=== PATIENT | female | born 1950 | race Caucasian/White ===

== ENCOUNTER → 2017-03-28 | Outpatient (CLI) | payer BC ==
[~2017-03-28] MED LIST: ASCO500T16 PO; HORMONE COMPOUND; HYDR5TAB PO; LPR50X PO; THY/30 PO; VITBC PO; WARF5TAB90 PO; [UNRECOGNIZED DRUG - OTHER] PO; [UNRECOGNIZED DRUG - REMARK]; losartan
--- NOTE | 2017-03-28 15:56 | MAMMOGRAPHY REPORT ---
BILATERAL DIGITAL SCREENING MAMMOGRAM WITH CAD: 03/28/2017 CLINICAL HISTORY: Patient presents for routine screening. S/P bilateral augmentation. TECHNIQUE: Bilateral CC and MLO views of the breasts, with and without implant displacement views we re obtained. Current study was also evaluated with a Computer Aided Detection (CAD) system. COMPARISON: Comparison is made to exams dated: 03/26/2016 mammogram, 03/24/2015 mammogram, 03/22/2014 mammogram, 03/21/2013 mammogram, 03/14/2012 mammogram, and 01/20/2011 mammogram - [facility]. BREAST COMPOSITION: The tissue of both breasts is extremely dense, which lowers the sensitivity of mammography. FINDINGS: Bilateral subpectoral silicone implants are stable compared to prior exams. There are sta ble benign-appearing microcalcifications in the breasts. No obvious new mass, architectural distort ion or cluster of suspicious microcalcifications is seen. IMPRESSION: ACR BI-RADS CATEGORY 1: NEGATIVE There is no mammographic evidence of malignancy. A 1 year screening mammogram is recommended. The p atient will receive written notification of the results. Approximately 10% of breast cancers are not detected with mammography. A negative mammographic repor t should not delay biopsy if a clinically suggestive mass is present. Juliet Montaño M.D. ay/:03/28/2017 15:44:26 Podiatric Technician: Gabrielle FERMIN(Elsa)(Lane)(BD), [facility] letter sent: Normal 1/2 BI-RADS Code: ACR BI-RADS Category 1: Negative
== END | disposition home or self-care (01) ==
LOC: C.MAMM 14:42
PROVIDERS: ATTEND Obstetrics & Gynecology
DX: Z12.31 Encounter for screening mammogram for malignant neoplasm of breast (principal)

== ENCOUNTER → 2017-04-26 | Outpatient (CLI) | payer BC | LOC: C.LAB 09:56 | PROVIDERS: ATTEND Nutritionist | DX: R53.83 Other fatigue (principal) ==

== ENCOUNTER → 2017-05-27 | Outpatient (CLI) | payer BC ==
--- NOTE | 2017-05-27 13:25 | DIAGNOSTIC IMAGING REPORT ---
RIGHT FOOT MIN 3 VIEWS ROUTINE, LEFT FOOT MIN 3 VIEWS ROUTINE CLINICAL HISTORY: PAIN IN BOTH FEET Right COMPARISON STUDY: None. FINDINGS: No acute fracture or dislocation within the right or left foot. Incidental note is made of a a few accessory ossicles within the mid feet. 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 Dominant cystic focus within the base of the proximal phalanx of the right first toe measures 7 mm. No significant soft tissue swelling. Prior internal fixation of a bimalleolar right ankle fracture. The hardware appears intact. IMPRESSION: 1. No fracture or dislocation within the right or left foot. 2. 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 Electronically signed by: Maximilian Ferro M.D. 05/27/2017 1:24 PM Dictated Date/Time: 05/27/2017 1:20 PM
== END | disposition home or self-care (01) ==
LOC: C.RAD1850 12:37
PROVIDERS: ATTEND Internal Medicine Rheumatology
DX: M79.671 Pain in right foot (principal); M79.672 Pain in left foot

== ENCOUNTER 2017-06-27 07:29 | Day surgery (SDC) | payer BC ==
[~2017-06-27] VITALS: Ht 177.8 cm; Wt 64.9 kg
[2017-06-27] VITALS (14 sets, daily range): BP systolic 123–157; BP diastolic 68–90; PULSE 59–77; TEMP 36–37; O2SAT 95–100; Ht 177.8 cm; Wt 64.9 kg
[~2017-06-27 07:29] MED LIST changes: -LPR50X PO; -WARF5TAB90 PO; -losartan
[2017-06-27] MEDS ORDERED: LIDOCAINE HCL 2% LOCAL 50ML VIAL INFIL ONE (07:30)
[2017-06-27] MEDS ORDERED: LIDOCAINE 4% W/AFRIN NASAL SOLN 4ML ONE (07:30)
[2017-06-27] MEDS ORDERED: MIDAZOLAM HCL 5 MG/ML 1 ML VIAL IV ONE (07:30)
[2017-06-27] MEDS ORDERED: LEVALBUTEROL 1.25MG/3ML NEB INH ONE (07:30)
[2017-06-27] MEDS ORDERED: FENTANYL CITRATE INJ 50 MCG/1 ML 2 ML VIAL IV ONE (07:30)
[2017-06-27] MEDS ORDERED: LPR50X PO (08:40)
[2017-06-27] MEDS ORDERED: losartan (08:40)
[2017-06-27] MEDS ORDERED: WARF5TAB90 PO (08:40)
--- NOTE | 2017-06-27 08:45 | History & Physical Bridge Note ---
H&P Re-Evaluation Bridge Note: I have examined the patient, reviewed the History & Physical and in the interval since the performance of the History & Physical I have noted the following changes of clinical significance: No changes noted
--- NOTE | 2017-06-27 08:46 | Procedure Note ---
Pre-Mod Sedation Assessment General Date of Moderate Sedation: Jun 27, 2017. Vital Signs: Vital Signs Past 12 Hours Date Time Temp Pulse Resp B/P (MAP) Pulse Ox O2 Delivery O2 Flow Rate FiO2 06/27/17 08:05 37 71 18 136/68 (90) 99 Room Air Pre-Sedation Airway Assessment Oral Cavity: WNL Short Thick Neck: No Hx of Sleep Apnea: No Smoking Status: Former Smoker Mallampati Classification: Class I ASA Classification: Class I Procedure Planning Contraindications-for Mod Sed: None Yes Notes The planned sedation has been discussed with the patient and consent obtained. I have identified the patient, determined the appropriateness of sedation and have assessed the patient immediately prior to the procedure. All medicine(s) and interventions are by my order.
[2017-06-27 09:05] LABS: PARTIAL THROMBOPLASTIN RATIO 1.1
[2017-06-27] MEDS ORDERED: NURSING VERBAL MED ORDER ONE (10:15)
[2017-06-27] MEDS ORDERED: FENTANYL CITRATE INJ 50 MCG/1 ML 2 ML VIAL IV SCH (10:45)
[2017-06-27] MEDS ORDERED: MIDAZOLAM HCL 5 MG/ML 1 ML VIAL IV SCH (10:45)
--- NOTE | 2017-06-27 11:25 | Discharge Instructions ---
Discharge Instructions Date of Service Jun 27, 2017. Admission Reason for Admission: Abnormal Cts Discharge Discharge Diagnosis / Problem: Same Discharge Goals Goal(s): Diagnostic testing, Therapeutic intervention Activity Recommendations Activity Limitations: as noted below Lifting Limitations: gradually increase as tolerated Exercise/Sports Limitations: rest today Shower/Bathe: no limitations Driving or Machine Use: resume 1 day after discharge . Instructions / Follow-Up Instructions / Follow-Up ACTIVITY RECOMMENDATIONS: * Rest today, resume normal activity tomorrow. * Do not drive today. SPECIAL CARE INSTRUCTIONS: * Call your physician if you experience any chest or shoulder pain, fever, coughing, spitting up blood (more than 2 teaspoons) or excessive shortness of breath. * Remove dressing from IV site (where needle was placed into the vein) after 2 hours. Apply a warm, moist compress to site if irritation occurs. Call physician if site becomes red or painful to touch. FOLLOW UP VISIT: * Keep any scheduled doctor appointments Current Hospital Diet Patient's current hospital diet: Discharge Diet Recommended Diet: Regular Diet Procedures Procedures Performed: Bronchoscopy Pending Studies Studies pending at discharge: yes List of pending studies: Bronchoscopy results Medical Emergencies . Who to Call and When: Medical Emergencies: If at any time you feel your situation is an emergency, please call 911 immediately. . Non-Emergent Contact Non-Emergency issues call your: Learning Engineer . . "Provider Documentation" section prepared by Eboni Allen. . VTE Core Measure Inpt VTE Proph given/why not?: Contraindicated
--- NOTE | 2017-06-27 13:28 | OPERATIVE REPORT ---
DATE OF OPERATION: 06/27/2017 PROCEDURE: Fiberoptic bronchoscopy with bronchoalveolar lavage. INDICATIONS: Diffuse ground-glass opacities with persistent respiratory symptomatology. ANESTHESIA PREOPERATIVELY: None. ANESTHESIA DURING THE PROCEDURE: 5 mg IV Versed, 20 mL 2% Xylocaine spray above and below the cords, and 4% viscous Xylocaine intranasally. DESCRIPTION OF PROCEDURE: Fiberoptic bronchoscope was inserted into the right naris with minimal difficulty and passed to the level of the true vocal cords. The cords appeared to approximate normally with phonation without evidence of lesions or paralysis. The area was anesthetized with 2% Xylocaine spray and the scope was then introduced into the trachea and right and left tracheobronchial tree. The robetro was sharp. The right main stem bronchus was found to be free of endobronchial lesions. The right upper lobe, the apical posterior, anterior segments, bronchus intermedius, right middle lobe and the medial and lateral segments and all basilar segments of right lower lobe were found to be free of endobronchial lesions. Mucopurulent secretion was lavaged from the right middle lobe and right lower lobe until clear with mucoid impaction clearly visible in multiple segmental bronchi. Left tracheobronchial tree was explored and no endobronchial lesion was seen. Left upper lobe, lingular subdivision and left lower lobe were free of endobronchial lesions, but the same degree of mild to moderate global inflammatory mucosal change was seen with mucus pitting and mucoid impaction seen involving several of the basilar segmental bronchi of the left lower lobe. The lingular area also showed the same degree of mucosal change and there was a protruding area that appeared to be cartilage, somewhat occluding the left upper lobe orifice and emanating from the medial wall. This was not felt to be neoplastic. I was able to circumvent this area and lavaged copiously the superior and inferior segments of the lingular and collected that for culture. The procedure was terminated. Two additional brushings were taken of that medial wall, entering into the lingular orifice and no bleeding was encountered. The procedure was terminated. The patient was then given a nebulizer treatment with Xopenex 1.25 mg and transferred to the medical treatment unit, hemodynamically stable with no signs of respiratory compromise. We will await microbiological and cytologic examination of the bronchial washings and brushings. I attest to the content of the Intraoperative Record and any orders documented therein. Any exception s are noted below.
[2017-07-22 15:11] LABS: HERPES SIMPLEX CULT SOURCE OTHER-LINGULAR BRONC; HERPES SIMPLEX VIRUS CULT NOT ISOLATED (NOT ISOLATED)
== END 2017-06-27 12:44 | disposition home or self-care (01) ==
LOC: C.ACU 07:29
PROVIDERS: ATTEND Internal Medicine Pulmonary Disease
DX: R91.8 Other nonspecific abnormal finding of lung field (principal); J14 Pneumonia due to Hemophilus influenzae; I48.91 Unspecified atrial fibrillation; M19.90 Unspecified osteoarthritis, unspecified site; J32.9 Chronic sinusitis, unspecified; I50.9 Heart failure, unspecified; E03.9 Hypothyroidism, unspecified; I10 Essential (primary) hypertension; K21.9 Gastro-esophageal reflux disease without esophagitis; I87.2 Venous insufficiency (chronic) (peripheral); Z82.49 Family history of ischemic heart disease and other diseases of the circulatory system; Z82.5 Family history of asthma and other chronic lower respiratory diseases; Z81.8 Family history of other mental and behavioral disorders; Z83.3 Family history of diabetes mellitus

== ENCOUNTER → 2017-07-05 | Outpatient (CLI) | payer BC ==
[~2017-07-05] MED LIST changes: +LPR50X PO; +WARF5TAB90 PO; +losartan
[2017-07-05 16:21] LABS: IMMUNOGLOBULN M 52.2 mg/dL (40-230)
[2017-07-09 13:35] LABS: ASPERGILLUS FLAVUS Negative (Negative); ASPERGILLUS FUMIGATUS Negative (Negative); ASPERGILLUS NIGER Negative (Negative); IMMUNOGLOBULIN E TC 24620E 53 KU/L (<115)
--- NOTE | 2017-07-12 06:42 | CODING QUERY MEDICAL NECESSITY ---
CQSUPPORTING DIAGNOSIS NEEDED A supporting diagnosis is required for the test/procedure performed on this patient in order for us to be reimbursed by the patient's insurance. Please provide a supporting diagnosis for the following test/procedure listed below next to the test name along with your signature. *If there is no additional diagnosis for this patient that would support the following test/procedure please document that below next to the test/procedure. Test(s)/Procedure(s) that require a supporting diagnosis: CHERELLE 07/05/17 ALLERGY TESTING Provider Signature: Date: Thank you Narcisa Thompson TM Information Management Once completed, please kindly fax back to [phone] For questions please call [phone]
== END | disposition home or self-care (01) ==
LOC: C.LAB1850 14:44
PROVIDERS: ATTEND Internal Medicine Pulmonary Disease
DX: I48.91 Unspecified atrial fibrillation (principal); R91.8 Other nonspecific abnormal finding of lung field; J47.9 Bronchiectasis, uncomplicated; I50.9 Heart failure, unspecified; J32.9 Chronic sinusitis, unspecified

== ENCOUNTER → 2017-09-02 | Outpatient (CLI) | payer BC ==
--- NOTE | 2017-09-02 15:13 | DIAGNOSTIC IMAGING REPORT ---
CHEST 2 VIEWS ROUTINE HISTORY: R91.[address] scan, lung COMPARISON: Chest 07/01/2015. Outside hospital chest CT 05/26/2017. FINDINGS: Linear density left lung base favors scarring or atelectasis. This is similar to the prior study. The heart is normal in size. No pleural effusions. No pneumothorax. Small nodular densities on the prior study may have resolved but are likely not well visualized by this modality. No new focal lung consolidations. IMPRESSION: Linear density at the left lung base likely represents scarring or atelectasis. Otherwise, no acute process within the chest Electronically signed by: Maximilian Ferro M.D. 09/02/2017 3:11 PM Dictated Date/Time: 09/02/2017 3:09 PM
--- NOTE | 2017-09-02 15:53 | ECHOCARDIOGRAM REPORT ---
*NOTICE TO RECEIVING [employer]Y This information is strictly Confidential and protected under [place] law. [place] law prohibits you from making any further disclosure of this information unless further disclosure is expressly permitted by the written consent of the person to whom it pertains or is authorized by law. A general authorization for the release of medical or other information is not sufficient for this purpose. Hospital accepts no responsibility if the information is made available to any other person, INCLUDING THE PATIENT. Interpretation Summary * Name: PHYLICIA CORNELIUS Study Date: 09/02/2017 01:50 PM BP: 134/76 mmHg * Patient Location: [facility] HR: 75 * : 1950 (M/d/yyyy) Gender: Female Height: 70 in * Age: 67 yrs Ethnicity: CA Weight: 147 lb * Ordering Physician: Tom Bazzi MD * Performed By: Kathi Aaron RDCS * * Reason For Study: Abnormal CT of chest * BSA: 1.8 m2 * -- Conclusions -- * 1. Normal left ventricular size and systolic function. EF 60-65%. No regional wall motion abnormalities. No left ventricular hypertrophy. * 2. Trace to mild mitral regurgitation. * 3. Trace aortic regurgitation. * 4. Normal estimated right ventricular systolic pressure; 33 mmHg. * 5. No prior study available for comparison. Procedure Details * A complete two-dimensional transthoracic echocardiogram was performed (2D, M-mode, Doppler and color flow Doppler). Left Ventricle * Normal left ventricular size and systolic function. EF 60-65%. No regional wall motion abnormalities. No left ventricular hypertrophy. Right Ventricle * The right ventricle is normal in size and function. * The right ventricular systolic function is normal as assessed by tricuspid annular plane systolic excursion (TAPSE) (normal >1.5 cm). Atria * The left atrial size is normal. * Right atrial size is normal. * There is no evidence of atrial septal defect, but resolution does not allow assessment for a patent foramen ovale. Mitral Valve * The mitral valve leaflets appear normal. There is no evidence of stenosis, fluttering, or prolapse. * Trace to mild mitral regurgitation. Tricuspid Valve * The tricuspid valve is not well visualized, but is grossly normal. * There is no tricuspid stenosis. * There is trace tricuspid regurgitation. Aortic Valve * The aortic valve is trileaflet. * No hemodynamically significant valvular aortic stenosis. * Trace aortic regurgitation. Pulmonic Valve * The pulmonary valve is inadequately visualized, but the Doppler data is adequate for interpretation. * There is no pulmonic valvular stenosis. * Trace pulmonic valvular regurgitation. Great Vessels * The aortic root is normal size. * Ascending aorta of normal dimension * Aortic arch of normal dimension. Pericardium/Pleural * There is no pericardial effusion. Great Vessels * Mildly dilated IVC with normal inspiratory collapse. MMode 2D Measurements and Calculations IVSd 0.98 cm LVIDd 3.7 cm LVIDs 2.6 cm LVPWd 1.0 cm IVS/LVPW 0.98 FS 30.2 % EDV(Teich) 59.6 ml ESV(Teich) 24.8 ml EF(Teich) 58.4 % EDV(cubed) 52.3 ml ESV(cubed) 17.8 ml EF(cubed) 66.0 % LV mass(C)d 113.1 grams LV mass(C)dI 61.8 grams/m\S\2 SV(Teich) 34.8 ml SI(Teich) 19.0 ml/m\S\2 SV(cubed) 34.5 ml SI(cubed) 18.8 ml/m\S\2 Ao root diam 3.4 cm Ao root area 9.1 cm\S\2 ACS 1.8 cm LA dimension 2.7 cm asc Aorta Diam 2.8 cm LA/Ao 0.80 LVOT diam 2.0 cm LVOT area 3.1 cm\S\2 LVAd ap4 19.8 cm\S\2 LVLd ap4 6.7 cm EDV(MOD-sp4) 48.9 ml EDV(sp4-el) 49.2 ml LVAs ap4 10.8 cm\S\2 LVLs ap4 5.9 cm ESV(MOD-sp4) 16.8 ml ESV(sp4-el) 17.0 ml EF(MOD-sp4) 65.8 % EF(sp4-el) 65.4 % LVAd ap2 16.9 cm\S\2 LVLd ap2 6.6 cm EDV(MOD-sp2) 34.6 ml EDV(sp2-el) 37.0 ml LVAs ap2 8.3 cm\S\2 LVLs ap2 5.6 cm ESV(MOD-sp2) 10.1 ml ESV(sp2-el) 10.4 ml EF(MOD-sp2) 70.7 % EF(sp2-el) 71.9 % LVLd %diff -2.83 % EDV(MOD-bp) 41.4 ml LVLs %diff -5.13 % ESV(MOD-bp) 12.9 ml EF(MOD-bp) 68.9 % SV(MOD-sp4) 32.2 ml SI(MOD-sp4) 17.6 ml/m\S\2 SV(MOD-sp2) 24.5 ml SI(MOD-sp2) 13.4 ml/m\S\2 SV(MOD-bp) 28.6 ml SI(MOD-bp) 15.6 ml/m\S\2 SV(sp4-el) 32.2 ml SI(sp4-el) 17.6 ml/m\S\2 SV(sp2-el) 26.6 ml SI(sp2-el) 14.5 ml/m\S\2 Doppler Measurements and Calculations MV E max hank 97.6 cm/sec MV A max hank 80.9 cm/sec MV E/A 1.2 MV dec time 0.20 sec Ao V2 max 105.7 cm/sec Ao max PG 4.5 mmHg Ao max PG (full) 1.2 mmHg GILA(V,A) 2.7 cm\S\2 GILA(V,D) 2.7 cm\S\2 AI max hank 217.2 cm/sec AI max PG 18.9 mmHg AI dec slope 74.4 cm/sec\S\2 AI P1/2t 855.3 msec LV V1 max PG 3.2 mmHg LV V1 max 90.1 cm/sec PA V2 max 75.9 cm/sec PA max PG 2.3 mmHg PA acc slope 360.3 cm/sec\S\2 PA acc time 0.20 sec TR max hank 250.4 cm/sec RVSP(TR) 33.1 mmHg RAP systole 8.0 mmHg PA pr(Accel) -10.58 mmHg
== END | disposition home or self-care (01) ==
LOC: C.CPL 13:40
PROVIDERS: ATTEND Internal Medicine Pulmonary Disease
DX: R91.8 Other nonspecific abnormal finding of lung field (principal)

== ENCOUNTER → 2017-12-08 | Outpatient (CLI) | payer BC ==
--- NOTE | 2017-12-08 13:07 | DIAGNOSTIC IMAGING REPORT ---
ULTRASOUND SOFT TISSUES NECK CLINICAL HISTORY: Left supraclavicular mass. COMPARISON STUDY: Chest CT dated 05/26/2017. FINDINGS: Real-time, grayscale, and color flow sonography of the left supraclavicular soft tissues is performed at a site of palpable concern. The left supraclavicular soft tissues are normal in appearance. No mass lesion or lymphadenopathy is seen. IMPRESSION: Unremarkable sonographic assessment of the left supraclavicular soft tissues. Electronically signed by: Ramón Colin M.D. 12/08/2017 1:05 PM Dictated Date/Time: 12/08/2017 1:04 PM
== END | disposition home or self-care (01) ==
LOC: C.ULTRBC 12:29
PROVIDERS: ATTEND Family Medicine
DX: R22.2 Localized swelling, mass and lump, trunk (principal)

== ENCOUNTER → 2018-01-24 | Outpatient (CLI) | payer BC ==
--- NOTE | 2018-01-24 15:05 | DIAGNOSTIC IMAGING REPORT ---
CHEST 2 VIEWS ROUTINE CLINICAL HISTORY: R91.[address] scan, [id number] COMPARISON STUDY: 09/02/2017 FINDINGS: The cardiac and mediastinal contours are normal. There is no evidence of focal pulmonary consolidation. There is no evidence of failure. No pleural effusions are visualized.[ IMPRESSION: No active disease in the chest. Electronically signed by: Juan Francisco Bridges M.D. 01/24/2018 3:03 PM Dictated Date/Time: 01/24/2018 3:03 PM
== END | disposition home or self-care (01) ==
LOC: C.RAD1850 14:54
PROVIDERS: ATTEND Physician Assistant
DX: R91.8 Other nonspecific abnormal finding of lung field (principal)

== ENCOUNTER → 2018-02-28 | Outpatient (CLI) | payer BC | END | disposition home or self-care (01) | LOC: C.PAPS 14:07 | PROVIDERS: ATTEND Obstetrics & Gynecology | DX: Z12.4 Encounter for screening for malignant neoplasm of cervix (principal) ==

== ENCOUNTER → 2018-04-18 | Outpatient (CLI) | payer BC ==
--- NOTE | 2018-04-19 14:22 | MAMMOGRAPHY REPORT ---
BILATERAL DIGITAL SCREENING MAMMOGRAM TOMOSYNTHESIS WITH CAD: 04/18/2018 CLINICAL HISTORY: Routine screening. Patient has no complaints. TECHNIQUE: Bilateral CC and MLO views of the breasts with and without implant displaced views were ob tained. Tomosynthesis was also performed on the implant displaced views. Current study was also mimi luated with a Computer Aided Detection (CAD) system. COMPARISON: Comparison is made to exams dated: 03/28/2017 mammogram, 03/26/2016 mammogram, 03/24/2015 ma mmogram, 03/22/2014 mammogram, 03/21/2013 mammogram, and 03/14/2012 mammogram - [facility]ter. BREAST COMPOSITION: The tissue of both breasts is extremely dense, which lowers the sensitivity of m ammography. FINDINGS: Bilateral subpectoral silicone implants are stable comparing to prior exams. No obvious ne w breast mass, asymmetry, architectural distortion or cluster of microcalcifications is seen. No foc al skin thickening or nipple retraction. IMPRESSION: ACR BI-RADS CATEGORY 1: NEGATIVE Stable bilateral mammograms, without mammographic evidence of malignancy. A 1 year screening mammogra m is recommended. The patient will receive written notification of the results. Approximately 10% of breast cancers are not detected with mammography. A negative mammographic report should not delay biopsy if a clinically suggestive mass is present. Juliet Montaño M.D. ay/:04/18/2018 15:01:48 Senior Safety Management Consultant: Priya FERMIN(Elsa)(Lane), [facility] letter sent: Normal 1/2 BI-RADS Code: ACR BI-RADS Category 1: Negative
--- NOTE | 2018-04-19 14:22 | MAMMOGRAPHY REPORT ---
ULTRASOUND OF BOTH BREASTS: 04/18/2018 CLINICAL HISTORY: Additional screening given extremely dense breasts mammographically and family hist ory of breast cancer = mother. COMPARISON: Comparison is made to exams dated: 03/14/2012 mammogram, 03/21/2013 mammogram, 03/22/2014 m ammogram, 03/24/2015 mammogram, 03/26/2016 mammogram, and 03/28/2017 mammogram - [facility] nter. TECHNIQUE: Real-time high resolution sonographic evaluation was performed throughout each breast and the right and left axilla. FINDINGS: The breast parenchymal echotexture is heterogeneousdense. There are morphologically roberto l lymph nodes identified in the right and left axilla. Within the breast parenchyma, no suspicious s olid or cystic masses identified. No focal skin thickening appreciated. No evidence of a drainable fluid collection. IMPRESSION: ACR BI-RADS CATEGORY 2: BENIGN There is no sonographic evidence of malignancy in the breasts. No suspicious axillary lymphadenopath y identified on ultrasound. A 1 year screening mammogram is recommended. These results and recommendations were discussed with th e patient at the time of the exam. Juliet Montaño M.D. ay/:04/18/2018 15:04:38 Irrigation Foreman: Dr. Juliet Montaño, [facility] letter sent: Normal 1/2 BI-RADS Code: ACR BI-RADS Category 2: Benign
== END | disposition home or self-care (01) ==
LOC: C.MAMM 13:42
PROVIDERS: ATTEND Obstetrics & Gynecology
DX: Z12.31 Encounter for screening mammogram for malignant neoplasm of breast (principal); Z98.82 Breast implant status

== ENCOUNTER 2020-06-29 10:04 | Inpatient (IN) ==
[2020-06-29] MEDS ORDERED: SODIUM CHLORIDE 0.9% 1000ML 500 ML IV ONE (10:50)
--- NOTE | 2020-06-29 10:50 | Emergency Department Note ---
History of Present Illness General Chief complaint: Weakness Stated complaint: FATIGUE-COUGHING UP BLOOD Time Seen by Provider: 06/29/20 10:21 Source: patient Mode of arrival: ambulatory Limitations: no limitations History of Present Illness Provider complaint: Fever, hemoptysis Onset (ago): day(s) 1 Associated symptoms: + cough, + fever/chills, + loss of appetite, + malaise and + shortness of breath; no chest pain, no headaches, no nausea/vomiting and no syncope Treatments prior to arrival: none This is a 69-year-old female who presents from home complaining of subjective fevers and chills, generalized weakness, increased cough productive of bloody sputum. Patient states she first began feeling ill yesterday. Patient states she has a history of bronchiectasis and follows with Dr. Bazzi. She does not wear home oxygen or use chronic steroids. Patient does have other inhalers that she uses. Patient states she also has a history of paroxysmal atrial fibrillation and follows with Dr. Bazan. Patient states she uses Coumadin. Patient denies any prior history of hemoptysis. No recent sick contacts and no known exposure to any coronavirus positive individual. No recent change in her medications or activity. Patient states she last saw Dr. Bazan in April and had an echo at that time. Patient states she cannot tell when she flips in or out of atrial fibrillation. She denies any commenting palpitations or chest pain/pressure. Patient denies any abdominal pain, nausea or vomiting. States her appetite is been slightly decreased. No change in urine or bowel movements. Patient denies any lower extremity edema. No accompanying rash or sores. Patient states she has a chronic rhinorrhea and postnasal drip. No recent sinus pressure or nasal congestion. No recent sore throat. No taste of blood in her oropharynx, no recent dental trauma or procedures. No recent nosebleeds. Pt seen during a time of high acuity and national emergency pandemic while wearing PPE. Home Medications Home Medications Medication Instructions Recorded Confirmed Type ascorbic acid (vitamin C) 500 mg 500 mg PO QAM tab 09/10/19 06/29/20 History tablet cholecalciferol (vitamin D3) 50 2,000 unit PO QAM cap 09/10/19 06/29/20 History mcg (2,000 unit) capsule coenzyme Q10 100 mg capsule 100 mg PO QAM cap 09/10/19 06/29/20 History hydrocortisone 5 mg tablet 10 - 15 mg PO QAM tab 09/10/19 06/29/20 History levothyroxine 100 mcg tablet 100 mcg PO QAM tab 09/10/19 06/29/20 History liothyronine 5 mcg tablet 20 mcg PO QAM tab 09/10/19 06/29/20 History montelukast 10 mg tablet 10 mg PO QAM #1 tab 09/10/19 06/29/20 History omega-3 acid ethyl esters 1 gram 2 g PO QAM cap 09/10/19 06/29/20 History capsule testosterone 50 mg/5 gram (1 %) 1 pkt TD DAILY 09/10/19 06/29/20 History transdermal gel vitamin B complex 1 tab PO QAM 09/10/19 06/29/20 History warfarin 5 mg tablet 5 mg PO QAM tab 09/10/19 06/29/20 History zinc gluconate 50 mg tablet 50 mg PO QAM tab 09/10/19 06/29/20 History diltiazem HCl 180 mg 240 mg PO QAM cap 05/05/20 06/29/20 History capsule,extended release 24 hr clobetasol 0.05 % topical ointment 1 appln TOP BID #60 gm 06/04/20 06/29/20 Rx estradiol 1 g VAGINAL [id number] 06/29/20 06/29/20 History fluticasone furoate-vilanterol 1 puffs INHALATION QAM 06/29/20 06/29/20 History Allergies Allergy/AdvReac Type Severity Reaction Status Date / Time No Known Allergies Allergy Verified 06/29/20 12:08 Past Med/Surg History Medical History Adrenal insufficiency Allergic rhinitis Bronchiectasis Chilblains Chronic anticoagulation Chronic sinusitis COPD (chronic obstructive pulmonary disease) Hemoptysis Hypothyroidism Indeterminate pulmonary nodules Paroxysmal atrial fibrillation Surgical History History of ankle surgery History of breast augmentation History of hysterectomy History of nasal surgery septal deviation repair History of sinus surgery Family History Mother Heart disease Father COPD (chronic obstructive pulmonary disease) Grandmother (Maternal) Diabetes Family/Other Schizophrenia sibling Social History Smoking Status: Former smoker Tobacco Type: Cigarettes Years Smoked: 8; Cigarettes Per Day: 1; Number of Years Since Quit: 42; Second Hand Exposure: No; Hx Alcohol Use: Yes Alcohol type: wine Alcohol Intake Frequency: 2-3 x/Week Hx Substance Use: No Preferred Language: Sudanese Communication Ability: Effective Beliefs That Will Affect Care: None marital status: Life Partner Current Living Situation: Alone 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 and A total of 10 systems reviewed and were otherwise negative Physical Exam Vital Signs Vital Signs - 24 hr 06/29/20 10:11 06/29/20 10:20 06/29/20 11:13 Temperature 36.5 C Temperature Source Oral Pulse Rate 129 H Pulse Rate [Left Finger] Respiratory Rate 20 Respiratory Effort / Characteristics Non-Labored Spontaneous Respiratory Depth Normal Respiratory Pattern Regular Blood Pressure 120/62 Blood Pressure [Left Arm] Blood Pressure Mean 81 Blood Pressure Mean [Left Arm] Blood Pressure Position Sitting Pulse Oximetry 95 96 Oxygen Delivery Method Room Air Room Air Sepsis Recent Fever Within 48 Hours No Sepsis New/Unexplained Change in Mental Status N/A Sepsis Action Taken by Nursing No Action Required 06/29/20 11:36 06/29/20 13:04 Temperature Temperature Source Pulse Rate Pulse Rate [Left Finger] 83 87 Respiratory Rate 24 20 Respiratory Effort / Characteristics Non-Labored Spontaneous Respiratory Depth Normal Respiratory Pattern Regular Blood Pressure Blood Pressure [Left Arm] 115/59 L 113/58 L Blood Pressure Mean Blood Pressure Mean [Left Arm] 77 76 Blood Pressure Position Pulse Oximetry 97 99 Oxygen Delivery Method Room Air Room Air Sepsis Recent Fever Within 48 Hours Sepsis New/Unexplained Change in Mental Status Sepsis Action Taken by Nursing GENERAL: alert, well appearing, well nourished, no distress, non-toxic EYE EXAM: normal conjunctiva, PERRL and EOM's grossly intact OROPHARYNX: no exudate, no erythema, lips, buccal mucosa, and tongue normal and mucous membranes are moist NECK: supple, no nuchal rigidity, no adenopathy, non-tender LUNGS: Clear but decreased to auscultation. Normal chest wall mechanics, no w/r/r HEART: no murmurs, S1 normal and S2 normal, tachycardic at 118 on telemetry, irregular on auscultation ABDOMEN: abdomen soft, non-tender, normo-active bowel sounds, no masses, no rebound or guarding. BACK: Back is symmetrical on inspection and there is no deformity, no midline tenderness, no CVA tenderness. SKIN: no rashes and no bruising UPPER EXTREMITIES: upper extremities are grossly normal. FROM, nml pulses b/l. LOWER EXTREMITIES: No pitting edema. FROM, nml pulses b/l. NEURO EXAM: Normal sensorium, cranial nerves II-XII grossly intact, normal speech, no gross weakness of arms, no gross weakness of legs. Gross sensation intact. No ataxia, ambulatory with a steady gait. Course Course 1332: Discussed all results with patient. Vital signs stable. Patient now back in a normal sinus rhythm in the 90s. 1726: Case discussed with Dr. Ricks. COVID added originally, will call lab to see if it can be changed to a rapid. Administered Medications Acetaminophen (Tylenol) 650 mg PO Q4H PRN PRN Reason: Pain or Fever Stop: 07/29/20 19:21 Last Admin: 07/01/20 21:08 Dose: 650 mg Documented by: [id number] Admin: 07/01/20 00:13 Dose: 650 mg Documented by: [id number] Admin: 06/30/20 00:20 Dose: 650 mg Documented by: [id number] Albuterol (Ventolin 0.5% 2.5mg/0.5ml) 2.5 mg NEB Q6R PRN PRN Reason: Shortness Of Breath Stop: 07/31/20 12:59 Last Admin: 07/01/20 19:41 Dose: 2.5 mg Documented by: [id number] Ascorbic Acid (Vitamin C) 500 mg PO QAM [facility] Stop: 07/30/20 08:59 Last Admin: 07/01/20 09:17 Dose: 500 mg Documented by: [id number] Admin: 06/30/20 09:05 Dose: 500 mg Documented by: [id number] Azithromycin (Zithromax) 250 mg PO DAILY@1700 [facility] Stop: 07/06/20 16:59 Last Admin: 07/01/20 17:11 Dose: 250 mg Documented by: [id number] Admin: 06/30/20 17:27 Dose: 250 mg Documented by: [id number] Clobetasol Propionate (Clobetasol Propionate Oint) 1 appln EXT MoWeFr@0900,2100 [facility] Stop: 07/30/20 08:59 Last Admin: 06/30/20 21:56 Dose: Not Given Documented by: [id number] Admin: 06/30/20 09:22 Dose: Not Given Documented by: [id number] Diltiazem HCl (Cardizem Cd) 240 mg PO QAM [facility] Stop: 07/30/20 08:59 Last Admin: 07/01/20 07:39 Dose: 240 mg Documented by: [id number] Admin: 06/30/20 09:06 Dose: 240 mg Documented by: [id number] Fish Oil (Providence-3 (Purified Fish Oil)) 2 gm PO QAM [facility] Stop: 07/30/20 08:59 Last Admin: 07/01/20 09:18 Dose: Not Given Documented by: [id number] Admin: 06/30/20 09:23 Dose: Not Given Documented by: [id number] Cefepime HCl 2,000 mg/ Syringe 20 mls @ 5.5 mls/min IV Q8 [facility]; Protocol Stop: 07/06/20 21:59 Last Admin: 07/01/20 20:57 Dose: 5.5 mls/min Documented by: [id number] Admin: 07/01/20 14:22 Dose: 5.5 mls/min Documented by: [id number] Admin: 07/01/20 06:07 Dose: 5.5 mls/min Documented by: [id number] Admin: 06/30/20 21:56 Dose: 5.5 mls/min Documented by: [id number] Admin: 06/30/20 14:12 Dose: 5.5 mls/min Documented by: [id number] Admin: 06/30/20 06:08 Dose: 5.5 mls/min Documented by: [id number] Admin: 06/29/20 21:10 Dose: 5.5 mls/min Documented by: [id number] Levothyroxine Sodium (Synthroid) 100 mcg PO DAILYBB [facility] Stop: 07/30/20 06:29 Last Admin: 07/01/20 06:11 Dose: 100 mcg Documented by: [id number] Admin: 06/30/20 06:10 Dose: 100 mcg Documented by: [id number] Miscellaneous (Order Awaiting Action) 1 ea N/A QS [facility] Stop: 07/30/20 00:00 Last Admin: 07/01/20 23:02 Dose: Not Given Documented by: [id number] Admin: 07/01/20 15:47 Dose: Not Given Documented by: [id number] Admin: 07/01/20 07:37 Dose: Not Given Documented by: [id number] Admin: 06/30/20 23:29 Dose: Not Given Documented by: [id number] Admin: 06/30/20 16:36 Dose: Not Given Documented by: [id number] Admin: 06/30/20 09:08 Dose: Not Given Documented by: [id number] Admin: 06/29/20 21:48 Dose: Not Given Documented by: [id number] Miscellaneous (Order Awaiting Action) 1 ea N/A QS [facility] Stop: 07/30/20 00:00 Last Admin: 07/01/20 23:02 Dose: Not Given Documented by: [id number] Admin: 07/01/20 15:47 Dose: Not Given Documented by: [id number] Admin: 07/01/20 07:38 Dose: Not Given Documented by: [id number] Admin: 06/30/20 23:29 Dose: Not Given Documented by: [id number] Admin: 06/30/20 16:36 Dose: Not Given Documented by: [id number] Admin: 06/30/20 09:08 Dose: Not Given Documented by: [id number] Admin: 06/29/20 21:48 Dose: Not Given Documented by: [id number] Montelukast Sodium (Singulair) 10 mg PO QAM [facility] Stop: 07/30/20 08:59 Last Admin: 07/01/20 07:41 Dose: 10 mg Documented by: [id number] Admin: 06/30/20 09:06 Dose: 10 mg Documented by: [id number] Hydrocortisone 5mg - (Patient's Own Med) 1 ea PO DAILY@1400 [facility] Stop: 07/30/20 13:59 Last Admin: 07/01/20 14:22 Dose: 5 mg Documented by: [id number] Admin: 06/30/20 14:13 Dose: 5 mg Documented by: [id number] Hydrocortisone: Non- Formulary Patient's Own Med 3 ea PO DAILYBB [facility] Stop: 07/31/20 06:29 Last Admin: 07/01/20 06:12 Dose: 15 mg Documented by: [id number] Saccharomyces Boulardii (Florastor) 250 mg PO DAILY [facility] Stop: 07/31/20 17:59 Last Admin: 07/01/20 20:56 Dose: 250 mg Documented by: [id number] Sodium Chloride (Sodium Chlor 7% Neb Solution) 4 ml NEB BIDR [facility] Stop: 07/31/20 18:59 Last Admin: 07/01/20 19:40 Dose: 4 ml Documented by: [id number] Vitamin B Complex (Vitamin B Complex) [facility] Stop: 07/30/20 08:59 Last Admin: 07/01/20 09:17 Dose: 1 tab Documented by: [id number] Admin: 06/30/20 09:05 Dose: 1 tab Documented by: [id number] Vitamin D (Vitamin D3) 2,000 units [facility] Stop: 07/30/20 08:59 Last Admin: 07/01/20 09:17 Dose: 2,000 units Documented by: [id number] Admin: 06/30/20 09:05 Dose: 2,000 units Documented by: [id number] Warfarin Sodium (Coumadin) 2.5 mg PO MoFr@1600 [facility] Stop: 07/30/20 15:59 Last Admin: 06/30/20 09:07 Dose: 2.5 mg Documented by: [id number] Warfarin Sodium (Coumadin) 5 mg PO SuTuWeThSa@1600 [facility] Stop: 07/31/20 15:59 Last Admin: 07/01/20 15:55 Dose: 5 mg Documented by: [id number] Zinc Sulfate (Zinc Sulfate) 220 [facility] Stop: 07/30/20 08:59 Last Admin: 07/01/20 09:17 Dose: 220 mg Documented by: [id number] Admin: 06/30/20 09:05 Dose: 220 mg Documented by: [id number] Discontinued Medications Albuterol (Ventolin Hfa) 2 puffs INH Q6R [facility] Stop: 07/29/20 19:21 Last Admin: 07/01/20 07:00 Dose: 2 puffs Documented by: [id number] Admin: 07/01/20 00:16 Dose: 2 puffs Documented by: [id number] Admin: 06/30/20 19:39 Dose: 2 puffs Documented by: [id number] Admin: 06/30/20 12:59 Dose: 2 puffs Documented by: [id number] Admin: 06/30/20 07:12 Dose: 2 puffs Documented by: [id number] Admin: 06/30/20 01:09 Dose: 2 puffs Documented by: [id number] Admin: 06/29/20 20:18 Dose: 2 puffs Documented by: [id number] Azithromycin (Zithromax) 500 mg PO NOW ONE Stop: 06/29/20 15:38 Last Admin: 06/29/20 17:15 Dose: 500 mg Documented by: [id number] Ceftriaxone Sodium (Rocephin) Confirm Administered Dose 1,000 mg IV .STK-MED ONE Stop: 06/29/20 17:14 Last Admin: 06/29/20 17:16 Dose: Not Given Documented by: [id number] Fluticasone/Vilanterol (Breo Ellipta 200/25 Mcg Inh) 1 puffs INH QAM [facility] Stop: 07/30/20 08:59 Last Admin: 07/01/20 07:39 Dose: 1 puffs Documented by: [id number] Admin: 06/30/20 09:23 Dose: 1 puffs Documented by: [id number] Sodium Chloride (Nss 1000ml) 500 mls @ 999 mls/hr IV .Q31M ONE Stop: 06/29/20 11:20 Last Infusion: 06/29/20 12:54 Dose: 0 mls/hr Documented by: [id number] Admin: 06/29/20 11:56 Dose: 999 mls/hr Documented by: [id number] Cefepime HCl (Maxipime) 2,000 mg in 20 mls @ 5 mls/min IV NOW STA Stop: 06/29/20 13:18 Last Admin: 06/29/20 13:45 Dose: 5 mls/min Documented by: [id number] Sodium Chloride (Nss 1000ml) 1,000 mls @ 125 mls/hr IV .Q8H [facility] Stop: 07/29/20 13:44 Last Infusion: 06/29/20 19:51 Dose: 0 mls/hr Documented by: [id number] Admin: 06/29/20 13:46 Dose: 125 mls/hr Documented by: [id number] Ceftriaxone Sodium 1,000 mg/ (Dextrose) 50 mls @ 100 mls/hr IV Q24H [facility]; Protocol Stop: 07/06/20 17:03 Last Infusion: 06/29/20 19:50 Dose: 0 mls/hr Documented by: [id number] Admin: 06/29/20 17:15 Dose: 100 mls/hr Documented by: [id number] Potassium Chloride/Sodium Chloride (Normal Saline W/20 Meq Kcl) 20 meq in 1,000 mls @ 100 mls/hr IV .Q10H [facility] Stop: 06/30/20 02:59 Last Infusion: 06/30/20 04:29 Dose: 0 mls/hr Documented by: [id number] Admin: 06/29/20 17:16 Dose: 100 mls/hr Documented by: [id number] Potassium Chloride/Sodium Chloride (Normal Saline W/20 Meq Kcl) 20 meq in 1,000 mls @ 100 mls/hr IV .Q10H [facility] Stop: 07/30/20 02:59 Last Infusion: 06/30/20 16:00 Dose: 0 mls/hr Documented by: [id number] Admin: 06/30/20 14:13 Dose: 100 mls/hr Documented by: [id number] Infusion: 06/30/20 14:13 Dose: 100 mls/hr Documented by: [id number] Admin: 06/30/20 04:29 Dose: 100 mls/hr Documented by: [id number] Liothyronine Sodium (Cytomel) 20 mcg PO QAM [facility] Stop: 07/30/20 08:59 Last Admin: 07/01/20 06:07 Dose: 20 mcg Documented by: [id number] Admin: 06/30/20 06:16 Dose: 20 mcg Documented by: [id number] Menthol (Nice) 1 collin BUCCAL NOW STA Stop: 06/29/20 20:59 Last Admin: 06/29/20 21:10 Dose: 1 collin Documented by: [id number] Hydrocortisone 5mg - (Patient's Own Med) 3 ea PO QAM [facility] Stop: 07/30/20 08:59 Last Admin: 06/30/20 09:22 Dose: 15 mg Documented by: [id number] Potassium Chloride (Klor-Con M20) 40 meq PO NOW STA Stop: 06/29/20 17:05 Last Admin: 06/29/20 17:15 Dose: 40 meq Documented by: [id number] Potassium Chloride (Klor-Con M10) 30 meq PO BID [facility] Stop: 07/01/20 21:01 Last Admin: 07/01/20 20:57 Dose: 30 meq Documented by: [id number] Admin: 07/01/20 11:50 Dose: 30 meq Documented by: [id number] Medical Decision Making Differential Diagnosis Differential diagnoses includes but is not limited to pneumonia, bronchitis, CO PD/Asthma exacerbation, pneumothorax, pulmonary embolism, congestive heart failure, acute coronary syndrome Medical Records Attestation: I reviewed the patient's medical records. Home Medications Current Medication List: was personally reviewed by me Laboratory Data Attestation: I reviewed the patient's lab results. Result diagrams: 07/01/20 07:37 07/01/20 07:37 Lab Results 06/29/20 06/29/20 06/29/20 Range/Units 11:15 11:15 11:20 WBC 19.46 H (4.8-10.8) K/uL RBC 4.20 (4.2-5.4) M/uL Hgb 13.5 (12.0-16.0) g/dL Hct 39.5 (37-47) % MCV 94.0 (80-100) fL MCH 32.1 (25-34) pg MCHC 34.2 (32-36) g/dL RDW Std Deviation 45.5 (36.4-46.3) fL RDW Coeff of Eve 13.3 (11.5-14.5) % Plt Count 331 (130-400) K/uL MPV 10.3 (7.4-10.4) fL Immature Gran % (Auto) 0.4 % Neut % (Auto) 88.0 % Lymph % (Auto) 3.7 % [place] % (Auto) 7.7 % Eos % (Auto) 0.1 % Baso % (Auto) 0.1 % Neut # (Auto) 17.14 H (1.4-6.5) K/uL Lymph # (Auto) 0.72 L (1.2-3.4) K/uL [place] # (Auto) 1.49 H (0.11-0.59) K/uL Eos # (Auto) 0.01 (0-0.5) K/uL Baso # (Auto) 0.02 (0-0.2) K/uL Immature Gran # (Auto) 0.08 H (0.00-0.02) K/uL PT (9.0-12.0) Seconds INR (0.9-1.1) APTT (21.0-31.0) Seconds PTT Ratio Sodium (136-145) mmol/L Potassium (3.5-5.1) mmol/L Chloride (98-107) mmol/L Carbon Dioxide (21-32) mmol/L Anion Gap (3-11) BUN (7-18) mg/dl Creatinine (0.6-1.2) mg/dl Est Cr Clr Drug Dosing ml/min Est GFR ( Amer) Est GFR (Non-Af Amer) BUN/Creatinine Ratio (10-20) Glucose (70-99) mg/dl Lactate (0.4-2.0) mmol/L Calcium (8.5-10.1) mg/dl Magnesium (1.8-2.4) mg/dl Total Bilirubin (0.2-1) mg/dl AST (15-37) U/L ALT (12-78) U/L Alkaline Phosphatase (45-117) U/L Troponin I (0-0.045) ng/ml Total Protein (6.4-8.2) gm/dl Albumin (3.4-5.0) gm/dl Globulin (2.5-4.0) gm/dl Albumin/Globulin Ratio (0.9-2) Procalcitonin (0-0.5) ng/ml TSH (0.300-4.500) uIu/ml Free T4 (0.8-1.6) ng/dl COVID-19 PCR NEGATIVE (Negative) Nasopharyn COVID-19 PCR Cancelled Sputum COVID-19 PCR Cancelled 06/29/20 06/29/20 06/29/20 Range/Units 11:20 11:20 11:20 WBC (4.8-10.8) K/uL RBC (4.2-5.4) M/uL Hgb (12.0-16.0) g/dL Hct (37-47) % MCV (80-100) fL MCH (25-34) pg MCHC (32-36) g/dL RDW Std Deviation (36.4-46.3) fL RDW Coeff of Eve (11.5-14.5) % Plt Count (130-400) K/uL MPV (7.4-10.4) fL Immature Gran % (Auto) % Neut % (Auto) % Lymph % (Auto) % [place] % (Auto) % Eos % (Auto) % Baso % (Auto) % Neut # (Auto) (1.4-6.5) K/uL Lymph # (Auto) (1.2-3.4) K/uL [place] # (Auto) (0.11-0.59) K/uL Eos # (Auto) (0-0.5) K/uL Baso # (Auto) (0-0.2) K/uL Immature Gran # (Auto) (0.00-0.02) K/uL PT 25.4 H (9.0-12.0) Seconds INR 2.5 H (0.9-1.1) APTT 58.5 H* (21.0-31.0) Seconds PTT Ratio 2.1 Sodium 132 L (136-145) mmol/L Potassium 3.3 L (3.5-5.1) mmol/L Chloride 97 L (98-107) mmol/L Carbon Dioxide 27 (21-32) mmol/L Anion Gap 8.0 (3-11) BUN 11 (7-18) mg/dl Creatinine 0.79 (0.6-1.2) mg/dl Est Cr Clr Drug Dosing 64.7 ml/min Est GFR ( Amer) 87.3 Est GFR (Non-Af Amer) 75.3 BUN/Creatinine Ratio 13.6 (10-20) Glucose 104 H (70-99) mg/dl Lactate (0.4-2.0) mmol/L Calcium 9.0 (8.5-10.1) mg/dl Magnesium 2.0 (1.8-2.4) mg/dl Total Bilirubin 2.0 H (0.2-1) mg/dl AST 16 (15-37) U/L ALT 18 (12-78) U/L Alkaline Phosphatase 84 (45-117) U/L Troponin I < 0.015 (0-0.045) ng/ml Total Protein 7.1 (6.4-8.2) gm/dl Albumin 3.2 L (3.4-5.0) gm/dl Globulin 3.9 (2.5-4.0) gm/dl Albumin/Globulin Ratio 0.8 L (0.9-2) Procalcitonin 0.75 H (0-0.5) ng/ml TSH 0.035 L (0.300-4.500) uIu/ml Free T4 1.09 (0.8-1.6) ng/dl COVID-19 PCR (Negative) Nasopharyn COVID-19 PCR Sputum COVID-19 PCR 06/29/20 Range/Units 12:20 WBC (4.8-10.8) K/uL RBC (4.2-5.4) M/uL Hgb (12.0-16.0) g/dL Hct (37-47) % MCV (80-100) fL MCH (25-34) pg MCHC (32-36) g/dL RDW Std Deviation (36.4-46.3) fL RDW Coeff of Eve (11.5-14.5) % Plt Count (130-400) K/uL MPV (7.4-10.4) fL Immature Gran % (Auto) % Neut % (Auto) % Lymph % (Auto) % [place] % (Auto) % Eos % (Auto) % Baso % (Auto) % Neut # (Auto) (1.4-6.5) K/uL Lymph # (Auto) (1.2-3.4) K/uL [place] # (Auto) (0.11-0.59) K/uL Eos # (Auto) (0-0.5) K/uL Baso # (Auto) (0-0.2) K/uL Immature Gran # (Auto) (0.00-0.02) K/uL PT (9.0-12.0) Seconds INR (0.9-1.1) APTT (21.0-31.0) Seconds PTT Ratio Sodium (136-145) mmol/L Potassium (3.5-5.1) mmol/L Chloride (98-107) mmol/L Carbon Dioxide (21-32) mmol/L Anion Gap (3-11) BUN (7-18) mg/dl Creatinine (0.6-1.2) mg/dl Est Cr Clr Drug Dosing ml/min Est GFR ( Amer) Est GFR (Non-Af Amer) BUN/Creatinine Ratio (10-20) Glucose (70-99) mg/dl Lactate 1.2 (0.4-2.0) mmol/L Calcium (8.5-10.1) mg/dl Magnesium (1.8-2.4) mg/dl Total Bilirubin (0.2-1) mg/dl AST (15-37) U/L ALT (12-78) U/L Alkaline Phosphatase (45-117) U/L Troponin I (0-0.045) ng/ml Total Protein (6.4-8.2) gm/dl Albumin (3.4-5.0) gm/dl Globulin (2.5-4.0) gm/dl Albumin/Globulin Ratio (0.9-2) Procalcitonin (0-0.5) ng/ml TSH (0.300-4.500) uIu/ml Free T4 (0.8-1.6) ng/dl COVID-19 PCR (Negative) Nasopharyn COVID-19 PCR Sputum COVID-19 PCR Imaging Data Radiologist's Impression: XR chest 1V portable CLINICAL HISTORY: SEPSIS COMPARISON STUDY: January 24, 2020 FINDINGS: The heart is normal in size. There is extensive left mid and lower l kunal zone pulmonary consolidation consistent with a pneumonia. Film subsequent to treatment are recommended in follow-up. There is a trace left pleural effusion. There are equivocal minor right perihilar airspace opacities. There is no failure. There are bilateral breast prostheses. IMPRESSION: 1. Extensive left mid and lower lung zone airspace opacities consistent with a pneumonia 2. Small associated left pleural effusion ACT 112: Negative or not required by law. Electronically signed by: Juan Francisco Brdiges M.D. 06/29/2020 12:49 PM ECG Data Attestation: I personally reviewed and interpreted this ECG as follows: Indication: + SOB/dyspnea Rate (beats per minute): 109 Rhythm: + atrial fibrillation ECG Intervals/blocks: + Right Bundle branch block ECG [place]: + Normal Blood Pressure Blood Pressure Findings: Normal blood pressure MDM Narrative 69-year-old female who presents with concern for recent hemoptysis, increased cough, subjective fevers and chills. Labs are drawn and sent, chest x-ray performed. Patient was seen and evaluated in negative pressure room as a precaution although patient denies any known exposure or risk of coronavirus. Labs revealed a therapeutic INR as patient is anticoagulated due to paroxysmal atrial fibrillation. Chest x-ray revealed pneumonia. Given patient has underlying structural lung disease, had an elevated procalcitonin, significant leukocytosis, discussed additional inpatient monitoring. Patient initially in rapid atrial fibrillation in the 120s, however broke spontaneously to normal sinus rhythm in the 90s. I feel patient's hemoptysis likely secondary to anticoagulation and recent increase in coughing. I do not suspect PE. Patient started on antibiotics in case discussed with hospitalist eventually. We did attempt to convert patient's coronavirus testing to a rapid in-house test as a precaution. Patient otherwise remained hemodynamically stable and not hypoxic i n the emergency room. Patient was made aware of all results and is in agreement with plan. An order was placed for continuous cardiac monitoring. The monitor shows a rate of 118_ with _atrial fibrillation rhythm. Impression & Plan Pneumonia, Paroxysmal atrial fibrillation, COPD (chronic obstructive pulmonary disease), Hemoptysis Discharge Plan Visit Data *Final* Discharge Date/Time: 06/29/20 18:23 Chief Complaint: Weakness Stated Complaint: FATIGUE-COUGHING UP BLOOD ED Provider: Abigail Parker Discharge Problem: Pneumonia, Paroxysmal atrial fibrillation, COPD (chronic obstructive pulmonary disease), Hemoptysis Patient Disposition: Admitted As Inpatient Discharge Instructions Interventions: ED Discharge Assessment Last Done: 06/29/20 18:23 Discharge Problem: Pneumonia Qualifiers: Pneumonia type: due to unspecified organism Laterality: left Lung location: lower lobe of lung Qualified Code(s): J18.9 - Pneumonia, unspecified organism COPD (chronic obstructive pulmonary disease) Qualifiers: COPD type: unspecified COPD Qualified Code(s): J44.9 - Chronic obstructive pu lmonary disease, unspecified
[2020-06-29 12:01] LABS: Basophils # (auto) 0.02 K/uL (0-0.2); Basophils % (auto) 0.1 %; Eosinophils # (auto) 0.01 K/uL (0-0.5); Eosinophils % (auto) 0.1 %; Hematocrit (blood only) 39.5 % (37-47); Hemoglobin 13.5 g/dL (12.0-16.0); Immature Granulocytes # (auto) 0.08 K/uL (0.00-0.02); Immature Granulocytes % (auto) 0.4 %; Lymphocytes # (auto) 0.72 K/uL (1.2-3.4); Lymphocytes % (auto) 3.7 %; Mean Corpuscular Hemoglobin 32.1 pg (25-34); Mean Corpuscular Hgb Conc 34.2 g/dL (32-36); Mean Platelet Volume 10.3 fL (7.4-10.4); Monocytes # (auto) 1.49 K/uL (0.11-0.59); Monocytes % (auto) 7.7 %; Neutrophils # (auto) 17.14 K/uL (1.4-6.5); Platelet Count 331 K/uL (130-400); RDW Coefficient of Variation 13.3 % (11.5-14.5); RDW Standard Deviation 45.5 fL (36.4-46.3); White Blood Count 19.46 K/uL (4.8-10.8)
[2020-06-29 12:18] LABS: Alanine Aminotransferase 18 U/L (12-78); Albumin Level 3.2 gm/dl (3.4-5.0); Aspartate Aminotransferase 16 U/L (15-37); BUN Creatinine Ratio 13.6 (10-20); Blood Urea Nitrogen 11 mg/dl (7-18); Carbon Dioxide 27 mmol/L (21-32); Chloride 97 mmol/L (98-107); Creatinine Clr Calc Pharmacy 64.7 ml/min; Est GFR (African American) 87.3; Est GFR (Non-African American) 75.3; Glucose 104 mg/dl (70-99); Potassium 3.3 mmol/L (3.5-5.1); Sodium 132 mmol/L (136-145)
[2020-06-29 12:25] LABS: INR 2.5 (0.9-1.1); Partial Thromboplastin Ratio 2.1; Prothrombin Time 25.4 Seconds (9.0-12.0)
[2020-06-29 12:29] LABS: Albumin Globulin Ratio 0.8 (0.9-2); Alkaline Phosphatase 84 U/L (45-117); Globulin 3.9 gm/dl (2.5-4.0); Thyroid Stimulating Hormone 0.035 uIu/ml (0.300-4.500); Total Protein 7.1 gm/dl (6.4-8.2); Troponin I < 0.015 ng/ml (0-0.045)
[2020-06-29 12:38] LABS: Partial Thromboplastin Time 58.5 Seconds (21.0-31.0)
[2020-06-29 12:41] LABS: T4 Free Thyroxine 1.09 ng/dl (0.8-1.6)
--- NOTE | 2020-06-29 12:50 | XRay Report ---
XR chest 1V portable CLINICAL HISTORY: SEPSIS COMPARISON STUDY: January 24, 2020 FINDINGS: The heart is normal in size. There is extensive left mid and lower lung zone pulmonary cons olidation consistent with a pneumonia. Film subsequent to treatment are recommended in follow-up. The re is a trace left pleural effusion. There are equivocal minor right perihilar airspace opacities. Th ere is no failure. There are bilateral breast prostheses. IMPRESSION: 1. Extensive left mid and lower lung zone airspace opacities consistent with a pneumonia 2. Small associated left pleural effusion ACT 112: Negative or not required by law. Electronically signed by: Juan Francisco Bridges M.D. 06/29/2020 12:49 PM
[2020-06-29] MEDS ORDERED: CEFEPIME 2,000 MG/20 ML VIAL IV STA (13:15)
--- NOTE | 2020-06-29 13:38 | Electrocardiogram Report ---
Test Reason : Blood Pressure : / mmHG Vent. Rate : 109 BPM Atrial Rate : 125 BPM P-R Int : 000 ms QRS Dur : 128 ms QT Int : 356 ms P-R-T Axes : 000 100 000 degrees QTc Int : 479 ms Atrial fibrillation with rapid ventricular response Right bundle branch block T wave abnormality, consider inferior ischemia Abnormal ECG When compared with ECG of 21-AUG-2013 10:55, Atrial fibrillation has replaced Sinus rhythm Vent. rate has increased BY 47 BPM Right bundle branch block has replaced Non-specific intra-ventricular conduction delay Confirmed by Tom Perez ([id number]) on 06/29/2020 1:38:31 PM Referred By: REFERRED SELF Confirmed By:Tom Perez
[2020-06-29] MEDS ORDERED: SODIUM CHLORIDE 0.9% 1000ML 1,000 ML IV SCH (13:45)
[2020-06-29] MEDS ORDERED: AZITHROMYCIN 250 MG TAB PO ONE (15:37)
--- NOTE | 2020-06-29 15:48 | History & Physical Report ---
Date of Service June 29, 2020 Assessment & Plan (1) Pneumonia: With extensive left-sided pneumonia, with a history of bronchiectasis and pulmonary nodules as well as COPD. Tachypneic but not hypoxic here. Procalcitonin is mildly elevated and is likely a bacterial [id number]. COVID-19 is negative With sepsis -Admit to PCU -Continue with antibiotics-did receive IV cefepime in the ER and then I gave her dose of ceftriaxone, however given her history of bronchiectasis, she should have pseudomonal coverage I believe. -Continue IV cefepime 2 g IV every 8 hours -Start azithromycin for 5-day course for atypical coverage -Supplemental O2 as needed to keep pulse ox greater than 92% -Given her pulmonary chronic disease, will consult pulmonology -Continue albuterol 2 puffs every 6 hours and home Breo -Check sputum culture -Follow procalcitonin (2) Sepsis: With leukocytosis, subjective fevers at home, tachypnea, and pneumonia Blood pressures are normal and lactate is negative. -Was given 2 L normal saline bolused in the ER -We will continue normal saline with 20 mEq of potassium chloride at 100 mL's per hour for volume resuscitation -Follow blood cultures -Urine culture was sent as UA seemed abnormal, however she denies any urinary symptoms -Follow sputum culture for pneumonia as above -Follow CBC, procalcitonin, CMP -Tylenol as needed for fevers (3) Hemoptysis: With scant hemoptysis in the setting of extensive pneumonia Is on chronic anticoagulation with warfarin Her hemoglobin is stable at 13.5 -Consulting pulmonology -Given that she was in rapid A. fib upon arrival, feel it is important to continue anticoagulation at this time, but if hemoptysis becomes a larger amount, could always give vitamin K Follow CBC (4) Paroxysmal atrial fibrillation: In rapid atrial fibrillation in the 120s upon arrival, secondary to pneumonia and sepsis Spontaneously converted and remains in normal sinus rhythm -Follow on telemetry for arrhythmia monitoring -Continue Coumadin for anticoagulation -Continue home diltiazem 240 mg p.o. once daily -Consult her shaper set up operator-Dr. Bazan (5) Hypokalemia: Potassium 3.3 on arrival -Replace both in the IV fluids and with 40 mEq p.o. potassium chloride by mouth -Follow BMP and magnesium in the morning (6) Acute hyponatremia: Sodium low at 132 on arrival, likely secondary to dehydration -Hydrated with normal saline x2 L -Follow BMP in the morning (7) COPD (chronic obstructive pulmonary disease): As noted above Follows with pulmonology as an outpatient Last PFTs reviewed in allscripts from 10/2018 with a mild reduction in FVC but otherwise normal, no change in function following bronchodilator, normal lung volumes, and normal diffusion at 94% predicted. -Continue home Breo, albuterol as needed (8) Bronchiectasis: With bronchoscopy in 2017-report reviewed with diffuse mucoid impaction lavaged out -Pulmonology consultation as above (9) Hypothyroidism: TSH mildly low with normal free T4 Follows with endocrinology as an outpatient -Continue home levothyroxine, Tirosint (10) Chronic sinusitis: Noted Continue Singulair (11) Allergic rhinitis: Continue Singulair (12) Hyperbilirubinemia: Bilirubin mildly elevated at 2.0, no baseline to compare to Could be Gilbert's versus mild elevation secondary to sepsis Other LFTs are normal, no abdominal pain -Follow LFTs in the morning (13) Adrenal insufficiency: Follows with endocrinology as an outpatient -Typically takes hydrocortisone 10 mg p.o. every morning only She actually took 20 mg this morning-the day of admission as a stress dose -Continue stress dose steroids with hydrocortisone 15 mg p.o. every morning and 5 mg p.o. at 1400 daily (14) Chronic anticoagulation: INR is therapeutic here at 2.5 on warfarin for atrial fibrillation -Continue Coumadin 5 mg daily and follow INR daily May go up with antibiotic therapy (15) Indeterminate pulmonary nodules: Just had another CAT scan a month ago that showed stability of some nodules and resolution of others Follows with pulmonology (16) Chilblains: Follows with rheumatology, Dr. Strickland and was placed on diltiazem which is helping (17) DVT prophylaxis: Coumadin Disposition-admit to PCU, expected least a 2 midnight stay History of Present Illness Chief Complaint: Cough, fever/chills Primary Care Provider: Gabrielle Crawley MD This patient is a 69-year-old very pleasant female with a history of COPD and bronchiectasis, pulmonary nodules, PAF on warfarin, hypothyroidism, adrenal insufficiency, chronic sinusitis, allergic rhinitis, and chilblains, who presents to the ER with productive cough with brown sputum with scant amounts of hemoptysis, and subjective fevers and chills at home for the last 24 hours. She reports that she traveled to [place], [place] and stayed with her boyfriend and his family from [place] for a week. She returned 1 week ago and ever since then, has been severely fatigued, but had no other symptoms. She has been taking her medications like usual. She did not have a thermometer to check her temperature at home yesterday but was having significant chills. She is also having some constant pain underneath her left scapula that feels like a muscle strain. She is having low appetite and has had very poor p.o. intake but has been trying to force herself to drink fluids. She denies any nausea/vomiting/diarrhea, no abdominal pain. Denies headache or lightheadedness, no sore throat or runny nose. Denies chest pain. She was concerned with the hemoptysis and also was concerned that she may have COVID-19 so she presented to the ER. Upon presentation, she was noted to be in rapid atrial fibrillation in the 120s but then after receiving some IV fluids, spontaneously converted to normal sinus rhythm in the 90s. She was afebrile, tachypneic, with normal blood pressure and normal pulse ox on room air. Her WBC count was elevated at 19,000 with a predominant neutrophilia, she was dehydrated and had hyponatremia at 132, hypokalemia at 3.3, and a mildly elevated total bilirubin at 2.0. Her procalcitonin was mildly elevated at 0.75. Her urinalysis also showed evidence of infection, however she denied any urinary symptoms. Her rapid COVID-19 test was negative. Her chest x-ray showed an extensive left middle and lower lung zone airspace opacities consistent with pneumonia and a small associated left pleural effusion. She will be admitted for sepsis, pneumonia. Allergies Allergy/AdvReac Type Severity Reaction Status Date / Time No Known Allergies Allergy Verified 06/29/20 12:08 Home Medications Home Medications Medication Instructions Recorded Confirmed Type ascorbic acid (vitamin C) 500 mg 500 mg PO QAM tab 09/10/19 06/29/20 History tablet cholecalciferol (vitamin D3) 50 2,000 unit PO QAM cap 09/10/19 06/29/20 History mcg (2,000 unit) capsule coenzyme Q10 100 mg capsule 100 mg PO QAM cap 09/10/19 06/29/20 History hydrocortisone 5 mg tablet 10 - 15 mg PO QAM tab 09/10/19 06/29/20 History levothyroxine 100 mcg tablet 100 mcg PO QAM tab 09/10/19 06/29/20 History liothyronine 5 mcg tablet 20 mcg PO QAM tab 09/10/19 06/29/20 History montelukast 10 mg tablet 10 mg PO QAM #1 tab 09/10/19 06/29/20 History omega-3 acid ethyl esters 1 gram 2 g PO QAM cap 09/10/19 06/29/20 History capsule testosterone 50 mg/5 gram (1 %) 1 pkt TD DAILY 09/10/19 06/29/20 History transdermal gel vitamin B complex 1 tab PO QAM 09/10/19 06/29/20 History warfarin 5 mg tablet 5 mg PO QAM tab 09/10/19 06/29/20 History zinc gluconate 50 mg tablet 50 mg PO QAM tab 09/10/19 06/29/20 History diltiazem HCl 180 mg 240 mg PO QAM cap 05/05/20 06/29/20 History capsule,extended release 24 hr clobetasol 0.05 % topical ointment 1 appln TOP BID #60 gm 06/04/20 06/29/20 Rx estradiol 1 g VAGINAL 3XWK 06/29/20 06/29/20 History fluticasone furoate-vilanterol 1 puffs INHALATION QAM 06/29/20 06/29/20 History Past Med/Surg History Medical History (Updated 06/29/20 @ 20:15 by Kavya Ricks MD) Adrenal insufficiency Allergic rhinitis Bronchiectasis Chilblains Chronic anticoagulation Chronic sinusitis COPD (chronic obstructive pulmonary disease) Hypothyroidism Indeterminate pulmonary nodules Paroxysmal atrial fibrillation Surgical History History of ankle surgery History of breast augmentation History of hysterectomy History of nasal surgery septal deviation repair History of sinus surgery Family History Mother Heart disease Father COPD (chronic obstructive pulmonary disease) Grandmother (Maternal) Diabetes Family/Other Schizophrenia sibling Social History Smoking Status: Former smoker Tobacco Type: Cigarettes Years Smoked: 8; Cigarettes Per Day: 1; Number of Years Since Quit: 42; Second Hand Exposure: No; Hx Alcohol Use: Yes Alcohol type: wine Alcohol Intake Frequency: 2-3 x/Week Hx Substance Use: No Preferred Language: Yoruba Communication Ability: Effective Beliefs That Will Affect Care: None marital status: Life Partner Current Living Situation: Alone 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 Feels Safe at Home: Yes Safety Concerns: Feels Safe At This Time Review of Systems Review of Systems: All systems reviewed & are unremarkable except as noted in HPI & below Has cold toes and gets color changes in the feet with her chilblains Otherwise negative ROS as above in HPI Physical Exam Constitutional: WD/WN, vitals as above + ill appearing Eyes: PERRL, conjunctivae normal, anicteric sclerae (Except with watery discharge OU) ENMT: external ear and nose normal, oropharynx normal Neck: trachea midline, no thyromegaly Respiratory: normal respiratory effort and + tachypneic (Mild); no labored breathing Auscultation: + crackles (Diffusely throughout left lung cabello); no rhonchi and no wheezes Cardiovascular: RRR, no murmur, no edema Chest (Breasts): Chest: normal inspection of chest Gastrointestinal (Abdomen): normal bowel sounds, soft, nontender, no hepatosplenomegaly Musculoskeletal: Extremities: extremities normal to inspection; no cyanosis and no clubbing Skin: no rashes, warm and dry Neurologic: moves all extremities and awake; no focal motor deficits Psychiatric: A+Ox3, euthymic affect Lymphatic: no lymphedema Results & Data Results & Data ([facility]) Vital Signs (Past 12 Hours) Vital Signs Temp Pulse Pulse Resp BP BP Pulse Ox 06/29/20 14:47 93 H 18 138/59 L 97 06/29/20 13:04 87 20 113/58 L 99 06/29/20 11:36 83 24 115/59 L 97 06/29/20 11:13 96 06/29/20 10:20 36.5 C 06/29/20 10:11 129 H 20 120/62 95 Laboratory Results 06/29/20 06/29/20 06/29/20 Range/Units 12:20 11:20 11:20 WBC (4.8-10.8) K/uL RBC (4.2-5.4) M/uL Hgb (12.0-16.0) g/dL Hct (37-47) % MCV (80-100) fL MCH (25-34) pg MCHC (32-36) g/dL RDW Std Deviation (36.4-46.3) fL RDW Coeff of Eve (11.5-14.5) % Plt Count (130-400) K/uL MPV (7.4-10.4) fL Immature Gran % (Auto) % Neut % (Auto) % Lymph % (Auto) % Edmunds % (Auto) % Eos % (Auto) % Baso % (Auto) % Neut # (Auto) (1.4-6.5) K/uL Lymph # (Auto) (1.2-3.4) K/uL Edmunds # (Auto) (0.11-0.59) K/uL Eos # (Auto) (0-0.5) K/uL Baso # (Auto) (0-0.2) K/uL Immature Gran # (Auto) (0.00-0.02) K/uL PT (9.0-12.0) Seconds INR (0.9-1.1) APTT (21.0-31.0) Seconds PTT Ratio Sodium 132 L (136-145) mmol/L Potassium 3.3 L (3.5-5.1) mmol/L Chloride 97 L (98-107) mmol/L Carbon Dioxide 27 (21-32) mmol/L Anion Gap 8.0 (3-11) BUN 11 (7-18) mg/dl Creatinine 0.79 (0.6-1.2) mg/dl Est Cr Clr Drug Dosing 64.7 ml/min Est GFR ( Amer) 87.3 Est GFR (Non-Af Amer) 75.3 BUN/Creatinine Ratio 13.6 (10-20) Glucose 104 H (70-99) mg/dl Lactate 1.2 (0.4-2.0) mmol/L Calcium 9.0 (8.5-10.1) mg/dl Magnesium 2.0 (1.8-2.4) mg/dl Total Bilirubin 2.0 H (0.2-1) mg/dl AST 16 (15-37) U/L ALT 18 (12-78) U/L Alkaline Phosphatase 84 (45-117) U/L Troponin I < 0.015 (0-0.045) ng/ml Total Protein 7.1 (6.4-8.2) gm/dl Albumin 3.2 L (3.4-5.0) gm/dl Globulin 3.9 (2.5-4.0) gm/dl Albumin/Globulin Ratio 0.8 L (0.9-2) Procalcitonin 0.75 H (0-0.5) ng/ml TSH 0.035 L (0.300-4.500) uIu/ml Free T4 1.09 (0.8-1.6) ng/dl Nasopharyn COVID-19 PCR Sputum COVID-19 PCR 06/29/20 06/29/20 06/29/20 Range/Units 11:20 11:20 11:15 WBC 19.46 H (4.8-10.8) K/uL RBC 4.20 (4.2-5.4) M/uL Hgb 13.5 (12.0-16.0) g/dL Hct 39.5 (37-47) % MCV 94.0 (80-100) fL MCH 32.1 (25-34) pg MCHC 34.2 (32-36) g/dL RDW Std Deviation 45.5 (36.4-46.3) fL RDW Coeff of Eve 13.3 (11.5-14.5) % Plt Count 331 (130-400) K/uL MPV 10.3 (7.4-10.4) fL Immature Gran % (Auto) 0.4 % Neut % (Auto) 88.0 % Lymph % (Auto) 3.7 % Edmunds % (Auto) 7.7 % Eos % (Auto) 0.1 % Baso % (Auto) 0.1 % Neut # (Auto) 17.14 H (1.4-6.5) K/uL Lymph # (Auto) 0.72 L (1.2-3.4) K/uL Edmunds # (Auto) 1.49 H (0.11-0.59) K/uL Eos # (Auto) 0.01 (0-0.5) K/uL Baso # (Auto) 0.02 (0-0.2) K/uL Immature Gran # (Auto) 0.08 H (0.00-0.02) K/uL PT 25.4 H (9.0-12.0) Seconds INR 2.5 H (0.9-1.1) APTT 58.5 H* (21.0-31.0) Seconds PTT Ratio 2.1 Sodium (136-145) mmol/L Potassium (3.5-5.1) mmol/L Chloride (98-107) mmol/L Carbon Dioxide (21-32) mmol/L Anion Gap (3-11) BUN (7-18) mg/dl Creatinine (0.6-1.2) mg/dl Est Cr Clr Drug Dosing ml/min Est GFR ( Amer) Est GFR (Non-Af Amer) BUN/Creatinine Ratio (10-20) Glucose (70-99) mg/dl Lactate (0.4-2.0) mmol/L Calcium (8.5-10.1) mg/dl Magnesium (1.8-2.4) mg/dl Total Bilirubin (0.2-1) mg/dl AST (15-37) U/L ALT (12-78) U/L Alkaline Phosphatase (45-117) U/L Troponin I (0-0.045) ng/ml Total Protein (6.4-8.2) gm/dl Albumin (3.4-5.0) gm/dl Globulin (2.5-4.0) gm/dl Albumin/Globulin Ratio (0.9-2) Procalcitonin (0-0.5) ng/ml TSH (0.300-4.500) uIu/ml Free T4 (0.8-1.6) ng/dl Nasopharyn COVID-19 PCR Pending Sputum COVID-19 PCR Pending Diagnostic Findings I personally reviewed the CXR image and agree with the following report: XR chest 1V portable CLINICAL HISTORY: SEPSIS COMPARISON STUDY: January 24, 2020 FINDINGS: The heart is normal in size. There is extensive left mid and lower lung zone pulmonary consolidation consistent with a pneumonia. Film subsequent to treatment are recommended in follow-up. There is a trace left pleural effusion. There are equivocal minor right perihilar airspace opacities. There is no failure. There are bilateral breast prostheses. IMPRESSION: 1. Extensive left mid and lower lung zone airspace opacities consistent with a pneumonia 2. Small associated left pleural effusion ECG Additional Comments: ECG 06/29/20 with Afib with RVR, rate 109, RBBB, TWI leads III and aVF Code Status & VTE Plan Code Status Full code VTE Prophylaxis Plan VTE Prophylaxis will be ordered: Yes PG Care Time/CCT Total # of Minutes Spent Total Time Spent with Patient: Total time spent is greater than 50% in coordination of care (as documented) at patient's floor/unit and/or counseling patient: Coding Level of Care Code 98116 Initial Inpt Care Lvl 3 Diagnoses Pneumonia J18.9 Sepsis A41.9 Hemoptysis R04.2 Paroxysmal atrial fibrillation I48.0 Hypokalemia E87.6 Acute hyponatremia E87.1 COPD (chronic obstructive pulmonary disease) J44.9 Bronchiectasis J47.9 Hypothyroidism E03.9 Chronic sinusitis J32.9 Allergic rhinitis J30.9 Hyperbilirubinemia E80.6 Adrenal insufficiency E27.40 Chronic anticoagulation Z79.01 Indeterminate pulmonary nodules R91.8 Chilblains T69.1XXA DVT prophylaxis Z29.9
[2020-06-29] MEDS ORDERED: cefTRIAXone SODIUM 1,000 MG in DEXTROSE 5% 50 ML IV SCH (17:04)
[2020-06-29] MEDS ORDERED: NSS + 20MEQ KCL 20 MEQ/1,000 ML BAG IV SCH (17:04)
[2020-06-29] MEDS ORDERED: POTASSIUM CHLORIDE 20 MEQ TABCR PO STA (17:04)
[2020-06-29] MEDS ORDERED: cefTRIAXone SODIUM 1000MG/50ML D5W IV ONE (17:13)
[2020-06-29 17:45] LABS: Appearance Urine Clear (Clear); Bacteria Urine Automated 2+ (Negative); Bilirubin Urine Negative (Negative); Blood Urine 1+ (Negative); Color Urine Orange; Epithelial Cell Urine Auto 20-30 /lpf (0-5); Glucose Urine UA Negative (Negative); Ketones Urine 2+ (Negative); Leukocyte Esterase Urine Trace (Negative); Nitrite Urine Positive (Negative); Protein Urine Trace (Negative); Specific Gravity Urine 1.024 (1.000-1.030); Urobilinogen Urine Negative (Negative)
[2020-06-29] MEDS ORDERED: POLYETHYLENE (MIRALAX) 17 GM PACK PO PRN (19:22)
[2020-06-29] MEDS ORDERED: ALUMINUM/MAGNESIUM SUSP 30 ML UDC PO PRN (19:22)
[2020-06-29] MEDS ORDERED: ONDANSETRON INJ 2 MG/ML 2 ML VIAL IV PRN (19:22)
[2020-06-29] MEDS: ALBUTEROL HFA 8 GM INHALER INH SCH (20:18)
[2020-06-29] MEDS ORDERED: COUGH DROP (SUGAR FREE) LOZ 24 LOZ/1 BOX BUCCAL STA (20:58)
[2020-06-29] MEDS: CEFEPIME 2,000 MG in SYRINGE 7.5 ML IV SCH (21:10)
[2020-06-29] MEDS: [UNRECOGNIZED DRUG - OTHER] SCH (21:48)
[2020-06-30] MEDS: ACETAMINOPHEN 325 MG TAB PO PRN (00:20)
[2020-06-30] MEDS: ALBUTEROL HFA 8 GM INHALER INH SCH ×4 (01:09→19:39)
[2020-06-30] MEDS: NSS + 20MEQ KCL 20 MEQ/1,000 ML BAG IV SCH ×2 (04:29→14:13)
[2020-06-30] MEDS: CEFEPIME 2,000 MG in SYRINGE 7.5 ML IV SCH ×3 (06:08→21:56)
[2020-06-30] MEDS: LEVOTHYROXINE SODIUM 100 MCG PO SCH (06:10)
[2020-06-30] MEDS: LIOTHYRONINE SODIUM 5 MCG PO SCH (06:16)
[2020-06-30] MEDS ORDERED: LEVOTHYROXINE SODIUM 100 MCG TABLET PO SCH (06:30)
[2020-06-30 07:47] LABS: Basophils # (auto) 0.01 K/uL (0-0.2); Basophils % (auto) 0.1 %; Eosinophils # (auto) 0.05 K/uL (0-0.5); Eosinophils % (auto) 0.3 %; Hematocrit (blood only) 37.4 % (37-47); Hemoglobin 12.4 g/dL (12.0-16.0); Immature Granulocytes # (auto) 0.04 K/uL (0.00-0.02); Immature Granulocytes % (auto) 0.3 %; Lymphocytes # (auto) 1.08 K/uL (1.2-3.4); Lymphocytes % (auto) 6.9 %; Mean Corpuscular Hemoglobin 31.8 pg (25-34); Mean Corpuscular Hgb Conc 33.2 g/dL (32-36); Mean Corpuscular Volume 95.9 fL (80-100); Mean Platelet Volume 9.9 fL (7.4-10.4); Monocytes # (auto) 1.02 K/uL (0.11-0.59); Monocytes % (auto) 6.5 %; Neutrophils # (auto) 13.49 K/uL (1.4-6.5); Neutrophils % (auto) 85.9 %; Platelet Count 290 K/uL (130-400); RDW Coefficient of Variation 13.5 % (11.5-14.5); RDW Standard Deviation 47.1 fL (36.4-46.3); White Blood Count 15.69 K/uL (4.8-10.8)
[2020-06-30 07:58] LABS: INR 2.9 (0.9-1.1); Prothrombin Time 29.2 Seconds (9.0-12.0)
[2020-06-30 08:12] LABS: Albumin Level 2.5 gm/dl (3.4-5.0); BUN Creatinine Ratio 12.4 (10-20); Calcium 8.7 mg/dl (8.5-10.1); Creatinine Clr Calc Pharmacy 87.8 ml/min; Est GFR (African American) 106.3; Est GFR (Non-African American) 91.7; Potassium 4.6 mmol/L (3.5-5.1)
[2020-06-30 08:31] LABS: Bilirubin Direct 0.3 mg/dl (0-0.2); Bilirubin,Total 0.9 mg/dl (0.2-1); Total Protein 6.3 gm/dl (6.4-8.2)
[2020-06-30] MEDS ORDERED: NON-FORMULARY MEDICATION (Coenzyme Q10 100 MG) PO SCH (09:00)
[2020-06-30] MEDS ORDERED: HYDROCORTISONE 10 MG TAB PO SCH (09:00)
[2020-06-30] MEDS ORDERED: MONTELUKAST SODIUM 10 MG TABLET PO SCH (09:00)
[2020-06-30] MEDS ORDERED: dilTIAZem HCL 240 MG CAPCR PO SCH (09:00)
[2020-06-30] MEDS ORDERED: LIOTHYRONINE SODIUM 5 MCG TAB PO SCH (09:00)
[2020-06-30] MEDS ORDERED: HYDROCORTISONE 5 MG PO SCH ×2 (09:00)
[2020-06-30] MEDS: VITAMIN B COMPLEX TAB PO SCH (09:05)
[2020-06-30] MEDS: ZINC SULFATE 220 MG CAPSULE PO SCH (09:05)
[2020-06-30] MEDS: CHOLECALCIFEROL 1,000 UNITS 25 MCG TAB PO SCH (09:05)
[2020-06-30] MEDS: ASCORBIC ACID 500 MG TAB PO SCH (09:05)
[2020-06-30] MEDS: MONTELUKAST SODIUM 10 MG PO SCH (09:06)
[2020-06-30] MEDS: DILTIAZEM 240 MG PO SCH (09:06)
[2020-06-30] MEDS: [UNRECOGNIZED DRUG - OTHER] SCH ×3 (09:08→23:29)
[2020-06-30] MEDS: CLOBETASOL PROPIONATE 0.05% OINT 15 GM TUBE EXT SCH ×2 (09:22→21:56)
[2020-06-30] MEDS: FLUTICASONE INH SCH (09:23)
[2020-06-30] MEDS: VILANTEROL INH SCH (09:23)
[2020-06-30] MEDS: OMEGA-3 (PURIFIED FISH OIL) 1 GM CAP PO SCH (09:23)
--- NOTE | 2020-06-30 09:37 | Pulmonary Consultation ---
Date of Consultation June 30, 2020 Assessment & Plan (1) Pneumonia: 69-year-old female with a past medical history of adrenal insufficiency, allergic rhinitis, atrial fibrillation on anticoagulation, possible COPD and bronchiectasis presenting to the hospital due to pneumonia on the left side of her chest. Continue treatment with azithromycin and cefepime. Her procalcitonin has trended upwards today. Repeat procalcitonin 48 hours. Recommend initiating flutter valve and using this 4-5 times a day for airway clearance therapy. Recommend ambulation in the room. If her respiratory status becomes worse, recommend holding her anticoagulation and we will consider rocking her at a later date. At this time, no need for bronchoscopy. Should she have further significant hemoptysis, recommend obtaining a stat CTA of her chest. I do not think she has alveolar hemorrhage at this time. She has chronic micronodular changes in her right middle lobe and lingula based on her recent CT chest in April. These may be independent sales representative of nontuberculous Mycobacterium infection. She can follow-up with her primary service counter cashier, Dr. Bazzi regarding these findings. Pulmonary will continue to follow along with you. Please call us with questions. Laterality: left Pneumonia type: due to unspecified organism Lung location: lower lobe of lung Qualified Code(s): J18.9 - Pneumonia, unspecified organism (2) Chronic anticoagulation: (3) Bronchiectasis: (4) Hemoptysis: History of Present Illness Reason for Consultation: Left-sided pneumonia Requesting Physician: Dr. Mike Lyon Attending Physician: Mike Lyon MD History of Present Illness 69-year-old female with a past medical history of atrial fibrillation on warfarin, hypothyroidism, COPD and adrenal insufficiency presenting to the hospital due to increasing shortness of breath, cough and malaise. Patient notes that sometime either on Tuesday or Tuesday she began having a cough with some chills and generalized fatigue. She noted hemoptysis on Tuesday. She noted that she had sputum with her cough that was admixed with blood. She denies any chest pain. She notes that 10 days ago she was in [place], [place]. She drove with her family down to that area. They stayed in a house and were pretty much quarantined at that point. She denies any recent sick contacts. She was tested for COVID-19 on arrival to the hospital and has been negative. No significant fever since arrival to the hospital. She has been saturating well on room air. She denies any anosmia or ageusia. The patient did note some mild left shoulder pain that was radiating down to her lower back which has improved since hospitalization. She denies any pets, no flooding in her home, no open water sources in her home. She denies any ray nods symptoms, however, she does have chilblains and is followed by Dr. Strickland of rheumatology. She denies any difficulty with swallowing. No smoking, vaping or marijuana use. No secondhand smoke exposure that she is aware. She is followed by Dr. Bazzi in the pulmonary clinic. He has performed bronchoscopies in the past. She is currently on a Brio inhaler. I am not aware when her pulmonary function testing demonstrated. She had immunoglobulin testing on 01/21/2020. She also an IgE level which was within normal limits. Immunoglobulin testing was also within normal limits. On arrival to the hospital she had a leukocytosis of 19,000. She was also in rapid atrial fibrillation. Albumin was low at 2.5. Procalcitonin was elevated initially at 0.75 and is now elevated to 2.44. Chest x-ray demonstrated left- sided infiltrates. Allergies Allergy/AdvReac Type Severity Reaction Status Date / Time No Known Allergies Allergy Verified 06/29/20 12:08 Home Medications Home Medications Medication Instructions Recorded Confirmed Type ascorbic acid (vitamin C) 500 mg 500 mg PO QAM tab 09/10/19 06/29/20 History tablet cholecalciferol (vitamin D3) 50 2,000 unit PO QAM cap 09/10/19 06/29/20 History mcg (2,000 unit) capsule coenzyme Q10 100 mg capsule 100 mg PO QAM cap 09/10/19 06/29/20 History hydrocortisone 5 mg tablet 10 - 15 mg PO QAM tab 09/10/19 06/29/20 History levothyroxine 100 mcg tablet 100 mcg PO QAM tab 09/10/19 06/29/20 History liothyronine 5 mcg tablet 20 mcg PO QAM tab 09/10/19 06/29/20 History montelukast 10 mg tablet 10 mg PO QAM #1 tab 09/10/19 06/29/20 History omega-3 acid ethyl esters 1 gram 2 g PO QAM cap 09/10/19 06/29/20 History capsule testosterone 50 mg/5 gram (1 %) 1 pkt TD DAILY 09/10/19 06/29/20 History transdermal gel vitamin B complex 1 tab PO QAM 09/10/19 06/29/20 History warfarin 5 mg tablet 5 mg PO QAM tab 09/10/19 06/29/20 History zinc gluconate 50 mg tablet 50 mg PO QAM tab 09/10/19 06/29/20 History diltiazem HCl 180 mg 240 mg PO QAM cap 05/05/20 06/29/20 History capsule,extended release 24 hr clobetasol 0.05 % topical ointment 1 appln TOP BID #60 gm 06/04/20 06/29/20 Rx estradiol 1 g VAGINAL 3XWK 06/29/20 06/29/20 History fluticasone furoate-vilanterol 1 puffs INHALATION QAM 06/29/20 06/29/20 History Patient History Medical History Adrenal insufficiency Allergic rhinitis Bronchiectasis Chilblains Chronic anticoagulation Chronic sinusitis COPD (chronic obstructive pulmonary disease) Hypothyroidism Indeterminate pulmonary nodules Paroxysmal atrial fibrillation Surgical History History of ankle surgery History of breast augmentation History of hysterectomy History of nasal surgery septal deviation repair History of sinus surgery Family History Mother Heart disease Father COPD (chronic obstructive pulmonary disease) Grandmother (Maternal) Diabetes Family/Other Schizophrenia sibling Social History Smoking Status: Former smoker Tobacco Type: Cigarettes Years Smoked: 8; Cigarettes Per Day: 1; Number of Years Since Quit: 42; Second Hand Exposure: No; Hx Alcohol Use: Yes Alcohol type: wine Alcohol Intake Frequency: 2-3 x/Week Hx Substance Use: No Preferred Language: American Communication Ability: Effective Beliefs That Will Affect Care: None marital status: Life Partner Current Living Situation: Alone 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 She is laying in her bed. Eyes: PERRL, conjunctivae normal, anicteric sclerae ENMT: Ears: no hearing impairment Mallampati Class: I Respiratory: Crackles throughout the left lower lobe. Otherwise clear on the right side. No wheezing appreciated. Cardiovascular: Irregularly irregular. Normal rate. No murmurs. No edema. Gastrointestinal (Abdomen): normal bowel sounds, soft, nontender, no hepatosplenomegaly Musculoskeletal: no cyanosis or clubbing, extremities motor strength 5/5 Skin: no rashes, warm and dry Neurologic: PERRL, EOMI, accommodation nl, no face palsy, no dysarthria Psychiatric: A+Ox3, euthymic affect Results & Data Results & Data ([facility]) Vital Signs (Past 12 Hours) Vital Signs Temp Pulse Resp BP BP Pulse Ox 06/30/20 07:14 97.9 F 86 19 118/69 95 06/30/20 07:12 72 14 95 06/30/20 04:30 98.2 F 89 17 120/62 94 06/30/20 01:10 100 H 18 93 06/30/20 00:22 100.8 F H 104 H 17 137/70 93 I personally reviewed her labs, chest imaging and vital signs. PG Care Time/CCT Total # of Minutes Spent Total Time Spent with Patient: Total time spent is greater than 50% in coordination of care (as documented) at patient's floor/unit and/or counseling patient: Coding Level of Care Code 94484 Initial Inpt Care Lvl 3 Diagnoses Pneumonia J18.9 Laterality: left Pneumonia type: due to unspecified organism Lung location: lower lobe of lung Chronic anticoagulation Z79.01 Bronchiectasis J47.9 Hemoptysis R04.2
--- NOTE | 2020-06-30 10:45 | Cardiology Consultation ---
Date of Consultation June 30, 2020 Assessment & Plan (1) Pneumonia: (2) Bronchiectasis: (3) Paroxysmal atrial fibrillation: Fortunately the patient's COVID-19 screen was negative. She is in a rate controlled atrial fibrillation at present. INR is therapeutic. Electrolytes have responded to replacement. Continue current antibiotic regimen including cefepime. Continue outpatient diltiazem CD dose, 240 mg daily. Compared to prior outpatient tracing dated, 03/21/2020, the right bundle branch block noted on EKG is a chronic finding. History of Present Illness Attending Physician: Mike Lyon MD History of Present Illness Clarisse Lim is a 69-year-old female seen in cardiology consultation per the request of Dr. Ricks and Dr Lyon for the evaluation of chest pain. Patient has a history of paroxysmal atrial fibrillation and bronchiectasis. She had most recently been seen in outpatient cardiology follow-up by Dr. Bazan of our practice in April, at which time stable cardiac signs and symptoms were noted. Her most recent outpatient transthoracic echocardiogram had been on 05/06/2020. At that time normal sinus rhythm was noted at the time of the echocardiogram with normal left ventricular myocardial thickness, normal LVEF of 55-59%. Grade 2 diastolic dysfunction was noted. Mild aortic valve regurgitation and mild mitral regurgitation were present. Elevated right atrial pressure noted. The estimated pulmonary artery systolic pressure was estimated be 35 mmHg which is the upper limit of normal. She presented to the emergency department yesterday with productive cough and subjective fever at home. Temperature on arrival to the emergency room was 38.2 C. She noted recent travel to both [place] and [place]. A COVID 19 PCR screen was negative as collected yesterday at 11:15 AM. Chest x-ray findings notable for extensive left mid and lower lung airspace opacities consistent with pneumonia as well as a small associated left pleural effusion. On presentation yesterday 06/29/2011 awake, she was noted to be in atrial fibrillation with mildly elevated ventricular response at 109 bpm with right bundle branch block, and nonspecific repolarization changes, that may be related to her conduction disease. When I had initially assessed her at this morning she was back in sinus rhythm. By 9:26 AM she had reverted to a rate controlled atrial fibrillation in the 90 bpm range. She had no associated subjective symptoms of feeling an irregular heartbeat at that time. She is currently afebrile, she feels much improved compared to when she presented to the emergency department yesterday. Allergies Allergy/AdvReac Type Severity Reaction Status Date / Time No Known Allergies Allergy Verified 06/29/20 12:08 Home Medications Home Medications Medication Instructions Recorded Confirmed Type ascorbic acid (vitamin C) 500 mg 500 mg PO QAM tab 09/10/19 06/29/20 History tablet cholecalciferol (vitamin D3) 50 2,000 unit PO QAM cap 09/10/19 06/29/20 History mcg (2,000 unit) capsule coenzyme Q10 100 mg capsule 100 mg PO QAM cap 09/10/19 06/29/20 History hydrocortisone 5 mg tablet 10 - 15 mg PO QAM tab 09/10/19 06/29/20 History levothyroxine 100 mcg tablet 100 mcg PO QAM tab 09/10/19 06/29/20 History liothyronine 5 mcg tablet 20 mcg PO QAM tab 09/10/19 06/29/20 History montelukast 10 mg tablet 10 mg PO QAM #1 tab 09/10/19 06/29/20 History omega-3 acid ethyl esters 1 gram 2 g PO QAM cap 09/10/19 06/29/20 History capsule testosterone 50 mg/5 gram (1 %) 1 pkt TD DAILY 09/10/19 06/29/20 History transdermal gel vitamin B complex 1 tab PO QAM 09/10/19 06/29/20 History warfarin 5 mg tablet 5 mg PO QAM tab 09/10/19 06/29/20 History zinc gluconate 50 mg tablet 50 mg PO QAM tab 09/10/19 06/29/20 History diltiazem HCl 180 mg 240 mg PO QAM cap 05/05/20 06/29/20 History capsule,extended release 24 hr clobetasol 0.05 % topical ointment 1 appln TOP BID #60 gm 06/04/20 06/29/20 Rx estradiol 1 g VAGINAL 3XWK 06/29/20 06/29/20 History fluticasone furoate-vilanterol 1 puffs INHALATION QAM 06/29/20 06/29/20 History Patient History Medical History Adrenal insufficiency Allergic rhinitis Bronchiectasis Chilblains Chronic anticoagulation Chronic sinusitis COPD (chronic obstructive pulmonary disease) Hemoptysis Hypothyroidism Indeterminate pulmonary nodules Paroxysmal atrial fibrillation Surgical History History of ankle surgery History of breast augmentation History of hysterectomy History of nasal surgery septal deviation repair History of sinus surgery Family History Mother Heart disease Father COPD (chronic obstructive pulmonary disease) Grandmother (Maternal) Diabetes Family/Other Schizophrenia sibling Social History Smoking Status: Former smoker Tobacco Type: Cigarettes Years Smoked: 8; Cigarettes Per Day: 1; Number of Years Since Quit: 42; Second Hand Exposure: No; Hx Alcohol Use: Yes Alcohol type: wine Alcohol Intake Frequency: 2-3 x/Week Hx Substance Use: No Preferred Language: Swedish Communication Ability: Effective Beliefs That Will Affect Care: None marital status: Life Partner Current Living Situation: Alone 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 Feels Safe at Home: Yes Safety Concerns: Feels Safe At This Time Review of Systems Review of Systems: All systems reviewed & are unremarkable except as noted in HPI & below Physical Exam Physical Exam: Temp Pulse Resp BP Pulse Ox 36.6 C 82 19 118/69 95 06/30/20 07:14 06/30/20 08:00 06/30/20 07:14 06/30/20 07:14 06/30/20 07:14 Constitutional: WD/WN, vitals as above Respiratory: Coarse breath sounds bilaterally throughout the lung [place] Cardiovascular: RRR, no murmur, no edema Vessels: no JVD Gastrointestinal (Abdomen): normal bowel sounds, soft, nontender, no hepatosplenomegaly Neurologic: PERRL, EOMI, accommodation nl, no face palsy, no dysarthria Results & Data ([facility]) Vital Signs (Past 12 Hours) Vital Signs Temp Pulse Resp BP BP Pulse Ox 06/30/20 07:14 36.6 C 86 19 118/69 95 06/30/20 07:12 72 14 95 06/30/20 04:30 36.8 C 89 17 120/62 94 06/30/20 01:10 100 H 18 93 06/30/20 00:22 38.2 C H 104 H 17 137/70 93 Laboratory Results Cardiac Enzymes 06/29/20 06/30/20 Range/Units 11: 07:29 AST 16 13 L (15-37) U/L Troponin I < 0.015 (0-0.045) ng/ml Coagulation INR: 2.9 06/29/20 06/30/20 Range/Units : 07:29 PT 25.4 H 29.2 H (9.0-12.0) Seconds APTT 58.5 H* (21.0-31.0) Seconds CBC 06/29/20 06/30/20 Range/Units 07:29 WBC 19.46 H 15.69 H (4.8-10.8) K/uL RBC 4.20 3.90 L (4.2-5.4) M/uL Hgb 13.5 12.4 (12.0-16.0) g/dL Hct 39.5 37.4 (37-47) % Plt Count 331 290 (130-400) K/uL Neut # (Auto) 17.14 H 13.49 H (1.4-6.5) K/uL Lymph # (Auto) 0.72 L 1.08 L (1.2-3.4) K/uL [place] # (Auto) 1.49 H 1.02 H (0.11-0.59) K/uL Eos # (Auto) 0.01 0.05 (0-0.5) K/uL Baso # (Auto) 0.02 0.01 (0-0.2) K/uL Comprehensive Metabolic Panel 06/29/20 06/30/20 Range/Units 07:29 Sodium 132 L 133 L (136-145) mmol/L Potassium 3.3 L 4.6 D (3.5-5.1) mmol/L Chloride 97 L 103 (98-107) mmol/L Carbon Dioxide 27 25 (21-32) mmol/L BUN 11 7 (7-18) mg/dl Creatinine 0.79 0.60 (0.6-1.2) mg/dl Glucose 104 H 95 (70-99) mg/dl Calcium 9.0 8.7 (8.5-10.1) mg/dl Direct Bilirubin 0.3 H (0-0.2) mg/dl AST 16 13 L (15-37) U/L ALT 18 14 (12-78) U/L Alkaline Phosphatase 84 70 (45-117) U/L Total Protein 7.1 6.3 L (6.4-8.2) gm/dl Albumin 3.2 L 2.5 L (3.4-5.0) gm/dl Intake and Output 06/29/20 06/30/20 06/30/20 22:59 06:59 14:59 Intake Total 1010.417 / 2810.417 1300 / 2810.417 Output Total 200 / 651 451 / 651 Balance 810.417 / 2159.417 849 / 2159.417 Intake: IV 810.417 / 2310.417 1000 / 2310.417 NORMAL SALINE w/20 MEQ KCL 20 1000 / 1000 meq In 1,000 ml @ 100 mls/hr IV .Q10H [facility] Rx#:[id number] Nss 1000ML 1,000 ml @ 125 mls/ 760.417 / 760.417 hr IV .Q8H [facility]MEN Rx#:[id number] Rocephin 1,000 mg In D5w 50 ml 50 / 50 @ 100 mls/hr IV Q24H [facility]MEN Rx#: [id number] Oral 200 / 500 300 / 500 Output: Urine 200 / 650 450 / 650 # Bowel Movements / Other: Weight 66.2 kg 64.7 kg (1) Pneumonia Pneumonia type: due to unspecified organism Laterality: left Lung location: lower lobe of lung Qualified Code(s): J18.9 - Pneumonia, unspecified organism
[2020-06-30] MEDS ORDERED: Nursing to Pharmacy Communication SCH (11:00)
--- NOTE | 2020-06-30 13:20 | Hospitalist Progress Note ---
Date of Service June 30, 2020 Assessment & Plan (1) Pneumonia: With extensive left-sided pneumonia, with a history of bronchiectasis and pulmonary nodules as well as COPD. COVID-19 is negative. - Continue cefepime/azithromycin - Continue flutter valve, nebs - Consulted pulm -> Appreciate recs - Supplemental O2 as needed to keep pulse ox greater than 92% - Will need to follow up with pulmonology for possible KEEGAN. - Follow up cultures (2) Sepsis: With leukocytosis, subjective fevers at home, tachypnea, and pneumonia. - At this point, sepsis resolving. (3) Hemoptysis: With scant hemoptysis in the setting of extensive pneumonia. Is on chronic anticoagulation with warfarin. - Her hemoglobin is stable at 13.5 -> 12.5 at present. - Consulted pulmonology as above -> Continuing anticoagulation at present. (4) Paroxysmal atrial fibrillation: In rapid atrial fibrillation in the 120s upon arrival, secondary to pneumonia and sepsis. Spontaneously converted, then back into afib. - Continue Coumadin for anticoagulation - Continue home diltiazem 240 mg p.o. once daily - Consulted her glass lined tank repairer (5) COPD (chronic obstructive pulmonary disease): As noted above. Follows with pulmonology as an outpatient. Last PFTs reviewed in All-scripts from 10/2018 with a mild reduction in FVC but otherwise normal, no change in function following bronchodilator, normal lung volumes, and normal diffusion at 94% predicted. - Continue home Breo, albuterol as needed (6) Bronchiectasis: With bronchoscopy in 2017 - report reviewed with diffuse mucoid impaction lavaged out. - Pulmonology consultation as above (7) Hypothyroidism: TSH mildly low with normal free T4. Follows with endocrinology as an outpatient. - Continue home levothyroxine, Tirosint (8) Hyperbilirubinemia: Bilirubin mildly elevated at 2.0, no baseline to compare to. Could be Gilbert's versus mild elevation secondary to sepsis. Other LFTs are normal, no abdominal pain. - Follow LFTs in the morning (9) Adrenal insufficiency: Follows with endocrinology as an outpatient. Typically takes hydrocortisone 10 mg p.o. every morning only. - Continue stress dose steroids with hydrocortisone 15 mg p.o. every morning and 5 mg p.o. at 1400 daily (10) Chronic anticoagulation: INR is therapeutic here at 2.5 on warfarin for atrial fibrillation. - Continue Coumadin 5 mg daily and follow INR daily (11) Indeterminate pulmonary nodules: Just had another CAT scan a month ago that showed stability of some nodules and resolution of others. - Follows with pulmonology (12) Chilblains: Follows with rheumatology, Dr. Strickland and was placed on diltiazem which is helping. (13) DVT prophylaxis: Coumadin Admission and Anticipated Discharge Date Admission Date: June 29, 2020 Subjective Feels some better today. Less cough. No major shortness of breath. Reports no fevers/chills, chest pain, shortness of breath, abdominal pain, nausea, or vomiting. Physical Exam Constitutional: WD/WN, vitals as above Eyes: EOM intact bilaterally; no conjunctival abnormality ENMT: external ear and nose normal, oropharynx normal Neck: trachea midline, no thyromegaly normal visual inspection Respiratory: normal respiratory effort, lungs clear to auscultation no respiratory distress Cardiovascular: RRR, no murmur, no edema Gastrointestinal (Abdomen): Inspection/Auscultation: abdomen normal to inspection; abdomen not distended Musculoskeletal: no cyanosis or clubbing, extremities motor strength 5/5 Skin: no rashes, warm and dry Neurologic: moves all extremities and awake Psychiatric: Orientation: alert, oriented to person and cooperative Results & Data Results & Data ([facility]) Vital Signs (Past 12 Hours) Vital Signs Temp Pulse Pulse Resp BP BP Pulse Ox 06/30/20 12:59 96 H 16 96 06/30/20 11:23 37.1 C 95 H 18 127/71 96 06/30/20 08:00 82 06/30/20 07:14 36.6 C 86 19 118/69 95 06/30/20 07:12 72 14 95 06/30/20 04:30 36.8 C 89 17 120/62 94 PG Care Time/CCT Total # of Minutes Spent Total Time Spent with Patient: Total time spent is greater than 50% in coordination of care (as documented) at patient's floor/unit and/or counseling patient: Coding Level of Care Code 83067 Subseq Hosp Care Lvl 3 Diagnoses Pneumonia J18.9 Pneumonia type: due to unspecified organism Laterality: left Lung location: lower lobe of lung Sepsis A41.9 Hemoptysis R04.2 Paroxysmal atrial fibrillation I48.0 COPD (chronic obstructive pulmonary disease) J44.9 Bronchiectasis J47.9 Hypothyroidism E03.9 Hyperbilirubinemia E80.6 Adrenal insufficiency E27.40 Chronic anticoagulation Z79.01 Indeterminate pulmonary nodules R91.8 Chilblains T69.1XXA DVT prophylaxis Z29.9 (1) Pneumonia Pneumonia type: due to unspecified organism Laterality: left Lung location: lower lobe of lung Qualified Code(s): J18.9 - Pneumonia, unspecified organism
[2020-06-30] MEDS: HYDROCORTISONE 5 MG PO SCH (14:13)
[2020-06-30] MEDS ORDERED: WARFARIN SOD 2.5 MG TAB PO SCH (16:00)
[2020-06-30] MEDS ORDERED: cefTRIAXone SODIUM 1,000 MG in DEXTROSE 5% 50 ML IV SCH (17:00)
[2020-06-30] MEDS: AZITHROMYCIN 250 MG TAB PO SCH (17:27)
--- NOTE | 2020-06-30 17:53 | Electrocardiogram Report ---
Test Reason : Blood Pressure : / mmHG Vent. Rate : 094 BPM Atrial Rate : 094 BPM P-R Int : 162 ms QRS Dur : 130 ms QT Int : 368 ms P-R-T Axes : 070 096 019 degrees QTc Int : 460 ms Normal sinus rhythm Possible Left atrial enlargement Right bundle branch block Abnormal ECG When compared with ECG of 29-JUN-2020 11:08, Sinus rhythm has replaced Atrial fibrillation Confirmed by Neal Ly ([id number]) on 06/30/2020 5:53:10 PM Referred By: REFERRED SELF Confirmed By:Tylor Ly
[2020-07-01] MEDS: ACETAMINOPHEN 325 MG TAB PO PRN ×2 (00:13→21:08)
[2020-07-01] MEDS: ALBUTEROL HFA 8 GM INHALER INH SCH ×2 (00:16→07:00)
[2020-07-01] MEDS: LIOTHYRONINE SODIUM 5 MCG PO SCH (06:07)
[2020-07-01] MEDS: CEFEPIME 2,000 MG in SYRINGE 7.5 ML IV SCH ×3 (06:07→20:57)
[2020-07-01] MEDS: LEVOTHYROXINE SODIUM 100 MCG PO SCH (06:11)
[2020-07-01] MEDS: HYDROCORTISONE PO SCH (06:12)
[2020-07-01] MEDS ORDERED: Nursing to Pharmacy Communication SCH (06:45)
[2020-07-01] MEDS: [UNRECOGNIZED DRUG - OTHER] SCH ×3 (07:38→23:02)
[2020-07-01] MEDS: FLUTICASONE INH SCH (07:39)
[2020-07-01] MEDS: DILTIAZEM 240 MG PO SCH (07:39)
[2020-07-01] MEDS: VILANTEROL INH SCH (07:39)
[2020-07-01] MEDS: MONTELUKAST SODIUM 10 MG PO SCH (07:41)
[2020-07-01 07:49] LABS: Hemoglobin 12.4 g/dL (12.0-16.0); Mean Corpuscular Hemoglobin 32.6 pg (25-34); Mean Corpuscular Hgb Conc 34.4 g/dL (32-36); Mean Corpuscular Volume 94.7 fL (80-100); Mean Platelet Volume 9.8 fL (7.4-10.4); Platelet Count 310 K/uL (130-400); RDW Coefficient of Variation 13.4 % (11.5-14.5); RDW Standard Deviation 46.4 fL (36.4-46.3); White Blood Count 14.77 K/uL (4.8-10.8)
[2020-07-01 07:58] LABS: INR 2.8 (0.9-1.1); Prothrombin Time 28.2 Seconds (9.0-12.0)
[2020-07-01 08:41] LABS: BUN Creatinine Ratio 9.6 (10-20); Calcium 8.5 mg/dl (8.5-10.1); Creatinine Clr Calc Pharmacy 96.7 ml/min; Est GFR (African American) 109.4; Est GFR (Non-African American) 94.4; Magnesium 1.8 mg/dl (1.8-2.4); Potassium 3.4 mmol/L (3.5-5.1)
[2020-07-01] MEDS ORDERED: ALBUTEROL HFA 8 GM INHALER INH PRN (08:44)
[2020-07-01] MEDS ORDERED: FLUTICASONE/VILANTEROL 100/25MCG 14 PUFFS/INHALER INH SCH (09:00)
[2020-07-01] MEDS: CHOLECALCIFEROL 1,000 UNITS 25 MCG TAB PO SCH (09:17)
[2020-07-01] MEDS: ZINC SULFATE 220 MG CAPSULE PO SCH (09:17)
[2020-07-01] MEDS: ASCORBIC ACID 500 MG TAB PO SCH (09:17)
[2020-07-01] MEDS: VITAMIN B COMPLEX TAB PO SCH (09:17)
[2020-07-01] MEDS: OMEGA-3 (PURIFIED FISH OIL) 1 GM CAP PO SCH (09:18)
--- NOTE | 2020-07-01 11:48 | Pulmonology Progress Note ---
Date of Service July 01, 2020 Assessment & Plan (1) Pneumonia: 69-year-old female with a past medical history of adrenal insufficiency, allergic rhinitis, atrial fibrillation on anticoagulation, possible COPD and bronchiectasis presenting to the hospital due to pneumonia on the left side of her chest. Continue treatment with azithromycin and cefepime. Recommend repeating procalcitonin tomorrow. Repeat chest x-ray tomorrow morning. Continue flutter valve therapy. I went over how to use the flutter valve with her today. We had a lengthy discussion regarding her overall bronchiectasis and her acute pneumonia. Continue ambulation as tolerated. I am going to start her on hypertonic saline twice a day for airway clearance therapy as well. I am also going to stop her ICS/long-acting beta agonist inhaler as this can predispose her to recurrent pneumonia. I will start her on Anoro instead of the Brio. She has chronic micronodular changes in her right middle lobe and lingula based on her recent CT chest in April. These may be airport representative of nontuberculous Mycobacterium infection. She can follow-up with her primary chemical reclamation equipment operator, Dr. Bazzi regarding these findings. PFT from 11/06/2018 demonstrated FEV1/FVC ratio of 83. FEV1 was 2.21 L which is 84% predicted. FVC was 2.68 L which is 76% predicted. There was no significant postbronchodilator response. Lung volumes with no significant air trapping or hyperinflation. DLCO was normal. These are not consistent with COPD. Pulmonary function from 2018 testing is essentially normal. Pulmonary will continue to follow along with you. Please call us with questions. Laterality: left Lung location: lower lobe of lung Pneumonia type: due to unspecified organism Qualified Code(s): J18.9 - Pneumonia, unspecified organism (2) Chronic anticoagulation: (3) Bronchiectasis: (4) Hemoptysis: Admission and Anticipated Discharge Date Admission Date: June 29, 2020 Subjective Patient generally feels improved from yesterday. She still has persistent dry cough. She did have some mild night sweats and low-grade subjective fevers. Results & Data Results & Data ([facility]) Vital Signs (Past 12 Hours) Vital Signs Temp Pulse Pulse Resp BP Pulse Ox 07/01/20 11:41 97.7 F 88 20 123/67 95 07/01/20 07:47 90 07/01/20 07:15 81 07/01/20 07:00 53 L 18 96 07/01/20 06:54 98.1 F 82 18 125/74 96 07/01/20 04:13 97.9 F 89 18 119/70 96 07/01/20 00:18 91 H 16 92 06/30/20 23:49 95 H PG Care Time/CCT Total # of Minutes Spent Total Time Spent with Patient: Total time spent is greater than 50% in coordination of care (as documented) at patient's floor/unit and/or counseling patient: Coding Level of Care Code 72630 Subseq Hosp Care Lvl 3 Diagnoses Pneumonia J18.9 Laterality: left Lung location: lower lobe of lung Pneumonia type: due to unspecified organism Chronic anticoagulation Z79.01 Bronchiectasis J47.9 Hemoptysis R04.2
[2020-07-01] MEDS: POTASSIUM CHLORIDE 10 MEQ TABCR PO SCH ×2 (11:50→20:57)
--- NOTE | 2020-07-01 12:43 | Cardiology Progress Note ---
Date of Service July 01, 2020 Assessment & Plan (1) Pneumonia: (2) Bronchiectasis: (3) Paroxysmal atrial fibrillation: Continue oral diltiazem. Potassium replacement ordered by primary service. Continue coumadin. Continue antibiotic therapy. Subjective Pt feeling improved. No subjective palpitations. Was in rate controlled AF from 3:48 am to 6:14 am and back in SR in meantime. Physical Exam Physical Exam: Temp Pulse Resp BP Pulse Ox 36.5 C 88 20 123/67 95 07/01/20 11:41 07/01/20 11:41 07/01/20 11:41 07/01/20 11:41 07/01/20 11:41 Constitutional: WD/WN, vitals as above Respiratory: course BS , improved Cardiovascular: RRR, no murmur, no edema Gastrointestinal (Abdomen): normal bowel sounds, soft, nontender, no hepatosplenomegaly Results & Data Vital Signs (Past 12 Hours) Vital Signs Temp Pulse Pulse Resp BP Pulse Ox 07/01/20 11:41 36.5 C 88 20 123/67 95 07/01/20 07:47 90 07/01/20 07:15 81 07/01/20 07:00 53 L 18 96 07/01/20 06:54 36.7 C 82 18 125/74 96 07/01/20 04:13 36.6 C 89 18 119/70 96 Laboratory Results Coagulation INR today 07/01=2.8 07/01/20 Range/Units 07:37 PT 28.2 H (9.0-12.0) Seconds CBC 07/01/20 Range/Units 07:37 WBC 14.77 H (4.8-10.8) K/uL RBC 3.80 L (4.2-5.4) M/uL Hgb 12.4 (12.0-16.0) g/dL Hct 36.0 L (37-47) % Plt Count 310 (130-400) K/uL Comprehensive Metabolic Panel 07/01/20 Range/Units 07:37 Sodium 131 L (136-145) mmol/L Potassium 3.4 L D (3.5-5.1) mmol/L Chloride 100 (98-107) mmol/L Carbon Dioxide 25 (21-32) mmol/L BUN 5 L (7-18) mg/dl Creatinine 0.55 L (0.6-1.2) mg/dl Glucose 99 (70-99) mg/dl Calcium 8.5 (8.5-10.1) mg/dl Intake and Output 06/30/20 07/01/20 07/01/20 22:59 06:59 14:59 Intake Total 978.333 / 2531.666 200 / 2531.666 Balance 978.333 / 1831.666 200 / 1831.666 Intake: IV 178.333 / 1151.666 NORMAL SALINE w/20 MEQ KCL 20 178.333 / 1151.666 meq In 1,000 ml @ 100 mls/hr IV .Q10H [facility] Rx#:[id number] Oral 800 / 1380 200 / 1380 Other: # Unmeasured Voids 1 Weight 65.3 kg (1) Pneumonia Pneumonia type: due to unspecified organism Laterality: left Lung location: lower lobe of lung Qualified Code(s): J18.9 - Pneumonia, unspecified organism
[2020-07-01] MEDS: HYDROCORTISONE 5 MG PO SCH (14:22)
[2020-07-01] MEDS ORDERED: WARFARIN SOD PO SCH ×2 (16:00)
[2020-07-01] MEDS: AZITHROMYCIN 250 MG TAB PO SCH (17:11)
--- NOTE | 2020-07-01 17:20 | Hospitalist Progress Note ---
Date of Service July 01, 2020 Assessment & Plan (1) Pneumonia: With extensive left-sided pneumonia, with a history of bronchiectasis and pulmonary nodules as well as COPD. COVID-19 is negative. - Continue cefepime/azithromycin - Follow sputum cx. - Continue flutter valve, nebs - Consulted pulm -> Appreciate recs: 1) Started hypertonic saline, 2) Stopped ICS/LABA and instead using Anoro, 3) Increase flutter valve usage. - Supplemental O2 as needed to keep pulse ox greater than 92% - Will need to follow up with pulmonology for possible KEEGAN. - Follow up cultures (2) Sepsis: With leukocytosis, subjective fevers at home, tachypnea, and pneumonia. - At this point, sepsis resolving. (3) Hemoptysis: With scant hemoptysis in the setting of extensive pneumonia. Is on chronic anticoagulation with warfarin. - Her hemoglobin is stable at 13.5 -> 12.5 at present. - Consulted pulmonology as above -> Continuing anticoagulation at present. INR in range. (4) Paroxysmal atrial fibrillation: In rapid atrial fibrillation in the 120s upon arrival, secondary to pneumonia and sepsis. Spontaneously converted, then back into afib. - Continue Coumadin for anticoagulation - Continue home diltiazem 240 mg p.o. once daily - Consulted her electrician station assistant -> Appreciate recs. (5) COPD (chronic obstructive pulmonary disease): As noted above. Follows with pulmonology as an outpatient. Last PFTs reviewed in All-scripts from 10/2018 with a mild reduction in FVC but otherwise normal, no change in function following bronchodilator, normal lung volumes, and normal diffusion at 94% predicted. - Continue Anoro, albuterol as needed (6) Bronchiectasis: With bronchoscopy in 2017 - report reviewed with diffuse mucoid impaction lavaged out. - Pulmonology consultation as above (7) Hypothyroidism: TSH mildly low with normal free T4. Follows with endocrinology as an outpatient. - Continue home levothyroxine, Tirosint (8) Hyperbilirubinemia: Bilirubin mildly elevated at 2.0, no baseline to compare to. Could be Gilbert's versus mild elevation secondary to sepsis. Other LFTs are normal, no abdominal pain. - Follow LFTs in the morning (9) Adrenal insufficiency: Follows with endocrinology as an outpatient. Typically takes hydrocortisone 10 mg p.o. every morning only. - Continue stress dose steroids with hydrocortisone 15 mg p.o. every morning and 5 mg p.o. at 1400 daily (10) Chronic anticoagulation: INR is therapeutic here on warfarin for atrial fibrillation. - Continue Coumadin 5 mg daily and follow INR daily (11) Indeterminate pulmonary nodules: Just had another CAT scan a month ago that showed stability of some nodules and resolution of others. - Follows with pulmonology (12) Chilblains: Follows with rheumatology, Dr. Strickland and was placed on diltiazem which is helping. (13) DVT prophylaxis: Coumadin Admission and Anticipated Discharge Date Admission Date: June 29, 2020 Subjective Some improvement today. Getting up lots of thin sputum. Reports no fevers/chills, chest pain, shortness of breath, abdominal pain, nausea, or vomiting. Physical Exam Constitutional: WD/WN, vitals as above Eyes: EOM intact bilaterally; no conjunctival abnormality ENMT: external ear and nose normal, oropharynx normal Neck: trachea midline, no thyromegaly normal visual inspection Respiratory: normal respiratory effort, lungs clear to auscultation no respiratory distress Cardiovascular: RRR, no murmur, no edema Gastrointestinal (Abdomen): Inspection/Auscultation: abdomen normal to inspection; abdomen not distended Musculoskeletal: no cyanosis or clubbing, extremities motor strength 5/5 Skin: no rashes, warm and dry Neurologic: moves all extremities and awake Psychiatric: Orientation: alert, oriented to person and cooperative Results & Data Results & Data ([facility]) Vital Signs (Past 12 Hours) Vital Signs Temp Pulse Pulse Resp BP Pulse Ox 07/01/20 15:34 37.0 C 101 H 20 118/69 96 07/01/20 11:41 36.5 C 88 20 123/67 95 07/01/20 07:47 90 07/01/20 07:15 81 07/01/20 07:00 53 L 18 96 07/01/20 06:54 36.7 C 82 18 125/74 96 PG Care Time/CCT Total # of Minutes Spent Total Time Spent with Patient: Total time spent is greater than 50% in coordination of care (as documented) at patient's floor/unit and/or counseling patient: Coding Level of Care Code 49071 Subseq Hosp Care Lvl 2 Diagnoses Pneumonia J18.9 Pneumonia type: due to unspecified organism Laterality: left Lung location: lower lobe of lung Sepsis A41.9 Hemoptysis R04.2 Paroxysmal atrial fibrillation I48.0 COPD (chronic obstructive pulmonary disease) J44.9 Bronchiectasis J47.9 Hypothyroidism E03.9 Hyperbilirubinemia E80.6 Adrenal insufficiency E27.40 Chronic anticoagulation Z79.01 Indeterminate pulmonary nodules R91.8 Chilblains T69.1XXA DVT prophylaxis Z29.9 (1) Pneumonia Pneumonia type: due to unspecified organism Laterality: left Lung location: lower lobe of lung Qualified Code(s): J18.9 - Pneumonia, unspecified organism
[2020-07-01] MEDS: SODIUM CHLOR 7% 4 ML NEB NEB SCH (19:40)
[2020-07-01] MEDS: ALBUTEROL 0.5% NEB SOLN 2.5 MG/0.5 ML VIAL NEB PRN (19:41)
[2020-07-01] MEDS: SACCHAROMYCES BOULARDII 250 MG CAP PO SCH (20:56)
[2020-07-02] MEDS: CEFEPIME 2,000 MG in SYRINGE 7.5 ML IV SCH ×3 (06:08→21:18)
[2020-07-02] MEDS: LEVOTHYROXINE SODIUM 100 MCG PO SCH (06:09)
[2020-07-02] MEDS: LIOTHYRONINE SODIUM 5 MCG PO SCH (06:10)
[2020-07-02] MEDS: HYDROCORTISONE PO SCH (06:10)
[2020-07-02] MEDS: [UNRECOGNIZED DRUG - OTHER] SCH ×2 (07:12→15:57)
[2020-07-02 07:13] LABS: Hematocrit (blood only) 34.6 % (37-47); Mean Corpuscular Hemoglobin 32.5 pg (25-34); Mean Corpuscular Hgb Conc 34.7 g/dL (32-36); Mean Corpuscular Volume 93.8 fL (80-100); Mean Platelet Volume 9.7 fL (7.4-10.4); Platelet Count 345 K/uL (130-400); RDW Coefficient of Variation 13.4 % (11.5-14.5); Red Blood Count 3.69 M/uL (4.2-5.4); White Blood Count 11.31 K/uL (4.8-10.8)
[2020-07-02 07:21] LABS: INR 3.2 (0.9-1.1); Prothrombin Time 31.5 Seconds (9.0-12.0)
[2020-07-02] MEDS: SODIUM CHLOR 7% 4 ML NEB NEB SCH ×2 (07:37→19:14)
[2020-07-02 07:38] LABS: Albumin Globulin Ratio 0.6 (0.9-2); Albumin Level 2.3 gm/dl (3.4-5.0); BUN Creatinine Ratio 9.9 (10-20); Bilirubin,Total 0.5 mg/dl (0.2-1); Calcium 8.5 mg/dl (8.5-10.1); Creatinine Clr Calc Pharmacy 103.6 ml/min; Est GFR (African American) 110.7; Est GFR (Non-African American) 95.5; Total Protein 6.3 gm/dl (6.4-8.2)
[2020-07-02] MEDS: CLOBETASOL PROPIONATE 0.05% OINT 15 GM TUBE EXT SCH ×2 (08:10→20:58)
[2020-07-02] MEDS: SACCHAROMYCES BOULARDII 250 MG CAP PO SCH (08:10)
[2020-07-02] MEDS: OMEGA-3 (PURIFIED FISH OIL) 1 GM CAP PO SCH (08:10)
[2020-07-02] MEDS: VITAMIN B COMPLEX TAB PO SCH (08:12)
[2020-07-02] MEDS: MONTELUKAST SODIUM 10 MG PO SCH (08:12)
[2020-07-02] MEDS: DILTIAZEM 240 MG PO SCH (08:12)
[2020-07-02] MEDS: ZINC SULFATE 220 MG CAPSULE PO SCH (08:13)
[2020-07-02] MEDS: ASCORBIC ACID 500 MG TAB PO SCH (08:13)
[2020-07-02] MEDS: CHOLECALCIFEROL 1,000 UNITS 25 MCG TAB PO SCH (08:13)
--- NOTE | 2020-07-02 08:57 | XRay Report ---
XR chest 2V PA/lateral HISTORY: 69 years-old Female follow up pneumonia follow-up study in a patient with pneumonia COMPARISON: Chest radiograph 06/29/2020, chest CT 05/02/2020 TECHNIQUE: PA and lateral views of the chest FINDINGS: Pleural thickening of the lung apices is unchanged. Hyperinflation. Cardiomediastinal and hilar silho uettes are unchanged. Small left greater the right pleural effusions. Patchy multifocal left greater the right alveolar opacities redemonstrated with slightly improved aeration of the left lung. Degener ative changes of the shoulders and spine. IMPRESSION: 1. Left greater than right bilateral alveolar opacities are redemonstrated suggestive of multifocal p neumonia. There is slightly improved aeration of the left lung. Continued follow-up is recommended. 2. Small left greater than right pleural effusions. ACT 112: Negative or not required by law. The above report was generated using voice recognition software. It may contain grammatical, syntax o r spelling errors. Electronically signed by: Polo Sampson M.D. 07/02/2020 8:55 AM
[2020-07-02] MEDS: UMECLIDINIUM/VILANTEROL 62.5/25MCG 7 PUFFS/INHALER INH SCH (09:48)
--- NOTE | 2020-07-02 10:33 | Pulmonology Progress Note ---
Date of Service July 02, 2020 Assessment & Plan (1) Pneumonia: 69-year-old female with a past medical history of adrenal insufficiency, allergic rhinitis, atrial fibrillation on anticoagulation, possible COPD and bronchiectasis presenting to the hospital due to pneumonia on the left side of her chest. Her procalcitonin is trending downwards and her left-sided infiltrate is slightly improving on the chest x-ray. Recommend repeating a chest x-ray in 4 to 6 weeks. Continue IV antibiotics for now and transition to p.o. antibiotics tomorrow. I think she is okay to be discharged by tomorrow. Continue flutter valve therapy. Continue ambulation as tolerated. She feels better with a hypertonic saline. Continue her long-acting beta agonist/long-acting muscarinic antagonist inhaler. She has chronic micronodular changes in her right middle lobe and lingula based on her recent CT chest in April. These may be retail customer service representative of nontuberculous Mycobacterium infection. She can follow-up with her primary validation software facilitator, Dr. Bazzi regarding these findings. PFT from 11/06/2018 demonstrated FEV1/FVC ratio of 83. FEV1 was 2.21 L which is 84% predicted. FVC was 2.68 L which is 76% predicted. There was no significant postbronchodilator response. Lung volumes with no significant air trapping or hyperinflation. DLCO was normal. These are not consistent with COPD. Pulmonary function from 2018 testing is essentially normal. Pulmonary will continue to follow along with you. Please call us with questions. Pneumonia type: due to unspecified organism Laterality: left Lung location: lower lobe of lung Qualified Code(s): J18.9 - Pneumonia, unspecified organism (2) Chronic anticoagulation: (3) Bronchiectasis: (4) Hemoptysis: Admission and Anticipated Discharge Date Admission Date: June 29, 2020 Subjective Patient is still having a nonproductive cough. She denies any fevers or chills overnight. She was able to ambulate to the bathroom without any significant shortness of breath. She is saturating well on room air. Denies any chest pain at this time. She is using her flutter valve very frequently. Review of Systems Review of Systems: All systems reviewed & are unremarkable except as noted in HPI & below Physical Exam Constitutional: Frail and thin appearing woman in no apparent distress. She is laying in her bed. Eyes: PERRL, conjunctivae normal, anicteric sclerae ENMT: Ears: no hearing impairment Mallampati Class: I Respiratory: Crackles throughout the left lower lobe. Otherwise clear on the right side. No wheezing appreciated. Cardiovascular: Irregularly irregular. Normal rate. No murmurs. No edema. Gastrointestinal (Abdomen): normal bowel sounds, soft, nontender, no hepatosplenomegaly Musculoskeletal: no cyanosis or clubbing, extremities motor strength 5/5 Skin: no rashes, warm and dry Neurologic: PERRL, EOMI, accommodation nl, no face palsy, no dysarthria Psychiatric: A+Ox3, euthymic affect Results & Data Results & Data ([facility]) Vital Signs (Past 12 Hours) Vital Signs Temp Pulse Pulse Resp BP Pulse Ox 07/02/20 07:39 92 H 18 96 07/02/20 07:16 81 07/02/20 07:11 98.6 F 88 20 132/66 93 07/02/20 05:06 98.6 F 80 18 127/68 94 07/01/20 23:59 91 H 07/01/20 22:31 98.6 F 91 H 18 114/61 91 I reviewed her vital signs, labs and imaging. PG Care Time/CCT Total # of Minutes Spent Total Time Spent with Patient: Total time spent is greater than 50% in coordination of care (as documented) at patient's floor/unit and/or counseling patient: Coding Level of Care Code 29601 Subseq Hosp Care Lvl 2 Diagnoses Pneumonia J18.9 Pneumonia type: due to unspecified organism Laterality: left Lung location: lower lobe of lung Chronic anticoagulation Z79.01 Bronchiectasis J47.9 Hemoptysis R04.2
[2020-07-02] MEDS: HYDROCORTISONE 5 MG PO SCH (13:37)
--- NOTE | 2020-07-02 15:57 | Hospitalist Progress Note ---
Date of Service July 02, 2020 Assessment & Plan (1) Pneumonia: With extensive left-sided pneumonia, with a history of bronchiectasis and pulmonary nodules as well as COPD. COVID-19 is negative. - Sputum cx. from 06/30 only grew heavy normal rudy. - Continue cefepime/azithromycin - Likely switch to Augmentin/azithromycin on discharge unless pulm feels differently. - Continue flutter valve, nebs - Consulted pulm -> Appreciate recs: 1) Started hypertonic saline, 2) Stopped ICS/LABA and instead using Anoro, 3) Increase flutter valve usage. - Will need to follow up with pulmonology for possible KEEGAN. (2) Sepsis: With leukocytosis, subjective fevers at home, tachypnea, and pneumonia. - At this point, sepsis resolved. (3) Hemoptysis: With scant hemoptysis in the setting of extensive pneumonia. Is on chronic anticoagulation with warfarin. - Her hemoglobin is stable at 13.5 -> 12.5 at present. - Consulted pulmonology as above -> Continuing anticoagulation at present. INR in range. (4) Paroxysmal atrial fibrillation: In rapid atrial fibrillation in the 120s upon arrival, secondary to pneumonia and sepsis. Spontaneously converted, then back into afib. - Continue Coumadin for anticoagulation -> Held today for INR of 3.2. - Continue home diltiazem 240 mg p.o. once daily - Consulted her tightener -> Appreciate recs. (5) COPD (chronic obstructive pulmonary disease): As noted above. Follows with pulmonology as an outpatient. Last PFTs reviewed in All-scripts from 10/2018 with a mild reduction in FVC but otherwise normal, no change in function following bronchodilator, normal lung volumes, and normal diffusion at 94% predicted. - Continue Anoro, albuterol as needed (6) Bronchiectasis: With bronchoscopy in 2017 - report reviewed with diffuse mucoid impaction lavaged out. - Pulmonology consultation as above (7) Hypothyroidism: TSH mildly low with normal free T4. Follows with endocrinology as an outpatient. - Continue home levothyroxine, Tirosint (8) Hyperbilirubinemia: Bilirubin mildly elevated at 2.0, no baseline to compare to. Could be Gilbert's versus mild elevation secondary to sepsis. Other LFTs are normal, no abdominal pain. - Follow LFTs in the morning -> Now normal. (9) Adrenal insufficiency: Follows with endocrinology as an outpatient. Typically takes hydrocortisone 10 mg p.o. every morning only. - Continue stress dose steroids with hydrocortisone 15 mg p.o. every morning and 5 mg p.o. at 1400 daily - Will lower to 10 mg PO QAM and 5 mg PO at noon on discharge. (10) Chronic anticoagulation: INR is therapeutic here on warfarin for atrial fibrillation. - Hold warfarin today (11) Indeterminate pulmonary nodules: Just had another CAT scan a month ago that showed stability of some nodules and resolution of others. - Follows with pulmonology (12) Chilblains: Follows with rheumatology, Dr. Strickland and was placed on diltiazem which is helping. (13) DVT prophylaxis: Coumadin Admission and Anticipated Discharge Date Admission Date: June 29, 2020 Subjective Doing better today. Less cough. Reports no fevers/chills, chest pain, abdominal pain, nausea, or vomiting. Physical Exam Constitutional: WD/WN, vitals as above Eyes: EOM intact bilaterally; no conjunctival abnormality ENMT: external ear and nose normal, oropharynx normal Neck: trachea midline, no thyromegaly normal visual inspection Respiratory: normal respiratory effort, lungs clear to auscultation no respiratory distress Cardiovascular: RRR, no murmur, no edema Gastrointestinal (Abdomen): Inspection/Auscultation: abdomen normal to inspection; abdomen not distended Musculoskeletal: no cyanosis or clubbing, extremities motor strength 5/5 Skin: no rashes, warm and dry Neurologic: moves all extremities and awake Psychiatric: Orientation: alert, oriented to person and cooperative Results & Data Results & Data ([facility]) Vital Signs (Past 12 Hours) Vital Signs Temp Pulse Pulse Resp BP Pulse Ox 07/02/20 14:36 37.0 C 84 20 118/71 96 07/02/20 12:07 36.6 C 94 H 20 120/70 95 07/02/20 07:39 92 H 18 96 07/02/20 07:16 81 07/02/20 07:11 37.0 C 88 20 132/66 93 07/02/20 05:06 37 C 80 18 127/68 94 PG Care Time/CCT Total # of Minutes Spent Total Time Spent with Patient: Total time spent is greater than 50% in coordination of care (as documented) at patient's floor/unit and/or counseling patient: Coding Level of Care Code 75292 Subseq Hosp Care Lvl 2 Diagnoses Pneumonia J18.9 Pneumonia type: due to unspecified organism Laterality: left Lung location: lower lobe of lung Sepsis A41.9 Hemoptysis R04.2 Paroxysmal atrial fibrillation I48.0 COPD (chronic obstructive pulmonary disease) J44.9 COPD type: unspecified COPD Bronchiectasis J47.9 Hypothyroidism E03.9 Hyperbilirubinemia E80.6 Adrenal insufficiency E27.40 Chronic anticoagulation Z79.01 Indeterminate pulmonary nodules R91.8 Chilblains T69.1XXA DVT prophylaxis Z29.9 (1) Pneumonia Pneumonia type: due to unspecified organism Laterality: left Lung location: lower lobe of lung Qualified Code(s): J18.9 - Pneumonia, unspecified organism (2) COPD (chronic obstructive pulmonary disease) COPD type: unspecified COPD Qualified Code(s): J44.9 - Chronic obstructive pulmonary disease, unspecified
--- NOTE | 2020-07-02 16:34 | Cardiology Progress Note ---
Date of Service July 02, 2020 Assessment & Plan (1) Pneumonia: (2) Bronchiectasis: (3) Paroxysmal atrial fibrillation: INR was 3.2 today with scant hemoptysis noted earlier. Her Coumadin is therefore on hold. Continue diltiazem. Repeat INR tomorrow. Subjective Patient seen in follow-up of paroxysmal atrial fibrillation and pneumonia. This morning, from 8:37 AM until 9:32 AM she was then a rate controlled atrial fibrillation. She had reverted back to sinus rhythm by the time I had examined her this morning. She has no subjective symptoms of atrial fibrillation. Her presenting symptoms suggestive of pneumonia are improving. Physical Exam Physical Exam: Temp Pulse Resp BP Pulse Ox 37.0 C 84 20 118/71 96 07/02/20 14:36 07/02/20 14:36 07/02/20 14:36 07/02/20 14:36 07/02/20 14:36 Constitutional: WD/WN, vitals as above Respiratory: Mild wheezing at the apices, no rales or rhonchi Cardiovascular: RRR, no murmur, no edema Gastrointestinal (Abdomen): normal bowel sounds, soft, nontender, no hepatosplenomegaly Neurologic: PERRL, EOMI, accommodation nl, no face palsy, no dysarthria Results & Data Vital Signs (Past 12 Hours) Vital Signs Temp Pulse Pulse Resp BP Pulse Ox 07/02/20 14:36 37.0 C 84 20 118/71 96 07/02/20 12:07 36.6 C 94 H 20 120/70 95 07/02/20 07:39 92 H 18 96 07/02/20 07:16 81 07/02/20 07:11 37.0 C 88 20 132/66 93 07/02/20 05:06 37 C 80 18 127/68 94 Laboratory Results Cardiac Enzymes 07/02/20 Range/Units 06:34 AST 15 (15-37) U/L Coagulation 07/02/20 Range/Units 06:34 PT 31.5 H (9.0-12.0) Seconds CBC 07/02/20 Range/Units 06:34 WBC 11.31 H (4.8-10.8) K/uL RBC 3.69 L (4.2-5.4) M/uL Hgb 12.0 (12.0-16.0) g/dL Hct 34.6 L (37-47) % Plt Count 345 (130-400) K/uL Comprehensive Metabolic Panel 07/02/20 Range/Units 06:34 Sodium 135 L (136-145) mmol/L Potassium 4.0 D (3.5-5.1) mmol/L Chloride 103 (98-107) mmol/L Carbon Dioxide 26 (21-32) mmol/L BUN 5 L (7-18) mg/dl Creatinine 0.53 L (0.6-1.2) mg/dl Glucose 88 (70-99) mg/dl Calcium 8.5 (8.5-10.1) mg/dl AST 15 (15-37) U/L ALT 17 (12-78) U/L Alkaline Phosphatase 68 (45-117) U/L Total Protein 6.3 L (6.4-8.2) gm/dl Albumin 2.3 L (3.4-5.0) gm/dl Intake and Output 07/02/20 07/02/20 07/02/20 06:59 14:59 22:59 Intake Total 550 / 5 1400 / 1400 Output Total Balance 550 / 2064 1399 / 1399 Intake: Oral 550 / 5 1400 / 1400 Output: # Bowel Movements Other: Weight 67.4 kg (1) Pneumonia Pneumonia type: due to unspecified organism Laterality: left Lung location: lower lobe of lung Qualified Code(s): J18.9 - Pneumonia, unspecified organism
[2020-07-02] MEDS: AZITHROMYCIN 250 MG TAB PO SCH (17:35)
[2020-07-02] MEDS: ALBUTEROL 0.5% NEB SOLN 2.5 MG/0.5 ML VIAL NEB PRN (19:13)
[2020-07-02] MEDS: ACETAMINOPHEN 325 MG TAB PO PRN (23:44)
[2020-07-03] MEDS: [UNRECOGNIZED DRUG - OTHER] SCH ×2 (01:26→07:53)
[2020-07-03] MEDS: LEVOTHYROXINE SODIUM 100 MCG PO SCH (05:50)
[2020-07-03] MEDS: CEFEPIME 2,000 MG in SYRINGE 7.5 ML IV SCH ×2 (05:50→11:41)
[2020-07-03] MEDS: HYDROCORTISONE PO SCH (05:51)
[2020-07-03] MEDS: LIOTHYRONINE SODIUM 5 MCG PO SCH (05:52)
[2020-07-03 05:54] LABS: Prothrombin Time 29.7 Seconds (9.0-12.0)
[2020-07-03] MEDS: SODIUM CHLOR 7% 4 ML NEB NEB SCH (07:35)
[2020-07-03] MEDS: UMECLIDINIUM/VILANTEROL 62.5/25MCG 7 PUFFS/INHALER INH SCH (08:34)
[2020-07-03] MEDS: SACCHAROMYCES BOULARDII 250 MG CAP PO SCH (08:35)
[2020-07-03] MEDS: CHOLECALCIFEROL 1,000 UNITS 25 MCG TAB PO SCH (08:35)
[2020-07-03] MEDS: ZINC SULFATE 220 MG CAPSULE PO SCH (08:35)
[2020-07-03] MEDS: VITAMIN B COMPLEX TAB PO SCH (08:35)
[2020-07-03] MEDS: OMEGA-3 (PURIFIED FISH OIL) 1 GM CAP PO SCH ×2 (08:35→08:40)
[2020-07-03] MEDS: ASCORBIC ACID 500 MG TAB PO SCH (08:36)
[2020-07-03] MEDS: DILTIAZEM 240 MG PO SCH (08:36)
[2020-07-03] MEDS: MONTELUKAST SODIUM 10 MG PO SCH (08:37)
[2020-07-03] MEDS ORDERED: Nursing to Pharmacy Communication SCH (10:45)
--- NOTE | 2020-07-03 18:44 | Discharge Summary ---
Date of Service July 03, 2020 Admission HPI Per Admitting Provider This patient is a 69-year-old very pleasant female with a history of COPD and bronchiectasis, pulmonary nodules, PAF on warfarin, hypothyroidism, adrenal insufficiency, chronic sinusitis, allergic rhinitis, and chilblains, who presents to the ER with productive cough with brown sputum with scant amounts of hemoptysis, and subjective fevers and chills at home for the last 24 hours. She reports that she traveled to [place], [place] and stayed with her boyfriend and his family from [place] for a week. She returned 1 week ago and ever since then, has been severely fatigued, but had no other symptoms. She has been taking her medications like usual. She did not have a thermometer to check her temperature at home yesterday but was having significant chills. She is also having some constant pain underneath her left scapula that feels like a muscle strain. She is having low appetite and has had very poor p.o. intake but has been trying to force herself to drink fluids. She denies any nausea/vomiti ng/diarrhea, no abdominal pain. Denies headache or lightheadedness, no sore throat or runny nose. Denies chest pain. She was concerned with the hemoptysis and also was concerned that she may have C OVID-19 so she presented to the ER. Upon presentation, she was noted to be in rapid atrial fibrillation in the 120s but then after receiving some IV fluids, spontaneously converted to normal sinus rhythm in the 90s. She was afebrile, tachypneic, with normal blood pressure and normal pulse ox on room air. Her WBC count was elevated at 19,000 with a predominant neutrophilia, she was dehydrated and had hyponatremia at 132, hypokalemia at 3.3, and a mildly elevated total bilirubin at 2.0. Her procalcitonin was mildly elevated at 0.75. Her urinalysis also showed evidence of infection, however she denied any urinary symptoms. Her rapid COVID-19 test was negative. Her chest x-ray showed an extensive left middle and lower lung zone airspace opacities consistent with pneumonia and a small associated left pleural effusion. She will be admitted for sepsis, pneumonia. Principal Diagnosis Community-acquired pneumonia with bronchiectasis Discharge Exam Constitutional WD/WN, vitals as above Eyes EOM intact bilaterally; no conjunctival abnormality ENMT external ear and nose normal, oropharynx normal Neck trachea midline, no thyromegaly normal visual inspection Respiratory normal respiratory effort, lungs clear to auscultation no respiratory distress Cardiovascular RRR, no murmur, no edema Gastrointestinal (Abdomen) Inspection/Auscultation: abdomen normal to inspection; abdomen not distended Musculoskeletal no cyanosis or clubbing, extremities motor strength 5/5 Skin no rashes, warm and dry Neurologic moves all extremities and awake Psychiatric Orientation: alert, oriented to person and cooperative Discharge Data Allergies Allergy/AdvReac Type Severity Reaction Status Date / Time No Known Allergies Allergy Verified 06/29/20 12:08 Consultations 06/29/20 19:22 Consult Cardiology Routine Consult Pulmonology Routine Hospital Course (1) Pneumonia: With extensive left-sided pneumonia, with a history of bronchiectasis and pulmonary nodules as well as COPD. COVID-19 is negative. - Sputum cx. from 06/30 only grew heavy normal rudy. - Continue cefepime/azithromycin - Consulted pulm -> Appreciate recs: 1) Started hypertonic saline, 2) Stopped ICS/LABA and instead using Anoro, 3) Increase flutter valve usage. - Will need to follow up with pulmonology for possible KEEGAN. - Discharged on levofloxacin x 10 more days (total 14 days of abx). Will get CXR in 4-6 weeks to ensure resolution of pneumonia. As above, switched to a LAMA/LABA maintenance inhaler. Avoid inhaled steroids to reduce pneumonia risk. Discharged with hypertonic saline nebs which she felt were beneficial in expectoration. (2) Hemoptysis: With scant hemoptysis in the setting of extensive pneumonia. Is on chronic anticoagulation with warfarin. - Her hemoglobin is stable at 13.5 -> 12.5 at present. - Consulted pulmonology as above -> INR was 3.0 on discharge. Levofloxacin will raise her INR, so she was told to hold her dose today and tomorrow take a half dose. She will need an INR check on Tuesday. May need dose reduction during the entire 10-day course of antibiotics. (3) Sepsis: With leukocytosis, subjective fevers at home, tachypnea, and pneumonia. - At this point, sepsis resolved. (4) Paroxysmal atrial fibrillation: In rapid atrial fibrillation in the 120s upon arrival, secondary to pneumonia and sepsis. Spontaneously converted, then back into afib. - Continue Coumadin for anticoagulation -> See above - Continue home diltiazem 240 mg p.o. once daily - Consulted her patient transportation driver -> Appreciate recs. (5) COPD (chronic obstructive pulmonary disease): As noted above. Follows with pulmonology as an outpatient. Last PFTs reviewed in [employer] from 10/2018 with a mild reduction in FVC but otherwise normal, no change in function following bronchodilator, normal lung volumes, and normal diffusion at 94% predicted. - Continue Anoro, albuterol as needed (6) Bronchiectasis: With bronchoscopy in 2017 - report reviewed with diffuse mucoid impaction lavaged out. - Pulmonology consultation as above (7) Hypothyroidism: TSH mildly low with normal free T4. Follows with endocrinology as an outpatient. - Continue home levothyroxine, Tirosint (8) Hyperbilirubinemia: Bilirubin mildly elevated at 2.0, no baseline to compare to. Could be Gilbert's versus mild elevation secondary to sepsis. Other LFTs are normal, no abdominal pain. - Follow LFTs in the morning -> Now normal. (9) Adrenal insufficiency: Follows with endocrinology as an outpatient. Typically takes hydrocortisone 10 mg p.o. every morning only. - Continue stress dose steroids with hydrocortisone 15 mg p.o. every morning and 5 mg p.o. at 1400 daily - Will lower to 10 mg PO QAM and 5 mg PO at noon on discharge. (10) Chronic anticoagulation: INR is therapeutic here on warfarin for atrial fibrillation. - Hold warfarin today -> See above (11) Indeterminate pulmonary nodules: Just had another CAT scan a month ago that showed stability of some nodules and resolution of others. - Follows with pulmonology (12) Chilblains: Follows with rheumatology, Dr. Strickland and was placed on diltiazem which is helping. (13) DVT prophylaxis: Coumadin Total Time Total Time Spent Total Time Spent (In Minutes): 35 Discharge Plan Discharge Items Patient Disposition: Home - Self-Care Reason For Visit: PNEUMONIA,SEPSIS, RAPID AFIB Discharge Diagnosis: Pneumonia Activity: Resume your previous activity Exercise/Sports: Gradually increase as tolerated Driving/Machine Use: No limitations Non-emergency contact: Primary Care Provider Call non-emergency contact if: your symptoms worsen and your temperature is above 101 Follow-up/Referrals: Tom Bazzi MD [Physician] - (Please see the pulmonology team in their office in 2-3 weeks.) Gabrielle Crawley MD [Primary Care Provider] - (Please call schedule an appt with your PCP. [phone]) Diet: Heart Healthy Addtl Attending Provider Instructions: Ms. Lim, You were admitted to the hospital with a significant pneumonia in the left middle and lower lobes. We treated you with antibiotics, and you have done very well! We are sending you out on a longer course of antibiotics because of your bronchiectasis which makes it a bit harder to clear bacteria from your lungs. Please take the first dose of levofloxacin tonight before bedtime (07/03/2020), then once per day after that until it is completely gone. We are also adjusting your long-acting inhaler as the inhaler with steroids can sometimes predispose you to pneumonia. Finally, we are sending you home with the flutter valve (the green "pickle") as well as hypertonic saline nebulizers to use in your home nebulizer machine. Both of these devices can help you clear some of the mucus that tends to get stuck in your lungs. Cardiovascular exercise and a good round of coughing also help you clear your secretions and are encourged. Levofloxacin can interact with your warfarin. We held your warfarin on Tuesday because your INR was 3.2. Given the pneumonia and mild blood with coughing, we'd like you to be closer to 2 instead of a bit high. Please hold your dose of warfarin today (07/03). Take a half dose (2.5 mg) on Tuesday (07/04), then resume your normal dosing. However, you should have your PCP or patient transportation driver check your INR on Tuesday to be sure you are staying in a good range. Finally, we had increased your steroids while in the hospital to put you on a "stress-dose" steroid. I think you can go back to your usual hydrocortisone 10 mg every morning dose. For the rest of the week (through Tuesday), take a 5 mg dose around noon as well. By Tuesday, if you are feeling well, you can stop the afternoon dose and just go back to your normal dosing. Please see your PCP or Dr. Bazzi in the office toward the end of your course of antibiotic to be sure you are doing well and don't need anything further lengthening of antibiotic. Please have your PCP or Dr. Bazzi give you a repeat chest x-ray in 4-6 weeks to be sure all signs of pneumonia have gone away. Pending Studies at Discharge: No Stand-Alone Forms: My [facility], Smoking Cessation Medications and DC Order Prescriptions: New Anoro Ellipta 62.5-25 mcg/actuation Blister With Device 1 ea inhalation DAILY Qty: 60 RF: 0 sodium chloride 7 % Solution For Nebulization 4 ml NEB BIDR PRN (Reason: Cough or secretions) Qty: 240 RF: 0 levofloxacin 750 mg tablet 750 mg PO DAILY 10 Days Qty: 10 RF: 0 Continued clobetasol 0.05 % ointment 1 appln TOP BID Qty: 60 RF: 3 ascorbic acid (vitamin C) 500 mg tablet 500 mg PO QAM RF: 0 warfarin 5 mg tablet 5 mg PO QAM RF: 0 montelukast 10 mg tablet 10 mg PO QAM Qty: 1 RF: 0 coenzyme Q10 100 mg capsule 100 mg PO QAM RF: 0 hydrocortisone 5 mg tablet 10 - 15 mg PO QAM RF: 0 levothyroxine 100 mcg tablet 100 mcg PO QAM RF: 0 liothyronine 5 mcg tablet 20 mcg PO QAM RF: 0 testosterone 50 mg/5 gram (1 %) gel 1 pkt TD DAILY RF: 0 vitamin B complex [B Complex-Vitamin B12] tablet 1 tab PO QAM RF: 0 cholecalciferol (vitamin D3) 2,000 unit capsule 2,000 unit PO QAM RF: 0 omega-3 acid ethyl esters 1 gram capsule 2 g PO QAM RF: 0 zinc gluconate 50 mg tablet 50 mg PO QAM RF: 0 diltiazem HCl [Cartia XT] 180 mg capsule,extended release 24hr 240 mg PO QAM RF: 0 estradiol 0.01 % (0.1 mg/gram) cream 1 g vaginal 3XWK RF: 0 Discontinued fluticasone furoate-vilanterol 200-25 mcg/dose blister with device 1 puffs inhalation QAM RF: 0 Discharge Orders: Discharge Order (Routine); Ordered 07/03/20 Ordered By: Mike Lyon Admission Data Admit Date/Time: 06/29/20 17:04 Attending Provider: Lyon,Mike J. Admit Provider: Kavya Ricks Primary Care Provider: Gabrielle Crawley Other Providers: Carloz Bazan ; [place] Other Interventions: Discharge Summary Assessment (RN) Last Done: 07/03/20 10:49 DC Date/Time DO NOT enter until pt leaves facility: 07/03/20 12:00 Coding Level of Care Code D/C Day Management >30 mins Diagnoses Pneumonia J18.9 Pneumonia type: due to unspecified organism Laterality: left Lung location: lower lobe of lung Hemoptysis R04.2 Sepsis A41.9 Paroxysmal atrial fibrillation I48.0 COPD (chronic obstructive pulmonary disease) J44.9 COPD type: unspecified COPD Bronchiectasis J47.9 Hypothyroidism E03.9 Hyperbilirubinemia E80.6 Adrenal insufficiency E27.40 Chronic anticoagulation Z79.01 Indeterminate pulmonary nodules R91.8 Chilblains T69.1XXA DVT prophylaxis Z29.9
== END 2020-07-03 12:00 | disposition home or self-care (01) | DRG 871 ==
LOC: ED 10:04 → 2S 17:04 → SUATTDRO 17:04 → 2S 18:23 → 2W 06-30 13:20

== ENCOUNTER 2024-06-22 18:07 | Inpatient (IN) ==
[2024-06-22] MEDS: SODIUM CHLORIDE 0.9% 1,000 ML IV ONE (18:53)
[2024-06-22] MEDS: ONDANSETRON INJ 2 MG/ML 2 ML VIAL IV STA ×2 (18:53→20:31)
--- NOTE | 2024-06-22 19:20 | Emergency Department Note ---
History of Present Illness General Chief Complaint: Illness Stated Complaint: ILL, POSS FOOD POISONING Time Seen by Provider: 06/22/24 18:10 History of Present Illness Provider Complaint: abdominal pain Onset (ago): 4 day(s) Pain Consistency: constant Location: diffuse Severity: severe Maximum Pain Intensity: 9 Quality: + cramping, + stabbing and + sharp Relieved By: + nothing Exacerbated By: + nothing Context: + possible food poisoning (Occurred after eating bad shrimp at a country club); no foreign travel, no sick contacts, no recent antibiotic use, no recent surgery/procedure or no recent injury Associated Symptoms: + nausea and + constipation; no vomiting, no diarrhea, no fever, no chills, no dysuria, no hematemesis, no hematochezia, no melena, no hematuria, no syncope, no headache, no back pain, no chest pain and no breathing difficulty Home Medications Medication Instructions Recorded Confirmed Type ascorbic acid (vitamin C) 500 mg 1,000 mg PO QAM 09/10/19 06/20/24 History tablet levothyroxine 100 mcg tablet 100 mcg PO QAM 09/10/19 06/20/24 History zinc gluconate 50 mg tablet 50 mg PO QAM 09/10/19 02/21/24 History krill oil 500 mg capsule 1,500 mg PO DAILY 02/11/23 06/20/24 History warfarin 5 mg tablet See Rx Instructions .Route .COMPLEX 02/11/23 06/20/24 History liothyronine 5 mcg tablet 10 mcg PO QAM 08/31/23 06/20/24 History clobetasol 0.05 % topical ointment 1 applic topical 3XWK PRN Rash #60 09/22/23 06/20/24 Rx grams estradiol 0.01% (0.1 mg/gram) 1 g vaginal WK #42.5 grams 09/22/23 06/20/24 Rx vaginal cream montelukast 10 mg tablet 10 mg PO QAM #90 tabs 10/31/23 06/20/24 Rx cholecalciferol (vitamin D3) 125 125 mcg PO DAILY 06/20/24 06/20/24 History mcg (5,000 unit) tablet (Vitamin D3) diltiazem HCl 240 mg 240 mg PO QAM 06/20/24 06/20/24 History capsule,extended release 24 hr (Cartia XT) sodium chloride 0.65 % nasal spray 1 spray intranasal DIRECTED PRN 06/20/24 06/20/24 History aerosol (Saline Nasal) Dry Nasal Passages sodium chloride 7 % for 1 inh inhalation BID PRN NEEDED 06/20/24 06/20/24 History nebulization umeclidinium 62.5 mcg-vilanterol 1 inh inhalation QAM 06/20/24 06/20/24 History 25 mcg/actuation powdr for inhalation (Anoro Ellipta) vitamin B complex 1 tab PO DAILY 06/20/24 06/20/24 History ondansetron 4 mg disintegrating 4 mg PO Q8H PRN nausea and 06/21/24 Rx tablet vomiting #30 tabs Allergies Allergy/AdvReac Type Severity Reaction Status Date / Time No Known Allergies Allergy Verified 06/20/24 21:36 Past Med/Surg History Problem List (Updated 06/22/24 @ 22:20 by Dorian Lara MD) Pleural effusion (Acute) Abdominal ascites (Acute) Ileus (Acute) Food poisoning (Acute) Extremely dense tissue of both breasts on mammography Adrenal abnormality Hypothyroid Vitamin D deficiency Post-menopause on HRT (hormone replacement therapy) Hyperparathyroidism History of nasal surgery septal deviation repair History of sinus surgery Vulvitis Paroxysmal atrial fibrillation (Acute) DX A FEW YRS AGO > WARFARIN> NO PACER > FOLLOWS WITH DR. SCHULTZ Indeterminate pulmonary nodules Hypothyroidism Chronic sinusitis Allergic rhinitis Bronchiectasis Sepsis Hemoptysis Hyperbilirubinemia DVT prophylaxis Adrenal insufficiency Chronic anticoagulation Chilblains Hemoptysis RESOLVED Hemoptysis (Acute) History of recent pneumonia Abnormal CT scan, chest Allergic rhinitis Encounter for pre-operative examination Chronic dyspnea Osteoporosis Medical History Pulmonary nodules just monitoring Hypertension Bronchiectasis INHALER FOR THIS Surgical History History of cataract surgery left History of colonoscopy went into Afib for 3 mins with last colonscopy> resolved History of tooth extraction History of adenoidectomy History of bronchoscopy History of hysterectomy History of breast augmentation History of ankle surgery RIGHT due to fx Family History Mother Heart disease Breast cancer Father COPD (chronic obstructive pulmonary disease) Grandmother (Maternal) Diabetes Family/Other Schizophrenia sibling Denies family history of Ovarian cancer Colorectal cancer Social History Smoking Status: Former smoker Tobacco Type: Cigarettes Age Started Using Tobacco: 17; Age Quit Using Tobacco: 26; Cigarettes Per Day: 0-4 per day; Second Hand Exposure: No; Do You Dip or Chew Tobacco: No; Hx Alcohol Use: Yes Alcohol type: wine and hard liquor Alcohol Intake Frequency: 2-3 x/Week Hx Substance Use: No Preferred Language: Swiss Communication Ability: Effective 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: No Beliefs That Will Affect Care: None marital status: Life Partner Current Living Situation: Alone 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 Feels Safe at Home: Yes Assistive Devices: None Physical Exam 2 Vital Signs: Vital Signs - 24 hr 06/22/24 18:24 06/22/24 18:40 06/22/24 18:40 Temperature 36.7 C Temperature Source Skin Pulse Rate 123 H 106 H Pulse Rate [Apical ] 106 H Pulse Rhythm Regular Pulse Rhythm [Apic al] Regular Pulse Strength [Ap ical] Normal Respiratory Rate 17 20 20 Respiratory Effort / Characteristics Non-Labored Sponta neous Non-Labored Sponta neous Respiratory Depth Normal Normal Respiratory Patter n Regular Blood Pressure 101/69 Blood Pressure [Ri ght Arm] 124/84 Blood Pressure Meryl n 79 Blood Pressure Meryl n [Right Arm] 97 Blood Pressure Pos ition [Right Arm] Sitting Pulse Oximetry 95 96 96 Oxygen Delivery Me thod Room Air Room Air Room Air Sepsis Recent Feve r Within 48 Hours No Sepsis New/Unexpla ined Change in Men fe Status No Sepsis Action Take n by Nursing No Action Required 06/22/24 19:38 06/22/24 20:32 Temperature Temperature Source Pulse Rate 106 H Pulse Rate [Apical ] 100 H Pulse Rhythm Pulse Rhythm [Apic al] Pulse Strength [Ap ical] Respiratory Rate 20 Respiratory Effort / Characteristics Non-Labored Sponta neous Respiratory Depth Normal Respiratory Patter n Regular Blood Pressure Blood Pressure [Ri ght Arm] 126/83 Blood Pressure Meryl n Blood Pressure Meryl n [Right Arm] 97 Blood Pressure Pos ition [Right Arm] Lying Pulse Oximetry 96 Oxygen Delivery Me thod Room Air Sepsis Recent Feve r Within 48 Hours Sepsis New/Unexpla ined Change in Men fe Status Sepsis Action Take n by Nursing Physical Exam: Physical Exam GENERAL: She is oriented to person, place, and time. She appears well-developed and well-nourished. She does not appear distressed. HENT: Exam performed. -Head: Normocephalic and atraumatic. -Right Ear: External ear normal. No mastoid erythema -Left Ear: External ear normal. No mastoid erythema -Mouth/Throat: The oropharynx is clear and moist. No trismus in the jaw. No dental abscesses or uvula swelling. No oropharyngeal exudate or tonsillar abscesses. EYES: Conjunctivae and EOM are normal.Right eye exhibits no discharge. Left eye exhibits no discharge. No scleral icterus. NECK: Normal range of motion. Neck supple. No JVD present. No tracheal deviation and normal range of motion present. CV: Normal rate, irregular rhythm, normal heart sounds and intact distal pulses. There is no peripheral edema. Palpable radial pulses bue. PULM/CHEST: Effort normal and breath sounds normal. No respiratory distress. No stridor. She has no wheezes. She has no rales. -Chest Wall: She exhibits no tenderness. ABD: The abdomen is soft. Bowel sounds are normal. Mild distension compated to previous exam. No mass is present. There is diffuse tenderness to palpation. There is no rebound, no guarding MUSC/SKEL: Normal range of motion. There is no peripheral edema, tenderness or deformity. NEURO: Motor and sensation grossly intact. SKIN: Skin is warm and dry. She is not diaphoretic. PSYCH: She has a normal mood and affect. Behavior is normal. Judgment and thought content normal. Course Course 1809: The patient was evaluated in room C3. A complete history and physical exam was performed Cardiac monitoring: An order was placed for continuous cardiac monitoring. The monitor shows a rate of 100 with sinus rhythm interpreted by me 1940: Acute abdominal series shows very distended bowel loops. No air-fluid levels. Right-sided pleural effusion. Will could CT again to rule out SBO. 1999: White blood cell count 18. Will add lactic acid and blood cultures. 2211: Vital signs stable. Patient reports her pain and nausea are better status post morphine and Zofran. Labs show leukocytosis of 18. Hemoglobin 17.5. INR is 4.9 today. Patient's sodium was 130. BUN/creatinine within normal limits. Total bilirubin mildly elevated 1.3 and direct bilirubin mildly elevated at 0.3. AST and ALT are within normal limits. Alkaline phosphatase within normal limits. Lipase within normal limits. CT of the abdomen pelvis shows an ileus, there is no transition point no small bowel obstruction. There is also interval development of marked intra-abdominal ascites. Bedside ultrasound was performed which showed small pockets of ascites that were not amenable to drainage due to proximity to bowel loops that do appear very dilated again on ultrasound also. No bedside paracentesis will be conducted given the patient's elevated INR and no pocket of ascites that is large enough to drain without the risk of hitting bowel that is very dilated. Discussed the case with [facility] [address] hospitalist Dr. Molina. He agrees that the patient should be admitted and he stated that he thinks that the patient's ascites could be due to the bowel inflammation. We will hold off on antibiotics at this time as patient does not have any fever we do not have a definitive source of any infection. I still believe that the patient's cause of her abdominal pain constipation and ileus is most likely from food poisoning from the shrimp that she ate the [employer] which triggered her symptoms. Administered Medications Discontinued Medications Sodium Chloride (Nss) 1,000 mls @ 999 mls/hr IV .Q1H1M ONE Stop: 06/22/24 19:10 Last Infusion: 06/22/24 20:00 Dose: Infused Documented By: Admin: 06/22/24 18:53 Dose: 999 mls/hr Documented By: Ioversol (Optiray 320 100ml) 91 ml IV ONCE ONE Stop: 06/22/24 20:23 Last Admin: 06/22/24 20:22 Dose: 91 ml Documented By: KANWAL Morphine Sulfate (Morphine Sulfate 4 Mg/Ml 1 Ml Carp\Vial) 4 mg IV NOW STA Stop: 06/22/24 20:07 Last Admin: 06/22/24 20:31 Dose: 4 mg Documented By: Ondansetron HCl (Ondansetron Inj 2 Mg/Ml 2 Ml Vial) 4 mg IV NOW STA Stop: 06/22/24 18:12 Last Admin: 06/22/24 18:53 Dose: 4 mg Documented By: Ondansetron HCl (Ondansetron Inj 2 Mg/Ml 2 Ml Vial) 4 mg IV NOW STA Stop: 06/22/24 20:07 Last Admin: 06/22/24 20:31 Dose: 4 mg Documented By: Medical Decision Making Laboratory Data Attestation: I reviewed the patient's lab results. 06/22/24 18:54 06/22/24 18:54 Lab Results 06/22/24 06/22/24 06/22/24 Range/Units 18:54 19:58 20:44 WBC 18.18 H (4.8-10.8) K/ul RBC 5.55 H (4.20-5.40) M/uL Hgb 17.5 H (12.0-16.0) g/dl Hct 51.8 H (37.0-47.0) % MCV 93.3 (80.0-100.0) fL MCH 31.5 (25.0-34.0) pg MCHC 33.8 (32.0-36.0) g/dL RDW Std Deviation 44.5 (36.4-46.3) fL RDW Coeff of Eve 12.9 (11.5-14.5) % Plt Count 433 H (130-400) K/uL MPV 10.2 (9.4-12.4) fL Immature Gran % (Auto) 0.6 % Neut % (Auto) 86.0 % Lymph % (Auto) 4.6 % Ector % (Auto) 8.1 % Eos % (Auto) 0.3 % Baso % (Auto) 0.4 % Neut # (Auto) 15.65 H (1.40-6.50) K/uL Lymph # (Auto) 0.83 L (1.20-3.40) K/uL Ector # (Auto) 1.47 H (0.11-0.59) K/uL Eos # (Auto) 0.05 (0.00-0.50) K/uL Baso # (Auto) 0.08 (0.00-0.20) K/uL Immature Gran # (Auto) 0.10 (0.01-0.20) K/uL PT Cancelled 46.1 H INR Cancelled 4.9 H APTT Cancelled 41 H PTT Ratio Cancelled 1.5 Sodium 130 L (136-145) mmol/L Potassium 4.2 D (3.5-5.1) mmol/L Chloride 92 L (98-107) mmol/L Carbon Dioxide 23 (21-32) mmol/L Anion Gap 15 H (3-11) BUN 21 (6-23) mg/dl Creatinine 1.10 D (0.6-1.2) mg/dl Est Cr Clr Drug Dosing Not Reportable Est GFR ( Amer) 56.9 ml/min Est GFR (Non-Af Amer) 49.1 ml/min BUN/Creatinine Ratio 19.1 (10-20) Glucose 78 (70-99(Fasting)) mg/dl Lactate 2.0 (0.4-2.0) mmol/L Calcium 9.9 (8.6-10.3) mg/dl Total Bilirubin 1.3 H D (0.2-1.0) mg/dl Direct Bilirubin TNP 0.3 H AST 24 (13-39) U/L ALT 13 (7-52) U/L Alkaline Phosphatase 76 (34-104) U/L Total Protein 7.6 (6.0-8.3) gm/dl Albumin 4.4 (3.4-5.0) gm/dl Lipase 12 (11-82) U/L Imaging Data Attestation: I personally reviewed and interpreted this imaging study as follows: My Impression: Acute abdominal series: Right-sided pleural effusion. Dilated bowel loops. No air-fluid levels. Radiologist's Impression: Abdomen/Pelvis CT 06/22/24 19:38 Exam(s): CT ABDOMEN + PELVIS With Contrast IV Amt: 91ml optiray 320 EXAM: CT Abdomen and Pelvis With Intravenous Contrast CLINICAL HISTORY: Reason for exam: ro sbo. TECHNIQUE: Axial computed tomography images of the abdomen and pelvis with intravenous contrast. CTDI is 11.04 mGy and DLP is 516.79 mGy-cm. Automated exposure control was utilized for the study. A dose lowering technique was utilized adhering to the principles of ALARA. CONTRAST: Patient received 91ml optiray 320 of IV contrast COMPARISON: 06/20/2024 FINDINGS: Lung bases: See below. Pleural space: Stable right pleural effusion with associated compressive atelectasis. ABDOMEN: Liver: Unremarkable. No mass. Gallbladder and bile ducts: Unremarkable. No calcified stones. No ductal dilation. Pancreas: Unremarkable. No mass. No ductal dilation. Spleen: Unremarkable. No splenomegaly. Adrenals: Unremarkable. No mass. Kidneys and ureters: Unremarkable. No solid mass. No hydronephrosis. Stomach and bowel: Diverticulosis without evidence of diverticulitis. No obstruction. PELVIS: Appendix: No findings to suggest acute appendicitis. Bladder: Unremarkable. No mass. Reproductive: Unremarkable as visualized. ABDOMEN and PELVIS: Intraperitoneal space: Interval development of diffusely distended loops of small bowel without a clear transition point. Interval development of extensive intra-abdominal ascites. No free air. Bones/joints: No acute fracture. No dislocation. Soft tissues: Unremarkable. Vasculature: Unremarkable. No abdominal aortic aneurysm. Lymph nodes: Unremarkable. No enlarged lymph nodes. IMPRESSION: 1. Findings consistent with ileus with interval development of marked intra-abdominal ascites 2. Other stable chronic changes described above Electronically signed by: Yaya Duckworth MD 06/22/24 21:37 PM [facility] Narrative 181: The patient was evaluated in room C3. A complete history and physical exam was performed Cardiac monitoring: An order was placed for continuous cardiac monitoring. The monitor shows a rate of 100 with sinus rhythm interpreted by me 1940: Acute abdominal series shows very distended bowel loops. No air-fluid levels. Right-sided pleural effusion. Will could CT again to rule out SBO. 1999: White blood cell count 18. Will add lactic acid and blood cultures. 2211: Vital signs stable. Patient reports her pain and nausea are better status post morphine and Zofran. Labs show leukocytosis of 18. Hemoglobin 17.5. INR is 4.9 today. Patient's sodium was 130. BUN/creatinine within normal limits. Total bilirubin mildly elevated 1.3 and direct bilirubin mildly elevated at 0.3. AST and ALT are within normal limits. Alkaline phosphatase within normal limits. Lipase within normal limits. CT of the abdomen pelvis shows an ileus, there is no transition point no small bowel obstruction. There is also interval development of marked intra-abdominal ascites. Bedside ultrasound was performed which showed small pockets of ascites that were not amenable to drainage due to proximity to bowel loops that do appear very dilated again on ultrasound also. No bedside paracentesis will be conducted given the patient's elevated INR and no pocket of ascites that is large enough to drain without the risk of hitting bowel that is very dilated. Discussed the case with [facility] [address] hospitalist Dr. Molina. He agrees that the patient should be admitted and he stated that he thinks that the patient's ascites could be due to the bowel inflammation. We will hold off on antibiotics at this time as patient does not have any fever we do not have a definitive source of any infection. I still believe that the patient's cause of her abdominal pain constipation and ileus is most likely from food poisoning from the shrimp that she ate the [employer] club which triggered her symptoms. Impression & Plan Food poisoning, Ileus, Abdominal ascites, Pleural effusion Discharge Plan Visit Data Chief Complaint: Illness Stated Complaint: ILL, POSS FOOD POISONING ED Provider: Dorian Lara Discharge Problem: Food poisoning, Ileus, Abdominal ascites, Pleural effusion Patient Disposition: Admitted As Inpatient Forms Stand Alone Forms: [facility] Prescriptions Prescriptions: No Action ascorbic acid (vitamin C) 500 mg tablet 1,000 mg PO QAM levothyroxine 100 mcg tablet 100 mcg PO QAM zinc gluconate 50 mg tablet 50 mg PO QAM warfarin 5 mg tablet See Rx Instructions .ROUTE .COMPLEX Rx Instructions: TAKES 5 MG ON MON, WED, & FRI, THEN 2.5 MG ON TUE, , TH, & TUE. liothyronine 5 mcg tablet 10 mcg PO QAM krill oil 500 mg capsule 1,500 mg PO DAILY clobetasol 0.05 % ointment 1 applic TOP 3XWK PRN (Reason: Rash) Qty: 60 2RF Rx Instructions: Apply and gently massage into affected area twice daily. 3 xs per week. estradiol 0.01 % (0.1 mg/gram) cream 1 g vaginal WK Qty: 42.5 3RF Rx Instructions: USE 1/4 APPLICATORFUL weekly montelukast 10 mg tablet 10 mg PO QAM Qty: 90 3RF diltiazem HCl [Cartia XT] 240 mg capsule,extended release 24hr 240 mg PO QAM vitamin B complex Tablet 1 tab PO DAILY Saline Nasal 0.65 % Aerosol,[place] 1 spray INTRANASAL DIRECTED PRN (Reason: Dry Nasal Passages) sodium chloride 7 % Solution For Nebulization 1 inh INHALATION BID PRN (Reason: NEEDED) cholecalciferol (vitamin D3) [Vitamin D3] 125 mcg (5,000 unit) Tablet 125 mcg PO DAILY Anoro Ellipta 62.5-25 mcg/actuation blister with device 1 inh inhalation QAM ondansetron 4 mg tablet,disintegrating 4 mg PO Q8H PRN (Reason: nausea and vomiting) Qty: 30 0RF Referrals Referrals: Gabrielle Crawley MD [Primary Care Provider] - Discharge Problem: Abdominal ascites Qualifiers: Ascites type: other type Qualified Code(s): R18.8 - Other ascites
[2024-06-22 19:29] LABS: Basophils # (auto) 0.08 K/uL (0.00-0.20); Basophils % (auto) 0.4 %; Eosinophils # (auto) 0.05 K/uL (0.00-0.50); Eosinophils % (auto) 0.3 %; Hematocrit (blood only) 51.8 % (37.0-47.0); Hemoglobin 17.5 g/dl (12.0-16.0); Immature Granulocytes % (auto) 0.6 %; Lymphocytes # (auto) 0.83 K/uL (1.20-3.40); Lymphocytes % (auto) 4.6 %; Mean Corpuscular Hemoglobin 31.5 pg (25.0-34.0); Mean Corpuscular Hgb Conc 33.8 g/dL (32.0-36.0); Mean Corpuscular Volume 93.3 fL (80.0-100.0); Mean Platelet Volume 10.2 fL (9.4-12.4); Monocytes # (auto) 1.47 K/uL (0.11-0.59); Monocytes % (auto) 8.1 %; Neutrophils # (auto) 15.65 K/uL (1.40-6.50); Platelet Count 433 K/uL (130-400); RDW Coefficient of Variation 12.9 % (11.5-14.5); RDW Standard Deviation 44.5 fL (36.4-46.3); Red Blood Count 5.55 M/uL (4.20-5.40); White Blood Count 18.18 K/ul (4.8-10.8)
[2024-06-22 19:47] LABS: Alanine Aminotransferase 13 U/L (7-52); Albumin Level 4.4 gm/dl (3.4-5.0); Alkaline Phosphatase 76 U/L (34-104); Anion Gap 15 (3-11); Aspartate Aminotransferase 24 U/L (13-39); BUN Creatinine Ratio 19.1 (10-20); Bilirubin,Total 1.3 mg/dl (0.2-1.0); Blood Urea Nitrogen 21 mg/dl (6-23); Calcium 9.9 mg/dl (8.6-10.3); Carbon Dioxide 23 mmol/L (21-32); Chloride 92 mmol/L (98-107); Est GFR (African American) 56.9 ml/min; Est GFR (Non-African American) 49.1 ml/min; Glucose 78 mg/dl (70-99(Fasting)); Lipase 12 U/L (11-82); Potassium 4.2 mmol/L (3.5-5.1); Sodium 130 mmol/L (136-145); Total Protein 7.6 gm/dl (6.0-8.3)
[2024-06-22] MEDS: OPTIRAY 320 100ml IV ONE (20:22)
[2024-06-22] MEDS: MoRPHine SULFATE 4 MG/ML 1 ML CARP\\VIAL IV STA (20:31)
--- NOTE | 2024-06-22 21:37 | CT Scan Report ---
Exam(s): CT ABDOMEN + PELVIS With Contrast IV Amt: 91ml optiray 320 EXAM: CT Abdomen and Pelvis With Intravenous Contrast CLINICAL HISTORY: Reason for exam: ro sbo. TECHNIQUE: Axial computed tomography images of the abdomen and pelvis with intravenous contrast. CTDI is 11.04 mGy and DLP is 516.79 mGy-cm. Automated exposure control was utilized for the study. A dose lowering technique was utilized adhering to the principles of ALARA. CONTRAST: Patient received 91ml optiray 320 of IV contrast COMPARISON: 06/20/2024 FINDINGS: Lung bases: See below. Pleural space: Stable right pleural effusion with associated compressive atelectasis. ABDOMEN: Liver: Unremarkable. No mass. Gallbladder and bile ducts: Unremarkable. No calcified stones. No ductal dilation. Pancreas: Unremarkable. No mass. No ductal dilation. Spleen: Unremarkable. No splenomegaly. Adrenals: Unremarkable. No mass. Kidneys and ureters: Unremarkable. No solid mass. No hydronephrosis. Stomach and bowel: Diverticulosis without evidence of diverticulitis. No obstruction. PELVIS: Appendix: No findings to suggest acute appendicitis. Bladder: Unremarkable. No mass. Reproductive: Unremarkable as visualized. ABDOMEN and PELVIS: Intraperitoneal space: Interval development of diffusely distended loops of small bowel without a clear transition point. Interval development of extensive intra-abdominal ascites. No free air. Bones/joints: No acute fracture. No dislocation. Soft tissues: Unremarkable. Vasculature: Unremarkable. No abdominal aortic aneurysm. Lymph nodes: Unremarkable. No enlarged lymph nodes. IMPRESSION: 1. Findings consistent with ileus with interval development of marked intra-abdominal ascites 2. Other stable chronic changes described above Electronically signed by: Yaya Duckworth MD 06/22/24 21:37 PM
[2024-06-22 21:55] LABS: INR 4.9 (0.9-1.1); Partial Thromboplastin Ratio 1.5; Partial Thromboplastin Time 41 Seconds (21-31); Prothrombin Time 46.1 Seconds (9.0-12.0)
[2024-06-22] MEDS: SODIUM CHLORIDE 0.9% 1,000 ML IV SCH (22:12)
--- NOTE | 2024-06-22 23:03 | History & Physical Report ---
Date of Service June 22, 2024 Assessment & Plan (1) Food poisoning: (2) Ileus: (3) Abdominal ascites: (4) Pleural effusion: (5) Supratherapeutic INR: (6) Chronic anticoagulation: (7) Paroxysmal atrial fibrillation: (8) Chronic dyspnea: Plan Food poisoning/resolved ascending colon colitis/ileus/new abdominal ascites- Patient has not had a bowel movement in 4 days She completed a 10-day course of antibiotics for a pneumonia on 03/17 Symptoms abdominal cramping and pain started on 03/19 shortly after eating shrimp Symptoms had improved, but worsened again on 03/21 after having eaten strawberries and blueberries CT scan of abdomen and pelvis 06/20 in the ED showed a ascending colon colitis, periportal edema, question of hepatitis, and moderate right pleural effusion. Liver function tests were normal except for a total bilirubin that was mildly elevated at 1.3 CT scan of abdomen pelvis this evening on 06/22 shows distended small bowel loops consistent with ileus, and a marked new accumulation of ascites compared to previous Stool PCR and C. difficile studies have not been ordered, as patient has not had a bowel movement in 4 days Symptoms are still most suggestive of food poisoning, however, patient did as noted above have symptoms preceded by a 10-day course of antibiotics for pneumonia Full liquid diet as tolerated LR at 125 MLS per hour x 2 L, as labs show significant hemoconcentration over the past 2 days Pantoprazole 40 mg IV daily Zofran 4 mg IV every 6 hours as needed Follow serial CBC with differential, chemistry profile, magnesium and PT/INR Consult gastroenterology Supratherapeutic INR/chronic anticoagulation/paroxysmal atrial fibrillation- INR 4.9 on admission, with 1.9 2 days ago Hold warfarin Follow INR serially Change Cardizem CD from 240 mg every morning to 120 mg twice daily with hold parameter Chronic dyspnea- Continue Anoro Ellipta History of Present Illness Chief Complaint: The patient presents to the emergency department due to persistence and worsening of crampy abdominal pain and distention. Primary Care Provider: Gabrielle Crawley MD The patient is a 73-year-old female with a past medical history including hypothyroidism, vitamin D deficiency, HRT, hyperparathyroidism, paroxysmal atrial fibrillation, adrenal insufficiency, pneumonia and osteoporosis. She reports that she was recently completed a 10-day course of an antibiotic for pneumonia on 03/17. She ate shrimp on 03/19, and within an hour to developed crampy abdominal pain, nausea without vomiting. She reports feeling a little bit better, and then on 03/21 ate strawberries and blueberries, and developed a return of and worsening of the abdominal cramping and now has abdominal distention. She was seen in the emergency department on 06/20, and CT scan at that time showed ascending colon colitis, periportal edema, question of hepatitis, and a moderate right pleural effusion. Due to persistence and worsening of symptoms, she presented to the ED this evening 06/22, and CT scan at this time shows an ileus, with a markedly increased volume of ascites. Patient reports her last bowel movement was 4 days ago, and reports that her urine function is normal. Allergies Allergy/AdvReac Type Severity Reaction Status Date / Time No Known Allergies Allergy Verified 06/22/24 22:39 Home Medications Medication Instructions Recorded Confirmed Type ascorbic acid (vitamin C) 500 mg 1,000 mg PO QAM 09/10/19 06/22/24 History tablet levothyroxine 100 mcg tablet 100 mcg PO QAM 09/10/19 06/22/24 History zinc gluconate 50 mg tablet 50 mg PO QAM 09/10/19 06/22/24 History krill oil 500 mg capsule 1,500 mg PO DAILY 02/11/23 06/22/24 History warfarin 5 mg tablet See Rx Instructions .Route .COMPLEX 02/11/23 06/22/24 History liothyronine 5 mcg tablet 10 mcg PO QAM 08/31/23 06/22/24 History clobetasol 0.05 % topical ointment 1 applic topical [id number] PRN Rash #60 09/22/23 06/22/24 Rx grams estradiol 0.01% (0.1 mg/gram) 1 g vaginal WK #42.5 grams 09/22/23 06/22/24 Rx vaginal cream montelukast 10 mg tablet 10 mg PO QAM #90 tabs 10/31/23 06/22/24 Rx cholecalciferol (vitamin D3) 125 125 mcg PO DAILY 06/20/24 06/22/24 History mcg (5,000 unit) tablet (Vitamin D3) diltiazem HCl 240 mg 240 mg PO QAM 06/20/24 06/22/24 History capsule,extended release 24 hr (Cartia XT) sodium chloride 0.65 % nasal spray 1 spray intranasal DIRECTED PRN 06/20/24 06/22/24 History aerosol (Saline Nasal) Dry Nasal Passages sodium chloride 7 % for 1 inh inhalation BID PRN NEEDED 06/20/24 06/22/24 History nebulization umeclidinium 62.5 mcg-vilanterol 1 inh inhalation QAM 06/20/24 06/22/24 History 25 mcg/actuation powdr for inhalation (Anoro Ellipta) vitamin B complex 1 tab PO DAILY 06/20/24 06/22/24 History ondansetron 4 mg disintegrating 4 mg PO Q8H PRN nausea and 06/21/24 06/22/24 Rx tablet vomiting #30 tabs Past Med/Surg History Problem List (Updated 06/23/24 @ 06:33 by Bird Fierro MD) Supratherapeutic INR Pleural effusion (Acute) Abdominal ascites (Acute) Ileus (Acute) Food poisoning (Acute) Extremely dense tissue of both breasts on mammography Adrenal abnormality Hypothyroid Vitamin D deficiency Post-menopause on HRT (hormone replacement therapy) Hyperparathyroidism History of nasal surgery septal deviation repair History of sinus surgery Vulvitis Paroxysmal atrial fibrillation (Acute) DX A FEW YRS AGO > WARFARIN> NO PACER > FOLLOWS WITH DR. SCHULTZ Indeterminate pulmonary nodules Hypothyroidism Chronic sinusitis Allergic rhinitis Bronchiectasis Sepsis Hemoptysis Hyperbilirubinemia DVT prophylaxis Adrenal insufficiency Chronic anticoagulation Chilblains Hemoptysis RESOLVED Hemoptysis (Acute) History of recent pneumonia Abnormal CT scan, chest Allergic rhinitis Encounter for pre-operative examination Chronic dyspnea Osteoporosis Medical History Pulmonary nodules just monitoring Hypertension Bronchiectasis INHALER FOR THIS Surgical History History of cataract surgery left History of colonoscopy went into Afib for 3 mins with last colonscopy> resolved History of tooth extraction History of adenoidectomy History of bronchoscopy History of hysterectomy History of breast augmentation History of ankle surgery RIGHT due to fx Family History Mother Heart disease Breast cancer Father COPD (chronic obstructive pulmonary disease) Grandmother (Maternal) Diabetes Family/Other Schizophrenia sibling Denies family history of Ovarian cancer Colorectal cancer Social History Smoking Status: Never smoker Tobacco Type: Cigarettes Age Started Using Tobacco: 17; Age Quit Using Tobacco: 26; Cigarettes Per Day: 0-4 per day; Second Hand Exposure: No; Do You Dip or Chew Tobacco: No; Tobacco Cessation Education Requested by Patient: No Hx Alcohol Use: Yes Alcohol type: wine Alcohol Intake Frequency: 2-3 x/Week Hx Substance Use: No Preferred Language: Bengali Communication Ability: Effective Chemistry Technical Officer Required: No Beliefs That Will Affect Care: None marital status: Life Partner Current Living Situation: Alone 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 Other Information That Helps Us Care for You: No Feels Safe at Home: Yes Safety Concerns: Feels Safe At This Time Assistive Devices: None Review of Systems Review of Systems: The patient denies chest pain, palpitations, shortness of breath, dyspnea on e xertion, cough, lower extremity swelling, sore throat, fevers, chills, sweats, vomiting, diarrhea, blood in urine or stool, dysuria, urinary frequency or urgency, lightheadedness, dizziness, headache, memory loss, loss of consciousness, rash, abnormal bruising or bleeding, imbalance, focal or generalized weakness, numbness or tingling in arms or legs, generalized arthralgias or myalgias, back or neck pain, or night sweats. The review of systems is otherwise negative other than for that already noted above, and at least 10 systems have been reviewed. Physical Exam Physical Exam: The patient is awake, alert and oriented 3, well developed and well nourished, normocephalic and atraumatic, lying in bed and in no acute distress. HEENT--PERRL, EOMI, mucous membranes and oropharynx dry. Neck--supple. No JVD. No bruits. Thyroid normal, trachea midline, no adenopathy. Heart--normal S1 and S2. No murmurs, rubs or gallops. Lungs--clear bilaterally, no respiratory distress, no accessory muscle use. Abdomen--normal bowel sounds. Generalized mild tenderness. Mildly distended and tympanitic Extremities--no cyanosis or clubbing. No edema. Dermatologic--normal skin turgor, normal color, no abnormal lymph nodes, no rash. Neurologic--cranial nerves II through XII grossly intact. Rheumatologic--normal range of motion. Psychiatric--normal affect. Results & Data Results & Data Vital Signs (Past 12 Hours) Vital Signs Temp Pulse Pulse Resp BP BP Pulse Ox 06/22/24 20:32 100 H 20 126/83 96 06/22/24 19:38 106 H 06/22/24 18:40 106 H 20 96 06/22/24 18:40 106 H 20 124/84 96 06/22/24 18:24 36.7 C 123 H 17 101/69 95 O2 Del Method 06/22/24 20:32 Room Air 06/22/24 19:38 06/22/24 18:40 Room Air 06/22/24 18:40 Room Air 06/22/24 18:24 Room Air Laboratory Results Laboratory Results WBC 18.18 K/ul (4.8-10.8) H 06/22/24 18:54 RBC 5.55 M/uL (4.20-5.40) H 06/22/24 18:54 Hgb 17.5 g/dl (12.0-16.0) H 06/22/24 18:54 Hct 51.8 % (37.0-47.0) H 06/22/24 18:54 MCV 93.3 fL (80.0-100.0) 06/22/24 18:54 MCH 31.5 pg (25.0-34.0) 06/22/24 18:54 MCHC 33.8 g/dL (32.0-36.0) 06/22/24 18:54 RDW Std Deviation 44.5 fL (36.4-46.3) 06/22/24 18:54 RDW Coeff of Eve 12.9 % (11.5-14.5) 06/22/24 18:54 Plt Count 433 K/uL (130-400) H 06/22/24 18:54 MPV 10.2 fL (9.4-12.4) 06/22/24 18:54 Immature Gran % (Auto) 0.6 % 06/22/24 18:54 Neut % (Auto) 86.0 % 06/22/24 18:54 Lymph % (Auto) 4.6 % 06/22/24 18:54 [place] % (Auto) 8.1 % 06/22/24 18:54 Eos % (Auto) 0.3 % 06/22/24 18:54 Baso % (Auto) 0.4 % 06/22/24 18:54 Neut # (Auto) 15.65 K/uL (1.40-6.50) H 06/22/24 18:54 Lymph # (Auto) 0.83 K/uL (1.20-3.40) L 06/22/24 18:54 [place] # (Auto) 1.47 K/uL (0.11-0.59) H 06/22/24 18:54 Eos # (Auto) 0.05 K/uL (0.00-0.50) 06/22/24 18:54 Baso # (Auto) 0.08 K/uL (0.00-0.20) 06/22/24 18:54 Immature Gran # (Auto) 0.10 K/uL (0.01-0.20) 06/22/24 18:54 PT 46.1 Seconds (9.0-12.0) H 06/22/24 20:44 INR 4.9 (0.9-1.1) H 06/22/24 20:44 APTT 41 Seconds (21-31) H 06/22/24 20:44 PTT Ratio 1.5 06/22/24 20:44 Sodium 130 mmol/L (136-145) L 06/22/24 18:54 Potassium 4.2 mmol/L (3.5-5.1) D 06/22/24 18:54 Chloride 92 mmol/L (98-107) L 06/22/24 18:54 Carbon Dioxide 23 mmol/L (21-32) 06/22/24 18:54 Anion Gap 15 (3-11) H 06/22/24 18:54 BUN 21 mg/dl (6-23) 06/22/24 18:54 Creatinine 1.10 mg/dl (0.6-1.2) D 06/22/24 18:54 Est Cr Clr Drug Dosing Not Reportable 06/22/24 18:54 Est GFR ( Amer) 56.9 ml/min 06/22/24 18:54 Est GFR (Non-Af Amer) 49.1 ml/min 06/22/24 18:54 BUN/Creatinine Ratio 19.1 (10-20) 06/22/24 18:54 Glucose 78 mg/dl (70-99(Fasting)) 06/22/24 18:54 Lactate 2.0 mmol/L (0.4-2.0) 06/22/24 19:58 Calcium 9.9 mg/dl (8.6-10.3) 06/22/24 18:54 Total Bilirubin 1.3 mg/dl (0.2-1.0) H D 06/22/24 18:54 Direct Bilirubin 0.3 mg/dl (0-0.2) H 06/22/24 19:58 AST 24 U/L (13-39) 06/22/24 18:54 ALT 13 U/L (7-52) 06/22/24 18:54 Alkaline Phosphatase 76 U/L (34-104) 06/22/24 18:54 Total Protein 7.6 gm/dl (6.0-8.3) 06/22/24 18:54 Albumin 4.4 gm/dl (3.4-5.0) 06/22/24 18:54 Lipase 12 U/L (11-82) 06/22/24 18:54 TSH 4.670 uIu/ml (0.300-4.500) H 06/22/24 18:54 Free T4 0.88 ng/dl (0.61-1.60) 06/22/24 18:54 Impressions Abdomen/Pelvis CT 06/22/24 19:38 Exam(s): CT ABDOMEN + PELVIS With Contrast IV Amt: 91ml optiray 320 EXAM: CT Abdomen and Pelvis With Intravenous Contrast CLINICAL HISTORY: Reason for exam: ro sbo. TECHNIQUE: Axial computed tomography images of the abdomen and pelvis with intravenous contrast. CTDI is 11.04 mGy and DLP is 516.79 mGy-cm. Automated exposure control was utilized for the study. A dose lowering technique was utilized adhering to the principles of ALARA. CONTRAST: Patient received 91ml optiray 320 of IV contrast COMPARISON: 06/20/2024 FINDINGS: Lung bases: See below. Pleural space: Stable right pleural effusion with associated compressive atelectasis. ABDOMEN: Liver: Unremarkable. No mass. Gallbladder and bile ducts: Unremarkable. No calcified stones. No ductal dilation. Pancreas: Unremarkable. No mass. No ductal dilation. Spleen: Unremarkable. No splenomegaly. Adrenals: Unremarkable. No mass. Kidneys and ureters: Unremarkable. No solid mass. No hydronephrosis. Stomach and bowel: Diverticulosis without evidence of diverticulitis. No obstruction. PELVIS: Appendix: No findings to suggest acute appendicitis. Bladder: Unremarkable. No mass. Reproductive: Unremarkable as visualized. ABDOMEN and PELVIS: Intraperitoneal space: Interval development of diffusely distended loops of small bowel without a clear transition point. Interval development of extensive intra-abdominal ascites. No free air. Bones/joints: No acute fracture. No dislocation. Soft tissues: Unremarkable. Vasculature: Unremarkable. No abdominal aortic aneurysm. Lymph nodes: Unremarkable. No enlarged lymph nodes. IMPRESSION: 1. Findings consistent with ileus with interval development of marked intra-abdominal ascites 2. Other stable chronic changes described above Electronically signed by: Yyaa Duckworth MD 06/22/24 21:37 PM Code Status & VTE Plan Code Status Full code VTE Prophylaxis Plan VTE Prophylaxis will be ordered: Yes PG Care Time/CCT Total # of Minutes Spent Total Time Spent with Patient: Total time spent is greater than 50% in coordination of care (as documented) at patient's floor/unit and/or counseling patient: Coding Level of Care Code 63875 INT INP/OBS CARE 3/75MIN Diagnoses Food poisoning A05.9 Ileus K56.7 Abdominal ascites R18.8 Ascites type: other type Pleural effusion J90 Supratherapeutic INR R79.1 Chronic anticoagulation Z79.01 Paroxysmal atrial fibrillation I48.0 Chronic dyspnea R06.09 (3) Abdominal ascites Ascites type: other type Qualified Code(s): R18.8 - Other ascites
[2024-06-22] MEDS: LACTATED RINGER'S 1,000 ML IV SCH (23:20)
[2024-06-22] MEDS: PANTOprazole 40 MG in SYRINGE 0 ML IV STA (23:20)
[2024-06-23 03:04] LABS: T4 Free Thyroxine 0.88 ng/dl (0.61-1.60)
[2024-06-23 06:54] LABS: Basophils # (auto) 0.07 K/uL (0.00-0.20); Basophils % (auto) 0.5 %; Eosinophils # (auto) 0.07 K/uL (0.00-0.50); Eosinophils % (auto) 0.5 %; Hematocrit (blood only) 43.8 % (37.0-47.0); Hemoglobin 14.7 g/dl (12.0-16.0); Immature Granulocytes # (auto) 0.06 K/uL (0.01-0.20); Immature Granulocytes % (auto) 0.5 %; Lymphocytes # (auto) 0.81 K/uL (1.20-3.40); Lymphocytes % (auto) 6.3 %; Mean Corpuscular Hemoglobin 31.5 pg (25.0-34.0); Mean Corpuscular Hgb Conc 33.6 g/dL (32.0-36.0); Mean Platelet Volume 10.2 fL (9.4-12.4); Monocytes # (auto) 0.97 K/uL (0.11-0.59); Monocytes % (auto) 7.6 %; Neutrophils # (auto) 10.78 K/uL (1.40-6.50); Neutrophils % (auto) 84.6 %; Platelet Count 343 K/uL (130-400); RDW Coefficient of Variation 13.1 % (11.5-14.5); RDW Standard Deviation 44.8 fL (36.4-46.3); Red Blood Count 4.66 M/uL (4.20-5.40); White Blood Count 12.76 K/ul (4.8-10.8)
[2024-06-23 07:14] LABS: Albumin Globulin Ratio 1.5 (0.9-2); Albumin Level 3.4 gm/dl (3.4-5.0); BUN Creatinine Ratio 24.7 (10-20); Bilirubin,Total 0.9 mg/dl (0.2-1.0); Calcium 8.3 mg/dl (8.6-10.3); Creatinine Clr Calc Pharmacy 55.6 ml/min; Est GFR (African American) 69.7 ml/min; Est GFR (Non-African American) 60.1 ml/min; Globulin 2.3 gm/dl (2.5-4.0); Magnesium 1.9 mg/dl (1.7-2.4); Potassium 4.3 mmol/L (3.5-5.1); Total Protein 5.7 gm/dl (6.0-8.3)
[2024-06-23 07:25] LABS: Partial Thromboplastin Ratio 1.7; Partial Thromboplastin Time 47 Seconds (21-31); Prothrombin Time 52.1 Seconds (9.0-12.0)
[2024-06-23 07:27] LABS: INR 5.6 (0.9-1.1)
--- NOTE | 2024-06-23 07:38 | Hospitalist Progress Note ---
Date of Service June 23, 2024 Assessment & Plan (1) Food poisoning: (2) Ileus: (3) Abdominal ascites: (4) Pleural effusion: (5) Supratherapeutic INR: (6) Chronic anticoagulation: (7) Paroxysmal atrial fibrillation: (8) Chronic dyspnea: Plan 1. Ileus/Abdominal ascites - CT scan of abdomen and pelvis 06/20 in the ED showed a ascending colon colitis, periportal edema, question of hepatitis, and moderate right pleural effusion. Liver function tests were normal except for a total bilirubin that was mildly elevated at 1.3 - CT scan of abdomen pelvis this evening on 06/22 shows distended small bowel loops consistent with ileus, and a marked new accumulation of ascites compared to previous -Full liquid diet as tolerated - Stop LR 125 mls - Continue pantoprazole 40 mg IV daily - Continue Zofran 4 mg IV every 6 hours as needed - Continue daily CBC with differential, chemistry profile, magnesium and PT/INR - Gastroenterology recommends paracentesis for abdominal distention and new ascites. Scheduled for 06-25-24 provided INR regulation 2. Supratherapeutic INR/chronic anticoagulation/paroxysmal atrial fibrillation- -INR is 5.6, was 4.9 on admission, and 1.9 on 06-20-24 -Continue to hold warfarin -Follow INR serially -Cardizem CD from 240 mg every morning to 120 mg twice daily with hold parameter Chronic dyspnea- -Continue Anoro Ellipta Admission and Anticipated Discharge Date Admission Date: June 22, 2024 Supervising Physician Co-Signing Physician Notes Attending Physician Supervision Note: I independently interviewed and examined the patient and verified the alejandro history and physical, reviewed labs and image studies and agree with findings and care plan noted above. Abdominal pain with ileus and markes ascites from CT 06/22. CT 06/20 with colitis in ascending colon, periportal edema, moderate right pleural effusion. Concern of food poisoning as contributor. -will rule out other etiology - ordered diagnostic paracentesis. -continue supportive care for ileus. -pain improved, tolerated clears - will d/c IVF -continue pain control. -follow. Supratherapeutic INR - On warfarin for PAF. Will need reversed for paracentesis. -Vitamin K 5mgs today. recheck INR in am. Subjective Pt is a 73 yo female with PMedHx of hypothyroidism, paroxysmal A-fib, chronic dyspnea and osteoarthritis who presented to ED for the second time in 2 days with abdominal pain and constipation x [address] scan which showed ileus, ascending colitis, periportal edema and bilateral plural effusions. No evidence of bowel obstruction at this time. Pt is attributing her GI issues to recent antibiotics for pneumonia and not taking probiotics. Currently, pt is reporting reduction in her abdominal pain, but states she is still very distended. Pt has not had a bowel movement in 4 days and denies passing gas in the last day. Review of Systems Review of Systems: The patient denies chest pain, palpitations, shortness of breath, dyspnea on exertion, cough, lower extremity swelling, sore throat, fevers, chills, sweats, vomiting, diarrhea, blood in urine or stool, dysuria, urinary frequency or urgency, lightheadedness, dizziness, headache, memory loss, loss of consciousness, rash, abnormal bruising or bleeding, imbalance, focal or generalized weakness, numbness or tingling in arms or legs, generalized arthralgias or myalgias, back or neck pain, or night sweats. The review of systems is otherwise negative other than for that already noted above, and at least 10 systems have been reviewed. Physical Exam Physical Exam: The patient is awake, alert and oriented 3, well developed and well nourished, normocephalic and atraumatic, lying in bed and in no acute distress. HEENT--PERRL, EOMI, mucous membranes and oropharynx moist. Neck--supple. No JVD. No bruits. Thyroid normal, trachea midline, no adenopathy. Heart--normal S1 and S2. No murmurs, rubs or gallops. Lungs--lower lobe rhonchi bilaterally, no respiratory distress, no accessory muscle use. Abdomen--normal bowel sounds. Generalized mild tenderness. Distended and tympa nitic Extremities--No edema. Dermatologic--normal skin turgor, normal color, no rash. Neurologic--cranial nerves II through XII grossly intact. Psychiatric--normal affect. Results & Data Results & Data Vital Signs (Past 12 Hours) Vital Signs Temp Pulse Pulse Resp BP BP Pulse Ox 06/23/24 07:00 98 H 06/23/24 04:30 36.9 C 103 H 18 102/66 95 06/23/24 00:50 106 H 06/23/24 00:00 36.5 C 102 H 18 117/68 97 06/22/24 23:41 06/22/24 23:17 107 H 18 135/80 95 06/22/24 20:32 100 H 20 126/83 96 06/22/24 19:38 106 H O2 Del Method 06/23/24 07:00 06/23/24 04:30 Room Air 06/23/24 00:50 06/23/24 00:00 Room Air 06/22/24 23:41 Room Air 06/22/24 23:17 Room Air 06/22/24 20:32 Room Air 06/22/24 19:38 Laboratory Results 06/23/24 06/22/24 06/22/24 Range/Units 05:43 20:44 19:58 WBC 12.76 H (4.8-10.8) K/ul RBC 4.66 (4.20-5.40) M/uL Hgb 14.7 (12.0-16.0) g/dl Hct 43.8 (37.0-47.0) % MCV 94.0 (80.0-100.0) fL MCH 31.5 (25.0-34.0) pg MCHC 33.6 (32.0-36.0) g/dL RDW Std Deviation 44.8 (36.4-46.3) fL RDW Coeff of Eve 13.1 (11.5-14.5) % Plt Count 343 (130-400) K/uL MPV 10.2 (9.4-12.4) fL Immature Gran % (Auto) 0.5 % Neut % (Auto) 84.6 % Lymph % (Auto) 6.3 % [place] % (Auto) 7.6 % Eos % (Auto) 0.5 % Baso % (Auto) 0.5 % Neut # (Auto) 10.78 H (1.40-6.50) K/uL Lymph # (Auto) 0.81 L (1.20-3.40) K/uL [place] # (Auto) 0.97 H (0.11-0.59) K/uL Eos # (Auto) 0.07 (0.00-0.50) K/uL Baso # (Auto) 0.07 (0.00-0.20) K/uL Immature Gran # (Auto) 0.06 (0.01-0.20) K/uL PT 52.1 H 46.1 H INR 5.6 H* 4.9 H APTT 47 H 41 H PTT Ratio 1.7 1.5 Sodium 130 L (136-145) mmol/L Potassium 4.3 (3.5-5.1) mmol/L Chloride 98 (98-107) mmol/L Carbon Dioxide 25 (21-32) mmol/L Anion Gap 7 (3-11) BUN 23 (6-23) mg/dl Creatinine 0.93 (0.6-1.2) mg/dl Est Cr Clr Drug Dosing 55.6 Est GFR ( Amer) 69.7 ml/min Est GFR (Non-Af Amer) 60.1 ml/min BUN/Creatinine Ratio 24.7 H (10-20) Glucose 84 (70-99(Fasting)) mg/dl Lactate 2.0 (0.4-2.0) mmol/L Calcium 8.3 L (8.6-10.3) mg/dl Magnesium 1.9 (1.7-2.4) mg/dl Total Bilirubin 0.9 (0.2-1.0) mg/dl Direct Bilirubin 0.3 H AST 17 (13-39) U/L ALT 9 (7-52) U/L Alkaline Phosphatase 55 (34-104) U/L Total Protein 5.7 L D (6.0-8.3) gm/dl Albumin 3.4 (3.4-5.0) gm/dl Globulin 2.3 L (2.5-4.0) gm/dl Albumin/Globulin Ratio 1.5 (0.9-2) Lipase (11-82) U/L TSH (0.300-4.500) uIu/ml Free T4 (0.61-1.60) ng/dl 06/22/24 Range/Units 18:54 WBC 18.18 H (4.8-10.8) K/ul RBC 5.55 H (4.20-5.40) M/uL Hgb 17.5 H (12.0-16.0) g/dl Hct 51.8 H (37.0-47.0) % MCV 93.3 (80.0-100.0) fL MCH 31.5 (25.0-34.0) pg MCHC 33.8 (32.0-36.0) g/dL RDW Std Deviation 44.5 (36.4-46.3) fL RDW Coeff of Eve 12.9 (11.5-14.5) % Plt Count 433 H (130-400) K/uL MPV 10.2 (9.4-12.4) fL Immature Gran % (Auto) 0.6 % Neut % (Auto) 86.0 % Lymph % (Auto) 4.6 % [place] % (Auto) 8.1 % Eos % (Auto) 0.3 % Baso % (Auto) 0.4 % Neut # (Auto) 15.65 H (1.40-6.50) K/uL Lymph # (Auto) 0.83 L (1.20-3.40) K/uL [place] # (Auto) 1.47 H (0.11-0.59) K/uL Eos # (Auto) 0.05 (0.00-0.50) K/uL Baso # (Auto) 0.08 (0.00-0.20) K/uL Immature Gran # (Auto) 0.10 (0.01-0.20) K/uL PT Cancelled INR Cancelled APTT Cancelled PTT Ratio Cancelled Sodium 130 L (136-145) mmol/L Potassium 4.2 D (3.5-5.1) mmol/L Chloride 92 L (98-107) mmol/L Carbon Dioxide 23 (21-32) mmol/L Anion Gap 15 H (3-11) BUN 21 (6-23) mg/dl Creatinine 1.10 D (0.6-1.2) mg/dl Est Cr Clr Drug Dosing Not Reportable Est GFR ( Amer) 56.9 ml/min Est GFR (Non-Af Amer) 49.1 ml/min BUN/Creatinine Ratio 19.1 (10-20) Glucose 78 (70-99(Fasting)) mg/dl Lactate (0.4-2.0) mmol/L Calcium 9.9 (8.6-10.3) mg/dl Magnesium (1.7-2.4) mg/dl Total Bilirubin 1.3 H D (0.2-1.0) mg/dl Direct Bilirubin TNP AST 24 (13-39) U/L ALT 13 (7-52) U/L Alkaline Phosphatase 76 (34-104) U/L Total Protein 7.6 (6.0-8.3) gm/dl Albumin 4.4 (3.4-5.0) gm/dl Globulin (2.5-4.0) gm/dl Albumin/Globulin Ratio (0.9-2) Lipase 12 (11-82) U/L TSH 4.670 H (0.300-4.500) uIu/ml Free T4 0.88 (0.61-1.60) ng/dl Diagnostic Findings Chest/Abdomen X-ray 06/22/24 18:40 XR abdomen 2V w PA chest HISTORY: 73 years-old Female nausea constipation acute nodule with generalized abdominal pain COMPARISON: CT of same day, chest radiograph 07/11/2020 TECHNIQUE: AP view of the chest with erect and supine views of the abdomen FINDINGS: Cardiac silhouette is mildly enlarged moderate right and small left pleural effusions with right greater than left bibasilar consolidation. Bilateral breast implants. No pneumothorax. Bones of the chest appear grossly intact. Centralized loops of air-filled bowel compatible with ascites. Dilated small bowel loops measure up to approximately 4.3 cm. No acute fracture. No urolith. IMPRESSION: 1. Moderate right and small left pleural effusions with right basilar predominant consolidation which may represent atelectasis versus pneumonia. 2. Distended air-filled loops of small bowel may represent ileus versus obstruction. Follow-up recommended. 3. Please refer to the same day CT abdomen and pelvis study for additional findings. ACT 112: Negative or not required by law. The above report was generated using voice recognition software. It may contain grammatical, syntax or spelling errors. Electronically signed by: Jame Sampson M.D. 06/23/2024 8:35 AM Abdomen/Pelvis CT 06/22/24 19:38 Exam(s): CT ABDOMEN + PELVIS With Contrast IV Amt: 91ml optiray 320 EXAM: CT Abdomen and Pelvis With Intravenous Contrast CLINICAL HISTORY: Reason for exam: ro sbo. TECHNIQUE: Axial computed tomography images of the abdomen and pelvis with intravenous contrast. CTDI is 11.04 mGy and DLP is 516.79 mGy-cm. Automated exposure control was utilized for the study. A dose lowering technique was utilized adhering to the principles of ALARA. CONTRAST: Patient received 91ml optiray 320 of IV contrast COMPARISON: 06/20/2024 FINDINGS: Lung bases: See below. Pleural space: Stable right pleural effusion with associated compressive atelectasis. ABDOMEN: Liver: Unremarkable. No mass. Gallbladder and bile ducts: Unremarkable. No calcified stones. No ductal dilation. Pancreas: Unremarkable. No mass. No ductal dilation. Spleen: Unremarkable. No splenomegaly. Adrenals: Unremarkable. No mass. Kidneys and ureters: Unremarkable. No solid mass. No hydronephrosis. Stomach and bowel: Diverticulosis without evidence of diverticulitis. No obstruction. PELVIS: Appendix: No findings to suggest acute appendicitis. Bladder: Unremarkable. No mass. Reproductive: Unremarkable as visualized. ABDOMEN and PELVIS: Intraperitoneal space: Interval development of diffusely distended loops of small bowel without a clear transition point. Interval development of extensive intra-abdominal ascites. No free air. Bones/joints: No acute fracture. No dislocation. Soft tissues: Unremarkable. Vasculature: Unremarkable. No abdominal aortic aneurysm. Lymph nodes: Unremarkable. No enlarged lymph nodes. IMPRESSION: 1. Findings consistent with ileus with interval development of marked intra-abdominal ascites 2. Other stable chronic changes described above Electronically signed by: Yaya Duckworth MD 06/22/24 21:37 PM (3) Abdominal ascites Ascites type: other type Qualified Code(s): R18.8 - Other ascites
[2024-06-23] MEDS: ACETAMINOPHEN 325 MG TAB PO PRN (07:59)
[2024-06-23] MEDS: LEVOTHYROXINE SODIUM 100 MCG TABLET PO SCH (08:08)
[2024-06-23] MEDS: MONTELUKAST SODIUM 10 MG TABLET PO SCH (08:08)
[2024-06-23] MEDS: dilTIAZem HCL 120 MG CAPCR PO SCH (08:08)
[2024-06-23] MEDS: CHOLECALCIFEROL 125 MCG (5,000 UNITS) TAB PO SCH (08:08)
[2024-06-23] MEDS: UMECLIDINIUM/VILANTEROL 62.5/25MCG 7 PUFFS/INHALER INH SCH (08:12)
[2024-06-23] MEDS: LIOTHYRONINE SODIUM 5 MCG TAB PO SCH (08:12)
--- NOTE | 2024-06-23 08:36 | XRay Report ---
XR abdomen 2V w PA chest HISTORY: 73 years-old Female nausea constipation acute nodule with generalized abdominal pain COMPARISON: CT of same day, chest radiograph 07/11/2020 TECHNIQUE: AP view of the chest with erect and supine views of the abdomen FINDINGS: Cardiac silhouette is mildly enlarged moderate right and small left pleural effusions with right grea ter than left bibasilar consolidation. Bilateral breast implants. No pneumothorax. Bones of the chest appear grossly intact. Centralized loops of air-filled bowel compatible with ascites. Dilated small bowel loops measure up t o approximately 4.3 cm. No acute fracture. No urolith. IMPRESSION: 1. Moderate right and small left pleural effusions with right basilar predominant consolidation which may represent atelectasis versus pneumonia. 2. Distended air-filled loops of small bowel may represent ileus versus obstruction. Follow-up recomm ended. 3. Please refer to the same day CT abdomen and pelvis study for additional findings. ACT 112: Negative or not required by law. The above report was generated using voice recognition software. It may contain grammatical, syntax o r spelling errors. Electronically signed by: Jame Sampson M.D. 06/23/2024 8:35 AM
--- NOTE | 2024-06-23 12:00 | Gastrointestinal Consultation ---
Date of Consultation June 23, 2024 Assessment & Plan (1) Abdominal ascites: Interesting case. Her history points to an episode of food poisoning which seems most likely related to the "organic fruits" she ate rather than the shrimp since her symptoms went away after eating the shrimp. I don't know that I have seen an episode of food poisoning result in the development of ascites but I guess I can see a scenario with reactive ascites related to the inflammation of the gut. There is no evidence of liver disease or acute hepatitis either. Obviously there are a lot of other causes of ascites so I do think she needs diagnostic paracentesis. She will need her coagulopathy corrected before that can be done. I certainly hope this is not ovarian cancer presenting this way. I would treat her for now as if she has food poisoning and we can see what happens with the ascites as the weekend progresses since paracentesis won't be done until Tuesday. (2) Ileus: History of Present Illness Reason for Consultation: colitis, ascites Attending Physician: Namita Waters MD History of Present Illness 73 year old female who tells me that Tuesday she went to eat a shrimp dish at [facility]. A couple of hours later she developed some discomfort in her abdomen and some mild nausea. That stopped after a short period of time. She was symptom free until the next day when she ate "organic strawberries and blueberries" and then several hours later she started feeling discomfort again. This progressed over the next couple of days until she came to the ER. She had been to the ER earlier and sent home. She did not improve and got worse so she came back to the ER and was admitted. She really never had any diarrhea. She has not seen any blood in her stool. She was nauseated but did not vomit. She did feel bloated. CT in the ER showed an enteritis and development of marked ascites. CT two days before showed inflammation in the portal area of the liver but none was seen two days later. WBC in ER was 18K. She has not had troubles like this before. Her last colonoscopy was 8 years ago. She takes warfarin for heart failure Allergies Allergy/AdvReac Type Severity Reaction Status Date / Time No Known Allergies Allergy Verified 06/22/24 22:39 Home Medications Medication Instructions Recorded Confirmed Type ascorbic acid (vitamin C) 500 mg 1,000 mg PO QAM 09/10/19 06/22/24 History tablet levothyroxine 100 mcg tablet 100 mcg PO QAM 09/10/19 06/22/24 History zinc gluconate 50 mg tablet 50 mg PO QAM 09/10/19 06/22/24 History krill oil 500 mg capsule 1,500 mg PO DAILY 02/11/23 06/22/24 History warfarin 5 mg tablet See Rx Instructions .Route .COMPLEX 02/11/23 06/22/24 History liothyronine 5 mcg tablet 10 mcg PO QAM 08/31/23 06/22/24 History clobetasol 0.05 % topical ointment 1 applic topical [id number] PRN Rash #60 09/22/23 06/22/24 Rx grams estradiol 0.01% (0.1 mg/gram) 1 g vaginal WK #42.5 grams 09/22/23 06/22/24 Rx vaginal cream montelukast 10 mg tablet 10 mg PO QAM #90 tabs 10/31/23 06/22/24 Rx cholecalciferol (vitamin D3) 125 125 mcg PO DAILY 06/20/24 06/22/24 History mcg (5,000 unit) tablet (Vitamin D3) diltiazem HCl 240 mg 240 mg PO QAM 06/20/24 06/22/24 History capsule,extended release 24 hr (Cartia XT) sodium chloride 0.65 % nasal spray 1 spray intranasal DIRECTED PRN 06/20/24 06/22/24 History aerosol (Saline Nasal) Dry Nasal Passages sodium chloride 7 % for 1 inh inhalation BID PRN NEEDED 06/20/24 06/22/24 History nebulization umeclidinium 62.5 mcg-vilanterol 1 inh inhalation QAM 06/20/24 06/22/24 History 25 mcg/actuation powdr for inhalation (Anoro Ellipta) vitamin B complex 1 tab PO DAILY 06/20/24 06/22/24 History ondansetron 4 mg disintegrating 4 mg PO Q8H PRN nausea and 06/21/24 06/22/24 Rx tablet vomiting #30 tabs Patient History Medical History Pulmonary nodules just monitoring Hypertension Bronchiectasis INHALER FOR THIS Surgical History History of cataract surgery left History of colonoscopy went into Afib for 3 mins with last colonscopy> resolved History of tooth extraction History of adenoidectomy History of bronchoscopy History of hysterectomy History of breast augmentation History of ankle surgery RIGHT due to fx Family History Mother Heart disease Breast cancer Father COPD (chronic obstructive pulmonary disease) Grandmother (Maternal) Diabetes Family/Other Schizophrenia sibling Denies family history of Ovarian cancer Colorectal cancer Social History Smoking Status: Never smoker Tobacco Type: Cigarettes Age Started Using Tobacco: 17; Age Quit Using Tobacco: 26; Cigarettes Per Day: 0-4 per day; Second Hand Exposure: No; Do You Dip or Chew Tobacco: No; Tobacco Cessation Education Requested by Patient: No Hx Alcohol Use: Yes Alcohol type: wine Alcohol Intake Frequency: 2-3 x/Week Hx Substance Use: No Preferred Language: Croatian Communication Ability: Effective Metal Sprayer Required: No Beliefs That Will Affect Care: None marital status: Life Partner Current Living Situation: Alone 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 Other Information That Helps Us Care for You: No Feels Safe at Home: Yes Safety Concerns: Feels Safe At This Time Assistive Devices: None Review of Systems Review of Systems: All systems reviewed & are unremarkable except as noted in HPI & below Physical Exam Constitutional: WD/WN, vitals as above + thin Neck: trachea midline, no thyromegaly Respiratory: normal respiratory effort, lungs clear to auscultation Cardiovascular: RRR, no murmur, no edema Gastrointestinal (Abdomen): Inspection/Auscultation: + abdomen distended Percussion/Palpation: + abdomen tender and abdomen soft Results & Data Vital Signs (Past 12 Hours) Vital Signs Temp Pulse Pulse Resp BP Pulse Ox O2 Del Method 06/23/24 11:51 36.6 C 103 H 19 105/69 98 Room Air 06/23/24 08:30 36.4 C L 52 L 19 126/78 99 Room Air 06/23/24 07:00 98 H 06/23/24 04:30 36.9 C 103 H 18 102/66 95 Room Air 06/23/24 00:50 106 H 06/23/24 00:00 36.5 C 102 H 18 117/68 97 Room Air Laboratory Results 06/23/24 06/22/24 06/22/24 Range/Units 05:43 20:44 19:58 WBC 12.76 H (4.8-10.8) K/ul RBC 4.66 (4.20-5.40) M/uL Hgb 14.7 (12.0-16.0) g/dl Hct 43.8 (37.0-47.0) % MCV 94.0 (80.0-100.0) fL MCH 31.5 (25.0-34.0) pg MCHC 33.6 (32.0-36.0) g/dL RDW Std Deviation 44.8 (36.4-46.3) fL RDW Coeff of Eve 13.1 (11.5-14.5) % Plt Count 343 (130-400) K/uL MPV 10.2 (9.4-12.4) fL Immature Gran % (Auto) 0.5 % Neut % (Auto) 84.6 % Lymph % (Auto) 6.3 % [place] % (Auto) 7.6 % Eos % (Auto) 0.5 % Baso % (Auto) 0.5 % Neut # (Auto) 10.78 H (1.40-6.50) K/uL Lymph # (Auto) 0.81 L (1.20-3.40) K/uL [place] # (Auto) 0.97 H (0.11-0.59) K/uL Eos # (Auto) 0.07 (0.00-0.50) K/uL Baso # (Auto) 0.07 (0.00-0.20) K/uL Immature Gran # (Auto) 0.06 (0.01-0.20) K/uL PT 52.1 H 46.1 H INR 5.6 H* 4.9 H APTT 47 H 41 H PTT Ratio 1.7 1.5 Sodium 130 L (136-145) mmol/L Potassium 4.3 (3.5-5.1) mmol/L Chloride 98 (98-107) mmol/L Carbon Dioxide 25 (21-32) mmol/L Anion Gap 7 (3-11) BUN 23 (6-23) mg/dl Creatinine 0.93 (0.6-1.2) mg/dl Est Cr Clr Drug Dosing 55.6 Est GFR ( Amer) 69.7 ml/min Est GFR (Non-Af Amer) 60.1 ml/min BUN/Creatinine Ratio 24.7 H (10-20) Glucose 84 (70-99(Fasting)) mg/dl Lactate 2.0 (0.4-2.0) mmol/L Calcium 8.3 L (8.6-10.3) mg/dl Magnesium 1.9 (1.7-2.4) mg/dl Total Bilirubin 0.9 (0.2-1.0) mg/dl Direct Bilirubin 0.3 H AST 17 (13-39) U/L ALT 9 (7-52) U/L Alkaline Phosphatase 55 (34-104) U/L Total Protein 5.7 L D (6.0-8.3) gm/dl Albumin 3.4 (3.4-5.0) gm/dl Globulin 2.3 L (2.5-4.0) gm/dl Albumin/Globulin Ratio 1.5 (0.9-2) Lipase (11-82) U/L TSH (0.300-4.500) uIu/ml Free T4 (0.61-1.60) ng/dl 06/22/24 Range/Units 18:54 WBC 18.18 H (4.8-10.8) K/ul RBC 5.55 H (4.20-5.40) M/uL Hgb 17.5 H (12.0-16.0) g/dl Hct 51.8 H (37.0-47.0) % MCV 93.3 (80.0-100.0) fL MCH 31.5 (25.0-34.0) pg MCHC 33.8 (32.0-36.0) g/dL RDW Std Deviation 44.5 (36.4-46.3) fL RDW Coeff of Eve 12.9 (11.5-14.5) % Plt Count 433 H (130-400) K/uL MPV 10.2 (9.4-12.4) fL Immature Gran % (Auto) 0.6 % Neut % (Auto) 86.0 % Lymph % (Auto) 4.6 % [place] % (Auto) 8.1 % Eos % (Auto) 0.3 % Baso % (Auto) 0.4 % Neut # (Auto) 15.65 H (1.40-6.50) K/uL Lymph # (Auto) 0.83 L (1.20-3.40) K/uL [place] # (Auto) 1.47 H (0.11-0.59) K/uL Eos # (Auto) 0.05 (0.00-0.50) K/uL Baso # (Auto) 0.08 (0.00-0.20) K/uL Immature Gran # (Auto) 0.10 (0.01-0.20) K/uL PT Cancelled INR Cancelled APTT Cancelled PTT Ratio Cancelled Sodium 130 L (136-145) mmol/L Potassium 4.2 D (3.5-5.1) mmol/L Chloride 92 L (98-107) mmol/L Carbon Dioxide 23 (21-32) mmol/L Anion Gap 15 H (3-11) BUN 21 (6-23) mg/dl Creatinine 1.10 D (0.6-1.2) mg/dl Est Cr Clr Drug Dosing Not Reportable Est GFR ( Amer) 56.9 ml/min Est GFR (Non-Af Amer) 49.1 ml/min BUN/Creatinine Ratio 19.1 (10-20) Glucose 78 (70-99(Fasting)) mg/dl Lactate (0.4-2.0) mmol/L Calcium 9.9 (8.6-10.3) mg/dl Magnesium (1.7-2.4) mg/dl Total Bilirubin 1.3 H D (0.2-1.0) mg/dl Direct Bilirubin TNP AST 24 (13-39) U/L ALT 13 (7-52) U/L Alkaline Phosphatase 76 (34-104) U/L Total Protein 7.6 (6.0-8.3) gm/dl Albumin 4.4 (3.4-5.0) gm/dl Globulin (2.5-4.0) gm/dl Albumin/Globulin Ratio (0.9-2) Lipase 12 (11-82) U/L TSH 4.670 H (0.300-4.500) uIu/ml Free T4 0.88 (0.61-1.60) ng/dl Diagnostic Findings Chest/Abdomen X-ray 06/22/24 18:40 XR abdomen 2V w PA chest HISTORY: 73 years-old Female nausea constipation acute nodule with generalized abdominal pain COMPARISON: CT of same day, chest radiograph 07/11/2020 TECHNIQUE: AP view of the chest with erect and supine views of the abdomen FINDINGS: Cardiac silhouette is mildly enlarged moderate right and small left pleural effusions with right greater than left bibasilar consolidation. Bilateral breast implants. No pneumothorax. Bones of the chest appear grossly intact. Centralized loops of air-filled bowel compatible with ascites. Dilated small bowel loops measure up to approximately 4.3 cm. No acute fracture. No urolith. IMPRESSION: 1. Moderate right and small left pleural effusions with right basilar predominant consolidation which may represent atelectasis versus pneumonia. 2. Distended air-filled loops of small bowel may represent ileus versus obstruction. Follow-up recommended. 3. Please refer to the same day CT abdomen and pelvis study for additional findings. ACT 112: Negative or not required by law. The above report was generated using voice recognition software. It may contain grammatical, syntax or spelling errors. Electronically signed by: Jame Sampson M.D. 06/23/2024 8:35 AM Abdomen/Pelvis CT 06/22/24 19:38 Exam(s): CT ABDOMEN + PELVIS With Contrast IV Amt: 91ml optiray 320 EXAM: CT Abdomen and Pelvis With Intravenous Contrast CLINICAL HISTORY: Reason for exam: ro sbo. TECHNIQUE: Axial computed tomography images of the abdomen and pelvis with intravenous contrast. CTDI is 11.04 mGy and DLP is 516.79 mGy-cm. Automated exposure control was utilized for the study. A dose lowering technique was utilized adhering to the principles of ALARA. CONTRAST: Patient received 91ml optiray 320 of IV contrast COMPARISON: 06/20/2024 FINDINGS: Lung bases: See below. Pleural space: Stable right pleural effusion with associated compressive atelectasis. ABDOMEN: Liver: Unremarkable. No mass. Gallbladder and bile ducts: Unremarkable. No calcified stones. No ductal dilation. Pancreas: Unremarkable. No mass. No ductal dilation. Spleen: Unremarkable. No splenomegaly. Adrenals: Unremarkable. No mass. Kidneys and ureters: Unremarkable. No solid mass. No hydronephrosis. Stomach and bowel: Diverticulosis without evidence of diverticulitis. No obstruction. PELVIS: Appendix: No findings to suggest acute appendicitis. Bladder: Unremarkable. No mass. Reproductive: Unremarkable as visualized. ABDOMEN and PELVIS: Intraperitoneal space: Interval development of diffusely distended loops of small bowel without a clear transition point. Interval development of extensive intra-abdominal ascites. No free air. Bones/joints: No acute fracture. No dislocation. Soft tissues: Unremarkable. Vasculature: Unremarkable. No abdominal aortic aneurysm. Lymph nodes: Unremarkable. No enlarged lymph nodes. IMPRESSION: 1. Findings consistent with ileus with interval development of marked intra-abdominal ascites 2. Other stable chronic changes described above Electronically signed by: Yaya Duckworth MD 06/22/24 21:37 PM (1) Abdominal ascites Ascites type: other type Qualified Code(s): R18.8 - Other ascites
[2024-06-23] MEDS: PANTOprazole 40 MG in SYRINGE 0 ML IV SCH (12:38)
[2024-06-23] MEDS: PHYTONADIONE 2.5 MG in DEXTROSE 5% 50 ML IV ONE (16:22)
[2024-06-24 06:51] LABS: Basophils # (auto) 0.06 K/uL (0.00-0.20); Basophils % (auto) 0.6 %; Eosinophils # (auto) 0.11 K/uL (0.00-0.50); Eosinophils % (auto) 1.1 %; Hematocrit (blood only) 44.3 % (37.0-47.0); Hemoglobin 15.3 g/dl (12.0-16.0); Immature Granulocytes # (auto) 0.03 K/uL (0.01-0.20); Immature Granulocytes % (auto) 0.3 %; Lymphocytes # (auto) 0.71 K/uL (1.20-3.40); Lymphocytes % (auto) 7.3 %; Mean Corpuscular Hemoglobin 31.2 pg (25.0-34.0); Mean Corpuscular Hgb Conc 34.5 g/dL (32.0-36.0); Mean Corpuscular Volume 90.2 fL (80.0-100.0); Mean Platelet Volume 10.1 fL (9.4-12.4); Monocytes # (auto) 0.86 K/uL (0.11-0.59); Monocytes % (auto) 8.9 %; Neutrophils % (auto) 81.8 %; Platelet Count 337 K/uL (130-400); RDW Coefficient of Variation 12.9 % (11.5-14.5); RDW Standard Deviation 42.7 fL (36.4-46.3); Red Blood Count 4.91 M/uL (4.20-5.40); White Blood Count 9.67 K/ul (4.8-10.8)
--- NOTE | 2024-06-24 07:13 | Hospitalist Progress Note ---
Date of Service June 24, 2024 Assessment & Plan (1) Food poisoning: (2) Ileus: (3) Abdominal ascites: (4) Pleural effusion: (5) Supratherapeutic INR: (6) Chronic anticoagulation: (7) Paroxysmal atrial fibrillation: (8) Chronic dyspnea: Plan 1. Ileus/Abdominal ascites - CT scan of abdomen pelvis on 06/22 shows distended small bowel loops consistent with ileus, and a marked new accumulation of ascites compared to previous CT on 06/20. LFT's are normal. Bilirubin slightly elevated at 1.2. She is tolerating full liquid diet, but maybe dehydrated. Pt reminded she can request Zofran for nausea. - Given IVF NS 500mls -Ordered Miralax 17gm, q4d - Continue pantoprazole 40 mg IV daily - Continue Zofran 4 mg IV every 6 hours as needed - Continue daily CBC with differential, chemistry profile, magnesium and PT/INR - Gastroenterology recommends paracentesis for abdominal distention and new ascites. Scheduled for 06-25-. 2. Supratherapeutic INR/chronic anticoagulation/paroxysmal atrial fibrillation- INR is 1.3, PT is 13.5, PTT is 33 after IV vitamin K 2.5mg 06/23 -Continue to hold warfarin -Continue to follow INR, PT and PTT -Continue Cardizem CD 120 mg BID Chronic Chronic dyspnea- -Continue Anoro Ellipta VTE prophylaxis -Ordered SCDs Admission and Anticipated Discharge Date Admission Date: June 22, 2024 Supervising Physician Co-Signing Physician Notes Attending Physician Supervision Note: I independently interviewed and examined the patient and verified the alejandro history and physical, reviewed labs and image studies and agree with findings and care plan noted above. Reporting abdominal pain this am. Abdominal exam - Soft, distended abdomen, BS+, Nontender. Abdominal pain with ileus and marked ascites from CT 06/22. CT 06/20 with colitis in ascending colon, periportal edema, moderate right pleural effusion. Concern of food poisoning as contributor. -will rule out other etiology - ordered diagnostic paracentesis. -continue supportive care for ileus. -clear liquid and IVF support since PO intake is poor. -continue pain control. Constipation - Minimal to no BM with enema. Trial miralax dose - with no BM Considering Ileus - will allow bowel function to return on it's own for now. -reassess in am. Chronic anticoagulation - Warfarin on hold. INR 1.3. Resume warfarin after procedure. SCD for DVT proph in the meantime. Subjective Pt is a 73 yo female with PMedHx of hypothyroidism, paroxysmal A-fib, chronic dyspnea and osteoarthritis who presented to ED for the second time in 2 days with abdominal pain and constipation x [address] scan which showed ileus, ascending colitis, periportal edema and bilateral plural effusions. Currently, pt is reporting return of severe abdominal pain, no bowel movement in 6 days. Pt is requesting an enema. She denies nausea or vomiting and tolerating clear liquid diet. Physical Exam Physical Exam: The patient is awake, alert and oriented 3, well developed and well nourished, normocephalic and atraumatic, lying in bed and in no acute distress. HEENT--PERRL, EOMI, mucous membranes and oropharynx moist. Neck--supple. No JVD. No bruits. Thyroid normal, trachea midline, no adenopathy. Heart--normal S1 and S2. Radial pulse is irregular. No murmurs, rubs or gallops. Lungs--lower lobe rhonchi bilaterally, no respiratory distress, no accessory muscle use. Abdomen--normal bowel sounds. Generalized mild tenderness. Continues distended and tympanitic Extremities--No edema. Dermatologic--normal skin turgor, normal color, no rash. Neurologic--cranial nerves II through XII grossly intact. Psychiatric--normal affect. Results & Data Results & Data Vital Signs (Past 12 Hours) Vital Signs Temp Pulse Pulse Resp BP Pulse Ox O2 Del Method 06/24/24 06:41 85 06/24/24 02:48 36.6 C 83 18 121/76 94 Room Air 06/23/24 22:53 36.5 C 91 H 18 130/88 97 Room Air 06/23/24 22:49 89 06/23/24 19:21 36.7 C 94 H 18 129/82 95 Room Air (3) Abdominal ascites Ascites type: other type Qualified Code(s): R18.8 - Other ascites
[2024-06-24 07:23] LABS: INR 1.3 (0.9-1.1); Partial Thromboplastin Ratio 1.2; Partial Thromboplastin Time 33 Seconds (21-31); Prothrombin Time 13.5 Seconds (9.0-12.0)
[2024-06-24 07:33] LABS: Albumin Globulin Ratio 1.5 (0.9-2); Albumin Level 3.4 gm/dl (3.4-5.0); BUN Creatinine Ratio 26.1 (10-20); Bilirubin,Total 1.2 mg/dl (0.2-1.0); Calcium 8.3 mg/dl (8.6-10.3); Creatinine Clr Calc Pharmacy 74.9 ml/min; Est GFR (African American) 98.7 ml/min; Est GFR (Non-African American) 85.2 ml/min; Globulin 2.2 gm/dl (2.5-4.0); Magnesium 1.6 mg/dl (1.7-2.4); Potassium 3.9 mmol/L (3.5-5.1); Total Protein 5.6 gm/dl (6.0-8.3)
--- NOTE | 2024-06-24 09:32 | Gastroenterology Progress Note ---
Date of Service June 24, 2024 Assessment & Plan (1) Abdominal ascites: Plan: Still distended. Curious to see the results of the paracentesis. Advised to increase activity--at least out of bed in chair to help with bowel movements. Admission and Anticipated Discharge Date Admission Date: June 22, 2024 Subjective Took an enema this morning. Feeling weak. Still distended. Physical Exam Physical Exam: she looks weak Gastrointestinal (Abdomen): Inspection/Auscultation: + abdomen distended Results & Data Vital Signs (Past 12 Hours) Vital Signs Temp Pulse Pulse Resp BP Pulse Ox O2 Del Method 06/24/24 07:56 36.9 C 96 H 19 133/78 95 Room Air 06/24/24 06:41 85 06/24/24 02:48 36.6 C 83 18 121/76 94 Room Air 06/23/24 22:53 36.5 C 91 H 18 130/88 97 Room Air 06/23/24 22:49 89 (1) Abdominal ascites Ascites type: other type Qualified Code(s): R18.8 - Other ascites
[2024-06-24] MEDS: SODIUM CHLORIDE 0.9% 500 ML IV SCH (11:36)
[2024-06-24] MEDS: POLYETHYLENE (MIRALAX) 17 GM PACK PO SCH (11:47)
[2024-06-24] MEDS: SODIUM CHLORIDE 0.9% 1,000 ML IV SCH (18:25)
[2024-06-24] MEDS: ONDANSETRON INJ 2 MG/ML 2 ML VIAL IV PRN (20:11)
[2024-06-25 06:32] LABS: Basophils # (auto) 0.06 K/uL (0.00-0.20); Basophils % (auto) 0.7 %; Eosinophils # (auto) 0.07 K/uL (0.00-0.50); Eosinophils % (auto) 0.8 %; Hematocrit (blood only) 49.2 % (37.0-47.0); Hemoglobin 16.7 g/dl (12.0-16.0); Immature Granulocytes # (auto) 0.03 K/uL (0.01-0.20); Immature Granulocytes % (auto) 0.3 %; Lymphocytes # (auto) 0.53 K/uL (1.20-3.40); Mean Corpuscular Hemoglobin 31.5 pg (25.0-34.0); Mean Corpuscular Hgb Conc 33.9 g/dL (32.0-36.0); Mean Corpuscular Volume 92.8 fL (80.0-100.0); Mean Platelet Volume 10.3 fL (9.4-12.4); Monocytes # (auto) 0.83 K/uL (0.11-0.59); Monocytes % (auto) 9.4 %; Neutrophils # (auto) 7.27 K/uL (1.40-6.50); Neutrophils % (auto) 82.8 %; Platelet Count 395 K/uL (130-400); RDW Coefficient of Variation 12.9 % (11.5-14.5); RDW Standard Deviation 43.9 fL (36.4-46.3); White Blood Count 8.79 K/ul (4.8-10.8)
[2024-06-25 06:53] LABS: Albumin Globulin Ratio 1.4 (0.9-2); Albumin Level 3.7 gm/dl (3.4-5.0); BUN Creatinine Ratio 27.1 (10-20); Bilirubin,Total 1.4 mg/dl (0.2-1.0); Calcium 8.4 mg/dl (8.6-10.3); Creatinine Clr Calc Pharmacy 73.8 ml/min; Est GFR (African American) 98.2 ml/min; Est GFR (Non-African American) 84.8 ml/min; Globulin 2.6 gm/dl (2.5-4.0); Magnesium 1.6 mg/dl (1.7-2.4); Potassium 4.2 mmol/L (3.5-5.1); Total Protein 6.3 gm/dl (6.0-8.3)
[2024-06-25 06:54] LABS: INR 1.4 (0.9-1.1); Partial Thromboplastin Ratio 1.2; Partial Thromboplastin Time 32 Seconds (21-31); Prothrombin Time 14.3 Seconds (9.0-12.0)
--- NOTE | 2024-06-25 07:11 | Hospitalist Progress Note ---
Date of Service June 25, 2024 Assessment & Plan (1) Food poisoning: (2) Ileus: (3) Abdominal ascites: (4) Pleural effusion: (5) Supratherapeutic INR: (6) Chronic anticoagulation: (7) Paroxysmal atrial fibrillation: (8) Chronic dyspnea: Plan 1. Ileus/Abdominal ascites - CT scan of abdomen pelvis on 06/22 shows distended small bowel loops consistent with ileus, and a marked new accumulation of ascites compared to previous CT on 06/20. LFT's are normal. Bilirubin slightly elevated at 1.2. Paracentesis canceled due to ultrasound detecting no safe area to extract fluid. Pt has pleural effusion, thoracentesis could provide information into ascites fluid. KUB ordered to rule out SBO. - Paracentesis canceled, ordered thoracentesis to sample fluid - KUB ordered - Continue IVF NS 125mls with pt NPO due to nausea and vomiting - Low threshold for NG tube if vomiting continues - Stopped Miralax - Continue pantoprazole 40 mg IV daily - Continue Zofran 4 mg IV every 6 hours as needed - Added compazine 5mg IV q6h for nausea - Continue daily CBC with differential, chemistry profile, magnesium and PT/INR 2. Supratherapeutic INR/chronic anticoagulation/paroxysmal atrial fibrillation- INR is 1.4, PT is 14.3, PTT is 32 -Continue to hold warfarin -Added enoxaparin 40mg SQ qam -Continue to follow INR, PT and PTT -Continue Cardizem CD 120 mg BID Chronic Chronic dyspnea- -Continue Anoro Ellipta VTE prophylaxis -Continue SCDs -Added enoxaparin 40mg SQ qam Full Code Fluids: NS 125mls Diet: NPO Admission and Anticipated Discharge Date Admission Date: June 22, 2024 Supervising Physician Co-Signing Physician Notes I personally examined the patient and verified all alejandro points of history and exam, discussed case, and agree with decision making with Dr Gandara vomited. less pain. ongoing distention. vitals noted nad but does appear fatigued breathing unlabored no accessory muscles good effort skin without rashes pallor or icterus abd soft mod distention mild diffuse tenderness Abdominal pain with ileus and marked ascites from CT 06/22. CT 06/20 with colitis in ascending colon, periportal edema, moderate right pleural effusion. Concern of food poisoning as contributor. -will rule out other etiology - could not do para - ?either from angles or possibly because ascites is resolving. did thoracentesis - transudative - reassuring. -continue supportive care for ileus. may need NGT -ongoing supportive care Chronic anticoagulation - Warfarin on hold. will utilize DVT proph dosing lovenox for now while waiting on pleural cytology - but fortunately reassuring overall. otherwise as above Subjective Pt is a 73 yo female with PMedHx of hypothyroidism, paroxysmal A-fib, chronic dyspnea and osteoarthritis who presented to ED for the second time in 2 days with abdominal pain and constipation x [address] scan which showed ileus, ascending colitis, periportal edema and bilateral plural effusions. Overnight, patient was concerned about being on a liquid diet with colitis. She was made NPO after midnight to prepare for paracentesis. This morning has had vomiting episode x 2 and reporting mild relief of abdominal pain after vomiting. Physical Exam Physical Exam: The patient is awake, alert and oriented 3, well developed and well nourished, normocephalic and atraumatic, lying in bed and in no acute distress. HEENT--PERRL, EOMI, mucous membranes and oropharynx moist. Neck--supple. No JVD. No bruits. Thyroid normal, trachea midline, no adenopathy. Heart--normal S1 and S2. Radial pulse is irregular. No murmurs, rubs or gallops. Lungs--lower lobe rhonchi bilaterally, no respiratory distress, no accessory muscle use. Abdomen--bowel sounds. Generalized mild tenderness. Continues distended and tympanitic Extremities--mild LE edema, nonpitting. Dermatologic--normal skin turgor, normal color, no rash. Neurologic--cranial nerves II through XII grossly intact. Psychiatric--normal affect. Results & Data Results & Data Vital Signs (Past 12 Hours) Vital Signs Temp Pulse Pulse Resp BP Pulse Ox O2 Del Method 06/25/24 03:46 36.5 C 64 16 125/80 91 Room Air 06/24/24 23:12 36.4 C L 80 16 122/67 96 Room Air 06/24/24 23:07 90 Diagnostic Findings Abdomen Ultrasound 06/25/24 00:00 LIMITED ABDOMINAL ULTRASOUND INDICATION: Paracentesis requested COMPARISON: CT abdomen and pelvis 06/22/2024 FINDINGS: Real-time ultrasound imaging in all 4 abdominal quadrants demonstrates a scant amount of ascites fluid surrounding distended loops of small intestine. No paracentesis was performed. IMPRESSION: Scant ascites surrounding dilated loops of small intestine as above. No paracentesis was performed. Electronically signed by: Jame Sampson M.D. 06/25/2024 11:17 AM KUB X-Ray 06/25/24 09:43 XR KUB/Abdomen 1 view CLINICAL HISTORY: r/o SBO TECHNIQUE: 1 view of the abdomen was obtained. Comparison: Comparison is made to chest and abdomen radiographs 06/22/[address] abdomen pelvis 06/22/2024 FINDINGS: Lung bases are unremarkable. Degenerative changes are seen in the visualized skeleton. Multiple dilated loops of small bowel measuring up to 55 mm. No significant stool burden is seen. IMPRESSION: Findings compatible with continued small bowel obstruction. ACT 112: Negative or not required by law. Electronically signed by: Kenny Barbour M.D. 06/25/2024 11:14 AM Chest X-Ray 06/25/24 11:21 XR chest 1V portable HISTORY: 73 years-old Female S/P Thoracentesis follow-up study in a patient status post thoracentesis COMPARISON: 06/22/2024 TECHNIQUE: AP view the chest FINDINGS: Cardiac silhouette is enlarged. Pulmonary vascular congestion. No pneumothorax identified. Layering pleural effusions with bibasilar consolidation. Bones appear grossly intact. Bilateral breast implants. IMPRESSION: 1. Pulmonary vascular congestion. 2. Layering pleural effusions with bibasilar consolidation redemonstrated. 3. No pneumothorax identified. ACT 112: Negative or not required by law. The above report was generated using voice recognition software. It may contain grammatical, syntax or spelling errors. Electronically signed by: Jame Sampson M.D. 06/25/2024 12:37 PM (3) Abdominal ascites Ascites type: other type Qualified Code(s): R18.8 - Other ascites
--- NOTE | 2024-06-25 09:28 | Ultrasound Report ---
LIMITED ABDOMINAL ULTRASOUND INDICATION: Paracentesis requested COMPARISON: CT abdomen and pelvis 06/22/2024 FINDINGS: Real-time ultrasound imaging in all 4 abdominal quadrants demonstrates a scant amount of as cites fluid surrounding distended loops of small intestine. No paracentesis was performed. IMPRESSION: Scant ascites surrounding dilated loops of small intestine as above. No paracentesis was performed. Electronically signed by: Jame aSmpson M.D. 06/25/2024 11:17 AM
[2024-06-25] MEDS: MAGNESIUM SULFATE / D5W 1 GM/100 ML BAG IV SCH (09:53)
--- NOTE | 2024-06-25 11:15 | XRay Report ---
XR KUB/Abdomen 1 view CLINICAL HISTORY: r/o SBO TECHNIQUE: 1 view of the abdomen was obtained. Comparison: Comparison is made to chest and abdomen radiographs 06/22/[address] abdomen pelvis 2023 FINDINGS: Lung bases are unremarkable. Degenerative changes are seen in the visualized skeleton. Multiple dilat ed loops of small bowel measuring up to 55 mm. No significant stool burden is seen. IMPRESSION: Findings compatible with continued small bowel obstruction. ACT 112: Negative or not required by law. Electronically signed by: Kenny Barbour M.D. 06/25/2024 11:14 AM
[2024-06-25] MEDS: ONDANSETRON INJ 2 MG/ML 2 ML VIAL IV SCH (12:09)
[2024-06-25] MEDS ORDERED: Nursing to Pharmacy Communication SCH (12:30)
--- NOTE | 2024-06-25 12:39 | XRay Report ---
XR chest 1V portable HISTORY: 73 years-old Female S/P Thoracentesis follow-up study in a patient status post thoracentesi s COMPARISON: 06/22/2024 TECHNIQUE: AP view the chest FINDINGS: Cardiac silhouette is enlarged. Pulmonary vascular congestion. No pneumothorax identified. Layering p leural effusions with bibasilar consolidation. Bones appear grossly intact. Bilateral breast implants . IMPRESSION: 1. Pulmonary vascular congestion. 2. Layering pleural effusions with bibasilar consolidation redemonstrated. 3. No pneumothorax identified. ACT 112: Negative or not required by law. The above report was generated using voice recognition software. It may contain grammatical, syntax o r spelling errors. Electronically signed by: Jame Sampson M.D. 06/25/2024 12:37 PM
--- NOTE | 2024-06-25 14:05 | Gastroenterology Progress Note ---
<Statement entered by Jovana Dixon MD - 06/25/24 17:48> I have examined the patient, reviewed the History & Physical and in the interval since the performance of the History & Physical I have noted the following changes of clinical significance: no changes noted. I agree with the documentation provided by CAROLYN James. Thoracentesis performed today; results pending. Given KUB findings, please consult surgery. Date of Service June 25, 2024 Assessment & Plan (1) Abdominal ascites: Plan: Unable to proceed with paracentesis due to insufficient ascites -Check acute hepatitis panel -Trend LFTs (2) Ileus: Plan: -Repeat KUB pending today; Patient is nauseated and had an episode of vomiting. If imaging demonstrates SBO and this vomiting continues, consider NG tube and surgery evaluation. Admission and Anticipated Discharge Date Admission Date: June 22, 2024 Subjective Patient is a 73 [address] Dr[address] Figueroa of [facility] on 06/24/24 for ascites without evidence of liver abnormalities on imaging studies. AST 22, ALT 9, Alk phos 55. She notes nausea & vomiting today. She went to have a paracentesis this AM and there was insufficient fluid to proceed. A KUB is pending at the time of my visit, but prior imaging had questioned an ileus. Review of Systems Gastrointestinal: + nausea and + vomiting; no abdominal pa in Physical Exam Constitutional: well developed Respiratory: normal respiratory effort Gastrointestinal (Abdomen): Inspection/Auscultation: + abdomen distended Psychiatric: Orientation: alert and oriented x 3 Results & Data Results & Data Vital Signs (Past 12 Hours) Vital Signs Temp Pulse Pulse Resp BP Pulse Ox O2 Del Method 06/25/24 11:42 36.4 C L 92 H 19 116/79 93 Room Air 06/25/24 07:36 36.4 C L 90 19 120/83 97 Room Air 06/25/24 07:35 81 06/25/24 03:46 36.5 C 64 16 125/80 91 Room Air PG Care Time/CCT Total # of Minutes Spent Total Time Spent with Patient: Total time spent is greater than 50% in coordination of care (as documented) at patient's floor/unit and/or counseling patient: Coding Level of Care Code 83489 SUB INP/OBS CARE 3/50MIN Diagnoses Abdominal ascites R18.8 Ascites type: other type Ileus K56.7 (1) Abdominal ascites Ascites type: other type Qualified Code(s): R18.8 - Other ascites
--- NOTE | 2024-06-25 14:26 | Ultrasound Report ---
Ultrasound-guided right thoracentesis INDICATION: Right pleural effusion PROCEDURE: Procedure and risks were explained. Informed consent was obtained. A final timeout was com pleted. The right posterior thorax was prepped and draped in sterile fashion. 1% lidocaine was utiliz ed for skin anesthesia. Utilizing ultrasound guidance, a 5 Turkish safety centesis catheter was advanced into the right pleura l effusion. Ultrasound images were obtained. Approximately 750 mL of pleural fluid was removed and se nt to the lab for analysis. The catheter was removed and Band-Aid applied. The patient tolerated the procedure well. A chest x-ray will be obtained postprocedure and vital signs will be monitored on the floor. Impression: Ultrasound-guided right thoracentesis as above. Performed, dictated, and signed by Alejandro Youngblood PA-C; to be co-signed by Dr. Jame Sampson. Electronically signed by: Jame Sampson M.D. 06/25/2024 3:00 PM
[2024-06-25 15:39] LABS: Total Protein Pleural Fluid 3.1 gm/dl
--- NOTE | 2024-06-25 15:44 | XRay Report ---
XR chest 1V not portable HISTORY: Status post right thoracentesis. COMPARISON: Chest 06/25/2024. FINDINGS: Near complete resolution of the trace right pleural effusion status post thoracentesis. No pneumothorax. A small left pleural effusion persists. The heart is top normal in size. Emphysema agai n noted. Left basilar densities persist. No acute fractures. IMPRESSION: 1. Near-complete resolution of the now trace right pleural effusion status post thoracentesis. 2. A small left pleural effusion persists. ACT 112: Negative or not required by law. Electronically signed by: Maximilian Ferro M.D. 06/25/2024 3:42 PM
[2024-06-25 15:49] LABS: Hep B Surface Ag with confirm Negative (Negative)
[2024-06-25 15:54] LABS: Hep C Ab Rflx HepCQuant RNA Negative (Negative)
[2024-06-25 16:11] LABS: Appearance Pleural Fluid Clear; Color Pleural Fluid Yellow; Lymphocytes, Fluid 45 %; Mono,Macrophage,Mesothelial 35 %; Neutrophils, Fluid 20 %; RBC Pleural Fluid Auto < 2000 /uL; Source Pleural Fluid Other
--- NOTE | 2024-06-25 18:05 | Billing Data ---
Date of Service June 25, 2024 Coding Level of Care Code 98834 SUB INP/OBS CARE MIN
[2024-06-25] MEDS: PROCHLORPERAZINE 5 MG in SYRINGE 4 ML IV PRN (19:38)
[2024-06-25] MEDS: MELATONIN 3 MG TAB PO PRN (22:28)
--- NOTE | 2024-06-26 06:52 | Gastroenterology Progress Note ---
<Statement entered by Joavna Dixon MD - 06/26/24 16:57> I have examined the patient, reviewed the History & Physical and in the interval since the performance of the History & Physical I have noted the following changes of clinical significance: no changes noted. I agree with the documentation provided by CAROLYN James. Mrs Lim does not look well today. While possible that her labs are incorrect, she is quite tachycardic, restless and labs show an elevated INR and creatinine. Her abdomen is more tense compared to yesterday. CT reviewed w persistent and perhaps worsened small bowel distention. Ascites and pleural fluid noted; CT comment of cirrhosis unclear as no known history or other clinical findings to suggest as such and pleural fluid protein 3.1. Will reach out to confer w surgery and hospitalist colleagues, proceed w 1 time morphine dose (defer additional pain regimen to primary team), NGT placement, and initiation of broad spectrum antibiotics now for empiric coverage. Suggest repeat labs to assess for coagulopathy and DOMITILA as well. Date of Service June 26, 2024 Assessment & Plan (1) SBO (small bowel obstruction): Plan: -Appreciate surgical consult, CT abdomen/pelvis with IV & po contrast ordered; KUB from this AM pending -Antiemetics prn -Continue per surgery recommendations (2) Abdominal ascites: Plan: -Insufficient quantities to obtain fluid during paracentesis -Fluid was able to be obtained for thoracentesis & is pending Admission and Anticipated Discharge Date Admission Date: June 22, 2024 Subjective Patient is a 73 yo female with SBO. N/V has improved this AM, but she has abdominal discomfort. Results from thoracentesis pending. No new complaints. No further bowel movements since 06/25. She is passing gas. KUB pending. Surgery consulted and awaiting CT scan. Review of Systems Gastrointestinal: + abdominal pain and + constipation Physical Exam Constitutional: well developed Respiratory: normal respiratory effort Gastrointestinal (Abdomen): Inspection/Auscultation: + abdomen distended Percussion/Palpation: abdomen soft Psychiatric: Orientation: alert and oriented x 3 Results & Data Results & Data Vital Signs (Past 12 Hours) Vital Signs Temp Pulse Resp BP Pulse Ox O2 Del Method 06/26/24 02:47 36.6 C 111 H 16 123/71 92 Room Air 06/25/24 22:49 36.4 C L 105 H 16 116/79 98 Room Air 06/25/24 19:20 36.4 C L 105 H 20 128/81 95 Room Air PG Care Time/CCT Total # of Minutes Spent Total Time Spent with Patient: Total time spent is greater than 50% in coordination of care (as documented) at patient's floor/unit and/or counseling patient: Coding Level of Care Code 11063 SUB INP/OBS CARE 2/35MIN Diagnoses SBO (small bowel obstruction) K56.609 Abdominal ascites R18.8 Ascites type: other type (2) Abdominal ascites Ascites type: other type Qualified Code(s): R18.8 - Other ascites
--- NOTE | 2024-06-26 06:57 | Hospitalist Progress Note ---
Date of Service June 26, 2024 Assessment & Plan (1) Food poisoning: (2) Ileus: (3) Abdominal ascites: (4) Pleural effusion: (5) Supratherapeutic INR: (6) Chronic anticoagulation: (7) Paroxysmal atrial fibrillation: (8) Chronic dyspnea: Plan 1. Ileus vs SBO/Abdominal ascites - CT scan of abdomen pelvis on 06/22 shows distended small bowel loops consistent with ileus, and a marked new accumulation of ascites compared to previous CT on 06/20. LFT's continue normal. Bilirubin slightly elevated at 1.2. Awaiting findings from thoracocentesis. - General surgery consulted - Continue IVF NS 125mls with pt NPO due to nausea and vomiting - Low threshold for NG tube if vomiting continues - Continue pantoprazole 40 mg IV daily - Continue Zofran 4 mg IV every 6 hours as needed - Continue Compazine 5mg IV q6h for nausea - Continue daily CBC with differential, chemistry profile, magnesium and PT/INR 2. Supratherapeutic INR/chronic anticoagulation/paroxysmal atrial fibrillation- INR is 3.4, PT is 32.7, PTT is 35 -Continue to hold warfarin -EKG ordered for extended use of antiemetics -AM EKGs -Continue to follow INR, PT and PTT -Continue Cardizem CD 120 mg BID 3. DOMITILA -UA ordered- looks like dehydration -FeNA ordered- looks prerenal -Add LR 150mls Chronic Chronic dyspnea- -Continue Anoro Ellipta VTE prophylaxis -Continue SCDs Full Code Fluids: NS 125mls Diet: NPO Admission and Anticipated Discharge Date Admission Date: June 22, 2024 Supervising Physician Co-Signing Physician Notes I personally examined the patient and verified all alejandro points of history and exam, discussed case, and agree with decision making with Dr Gandara seen after NG tube in. Feels like maybe belly is a little bit deflated. Has had about 600 mL of brown foul-smelling drainage over approximately 45 minutes. Appreciate GI and surgery input. Vitals noted, in general she is awake and alert fatigued but does not appear to be in physical distress. NG tube in place with feculent drainage. No skin breakdown. Breathing unlabored no accessory muscle use good effort. Skin without rashes pallor or icterus. Abdomen soft still moderately distended mild diffuse tenderness but degree of distention feels almost identical to yesterday. No guarding rebound or rigidity. Extremities without cyanosis clubbing, maybe trace edema. No focal neurodeficits. Abdominal pain, ileus versus SBO, new diagnosis of ascitesmain differential diagnoses at this point would be SBO that is not resolving with concomitant possibly longstanding but undiagnosed cirrhosis with portal hypertension; versus a peritoneal metastatic process. NG tube placed, situation more temporized. If does not resolve obstruction, may need surgery. Pleural fluid transudative and without malignant cells seen which is reassuring, but obviously would have preferred to be able to get ascitic fluidcontinue to follow closely. Acute renal failure with hyponatremia and metabolic acidosisI suspect she is third spacing fluids, as well as losing more with nausea and vomiting that she was getting with IVschange fluids to LR to mediate any worsening of acidosis based on IV fluid composition, increased rate, continue to follow closely. Chronic anticoagulation - Warfarin on hold. INR was reversed for thoracentesis and quickly rebounded to 3.4. This could be concerning for occult underlying liver disease versus profound vitamin K deficiency with concomitant acute illness. Continue to follow. Given the small but real possibility of requiring surgery, I will give her additional vitamin K tonight so that should she end up requiring any procedures coagulopathy is not a contraindication or complicating factor, especially given that short interruptions of anticoagulation for her RA low and acceptable risk range. (CHADS2-Vasc 3) otherwise as above Subjective Patient is a 73 yo female with SBO. Continues with abdominal pain and nausea, no vomiting. Pt reports she was able to sit up in chair for 15 minutes yesterday, but feels very weak. Physical Exam Physical Exam: The patient is awake, alert and oriented 3, appears fatigued, normocephalic and atraumatic, lying in bed and in no acute distress. HEENT--PERRL, EOMI, mucous membranes and oropharynx moist. Neck--supple. No JVD. No bruits. Thyroid normal, trachea midline, no adenopathy. Heart--normal S1 and S2. Radial pulse is irregular. No murmurs, rubs or gallops. Lungs--lower lobe rhonchi bilaterally, no respiratory distress, no accessory muscle use. Abdomen--No bowel sounds on right, high pitched bowel sounds on left. Generalized mild tenderness. Continues distended and tympanitic Extremities--mild LE edema, 1+ pitting. Dermatologic--normal skin turgor, normal color, no rash. Neurologic--cranial nerves II through XII grossly intact. Psychiatric--normal affect. Results & Data Results & Data Vital Signs (Past 12 Hours) Vital Signs Temp Pulse Resp BP Pulse Ox O2 Del Method 06/26/24 02:47 36.6 C 111 H 16 123/71 92 Room Air 06/25/24 22:49 36.4 C L 105 H 16 116/79 98 Room Air 06/25/24 19:20 36.4 C L 105 H 20 128/81 95 Room Air Laboratory Results 06/26/24 06/26/24 06/26/24 Range/Units 10:36 10:16 10:10 WBC (4.8-10.8) K/ul RBC (4.20-5.40) M/uL Hgb (12.0-16.0) g/dl Hct (37.0-47.0) % MCV (80.0-100.0) fL MCH (25.0-34.0) pg MCHC (32.0-36.0) g/dL RDW Std Deviation (36.4-46.3) fL RDW Coeff of Eve (11.5-14.5) % Plt Count (130-400) K/uL MPV (9.4-12.4) fL Immature Gran % (Auto) % Neut % (Auto) % Lymph % (Auto) % Erath % (Auto) % Eos % (Auto) % Baso % (Auto) % Neut # (Auto) (1.40-6.50) K/uL Lymph # (Auto) (1.20-3.40) K/uL Erath # (Auto) (0.11-0.59) K/uL Eos # (Auto) (0.00-0.50) K/uL Baso # (Auto) (0.00-0.20) K/uL Immature Gran # (Auto) (0.01-0.20) K/uL PT (9.0-12.0) Seconds INR (0.9-1.1) APTT (21-31) Seconds PTT Ratio ABG pH 7.39 (7.35-7.45) ABG pCO2 27 L (35-46) mmHg ABG pO2 67 L (80-95) mmHg ABG HCO3 16 L (19-24) mmol/L ABG O2 Saturation 93.3 (90-95) % ABG Base Excess -7.1 (-9-1.8) mEq/L Srini Test Pos (Pos) Oxygen Given room air Sodium (136-145) mmol/L Potassium (3.5-5.1) mmol/L Chloride (98-107) mmol/L Carbon Dioxide (21-32) mmol/L Anion Gap (3-11) BUN (6-23) mg/dl Creatinine (0.6-1.2) mg/dl Est Cr Clr Drug Dosing ml/min Est GFR ( Amer) ml/min Est GFR (Non-Af Amer) ml/min BUN/Creatinine Ratio (10-20) Glucose (70-99(Fasting)) mg/dl Osmolality 287 (280-300) mOsm/kg Calcium (8.6-10.3) mg/dl Magnesium (1.7-2.4) mg/dl Total Bilirubin (0.2-1.0) mg/dl AST (13-39) U/L ALT (7-52) U/L Alkaline Phosphatase (34-104) U/L Total Protein (6.0-8.3) gm/dl Albumin (3.4-5.0) gm/dl Globulin (2.5-4.0) gm/dl Albumin/Globulin Ratio (0.9-2) Urine Color Dark Yellow Urine Appearance Clear (Clear) Urine pH 5.0 (4.5-7.5) Ur Specific [place] 1.025 (1.000-1.030) Urine Protein Trace H (Negative) Urine Glucose (UA) Negative (Negative) Urine Ketones 1+ H (Negative) Urine Blood Negative (Negative) Urine Nitrite Negative (Negative) Urine Bilirubin Negative (Negative) Urine Urobilinogen Negative (Negative) Ur Leukocyte Esterase Trace H (Negative) Urine WBC (Auto) 0-5 (0-5) /hpf Urine RBC (Auto) 0-2 (0-2) /hpf U Hyaline Cast (Auto) 6-10 H (0-2) /lpf U Epithel Cells (Auto) 0-2 (0-2) /hpf Urine Bacteria (Auto) None Seen (None Seen) Urine Mucus Present A (None Prsent) Urine Osmolality 590 (500-800) mOsm/kg Ur Random Creatinine 114.5 mg/dl Ur Random Sodium < 10 mmol/L Fluid Neutrophils % % Fluid Lymphocytes % % Fluid Meso/Macro/Erath % % Fluid Comment Pleural Fluid Source Pleural Color Pleural Appearance Pleural pH (7.3-7.4) Pleural RBC (Auto) /uL Pleural Total Protein gm/dl Pleural LDH U/L Pleural Glucose mg/dl Pleural Amylase U/L Pleural Cholesterol Hepatitis A IgM Ab Hep Bs Antigen (Negative) Hep B Core IgM Ab Hepatitis C Antibody (Negative) 06/26/24 06/25/24 06/25/24 Range/Units 07:19 14:34 11:20 WBC 8.77 (4.8-10.8) K/ul RBC 5.48 H (4.20-5.40) M/uL Hgb 17.3 H (12.0-16.0) g/dl Hct 49.1 H (37.0-47.0) % MCV 89.6 (80.0-100.0) fL MCH 31.6 (25.0-34.0) pg MCHC 35.2 (32.0-36.0) g/dL RDW Std Deviation 42.4 (36.4-46.3) fL RDW Coeff of Eve 12.9 (11.5-14.5) % Plt Count 414 H (130-400) K/uL MPV 10.3 (9.4-12.4) fL Immature Gran % (Auto) 0.1 % Neut % (Auto) 76.6 % Lymph % (Auto) 7.9 % Er[place] % (Auto) 14.8 % Eos % (Auto) 0.1 % Baso % (Auto) 0.5 % Neut # (Auto) 6.72 H (1.40-6.50) K/uL Lymph # (Auto) 0.69 L (1.20-3.40) K/uL [place] # (Auto) 1.30 H (0.11-0.59) K/uL Eos # (Auto) 0.01 (0.00-0.50) K/uL Baso # (Auto) 0.04 (0.00-0.20) K/uL Immature Gran # (Auto) 0.01 (0.01-0.20) K/uL PT 32.7 H (9.0-12.0) Seconds INR 3.4 H (0.9-1.1) APTT 35 H (21-31) Seconds PTT Ratio 1.3 ABG pH (7.35-7.45) ABG pCO2 (35-46) mmHg ABG pO2 (80-95) mmHg ABG HCO3 (19-24) mmol/L ABG O2 Saturation (90-95) % ABG Base Excess (-9-1.8) mEq/L Srini Test (Pos) Oxygen Given Sodium 131 L (136-145) mmol/L Potassium 4.3 (3.5-5.1) mmol/L Chloride 97 L (98-107) mmol/L Carbon Dioxide 18 L (21-32) mmol/L Anion Gap 16 H (3-11) BUN 46 H D (6-23) mg/dl Creatinine 1.63 H D (0.6-1.2) mg/dl Est Cr Clr Drug Dosing 31.2 ml/min Est GFR ( Amer) 35.4 ml/min Est GFR (Non-Af Amer) 30.5 ml/min BUN/Creatinine Ratio 28.2 H (10-20) Glucose 138 H (70-99(Fasting)) mg/dl Osmolality (280-300) mOsm/kg Calcium 8.3 L (8.6-10.3) mg/dl Magnesium 2.0 (1.7-2.4) mg/dl Total Bilirubin 1.2 H (0.2-1.0) mg/dl AST 27 (13-39) U/L ALT 11 (7-52) U/L Alkaline Phosphatase 44 (34-104) U/L Total Protein 5.6 L (6.0-8.3) gm/dl Albumin 3.5 (3.4-5.0) gm/dl Globulin 2.1 L (2.5-4.0) gm/dl Albumin/Globulin Ratio 1.7 (0.9-2) Urine Color Urine Appearance (Clear) Urine pH (4.5-7.5) Ur Specific [place] (1.000-1.030) Urine Protein (Negative) Urine Glucose (UA) (Negative) Urine Ketones (Negative) Urine Blood (Negative) Urine Nitrite (Negative) Urine Bilirubin (Negative) Urine Urobilinogen (Negative) Ur Leukocyte Esterase (Negative) Urine WBC (Auto) (0-5) /hpf Urine RBC (Auto) (0-2) /hpf U Hyaline Cast (Auto) (0-2) /lpf U Epithel Cells (Auto) (0-2) /hpf Urine Bacteria (Auto) (None Seen) Urine Mucus (None Prsent) Urine Osmolality (500-800) mOsm/kg Ur Random Creatinine mg/dl Ur Random Sodium mmol/L Fluid Neutrophils % 20 % Fluid Lymphocytes % 45 % Fluid Meso/Macro/Erath % 35 % Fluid Comment Pleural Fluid Source Other Pleural Color Yellow Pleural Appearance Clear Pleural pH 7.48 H (7.3-7.4) Pleural RBC (Auto) < 2000 /uL Pleural Total Protein 3.1 gm/dl Pleural LDH 64 U/L Pleural Glucose 102 mg/dl Pleural Amylase 12 U/L Pleural Cholesterol Pending Hepatitis A IgM Ab Pending Hep Bs Antigen Negative (Negative) Hep B Core IgM Ab Pending Hepatitis C Antibody Negative (Negative) Diagnostic Findings Abdomen/Pelvis CT 06/26/24 10:[address] WITH ORAL CONTRAST CT DOSE: 773.21 mGy.cm HISTORY: Acute generalized abdominal pain with reported bowel obstruction eval SBO TECHNIQUE: Multiaxial CT images of the abdomen and pelvis were performed following the use of oral contrast. A dose lowering technique was utilized adhering to the principles of ALARA. COMPARISON STUDY: KUB of same day, CT 06/22/2024, 06/20/2024. FINDINGS: Partially imaged breast implants. Moderate layering pleural effusions with dependent bibasilar consolidation favoring atelectasis. The left pleural effusion is new from prior and the right has mildly decreased in size. No pneumoperitoneum or pneumatosis identified. Unremarkable spleen, moderately atrophic pancreas and adrenal glands. Layering hyperdense material noted within the gallbladder suggestive of vicarious excretion of contrast. The gallbladder is distended. Heterogeneity of the liver with marginal nodularity redemonstrated. No hepatic mass is seen. Unremarkable kidneys without hydronephrosis. Nonspecific urinary bladder wall thickening. Hysterectomy. Atherosclerosis of the aorta without aneurysm. No lymphadenopathy. Contrast-filled distended distal esophagus with small hiatal hernia. There is wall thickening throughout the stomach. Colonic diverticulosis. The majority of the colon is decompressed containing residual enteric contrast. Normal appendix. Persistent dilated small bowel loops measure up to approximately 4.3 cm decompressed loops are seen within the abdominal right lower quadrant. It is difficult to see where the enteric contrast progresses to secondary to residual contrast from the prior exams. There is overall similar to mild progression of the small bowel distention compared to 06/22/2024 study. Small to moderate abdominal pelvic ascites is unchanged. Anasarca. Tiny fat filled umbilical hernia. No acute fracture. IMPRESSION: 1. Persistent small bowel obstruction with transition point within the abdominal right lower quadrant. The degree of small bowel dilatation is similar to mildly progressed from the 06/22/2024 exam. 2. Wall thickening was noted within the ascending colon and cecum on the 06/20/2024 study, not well appreciated on today's exam without IV contrast. Findings could be correlated with a follow-up colonoscopy. 3. No pneumatosis or pneumoperitoneum. 4. Cirrhosis with ascites and moderate pleural effusions, increased in size on the left and decreased on the right. 5. Colonic diverticulosis. 6. Additional findings as above. ACT 112: Negative or not required by law. The above report was generated using voice recognition software. It may contain grammatical, syntax or spelling errors. Electronically signed by: Jame Sampson M.D. 06/26/2024 1:19 PM (3) Abdominal ascites Ascites type: other type Qualified Code(s): R18.8 - Other ascites
[2024-06-26 07:41] LABS: Hematocrit (blood only) 49.1 % (37.0-47.0); Hemoglobin 17.3 g/dl (12.0-16.0); Mean Corpuscular Hemoglobin 31.6 pg (25.0-34.0); Mean Corpuscular Hgb Conc 35.2 g/dL (32.0-36.0); Mean Corpuscular Volume 89.6 fL (80.0-100.0); Mean Platelet Volume 10.3 fL (9.4-12.4); Platelet Count 414 K/uL (130-400); RDW Coefficient of Variation 12.9 % (11.5-14.5); RDW Standard Deviation 42.4 fL (36.4-46.3); Red Blood Count 5.48 M/uL (4.20-5.40); White Blood Count 8.77 K/ul (4.8-10.8)
[2024-06-26 08:07] LABS: Basophils # (auto) 0.04 K/uL (0.00-0.20); Basophils % (auto) 0.5 %; Eosinophils # (auto) 0.01 K/uL (0.00-0.50); Eosinophils % (auto) 0.1 %; Immature Granulocytes # (auto) 0.01 K/uL (0.01-0.20); Immature Granulocytes % (auto) 0.1 %; Lymphocytes # (auto) 0.69 K/uL (1.20-3.40); Lymphocytes % (auto) 7.9 %; Monocytes % (auto) 14.8 %; Neutrophils # (auto) 6.72 K/uL (1.40-6.50); Neutrophils % (auto) 76.6 %
[2024-06-26 08:14] LABS: INR 3.4 (0.9-1.1); Partial Thromboplastin Ratio 1.3; Partial Thromboplastin Time 35 Seconds (21-31); Prothrombin Time 32.7 Seconds (9.0-12.0)
[2024-06-26 08:33] LABS: Albumin Globulin Ratio 1.7 (0.9-2); Albumin Level 3.5 gm/dl (3.4-5.0); BUN Creatinine Ratio 28.2 (10-20); Bilirubin,Total 1.2 mg/dl (0.2-1.0); Calcium 8.3 mg/dl (8.6-10.3); Creatinine Clr Calc Pharmacy 31.2 ml/min; Est GFR (African American) 35.4 ml/min; Est GFR (Non-African American) 30.5 ml/min; Globulin 2.1 gm/dl (2.5-4.0); Potassium 4.3 mmol/L (3.5-5.1); Total Protein 5.6 gm/dl (6.0-8.3)
[2024-06-26] MEDS ORDERED: ENOXAPARIN INJ 40 MG/0.4 ML SYR SQ SCH (09:00)
[2024-06-26 10:28] LABS: Appearance Urine Clear (Clear); Bacteria Urine Automated None Seen (None Seen); Bilirubin Urine Negative (Negative); Blood Urine Negative (Negative); Color Urine Dark Yellow; Epithelial Cell Urine Auto 0-2 /hpf (0-2); Glucose Urine UA Negative (Negative); Ketones Urine 1+ (Negative); Leukocyte Esterase Urine Trace (Negative); Mucus Urine Present (None Prsent); Nitrite Urine Negative (Negative); Protein Urine Trace (Negative); RBC Urine Automated 0-2 /hpf (0-2); Specific Gravity Urine 1.025 (1.000-1.030); Urobilinogen Urine Negative (Negative); WBC Urine Automated 0-5 /hpf (0-5)
--- NOTE | 2024-06-26 10:33 | Surgery Consultation ---
Date of Consultation June 26, 2024 Assessment & Plan (1) Abdominal ascites: Her CT images and results from June 22 were personally viewed and interpreted by myself She has ascites with generalized dilation of her entire small bowel Will repeat a CT with PO contrast to eval for obstruction Further recommendations pending CT results (2) SBO (small bowel obstruction): History of Present Illness Reason for Consultation: Small Bowel Obstruction Attending Physician: Yaya Gardiner DO History of Present Illness This is a 73 yo female who was admitted 4 days ago with food poisoning. She states she has not had a bowel movement in 7 days. She has dull generalized abdominal pain with radiation throughout the abdomen. She had one episode of emesis and still has some nausea. No relieving or aggravating factors. She has a history of hysterectomy, otherwise no abdominal surgeries. Allergies Allergy/AdvReac Type Severity Reaction Status Date / Time No Known Allergies Allergy Verified 06/22/24 22:39 Home Medications Medication Instructions Recorded Confirmed Type ascorbic acid (vitamin C) 500 mg 1,000 mg PO QAM 09/10/19 06/22/24 History tablet levothyroxine 100 mcg tablet 100 mcg PO QAM 09/10/19 06/22/24 History zinc gluconate 50 mg tablet 50 mg PO QAM 09/10/19 06/22/24 History krill oil 500 mg capsule 1,500 mg PO DAILY 02/11/23 06/22/24 History warfarin 5 mg tablet See Rx Instructions .Route .COMPLEX 02/11/23 06/22/24 History liothyronine 5 mcg tablet 10 mcg PO QAM 08/31/23 06/22/24 History clobetasol 0.05 % topical ointment 1 applic topical [id number] PRN Rash #60 09/22/23 06/22/24 Rx grams estradiol 0.01% (0.1 mg/gram) 1 g vaginal WK #42.5 grams 09/22/23 06/22/24 Rx vaginal cream montelukast 10 mg tablet 10 mg PO QAM #90 tabs 10/31/23 06/22/24 Rx cholecalciferol (vitamin D3) 125 125 mcg PO DAILY 06/20/24 06/22/24 History mcg (5,000 unit) tablet (Vitamin D3) diltiazem HCl 240 mg 240 mg PO QAM 06/20/24 06/22/24 History capsule,extended release 24 hr (Cartia XT) sodium chloride 0.65 % nasal spray 1 spray intranasal DIRECTED PRN 06/20/24 06/22/24 History aerosol (Saline Nasal) Dry Nasal Passages sodium chloride 7 % for 1 inh inhalation BID PRN NEEDED 06/20/24 06/22/24 History nebulization umeclidinium 62.5 mcg-vilanterol 1 inh inhalation QAM 06/20/24 06/22/24 History 25 mcg/actuation powdr for inhalation (Anoro Ellipta) vitamin B complex 1 tab PO DAILY 06/20/24 06/22/24 History ondansetron 4 mg disintegrating 4 mg PO Q8H PRN nausea and 06/21/24 06/22/24 Rx tablet vomiting #30 tabs Patient History Medical History Pulmonary nodules just monitoring Hypertension Bronchiectasis INHALER FOR THIS Surgical History History of cataract surgery left History of colonoscopy went into Afib for 3 mins with last colonscopy> resolved History of tooth extraction History of adenoidectomy History of bronchoscopy History of hysterectomy History of breast augmentation History of ankle surgery RIGHT due to fx Family History Mother Heart disease Breast cancer Father COPD (chronic obstructive pulmonary disease) Grandmother (Maternal) Diabetes Family/Other Schizophrenia sibling Denies family history of Ovarian cancer Colorectal cancer Social History Smoking Status: Never smoker Tobacco Type: Cigarettes Age Started Using Tobacco: 17; Age Quit Using Tobacco: 26; Cigarettes Per Day: 0-4 per day; Second Hand Exposure: No; Do You Dip or Chew Tobacco: No; Hx Alcohol Use: Yes Alcohol type: wine Alcohol Intake Frequency: 2-3 x/Week Hx Substance Use: No Preferred Language: Pashto 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: No Beliefs That Will Affect Care: None marital status: Life Partner Current Living Situation: Alone 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 Feels Safe at Home: Yes Assistive Devices: None Review of Systems Constitutional: no fever and no chills Eyes: no blind spots and no discharge Ear, Nose, Mouth, Throat: no ear pain, no tinnitus and no dizziness Respiratory: no cough and no dyspnea Cardiovascular: no chest pain and no dyspnea on exertion Gastrointestinal: + abdominal pain, + nausea, + vomiting a nd + constipation; no diarrhea/loose stools Genitourinary: no dysuria and no nocturia Musculoskeletal: no back pain and no neck pain Integumentary: no acne, no skin ulcer and no erythema Neurologic: no gait abnormality and no headache(s) Psychiatric: no behavioral changes and no depression Hematologic / Lymphatic: no easy bleeding and no easy bruising Physical Exam Constitutional: WD/WN, vitals as above Eyes: PERRL, conjunctivae normal, anicteric sclerae ENMT: external ear and nose normal, oropharynx normal Neck: trachea midline, no thyromegaly Respiratory: normal respiratory effort, lungs clear to auscultation Cardiovascular: RRR, no murmur, no edema Gastrointestinal (Abdomen): Inspection/Auscultation: abdomen normal to ins pection and + abdomen distended Percussion/Palpation: + abdomen tender (mild generalized) and abdomen soft; no guarding and no hernia Musculoskeletal: no cyanosis or clubbing, extremities motor strength 5/5 Skin: no rashes, warm and dry Neurologic: PERRL, EOMI, accommodation nl, no face palsy, no dysarthria Psychiatric: A+Ox3, euthymic affect Results & Data Vital Signs (Past 12 Hours) Vital Signs Temp Pulse Pulse Resp BP Pulse Ox O2 Del Method 06/26/24 08:00 Room Air 06/26/24 07:36 36.3 C L 110 H 17 128/84 93 Room Air 06/26/24 07:00 108 H 06/26/24 02:47 36.6 C 111 H 16 123/71 92 Room Air 06/25/24 22:49 36.4 C L 105 H 16 116/79 98 Room Air PG Care Time/CCT Total # of Minutes Spent Total Time Spent with Patient: Total time spent is greater than 50% in coordination of care (as documented) at patient's floor/unit and/or counseling patient: Coding Level of Care Code 01024 INT INP/OBS CARE 3/75MIN Diagnoses Abdominal ascites R18.8 Ascites type: other type SBO (small bowel obstruction) K56.609 (1) Abdominal ascites Ascites type: other type Qualified Code(s): R18.8 - Other ascites
[2024-06-26 10:44] LABS: Base Excess ABG -7.1 mEq/L (-9-1.8); HCO3 ABG 16 mmol/L (19-24); Oxygen Saturation ABG 93.3 % (90-95); PCO2 ABG 27 mmHg (35-46); PO2 ABG 67 mmHg (80-95); pH ABG 7.39 (7.35-7.45)
[2024-06-26 10:44] LABS: Creatinine Urine Random 114.5 mg/dl; Sodium Random Urine < 10 mmol/L
[2024-06-26 10:48] LABS: Allen Test Pos (Pos)
--- NOTE | 2024-06-26 13:21 | CT Scan Report ---
ABDOMEN AND PELVIS CT WITH ORAL CONTRAST CT DOSE: 773.21 mGy.cm HISTORY: Acute generalized abdominal pain with reported bowel obstruction eval SBO TECHNIQUE: Multiaxial CT images of the abdomen and pelvis were performed following the use of oral co ntrast. A dose lowering technique was utilized adhering to the principles of ALARA. COMPARISON STUDY: KUB of same day, CT 06/22/2024, 06/20/2024. FINDINGS: Partially imaged breast implants. Moderate layering pleural effusions with dependent bibasi lar consolidation favoring atelectasis. The left pleural effusion is new from prior and the right has mildly decreased in size. No pneumoperitoneum or pneumatosis identified. Unremarkable spleen, moderately atrophic pancreas and adrenal glands. Layering hyperdense material no layne within the gallbladder suggestive of vicarious excretion of contrast. The gallbladder is distende d. Heterogeneity of the liver with marginal nodularity redemonstrated. No hepatic mass is seen. Unremarkable kidneys without hydronephrosis. Nonspecific urinary bladder wall thickening. Hysterectom y. Atherosclerosis of the aorta without aneurysm. No lymphadenopathy. Contrast-filled distended dista l esophagus with small hiatal hernia. There is wall thickening throughout the stomach. Colonic divert iculosis. The majority of the colon is decompressed containing residual enteric contrast. Normal appe ndix. Persistent dilated small bowel loops measure up to approximately 4.3 cm decompressed loops are seen within the abdominal right lower quadrant. It is difficult to see where the enteric contrast pro gresses to secondary to residual contrast from the prior exams. There is overall similar to mild prog ression of the small bowel distention compared to 06/22/2024 study. Small to moderate abdominal pelvic ascites is unchanged. Anasarca. Tiny fat filled umbilical hernia. No acute fracture. IMPRESSION: 1. Persistent small bowel obstruction with transition point within the abdominal right lower quadrant . The degree of small bowel dilatation is similar to mildly progressed from the 06/22/2024 exam. 2. Wall thickening was noted within the ascending colon and cecum on the 06/20/2024 study, not well ap preciated on today's exam without IV contrast. Findings could be correlated with a follow-up colonosc opy. 3. No pneumatosis or pneumoperitoneum. 4. Cirrhosis with ascites and moderate pleural effusions, increased in size on the left and decreased on the right. 5. Colonic diverticulosis. 6. Additional findings as above. ACT 112: Negative or not required by law. The above report was generated using voice recognition software. It may contain grammatical, syntax o r spelling errors. Electronically signed by: Jame Sampson M.D. 06/26/2024 1:19 PM
[2024-06-26] MEDS: LACTATED RINGER'S 1,000 ML IV SCH (16:32)
[2024-06-26] MEDS: MoRPHine SULFATE 2 MG/ML CARP IV STA (17:01)
--- NOTE | 2024-06-26 17:09 | XRay Report ---
XR KUB/Abdomen 1 view CLINICAL HISTORY: SBO TECHNIQUE: 1 view of the abdomen was obtained. Comparison: Comparison is made to abdomen radiographs 06/25/2024 FINDINGS: Lung bases are unremarkable. Degenerative changes are seen in the visualized skeleton. Gas-distended small bowel loops measure up to 43 mm. Small stool burden is seen. IMPRESSION: Findings compatible with ongoing small bowel obstruction. ACT 112: Negative or not required by law. Electronically signed by: Kenny Barbour M.D. 06/26/2024 5:07 PM
[2024-06-26] MEDS: PIPERACILLIN/TAZOBACTAM 4.5 GM in DEXTROSE 5% MINI-B 100 ML IV ONE (17:15)
[2024-06-26] MEDS ORDERED: HYDROmorphone INJ 1 MG/ML SYRINGE IV PRN (17:47)
--- NOTE | 2024-06-26 19:30 | Billing Data ---
Date of Service June 26, 2024 Coding Level of Care Code 28607 SUB INP/OBS CARE MIN
[2024-06-26] MEDS: PHYTONADIONE 10 MG in DEXTROSE 5% 50 ML IV ONE (20:10)
[2024-06-26] MEDS: MELATONIN 3 MG TAB PO SCH (20:10)
[2024-06-26] MEDS: ACETAMINOPHEN 1,000 MG/100 ML VIAL IV PRN (20:56)
[2024-06-26] MEDS: COUGH DROP (SUGAR FREE) LOZ 24 LOZ/1 BOX BUCCAL STA (22:31)
[2024-06-27] MEDS: PIPERACILLIN/TAZOBACTAM 4.5 GM in DEXTROSE 5% MINI-B 100 ML IV SCH ×2 (00:11→13:40)
[2024-06-27] MEDS: HYDROmorphone INJ 0.5 MG/0.5 ML SYR IV PRN (06:17)
[2024-06-27 06:33] LABS: Hematocrit (blood only) 51.4 % (37.0-47.0); Hemoglobin 18.2 g/dl (12.0-16.0); Mean Corpuscular Hemoglobin 31.1 pg (25.0-34.0); Mean Corpuscular Hgb Conc 35.4 g/dL (32.0-36.0); Mean Corpuscular Volume 87.9 fL (80.0-100.0); Mean Platelet Volume 10.4 fL (9.4-12.4); Platelet Count 377 K/uL (130-400); RDW Coefficient of Variation 13.1 % (11.5-14.5); RDW Standard Deviation 42.4 fL (36.4-46.3); Red Blood Count 5.85 M/uL (4.20-5.40); White Blood Count 8.98 K/ul (4.8-10.8)
[2024-06-27 06:49] LABS: Albumin Globulin Ratio 1.6 (0.9-2); Albumin Level 2.8 gm/dl (3.4-5.0); BUN Creatinine Ratio 23.4 (10-20); Calcium 7.9 mg/dl (8.6-10.3); Creatinine Clr Calc Pharmacy 19.8 ml/min; Est GFR (African American) 20.5 ml/min; Est GFR (Non-African American) 17.7 ml/min; Globulin 1.8 gm/dl (2.5-4.0); Magnesium 1.9 mg/dl (1.7-2.4); Potassium 4.5 mmol/L (3.5-5.1); Total Protein 4.6 gm/dl (6.0-8.3)
[2024-06-27 06:56] LABS: INR 1.4 (0.9-1.1); Partial Thromboplastin Ratio 1.2; Partial Thromboplastin Time 32 Seconds (21-31); Prothrombin Time 14.7 Seconds (9.0-12.0)
[2024-06-27 07:09] LABS: Basophils # (auto) 0.03 K/uL (0.00-0.20); Basophils % (auto) 0.3 %; Echinocytes 2+; Eosinophils # (auto) 0.01 K/uL (0.00-0.50); Eosinophils % (auto) 0.1 %; Immature Granulocytes # (auto) 0.04 K/uL (0.01-0.20); Immature Granulocytes % (auto) 0.4 %; Lymphocytes # (auto) 0.64 K/uL (1.20-3.40); Lymphocytes % (auto) 7.1 %; Monocytes # (auto) 1.23 K/uL (0.11-0.59); Monocytes % (auto) 13.7 %; Neutrophils # (auto) 7.03 K/uL (1.40-6.50); Neutrophils % (auto) 78.4 %
--- NOTE | 2024-06-27 07:36 | Hospitalist Progress Note ---
"Date of Service June 27, 2024 Assessment & Plan (1) Ileus: (2) Abdominal ascites: (3) Pleural effusion: (4) Supratherapeutic INR: (5) Chronic anticoagulation: (6) Paroxysmal atrial fibrillation: (7) Small bowel obstruction due to adhesions: (8) S/P exploratory laparotomy: (9) DOMITILA (acute kidney injury): (10) Hyponatremia: (11) Metabolic acidosis: (12) Bronchiectasis: (13) Hypothyroid: Plan Persistent SBO Evoling ileus/SBO throughout hospital course. BCx NGTD. Non-septic, but ill appearing patient. SBO persists despite conservative management - NPO, NGT, antiemetics, PPI. Added Zosyn 06/26 for persistence of symptoms/concern for infection. GI and general surgery on board - plan for trip to OR today. Adhesional obstruction present - no signs of obvious ischemic bowel. Adhesion lysed - stool able to move freely passed prior obstruction. Keep NGT in place for now. Hopefully patient will start to improve now that the adhesion has been lysed. continue antiemetics/PPI continue NPO/NGT for now GI/Gen Surg on board, appreciate recs AM KUB Ascites Patient with ascites of unknown etiology. Significant concern for oncologic process. Unable to tap due to positioning of the bowel loops. Original imaging without signs of cirrhosis. Most recent did show some scarring/fibrosis of the liver. Ex lap without obvious since of malignancy. Able to sample the fluid. Will f/u on ordered studies. f/u fluid studies further workup once patient stabilizes Supratherapeutic INR | Chronic anticoagulation |Paroxysmal a fib Supratherapeutic on admission. Does seem to respond to Vit K. Unclear on deysi hinkle's liver function and ability to produce Vitamin K endogenously. Will continue to monitor hold warfarin daily coags Paroxysmal a fib | Sinus tachycardia Intermittently in a fib vs sinus tach. Patient NPO at present and has not gotten her Cardizem. With recent procedure and relative hypotension, tachycardia is likely compensatory. Would hold off on aggressive rate control while BP soft. Can resume PO dosing once tolerating liquids. Continue to follow with daily EKGs. DOMITILA FeNa < 0.1%, likely prerenal. May be a component of intrarenal - ?ATN. Creatinine continues to climb. Will recheck UA and urine lytes. Did consult nephrology today - appreciate recs. IVF @ 150 mL/hr bolus as indicated passed on volume status f/u urine studies Reactive Airway Disease Continue Anoro Ellipta Code status: full DVT ppx: SCDs, holding warfarin as INR supratherapeutic FENGI: NPO, NGT, IVF @ 150 mL Dispo: PCU/Tele Lines: Gutierrez placed 06/27 Admission and Anticipated Discharge Date Admission Date: June 22, 2024 Supervising Physician Co-Signing Physician Notes I personally examined the patient and verified all alejandro points of history and exam, discussed case, and agree with decision making with Dr Fine seen twice today - this AM preop then later postop. extensive discussion with pt and friend. discussed with surgery throughout the day (including in the room this morning) - pain about the same, distention about the same preop. postop was sleeping comfortably and after discussion with nursing (main issue identified was poor UO) allowed pt to sleep vitals noted nad NGT without significant breakdown abd same degree of distention in the AM skin without rashes pallor or icterus Abdominal pain, ileus versus SBO, new diagnosis of ascitesgreatly appreciate surgery taking her to OR - was SBO due to adhesion band - now post op anticipate improvement Acute renal failure with hyponatremia and metabolic acidosisI suspect she is third spacing fluids, as well as losingthrough NGT. with worsening in Cr also concerned that she has had some degree of ATN - alleviating SBO/pressure on venous system (as well as probable nidus for losing fluid into abdomen with ascites) should be helpful - if truly developed ATN then obvously may worsen prior to improvement - follow closely, continue fluids. appreciate nephrology backup Chronic anticoagulation - Warfarin on hold. INR was reversed for thoracentesis and quickly rebounded to 3.4. gave more vitamin K last night - will need to follow especially in post op state - would want to keep INR low to prevent excessive fluid/blood losses worsening prerenal/possible ATN state. short interruptions of anticoagulation for her RA low and acceptable risk range. (CHADS2-Vasc 3) otherwise as above Subjective Patient seen at bedside this AM. Reports some nausea and pain. No fevers or chills. Uncertain if abdomen has changed in terms of distension. Review of Systems Review of Systems: See HPI Physical Exam Physical Exam: Gen: ill appearing patient in NAD, NGT in place, draining HEENT: AT NC MMM Resp: RRR no m/r/g no increased work of breathing CV: CTAB no wheezing clinically well perfused Abd: distended and tense, but soft abdomen, diffusely tender MSK: no obvious deformities Skin: no rashes or bruising Neuro: alert and oriented Psych: appropriate mood and affect Results & Data Results & Data Vital Signs (Past 12 Hours) Vital Signs Temp Pulse Pulse Resp BP Pulse Ox O2 Del Method 06/27/24 02:07 36.6 C 106 H 16 108/75 92 Room Air 06/27/24 00:28 113 H 06/26/24 23:15 36.5 C 112 H 16 111/82 92 Room Air 06/26/24 19:36 36.6 C 121 H 16 111/76 92 Room Air Resident Activity Tracking Resident Involvement: Resident Care Provided Care Provided: Adult Hospital Medicine (2) Abdominal ascites Ascites type: other type Qualified Code(s): R18.8 - Other ascites"
--- NOTE | 2024-06-27 07:51 | Surgery Progress Note ---
Date of Service June 27, 2024 Assessment & Plan (1) SBO (small bowel obstruction): Plan: We are consulted for concern for SBO NGT placed yesterday Admission and Anticipated Discharge Date Admission Date: June 22, 2024 Subjective Patient seen this AM. Reports some mild nausea. Says she is mentally foggy and asking if this is normal, thinks her NGT been in for 2 days now. Complains of sore throat. Denies abdominal pain but feels distended. No flatus, no BM in over a wk. colonoscopy 8 years ago. Physical Exam Physical Exam: awake, periods of possible confusion Respiratory: normal respiratory effort Gastrointestinal (Abdomen): Inspection/Auscultation: + abdomen distended Percussion/Palpation: + abdomen tender (some discomfort to palpation in RLQ) Results & Data Vital Signs (Past 12 Hours) Vital Signs Temp Pulse Pulse Resp BP Pulse Ox O2 Del Method 06/27/24 02:07 97.9 F 106 H 16 108/75 92 Room Air 06/27/24 00:28 113 H 06/26/24 23:15 97.7 F 112 H 16 111/82 92 Room Air PG Care Time/CCT Total # of Minutes Spent Total Time Spent with Patient: Total time spent is greater than 50% in coordination of care (as documented) at patient's floor/unit and/or counseling patient: Coding Diagnoses SBO (small bowel obstruction) K56.609
--- NOTE | 2024-06-27 08:59 | Nephrology Consultation ---
Date of Consultation June 27, 2024 Assessment & Plan (1) DOMITILA (acute kidney injury): Non-oliguric. Baseline creatinine <1 mg/dL. Urine acellular. CT demonstrates the kidneys to be unobstructed. Urine microscopy notable for hyaline casts. Urine sodium <10. Clinical presentation concerning for prerenal physiology. Clarisse is third spacing fluid - total body water high but intravascularly dry. Consider possible underlying hepatorenal syndrome. I would also maintain that there is likely a component of ATN related to hemodynamic changes, poor nutrition, decreased EAV, and iodinated contrast. Thankfully, there is no emergent indication for dialysis at this time. Close monitoring will be provided. Document strict I/O's. Repeat metabolic profile this afternoon. (2) Hyponatremia: Total body water high but intravascularly dry. Low solute intake. Primary goal of management is intravascular expansion. (3) Metabolic acidosis: Mixed AG/NAGMA in the setting of DOMITILA. Lactate slightly elevated. Hypotensive and tachycardic. (4) Abdominal ascites: Imaging evidence of cirrhosis and portal hypertension. (5) Pleural effusion: Exudative by Light's criteria. Cytology negative for malignancy. (6) Ileus: vs. SBO. Scheduled for OR this AM for exploratory laparotomy. 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 Clarisse completed 10-day antibiotic course for pneumonia at the end of February. She presented to the ER at [facility] on June 22 with crampy abdominal pain, and nausea without vomiting. Symptoms started after eating shrimp on June 18. She presented to the ER with significant bloating and nausea on the and CT scan demonstrated evidence of ascending colitis. There was also mention of possible hepatitis as well as cirrhosis with ascites and a pleural effusion. Two days later, follow up evaluation demonstrated ileus vs SBO, and increased ascites. s/p thoracentesis for 750 ml on June 25. GI and surgery have been consulted. Clarisse is being taken emergently to the OR this AM for exploratory laparotomy. She was seen and evaluated in her hospital room prior to leaving for the OR. Serum creatinine was <1 mg/dL on admission. Creatinine is now 2.5 mg/dL. Urine is acellular. Hyaline casts noted on microscopy. Urine sodium <10. Urine output documented at 300 ml in the past 24 hours. Her RN reports at least 500 ml yesterday with an additional 150 ml this AM. Gutierrez will be placed in the OR. Metabolic profile otherwise notable for hyponatremia, mixed AG/NAGMA, and serum lactate 2.4. Clarisse was tachycardic and hypotensive this AM. She denies chest pain or palpitations. No fevers or chills. She denies any history of liver or k idney problems in the past. Allergies Allergy/AdvReac Type Severity Reaction Status Date / Time No Known Allergies Allergy Verified 06/22/24 22:39 Home Medications Medication Instructions Recorded Confirmed Type ascorbic acid (vitamin C) 500 mg 1,000 mg PO QAM 09/10/19 06/22/24 History tablet levothyroxine 100 mcg tablet 100 mcg PO QAM 09/10/19 06/22/24 History zinc gluconate 50 mg tablet 50 mg PO QAM 09/10/19 06/22/24 History krill oil 500 mg capsule 1,500 mg PO DAILY 02/11/23 06/22/24 History warfarin 5 mg tablet See Rx Instructions .Route .COMPLEX 02/11/23 06/22/24 History liothyronine 5 mcg tablet 10 mcg PO QAM 08/31/23 06/22/24 History clobetasol 0.05 % topical ointment 1 applic topical 3XWK PRN Rash #60 09/22/23 06/22/24 Rx grams estradiol 0.01% (0.1 mg/gram) 1 g vaginal WK #42.5 grams 09/22/23 06/22/24 Rx vaginal cream montelukast 10 mg tablet 10 mg PO QAM #90 tabs 10/31/23 06/22/24 Rx cholecalciferol (vitamin D3) 125 125 mcg PO DAILY 06/20/24 06/22/24 History mcg (5,000 unit) tablet (Vitamin D3) diltiazem HCl 240 mg 240 mg PO QAM 06/20/24 06/22/24 History capsule,extended release 24 hr (Cartia XT) sodium chloride 0.65 % nasal spray 1 spray intranasal DIRECTED PRN 06/20/24 06/22/24 History aerosol (Saline Nasal) Dry Nasal Passages sodium chloride 7 % for 1 inh inhalation BID PRN NEEDED 06/20/24 06/22/24 History nebulization umeclidinium 62.5 mcg-vilanterol 1 inh inhalation QAM 06/20/24 06/22/24 History 25 mcg/actuation powdr for inhalation (Anoro Ellipta) vitamin B complex 1 tab PO DAILY 06/20/24 06/22/24 History ondansetron 4 mg disintegrating 4 mg PO Q8H PRN nausea and 06/21/24 06/22/24 Rx tablet vomiting #30 tabs Patient History Medical History Pulmonary nodules just monitoring Hypertension Bronchiectasis INHALER FOR THIS Surgical History History of cataract surgery left History of colonoscopy went into Afib for 3 mins with last colonscopy> resolved History of tooth extraction History of adenoidectomy History of bronchoscopy History of hysterectomy History of breast augmentation History of ankle surgery RIGHT due to fx Family History Mother Heart disease Breast cancer Father COPD (chronic obstructive pulmonary disease) Grandmother (Maternal) Diabetes Family/Other Schizophrenia sibling Denies family history of Ovarian cancer Colorectal cancer Social History Smoking Status: Former smoker Tobacco Type: Cigarettes Age Started Using Tobacco: 17; Age Quit Using Tobacco: 26; Cigarettes Per Day: 0-4 per day; Second Hand Exposure: No; Do You Dip or Chew Tobacco: No; Hx Alcohol Use: Yes Alcohol type: wine Alcohol Intake Frequency: 2-3 x/Week Hx Substance Use: No Preferred Language: Urdu Communication Ability: Effective 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 Required: No Beliefs That Will Affect Care: None marital status: Life Partner Current Living Situation: Alone 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 Feels Safe at Home: Yes Assistive Devices: None Review of Systems Review of Systems: All systems reviewed & are unremarkable except as noted in HPI & below Physical Exam Constitutional: well developed, + ill appearing and + thin; no acute distress Eyes: + anicteric sclerae ENMT: Mouth: no oral mucosal abnormality and oral mucous membranes not dry NGT Neck: normal visual inspection and trachea midline Respiratory: normal respiratory effort Auscultation: lungs clear to auscultation bilaterally and + diminished lung sounds Cardiovascular: Rate/Rhythm: regular rate Heart Sounds: normal S1 and normal S2 Vessels: + JVD Extremities: + edema Gastrointestinal (Abdomen): Inspection/Auscultation: + abdomen distended Percussion/Palpation: + abdomen tender and + ascites; abdomen not rigid Musculoskeletal: Extremities: no cyanosis and no clubbing Skin: normal turgor; no jaundice Neurologic: Motor/Sensory: no tremor and no asterixis Psychiatric: Orientation: alert and oriented x 3 Results & Data Vital Signs (Past 12 Hours) Vital Signs Temp Pulse Pulse Resp BP BP Pulse Ox 06/27/24 07:59 36.5 C 120 H 18 94/67 L 93 06/27/24 02:07 36.6 C 106 H 16 108/75 92 06/27/24 00:28 113 H 06/26/24 23:15 36.5 C 112 H 16 111/82 92 O2 Del Method 06/27/24 07:59 Room Air 06/27/24 02:07 Room Air 06/27/24 00:28 06/26/24 23:15 Room Air Laboratory Results Laboratory Results - last 24 hr 06/26/24 06/26/24 06/26/24 10:10 10:16 10:36 WBC RBC Hgb Hct MCV MCH MCHC RDW Std Deviation RDW Coeff of Eve Plt Count MPV Immature Gran % (Auto) Neut % (Auto) Lymph % (Auto) Mclean % (Auto) Eos % (Auto) Baso % (Auto) Neut # (Auto) Lymph # (Auto) Mclean # (Auto) Eos # (Auto) Baso # (Auto) Immature Gran # (Auto) Echinocytes PT INR APTT PTT Ratio ABG pH 7.39 ABG pCO2 27 L ABG pO2 67 L ABG HCO3 16 L ABG O2 Saturation 93.3 ABG Base Excess -7.1 Srini Test Pos Oxygen Given room air Sodium Potassium Chloride Carbon Dioxide Anion Gap BUN Creatinine Est Cr Clr Drug Dosing Est GFR ( Amer) Est GFR (Non-Af Amer) BUN/Creatinine Ratio Glucose Osmolality 287 Lactate Calcium Magnesium Total Bilirubin AST ALT Alkaline Phosphatase Lactate Dehydrogenase Total Protein Albumin Globulin Albumin/Globulin Ratio Urine Color Dark Yellow Urine Appearance Clear Urine pH 5.0 Ur Specific [place] 1.025 Urine Protein Trace H Urine Glucose (UA) Negative Urine Ketones 1+ H Urine Blood Negative Urine Nitrite Negative Urine Bilirubin Negative Urine Urobilinogen Negative Ur Leukocyte Esterase Trace H Urine WBC (Auto) 0-5 Urine RBC (Auto) 0-2 U Hyaline Cast (Auto) 6-10 H U Epithel Cells (Auto) 0-2 Urine Bacteria (Auto) None Seen Urine Mucus Present A Urine Osmolality 590 Ur Random Creatinine 114.5 Ur Random Sodium < 10 06/27/24 06/27/24 06/27/24 05:55 08:25 08:29 WBC 8.98 RBC 5.85 H Hgb 18.2 H Hct 51.4 H MCV 87.9 MCH 31.1 MCHC 35.4 RDW Std Deviation 42.4 RDW Coeff of Eve 13.1 Plt Count 377 MPV 10.4 Immature Gran % (Auto) 0.4 Neut % (Auto) 78.4 Lymph % (Auto) 7.1 Mclean % (Auto) 13.7 Eos % (Auto) 0.1 Baso % (Auto) 0.3 Neut # (Auto) 7.03 H Lymph # (Auto) 0.64 L Mclean # (Auto) 1.23 H Eos # (Auto) 0.01 Baso # (Auto) 0.03 Immature Gran # (Auto) 0.04 Echinocytes 2+ PT 14.7 H INR 1.4 H APTT 32 H PTT Ratio 1.2 ABG pH ABG pCO2 ABG pO2 ABG HCO3 ABG O2 Saturation ABG Base Excess Srini Test Oxygen Given Sodium 129 L Potassium 4.5 Chloride 97 L Carbon Dioxide 18 L Anion Gap 14 H BUN 60 H Creatinine 2.56 H D Est Cr Clr Drug Dosing 19.8 Est GFR ( Amer) 20.5 Est GFR (Non-Af Amer) 17.7 BUN/Creatinine Ratio 23.4 H Glucose 143 H Osmolality Lactate 2.4 H* Calcium 7.9 L Magnesium 1.9 Total Bilirubin 1.0 AST 29 ALT 12 Alkaline Phosphatase 40 Lactate Dehydrogenase Pending Total Protein 4.6 L D Albumin 2.8 L Globulin 1.8 L Albumin/Globulin Ratio 1.6 Urine Color Urine Appearance Urine pH Ur Specific [place] Urine Protein Urine Glucose (UA) Urine Ketones Urine Blood Urine Nitrite Urine Bilirubin Urine Urobilinogen Ur Leukocyte Esterase Urine WBC (Auto) Urine RBC (Auto) U Hyaline Cast (Auto) U Epithel Cells (Auto) Urine Bacteria (Auto) Urine Mucus Urine Osmolality Ur Random Creatinine Ur Random Sodium Diagnostic Findings ABDOMEN AND PELVIS CT WITH ORAL CONTRAST COMPARISON STUDY: KUB of same day, CT 06/22/2024, 06/20/2024. FINDINGS: Partially imaged breast implants. Moderate layering pleural effusions with dependent bibasilar consolidation favoring atelectasis. The left pleural effusion is new from prior and the right has mildly decreased in size. No pneumoperitoneum or pneumatosis identified. Unremarkable spleen, moderately atrophic pancreas and adrenal glands. Layering hyperdense material noted within the gallbladder suggestive of vicarious excretion of contrast. The gallbladder is distended. Heterogeneity of the liver with marginal nodularity redemonstrated. No hepatic mass is seen. Unremarkable kidneys without hydronephrosis. Nonspecific urinary bladder wall thickening. Hysterectomy. Atherosclerosis of the aorta without aneurysm. No lymphadenopathy. Contrast-filled distended distal esophagus with small hiatal hernia. There is wall thickening throughout the stomach. Colonic diverticulosis. The majority of the colon is decompressed containing residual enteric contrast. Normal appendix. Persistent dilated small bowel loops measure up to ap proximately 4.3 cm decompressed loops are seen within the abdominal right lower quadrant. It is difficult to see where the enteric contrast progresses to secondary to residual contrast from the prior exams. There is overall similar to mild progression of the small bowel distention compared to 06/22/2024 study. Small to moderate abdominal pelvic ascites is unchanged. Anasarca. Tiny fat filled umbilical hernia. No acute fracture. IMPRESSION: 1. Persistent small bowel obstruction with transition point within the abdominal right lower quadrant. The degree of small bowel dilatation is similar to mildly progressed from the 06/22/2024 exam. 2. Wall thickening was noted within the ascending colon and cecum on the 06/20/2024 study, not well appreciated on today's exam without IV contrast. Findings could be correlated with a follow-up colonoscopy. 3. No pneumatosis or pneumoperitoneum. 4. Cirrhosis with ascites and moderate pleural effusions, increased in size on the left and decreased on the right. 5. Colonic diverticulosis. PG Care Time/CCT Total # of Minutes Spent Total Time Spent with Patient: Total time spent is greater than 50% in coordination of care (as documented) at patient's floor/unit and/or counseling patient: Coding Level of Care Code 93309 IN/OBS CONSULT LVL 5,80M Diagnoses DOMITILA (acute kidney injury) N17.9 Hyponatremia E87.1 Metabolic acidosis E87.20 Abdominal ascites R18.8 Ascites type: other type Pleural effusion J90 Ileus K56.7 (4) Abdominal ascites Ascites type: other type Qualified Code(s): R18.8 - Other ascites
--- NOTE | 2024-06-27 09:22 | XRay Report ---
KUB HISTORY: eval small bowel obstruction, passage of contrast COMPARISON: Abdomen and pelvis CT 06/26/2024. FINDINGS: Multiple gas-filled dilated loops of small bowel are again seen throughout the abdomen. The se measure up to 4.6 cm in diameter. Nasogastric tube terminates in the stomach. The oral contrast fr om the prior CT is not well visualized and may be diluted from the fluid-filled loops of small bowel or removed from the nasogastric tube. No renal calculi. No ureteral calculi. No pneumoperitoneum or pneumatosis. IMPRESSION: 1. No significant change in the dilated loops of small bowel consistent with a small bowel obstructio n. 2. Nasogastric tube terminates in the stomach. 3. The oral contrast from the prior CT is not well visualized and may be diluted from the fluid-fille d loops of small bowel or removed from the nasogastric tube. ACT 112: Negative or not required by law. Electronically signed by: Maximilian Ferro M.D. 06/27/2024 9:21 AM
--- NOTE | 2024-06-27 09:31 | Anesthesiology Consultation ---
Date of Service June 27, 2024 Assessment & Plan Chart Review Chart Review: Patient NOT seen in Pre Admission Testing Consults Requested none History Surgery Operation Date: 06/27/24 07:10 Proposed Procedures p Exploratory Laparotomy Possible Small Bowel Resection Surgery as needed - Larry Porras DO Height/Weight Height: 5 ft 9 in Weight: 75 kg Allergies Allergy/AdvReac Type Severity Reaction Status Date / Time No Known Allergies Allergy Verified 06/22/24 22:39 Medications Home Medications Medication Instructions Recorded Confirmed Last Taken ascorbic acid (vitamin C) 500 mg 1,000 mg PO QAM 09/10/19 06/22/24 06/20/24 tablet levothyroxine 100 mcg tablet 100 mcg PO QAM 09/10/19 06/22/24 06/20/24 zinc gluconate 50 mg tablet 50 mg PO QAM 09/10/19 06/22/24 07/28/21 krill oil 500 mg capsule 1,500 mg PO DAILY 02/11/23 06/22/24 06/20/24 warfarin 5 mg tablet See Rx Instructions .Route .COMPLEX 02/11/23 06/22/24 06/20/24 liothyronine 5 mcg tablet 10 mcg PO QAM 08/31/23 06/22/24 06/20/24 clobetasol 0.05 % topical ointment 1 applic topical 3XWK PRN Rash #60 09/22/23 06/22/24 Unknown grams estradiol 0.01% (0.1 mg/gram) 1 g vaginal WK #42.5 grams 09/22/23 06/22/24 Unknown vaginal cream montelukast 10 mg tablet 10 mg PO QAM #90 tabs 10/31/23 06/22/24 06/20/24 cholecalciferol (vitamin D3) 125 125 mcg PO DAILY 06/20/24 06/22/24 06/20/24 mcg (5,000 unit) tablet (Vitamin D3) diltiazem HCl 240 mg 240 mg PO QAM 06/20/24 06/22/24 06/20/24 capsule,extended release 24 hr (Cartia XT) sodium chloride 0.65 % nasal spray 1 spray intranasal DIRECTED PRN 06/20/24 06/22/24 Unknown aerosol (Saline Nasal) Dry Nasal Passages sodium chloride 7 % for 1 inh inhalation BID PRN NEEDED 06/20/24 06/22/24 Unknown nebulization umeclidinium 62.5 mcg-vilanterol 1 inh inhalation QAM 06/20/24 06/22/24 06/20/24 25 mcg/actuation powdr for inhalation (Anoro Ellipta) vitamin B complex 1 tab PO DAILY 06/20/24 06/22/24 06/20/24 ondansetron 4 mg disintegrating 4 mg PO Q8H PRN nausea and 06/21/24 06/22/24 Unknown tablet vomiting #30 tabs Active Medications Generic Name Dose Route Start Last Admin Trade Name Freq PRN Reason Stop Dose Admin Diltiazem HCl 120 mg 06/23/24 09:00 06/26/24 20:10 Diltiazem Hcl 120 Mg Capcr PO 07/23/24 08:59 120 mg BID CARMEN Administration Hydromorphone HCl 0.5 mg 06/26/24 17:47 06/27/24 06:17 Hydromorphone Inj 0.5 Mg/0.5 Ml Syr IV 07/10/24 17:46 0.5 mg Q6H PRN Administration Pain Pantoprazole Sodium 40 mg/ 10 mls @ 5 mls/min 06/23/24 11:00 06/26/24 09:20 Syringe IV 07/23/24 10:59 5 mls/min DAILY@1100 CARMEN Administration Prochlorperazine 5 mg/ Syringe 5 mls @ 5 mls/min 06/25/24 10:00 06/25/24 19:38 IV 07/25/24 09:59 5 mls/min Q6H PRN Administration Nausea And Vomiting Lactated Ringer's 1,000 mls @ 150 mls/hr 06/26/24 16:15 06/27/24 06:19 Lr IV 06/27/24 12:14 150 mls/hr .Q6H40M CARMEN Administration Acetaminophen 1,000 mg in 100 mls @ 400 mls/hr 06/26/24 17:47 06/26/24 21:15 Ofirmev IV 06/29/24 17:46 Infused Q8H PRN Infusion Pain or Fever Levothyroxine Sodium 100 mcg 06/23/24 09:00 06/27/24 06:13 Levothyroxine Sodium 100 Mcg Tablet PO 07/23/24 08:59 100 mcg DAILYBB CARMEN Administration Liothyronine Sodium 10 mcg 06/23/24 09:00 06/26/24 09:19 Liothyronine Sodium 5 Mcg Tab PO 07/23/24 08:59 10 mcg QAM CARMEN Administration Melatonin 6 mg 06/26/24 21:00 06/26/24 20:10 Melatonin 3 Mg Tab PO 07/26/24 20:59 6 mg HS CARMEN Administration Montelukast Sodium 10 mg 06/23/24 09:00 06/26/24 09:19 Montelukast Sodium 10 Mg Tablet PO 07/23/24 08:59 10 mg QAM CARMEN Administration Ondansetron HCl 4 mg 06/25/24 10:00 06/27/24 06:12 Ondansetron Inj 2 Mg/Ml 2 Ml Vial IV 07/25/24 09:59 4 mg Q6H CARMEN Administration Umeclidinium/Vilanterol 1 puffs 06/23/24 09:00 06/26/24 09:20 Umeclidinium/Vilanterol 62.5/25mcg 7 Puffs/Inhaler INH 07/23/24 08:59 1 puffs QAM CARMEN Administration Vitamin D 125 mcg 06/23/24 09:00 06/26/24 09:19 Cholecalciferol 125 Mcg (5,000 Units) Tab PO 07/23/24 08:59 125 mcg DAILY CARMEN Administration Past Medical History Medical History Pulmonary nodules just monitoring Hypertension Bronchiectasis INHALER FOR THIS Past Family History Family History Mother Heart disease Breast cancer Father COPD (chronic obstructive pulmonary disease) Grandmother (Maternal) Diabetes Family/Other Schizophrenia sibling Denies family history of Ovarian cancer Colorectal cancer Past Surgical History Surgical History History of cataract surgery left History of colonoscopy went into Afib for 3 mins with last colonscopy> resolved History of tooth extraction History of adenoidectomy History of bronchoscopy History of hysterectomy History of breast augmentation History of ankle surgery RIGHT due to fx Social History Smoking Status: Former smoker tobacco type: cigarettes Smoking cigarettes per day: 0-4 per day Do You Dip or Chew Tobacco: No Hx Alcohol Use: Yes Alcohol type: wine alcohol intake frequency: a few times a month Hx Substance Use: No substance use type: does not use Physical Exam Vital Signs Last Vital Signs Temp 97.7 F 06/27/24 07:59 Pulse 120 H 06/27/24 07:59 Resp 18 06/27/24 07:59 BP 94/67 L 06/27/24 07:59 Pulse Ox 93 06/27/24 07:59 O2 Del Method Room Air 06/27/24 07:59 Testing Laboratory Results 06/27/24 05:55 06/27/24 05:55 PT 14.7 Seconds (9.0-12.0) H 06/27/24 05:55 INR 1.4 (0.9-1.1) H 06/27/24 05:55 APTT 32 Seconds (21-31) H 06/27/24 05:55 Urine Color Dark Yellow 06/26/24 10:10 Urine Appearance Clear (Clear) 06/26/24 10:10 Urine pH 5.0 (4.5-7.5) 06/26/24 10:10 Ur Specific [place] 1.025 (1.000-1.030) 06/26/24 10:10 Urine Protein Trace (Negative) H 06/26/24 10:10 Urine Glucose (UA) Negative (Negative) 06/26/24 10:10 Urine Ketones 1+ (Negative) H 06/26/24 10:10 Urine Nitrite Negative (Negative) 06/26/24 10:10 Ur Leukocyte Esterase Trace (Negative) H 06/26/24 10:10 Urine WBC (Auto) 0-5 /hpf (0-5) 06/26/24 10:10 Urine RBC (Auto) 0-2 /hpf (0-2) 06/26/24 10:10 U Hyaline Cast (Auto) 6-10 /lpf (0-2) H 06/26/24 10:10 U Epithel Cells (Auto) 0-2 /hpf (0-2) 06/26/24 10:10 Urine Bacteria (Auto) None Seen (None Seen) 06/26/24 10:10 06/25/24 11:20 Gram Stain - Final Pleural Fluid Aerobic and Anaerobic Culture - Preliminary No growth to date. 06/22/24 20:44 Aerobic Blood Culture - Preliminary Blood No growth in Aerobic bottle after 48 hours. Anaerobic Blood Culture - Preliminary No growth in Anaerobic bottle after 48 hours. 06/22/24 19:58 Aerobic Blood Culture - Preliminary Blood No growth in Aerobic bottle after 48 hours. Anaerobic Blood Culture - Preliminary No growth in Anaerobic bottle after 48 hours. Electrocardiogram Date: 06/27/24 Findings: + AFIB @ (rvr)
[2024-06-27] MEDS ORDERED: LIDOCAINE 2% 2 ML VIAL/AMP(20MG/ML) INFIL ONE (09:38)
[2024-06-27] MEDS ORDERED: ROCURONIUM BROMIDE 10 MG/ML 5 ML VIAL IV ONE (09:38)
[2024-06-27] MEDS ORDERED: fentaNYL citrate PF 100 MCG/2 ML VIAL ONE (09:38)
[2024-06-27] MEDS ORDERED: PROPOFOL IV EMULSION 10 MG/ML 20 ML VIAL IV ONE (09:38)
[2024-06-27] MEDS ORDERED: MIDAZOLAM HCL 1 MG/ML 2ML VIAL ONE (09:38)
--- NOTE | 2024-06-27 09:39 | Surgery Progress Note ---
Date of Service June 27, 2024 Assessment & Plan (1) Abdominal ascites: Plan: Her CT images and results were personally viewed and interpreted by myself She has no discrete transition point, however she certainly is not moving her bowels appropriately Her intraabdominal ascites has increased, she now has a sustained tachycardia and worsening renal function I had a long discussion with GI and medicine teams and will proceed with exploratory laparotomy, possible bowel resection, possible ostomy Consent was obtained, risks discussed including bleeding, infection, anastomotic leak, injury to surrounding structure, failure to diagnose (2) SBO (small bowel obstruction): (3) Chronic anticoagulation: Admission and Anticipated Discharge Date Admission Date: June 22, 2024 Subjective Pt seen and examined. No flatus or BM. Had NGT placed yesterday. Still with distension. Minimal abdominal pain. Review of Systems Constitutional: no fever and no chills Gastrointestinal: + abdominal pain, + nausea and + constip ation; no vomiting and no diarrhea/loose stools Physical Exam Constitutional: WD/WN, vitals as above Gastrointestinal (Abdomen): Inspection/Auscultation: + abdomen distended; + abdomen abnormal to inspection Percussion/Palpation: + abdomen tender (mild generalized) and abdomen soft; no guarding Results & Data Vital Signs (Past 12 Hours) Vital Signs Temp Pulse Pulse Resp BP BP Pulse Ox 06/27/24 07:59 36.5 C 120 H 18 94/67 L 93 06/27/24 02:07 36.6 C 106 H 16 108/75 92 06/27/24 00:28 113 H 06/26/24 23:15 36.5 C 112 H 16 111/82 92 O2 Del Method 06/27/24 07:59 Room Air 06/27/24 02:07 Room Air 06/27/24 00:28 06/26/24 23:15 Room Air PG Care Time/CCT Total # of Minutes Spent Total Time Spent with Patient: Total time spent is greater than 50% in coordination of care (as documented) at patient's floor/unit and/or counseling patient: Coding Level of Care Code 90932 SUB INP/OBS CARE 2/35MIN Diagnoses Abdominal ascites R18.8 Ascites type: other type SBO (small bowel obstruction) K56.609 Chronic anticoagulation Z79.01 (1) Abdominal ascites Ascites type: other type Qualified Code(s): R18.8 - Other ascites
[2024-06-27] MEDS ORDERED: ALBUMIN HUMAN 5% 12.5 GM/250 ML VIAL IV ONE (09:49)
[2024-06-27] MEDS ORDERED: ATROPINE SULFATE 0.1 MG/ML 10ML SYR IV PRN (10:07)
[2024-06-27] MEDS ORDERED: ePHEDrine sulfate 50 MG/ML AMP IV PRN (10:07)
[2024-06-27] MEDS ORDERED: ONDANSETRON INJ 2 MG/ML 2 ML VIAL IV PRN (10:07)
[2024-06-27] MEDS ORDERED: SUCCINYLCHOLINE CHLORIDE 20 MG/ML 10 ML VIAL IV ONE (10:50)
[2024-06-27] MEDS ORDERED: DEXAMETHASONE SOD INJ 4 MG/ML VIAL ONE (10:53)
[2024-06-27] MEDS ORDERED: ONDANSETRON INJ 2 MG/ML 2 ML VIAL ONE (10:53)
--- NOTE | 2024-06-27 10:54 | Communication Note ---
<Statement entered by Jovana Dixon MD - 06/27/24 14:27> I have examined the patient, reviewed the History & Physical and in the interval since the performance of the History & Physical I have noted the following changes of clinical significance: no changes noted. I agree with the documentation provided by CAROLYN James. I am not convinced that this patient has underlying cirrhosis. Follow up ascitic fluid studies obtained in the OR. Monitor LFTs carefully post-op. Date of Service: June 27, 2024 Patient is a 73 yo female with a small bowel obstruction. Patient is set up for the OR today for an ex lap with general surgery. We will defer further treatment of this issue to their service. GI will follow peripherally and can move forward with cirrhosis work-up even as an outpatient when acute picture stabilizes.
[2024-06-27] MEDS ORDERED: PHENYLEPHRINE 100MCG/ML 10ML SYR IV ONE (11:03)
[2024-06-27 11:08] LABS: Hepatitis A Antibody IgM NON-REACTIVE (NON-REACTIVE); Hepatitis B Core Antibody IgM NON-REACTIVE (NON-REACTIVE)
[2024-06-27] MEDS ORDERED: SUGAMMADEX SODIUM 200 MG/2 ML VIAL IV ONE ×2 (11:11→11:21)
--- NOTE | 2024-06-27 11:31 | Post Operative Brief Note ---
PG Immediate Post Op with CF Date of Surgery June 27, 2024 Pre & Post Diagnosis Operation Date: 06/27/24 07:10 Pre-Op Diagnosis: Small Bowel Obstruction and concern for malignancy Post-Op Diagnosis: Small Bowel Obstruction secondary to adhesion I identified the patient and participated in the time-out.: Yes Procedure Operation Date: 06/27/24 07:10 Actual Procedures p Exploratory Laparotomy, enterolysis, drainage of intraabdominal ascities(Not Applicable) - Larry Porras DO Surgeon Larry Porras DO Strategic Manager Rose Mckeon PA-C Estimated Blood Loss 10 Findings Consistent with Post-Op Diagnosis Specimens Specimen Description: 1. Peritoneal Fluid Anesthesia Type General Complications none Disposition Disposition: Recovery Room
[2024-06-27] MEDS ORDERED: FLUMAZENIL 0.1 MG/1 ML 10 ML VIAL IV ONE (11:32)
--- NOTE | 2024-06-27 11:36 | Operative Report ---
PG Post Operative Report Pre & Post Diagnosis Operation Date: 06/27/24 07:10 Pre-Op Diagnosis: Small Bowel Obstruction and concern for malignancy Post-Op Diagnosis: Small Bowel Obstruction due to adhesion I identified the patient and participated in the time-out.: Yes Procedure Operation Date: 06/27/24 07:10 Actual Procedures p Exploratory Laparotomy, enterolysis, drainage of intraabdominal ascities(Not Applicable) - Larry Porras DO Surgeon Larry Porras DO Help Desk Internship Rose Mckeon PA-C Estimated Blood Loss 10 Findings Consistent with Post-Op Diagnosis Specimens Peritoneal fluid for culture and cytology Drains None Anesthesia Type General Complications none Disposition Disposition: Recovery Room Indications 73 yo female with SBO, intra-abdominal ascites and concern for malignancy Description of Procedure The patient was brought to the OR and placed in the supine position with both arms abducted. At this time she underwent general endotracheal anesthesia without any problems. She was given appropriate pre-operative antibiotics. Her abdomen was prepped and draped in the usual sterile fashion. Timeout was ca lled. The procedure was verified as Exploratory laparotomy, possible bowel resection, possible ostomy. Surgical, anesthesia and nursing teams agreed and the procedure was begun. A standard midline incision was made using a #10 blade scalpel. This was carried down to the fascia using electrocautery. The midline fascia was then incised with electrocautery. The peritoneum was then entered bluntly. The incision was then opened up through its entirety. We immediately encountered a lot of straw colored fluid that was sent for culture and cytology. The ascites was drained and was about 1L. At this point we did eviscerate the small bowel and ran this from the ligament of Treitz to the cecum. There was a thick adhesive band causing a small bowel obstruction about 5cm proximal to the IC valve. This was lysed using electrocautery. All of the bowel was viable. I was able to milk intestinal contents past this previous obstruction with ease. I did have my partner Dr. Bruce visualize the affected bowel due to its location and ileocecectomy would have to be performed. Because the bowel was viable and at least some enteric contrast had made it past the point of obstruction prior to the surgery, I decided to leave the bowel in place. Again, I was able to easily push enteric contents past the previous obstructed bowel. The liver was inspected and felt free of pathology. There were no signs of malignancy within the peritoneum or omentum. The pelvis appeared normal. At this point the wound was then irrigated until clear. Hemostasis was achieved using electrocautery. Hemostasis was complete. The fascia was then closed in a running fashion using 2 #1 looped PDS suture starting superiorly and inferiorly and meeting in the middle. Skin was closed with dimitri. Sterile dressing was applied. All needle and sponge counts were correct x 2. At this point the patient was awakened from anesthesia, and transported to PACU in stable condition. The physician's staff assistant was present and scrubbed for the entirety of the case. She was critical in positioning the patient, prepping and draping, retraction and exposure, closure of the incision and placement of the dressings. I attest to the content of the Intraoperative Record and any orders documented therein. Any exceptions are noted below.
[2024-06-27] MEDS: fentaNYL citrate PF 100 MCG/2 ML VIAL IV PRN (12:00)
--- NOTE | 2024-06-27 13:02 | Anesthesiology Progress Note ---
Date of Service June 27, 2024 Anesthesia Post Procedure Vital Signs Vital Signs: Temp Pulse Pulse Resp BP BP Pulse Ox 06/27/24 12:30 112 H 17 91/63 L 97 06/27/24 12:20 122 H 16 113/79 90 06/27/24 12:10 114 H 15 104/65 94 06/27/24 12:00 108 H 22 102/72 91 06/27/24 11:55 104 H 18 98/66 L 94 06/27/24 11:45 98.8 F 105 H 19 95/62 L 94 06/27/24 10:01 120 H 20 105/74 92 06/27/24 07:59 97.7 F 120 H 18 94/67 L 93 06/27/24 02:07 97.9 F 106 H 16 108/75 92 06/27/24 00:28 113 H 06/26/24 23:15 97.7 F 112 H 16 111/82 92 06/26/24 19:36 97.9 F 121 H 16 111/76 92 06/26/24 15:34 97.7 F 118 H 19 124/79 91 06/26/24 14:08 112 H O2 Del Method O2 Flow Rate 06/27/24 12:30 Nasal Cannula 6 06/27/24 12:20 Oxymask 15 06/27/24 12:10 Oxymask 15 06/27/24 12:00 Oxymask 15 06/27/24 11:55 Oxymask 15 06/27/24 11:45 Oxymask 13 06/27/24 10:01 Room Air 06/27/24 07:59 Room Air 06/27/24 02:07 Room Air 06/27/24 00:28 06/26/24 23:15 Room Air 06/26/24 19:36 Room Air 06/26/24 15:34 Room Air 06/26/24 14:08 Pain Intensity Abdomen: Pain Intensity: 3 Transfer of Care Handoff Completed per policy Notes Mental Status: alert / awake / arousable and participated in evaluation Patient Amnestic to Procedure: Yes Nausea / Vomiting: adequately controlled Pain: adequately controlled Airway Patency, RR, SpO2: stable & adequate BP & HR: stable & adequate Hydration State: stable & adequate Anesthetic Complications: no major complications apparent and Pt Satisfied with anesthetic care
[2024-06-27] MEDS ORDERED: HYDROmorphone INJ 0.5 MG/0.5 ML SYR IV PRN ×3 (13:37→21:38)
[2024-06-27] MEDS: LACTATED RINGER'S 500 ML IV ONE (14:54)
[2024-06-27] MEDS: BUPIVACAINE/EPINEPHRINE 0.25% 1:200,000 30 ML VIAL ONE (14:55)
[2024-06-27] MEDS: HYDROmorphone INJ 1 MG/ML SYRINGE IV PRN (15:03)
[2024-06-27] MEDS: LACTATED RINGER'S 1,000 ML IV SCH (15:30)
--- NOTE | 2024-06-27 17:52 | Billing Data ---
Date of Service June 27, 2024 Coding Level of Care Code 97656 SUB INP/OBS CARE
[2024-06-27] MEDS ORDERED: NALOXONE HCL 0.4 MG/1 ML VIAL/CARP IV PRN (21:38)
--- NOTE | 2024-06-27 21:44 | Electrocardiogram Report ---
Test Reason : Blood Pressure : / mmHG Vent. Rate : 115 BPM Atrial Rate : 000 BPM P-R Int : 000 ms QRS Dur : 116 ms QT Int : 346 ms P-R-T Axes : 099 106 -69 degrees QTc Int : 478 ms Atrial fibrillation with rapid ventricular response Right bundle branch block T wave abnormality, consider inferior ischemia Abnormal ECG When compared with ECG of 20-JUN-2024 20:51, Vent. rate has increased BY 42 BPM Confirmed by Shant York ([id number]) on 06/27/2024 9:43:39 PM Referred By: Gabrielle Crawley Confirmed By:Shant York
--- NOTE | 2024-06-27 21:45 | Electrocardiogram Report ---
Test Reason : Blood Pressure : / mmHG Vent. Rate : 127 BPM Atrial Rate : 125 BPM P-R Int : 000 ms QRS Dur : 112 ms QT Int : 332 ms P-R-T Axes : 000 -60 129 degrees QTc Int : 482 ms Poor data quality, interpretation may be adversely affected Atrial fibrillation with rapid ventricular response with premature ventricular or aberrantly conducte d complexes Left axis deviation Low voltage QRS Right bundle branch block Possible Inferior infarct , age undetermined T wave abnormality, consider inferior ischemia Abnormal ECG When compared with ECG of 26-JUN-2024 11:29, No significant change Confirmed by Shant York ([id number]) on 06/27/2024 9:45:25 PM Referred By: Gabrielle Crawley Confirmed By:Shant York
[2024-06-27] MEDS: LACTATED RINGER'S 1,000 ML IV ONE (21:56)
[2024-06-27] MEDS: NALOXONE HCL 0.4 MG/1 ML VIAL/CARP ONE (21:56)
[2024-06-27 23:07] LABS: Base Excess VBG -8.2 mEq/L; HCO3 VBG 20 mmol/L; Oxygen Saturation VBG < 60.0 %; PCO2 VBG 48 mmHg (38-50); PO2 VBG 28 mmHg; pH VBG 7.22 (7.36-7.41)
[2024-06-27 23:21] LABS: Hematocrit (blood only) 52.7 % (37.0-47.0); Hemoglobin 18.7 g/dl (12.0-16.0); Mean Corpuscular Hemoglobin 32.3 pg (25.0-34.0); Mean Corpuscular Hgb Conc 35.5 g/dL (32.0-36.0); Mean Platelet Volume 10.4 fL (9.4-12.4); Platelet Count 318 K/uL (130-400); RDW Coefficient of Variation 12.9 % (11.5-14.5); RDW Standard Deviation 42.8 fL (36.4-46.3); Red Blood Count 5.79 M/uL (4.20-5.40); White Blood Count 13.92 K/ul (4.8-10.8)
[2024-06-27 23:40] LABS: Albumin Globulin Ratio 1.6 (0.9-2); Albumin Level 2.5 gm/dl (3.4-5.0); BUN Creatinine Ratio 20.2 (10-20); Bilirubin,Total 0.8 mg/dl (0.2-1.0); Calcium 7.9 mg/dl (8.6-10.3); Creatinine Clr Calc Pharmacy 15.1 ml/min; Est GFR (African American) 14.7 ml/min; Est GFR (Non-African American) 12.7 ml/min; Globulin 1.6 gm/dl (2.5-4.0); Potassium 5.5 mmol/L (3.5-5.1); Total Protein 4.1 gm/dl (6.0-8.3)
[2024-06-28] MEDS ORDERED: ALBUT/IPRATROP 3MG/0.5MG NEB 3 ML VIAL NEB PRN (00:46)
[2024-06-28] MEDS: ALBUMIN 25% 25 GM/100 ML VIAL IV SCH ×2 (00:58→19:32)
[2024-06-28 01:07] LABS: iSTAT Arterial Blood Gas HCO3 15 meg/L (19-24); iSTAT Arterial Blood Gas pCO2 29 mmHg (35-46); iSTAT Arterial Blood Gas pH 7.33 (7.35-7.45); iSTAT Arterial Blood Gas pO2 80 mmHg (80-95); iSTAT Carbon Dioxide 16 mmol/L (24-31); iSTAT Hematocrit 54 % (37-47); iSTAT Hemoglobin 18.4 g/dl (12.0-16.0); iSTAT Potassium 5.5 mmol/L (3.3-5.0); iSTAT Sodium 128 mmol/L (135-144)
[2024-06-28] MEDS: INSULIN HUMAN REGULAR PER UNIT 6 UNITS in SYRINGE 5.94 ML IV STA (01:49)
[2024-06-28] MEDS: DEXTROSE 50% 50 ML SYRINGE IV STA (01:49)
[2024-06-28] MEDS ORDERED: STAT IV Infusion **Titration per Protocol STA (02:11)
[2024-06-28] MEDS ORDERED: STAT IV/IM STA ×2 (02:11→16:01)
[2024-06-28] MEDS: CALCIUM GLUCONATE 1,000 MG/60 ML BAG IV STA (02:18)
[2024-06-28] MEDS: LINEZOLID 600 MG/300 ML BAG IV SCH (02:47)
[2024-06-28] MEDS: NOREPINEPHRINE/D5W 4 MG/250 ML PLCT IV SCH (02:52)
[2024-06-28] MEDS: SODIUM BICARBONATE 8.4% 100 MEQ in DEXTROSE 5% 1,000 ML IV SCH (02:52)
--- NOTE | 2024-06-28 02:52 | Critical Care Consultation ---
Date of Consultation June 28, 2024 Assessment & Plan (1) Acute renal failure: Reason Critically Ill: 73-year-old female with past medical history of PAF (anticoagulated on Coumadin), hypothyroidism, bronchiectasis, presents to the ICU for progressive acute renal failure and metabolic acidosis. Patient underwent exploratory laparotomy for small bowel obstruction due to adhesions yesterday and has become progressively fatigued, with repeat lab work showing lactic acidosis and acute renal failure. She has made very little urine postop and is now being transferred to ICU for vasopressor support with concern for hepatorenal syndrome. Neuro - [facility] ICU: Negative Cardiac - Currently on vasopressor support for hepatorenal syndrome with Levophed drip. Maintain maps greater than 75. Hold antihypertensives Proximal A-fib Currently sinus rhythm on monitor. Continue to hold diltiazem as patient is currently on vasopressor support. Holding Coumadin for previously elevated INR and now status post surgical intervention. Continuous monitoring on telemetry Respiratory - Acute hypoxic respiratory failurepatient with history of bronchiectasis following pneumonia now presents with bilateral pleural effusions. -Underwent thoracentesis with negative cytology report. Chest x-ray this evening with progression of bilateral effusions, although patient seems intravascularly dry. - Last TTE with normal EF, and no significant valvular disease was from 07/20. Will repeat study this morning - Continue DuoNeb As needed - Hold on diuresis for now - Continuous monitoring pulse ox. Wean oxygen as tolerated GI - Small bowel obstruction due to adhesionpatient with SBO and concern for madelyn guzmán, now status post exploratory laparotomy, enterolysis, and drainage of intra-abdominal ascites. Cytology study pending - NG tube to low intermittent suction management per surgical team -N.p.o. Cirrhosispatient noted to have cirrhosis and portal hypertension on CT abdomen and pelvis on this admission, no previous known liver disease. Unsure of etiology at this time as she states she is a social drinker, but does not drink daily. - LFTs are within normal limits although patient does have ascites. Continue to trend LFTs - Acute hepatitis panel unremarkable - GI consulted, will follow up recommendations RENAL/LYTES - Acute renal failurepatient with progressive renal failure With elevated creatinine, hyperkalemia with potassium 5.5, and worsening acidosis. Patient also seems intravascularly dehydrated with CBC. She is being followed by nephrology and there is suspicion for hepatorenal syndrome. - Potassium treated with IV insulin, D10, calcium gluconate, and bicarb push. - Bicarb drip. Trend VBG's - BMP every 4 hours - Will attempt to rehydrate as tolerated, and given hypoxia with worsening pleural effusions. Goal of euvolemia - Urine study pending - Follow-up nephrology recommendations - Foleystrict I's and O's ENDO - Hypothyroidism Patient remains NPO. Will likely need conversion to IV Synthroid HEME - H&H stable, monitor routine CBC ID - No significant leukocytosis or fevers. No definitive source of infection. -Blood cultures negative to date, pleural fluid culture negative on preliminary, and peritoneal fluid culture pending - Nasal MRSA pending - Continue with empiric Zosyn for now LINES/IV ACCESS - Right IJ CVC (06/28) DVT PROPHYLAXIS - SCDs, holding anticoagulation due to surgery and recent supratherapeutic INR I have personally spent 65 minutes of critical care time in the direct management of this patient. This is a life/limb threatening event. This includes time spent evaluating patient, direct bedside care, chart review, placing orders, interpretation of diagnostic studies, discussion with consultants, patient, and family members, as well as other required patient management activities. This time is exclusive of all separately billable procedures, and teaching time and separate from and in addition to any other critical care service time. Thank you for allowing us to participate in the care of this patient. Please refer to my attending physician's documentation for any further recommendations. (2) Small bowel obstruction due to adhesions: (3) Metabolic acidosis: (4) Acute hypoxic respiratory failure: (5) Hypothyroidism: (6) Paroxysmal atrial fibrillation: (7) Cirrhosis: Supervising Physician Co-Signing Physician Notes Patient seen and examined. EMR reviewed. Discussed with critical care ADRIANNE as well as with nephrology and general surgery. Discussed on multidisciplinary rounds. Patient has a complex medical picture. Certainly the small bowel obstruction could have been contributing however as she is progressed to oligoanuric renal failure with numbers consistent with poor renal perfusion. The diagnosis of cirrhosis is somewhat in question is this was only made based on a CT scan and per surgery, the liver did not have a particularly nodular or cirrhotic appearance on examination. Biopsies were not taken. GI evaluation is in progress. Total bili and AST and ALT are not markedly elevated arguing against autoimmune hepatitis or primary biliary issues. She has bilateral pleural effusions and hypoxemic respiratory failure in addition to ascites so appears total body up but intravascularly dry. She is now on pressors. Reviewed echocardiogram with cardiology. The degree of mitral dysfunction appears to be minimal and improved compared to prior echocardiogram. Ejection fraction appears preserved and there is no evidence of restrictive or constrictive cardiomyopathy or pericardial disease to account for the patient's issues. She does have a mild degree of pulmonary hypertension, unchanged from previous. We do not think the right heart catheterization at this point time would offer additional clinical information. This point time I think optimizing her electrolytes, acid-base status, and volume status are recommended. Discussed with nephrology. Will place temporary dialysis catheter and continue to work on correcting acid-base abnormalities. If pleural effusions to be come increasingly problematic with respiratory symptoms, may consider short-term placement of pigtail catheters. Complete course of antibiotics for intra-abdominal source. Follow-up with ascites cytology. Patient is critically ill at this point time with significant possibility of clinical deterioration. An additional 65 minutes in critical care time was spent in evaluation management and coordination of care for this patient. History of Present Illness Attending Physician: Yaya Gardiner DO History of Present Illness Patient is a 73-year-old female with past medical history of hypothyroid is him, hyperparathyroidism, Bronchiectasis, PAF (anticoagulated on warfarin), adrenal insufficiency, who presented to the emergency department on 06/22 with complaints of nausea vomiting and constipation. Patient was found to have small bowel obstruction, ascites, Pleural effusions, and cirrhosis. She underwent thoracentesis With negative cytology. The patient had progression of ascites, although LFTs remained within normal limits and paracentesis was canceled, As it was noted there was no safe area to extract fluid. Surgery was consulted due to ongoing vomiting and dilation of the small bowel, And on 06/27 she went for exploratory laparotomy with enterolysis and drainage of intra-abdominal ascites for small bowel obstruction due to adhesion and concern for malignancy. I was asked to see the patient this evening regarding her progressive metabolic acidosis, with now developing hyperkalemia and worsening creatinine indicating acute renal failure. She has not made much urine throughout the day. Patient was previously evaluated by nephrology and there is concern for hepatorenal syndrome. Upon evaluation, her abdomen was noted to be mildly distended and sofía ewhat tender without guarding. Her lactic acid is also elevated, and blood pressures are low normotensive. Given findings, patient now transferred to the ICU for vasopressor support, with goal to increase MAP for kidney perfusion given suspicion for hepatorenal syndrome. She is also being started on bicarb drip. Patient remains alert and oriented, and CODE STATUS was discussed and at this time she remains full code. On arrival to the ICU the patient is oriented but seems fatigued on exam. Her only complaints at this time are generalized weakness, feeling tired, and mild abdominal pain/discomfort. She denies any headache, dizziness, changes in vision, cough or congestion, sore throat, shortness of breath, chest pain or palpitations, nausea, diarrhea, swelling in hands or feet. Patient to remain in ICU for further management at this time. Allergies Allergy/AdvReac Type Severity Reaction Status Date / Time No Known Allergies Allergy Verified 06/22/24 22:39 Home Medications Medication Instructions Recorded Confirmed Type ascorbic acid (vitamin C) 500 mg 1,000 mg PO QAM 09/10/19 06/22/24 History tablet levothyroxine 100 mcg tablet 100 mcg PO QAM 09/10/19 06/22/24 History zinc gluconate 50 mg tablet 50 mg PO QAM 09/10/19 06/22/24 History krill oil 500 mg capsule 1,500 mg PO DAILY 02/11/23 06/22/24 History warfarin 5 mg tablet See Rx Instructions .Route .COMPLEX 02/11/23 06/22/24 History liothyronine 5 mcg tablet 10 mcg PO QAM 08/31/23 06/22/24 History clobetasol 0.05 % topical ointment 1 applic topical [id number] PRN Rash #60 09/22/23 06/22/24 Rx grams estradiol 0.01% (0.1 mg/gram) 1 g vaginal WK #42.5 grams 09/22/23 06/22/24 Rx vaginal cream montelukast 10 mg tablet 10 mg PO QAM #90 tabs 10/31/23 06/22/24 Rx cholecalciferol (vitamin D3) 125 125 mcg PO DAILY 06/20/24 06/22/24 History mcg (5,000 unit) tablet (Vitamin D3) diltiazem HCl 240 mg 240 mg PO QAM 06/20/24 06/22/24 History capsule,extended release 24 hr (Cartia XT) sodium chloride 0.65 % nasal spray 1 spray intranasal DIRECTED PRN 06/20/24 06/22/24 History aerosol (Saline Nasal) Dry Nasal Passages sodium chloride 7 % for 1 inh inhalation BID PRN NEEDED 06/20/24 06/22/24 History nebulization umeclidinium 62.5 mcg-vilanterol 1 inh inhalation QAM 06/20/24 06/22/24 History 25 mcg/actuation powdr for inhalation (Anoro Ellipta) vitamin B complex 1 tab PO DAILY 06/20/24 06/22/24 History ondansetron 4 mg disintegrating 4 mg PO Q8H PRN nausea and 06/21/24 06/22/24 Rx tablet vomiting #30 tabs Patient History Medical History (Updated 06/28/24 @ 05:59 by BRANDIE Horta) Pulmonary nodules just monitoring Hypertension Bronchiectasis INHALER FOR THIS Surgical History (Updated 06/27/24 @ 15:33 by Ekta Fine MD) H/O exploratory laparotomy (06/27/24) Exploratory Laparotomy, enterolysis, drainage of intraabdominal ascities(Not Applicable) - Larry Porras DO History of cataract surgery left History of colonoscopy went into Afib for 3 mins with last colonscopy> resolved History of tooth extraction History of adenoidectomy History of bronchoscopy History of hysterectomy History of breast augmentation History of ankle surgery RIGHT due to fx Family History Mother Heart disease Breast cancer Father COPD (chronic obstructive pulmonary disease) Grandmother (Maternal) Diabetes Family/Other Schizophrenia sibling Denies family history of Ovarian cancer Colorectal cancer Social History Smoking Status: Former smoker Tobacco Type: Cigarettes Age Started Using Tobacco: 17; Age Quit Using Tobacco: 26; Cigarettes Per Day: 0-4 per day; Second Hand Exposure: No; Do You Dip or Chew Tobacco: No; Hx Alcohol Use: Yes Alcohol type: wine Alcohol Intake Frequency: 2-3 x/Week Hx Substance Use: No Preferred Language: Sudanese Communication Ability: Effective Media Marketing Coordinator Required: No Beliefs That Will Affect Care: None marital status: Life Partner Current Living Situation: Alone 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 Feels Safe at Home: Yes Assistive Devices: None Review of Systems Review of Systems: All systems reviewed & are unremarkable except as noted in HPI & below Physical Exam Constitutional: + lethargic; no acute distress Eyes: PERRL, conjunctivae normal, anicteric sclerae ENMT: external ear and nose normal, oropharynx normal Neck: trachea midline, no thyromegaly Respiratory: normal respiratory effort, lungs clear to auscultation Cardiovascular: RRR, no murmur, no edema Heart Sounds: normal S1 and normal S2 Vessels: no JVD Extremities: no edema Gastrointestinal (Abdomen): Abdomen distended, semifirm, tender with palpation, abdominal sounds hypoactive Musculoskeletal: no cyanosis or clubbing, extremities motor strength 5/5 Skin: no rashes, warm and dry Neurologic: PERRL, EOMI, accommodation nl, no face palsy, no dysarthria Psychiatric: A+Ox3, euthymic affect Genitourinary: Indwelling Gutierrez catheter present, oliguric, urine yellow and concentrated Results & Data Results & Data Vital Signs (Past 12 Hours) Vital Signs Temp Pulse Pulse Resp BP BP Pulse Ox 06/28/24 02:11 36.6 C 06/28/24 02:07 116 H 16 91/51 L 96 06/27/24 23:11 36.7 C 126 H 16 100/70 92 06/27/24 22:51 06/27/24 19:44 36.9 C 123 H 16 112/77 92 06/27/24 18:56 36.5 C 135 H 16 95/65 L 91 06/27/24 15:00 123 H 18 93/61 L 97 O2 Del Method O2 Flow Rate 06/28/24 02:11 06/28/24 02:07 Oxymask 06/27/24 23:11 Nasal Cannula 5.0 06/27/24 22:51 Nasal Cannula 5 06/27/24 19:44 Nasal Cannula 5.0 06/27/24 18:56 Nasal Cannula 5 06/27/24 15:00 Nasal Cannula 5 Coding Level of Care Code 52515 CRITICAL CARE EA ADD 30M Diagnoses Acute renal failure N17.9 Small bowel obstruction due to adhesions K56.50 Metabolic acidosis E87.20 Acute hypoxic respiratory failure J96.01 Other specified hypothyroidism E03.8 Hypothyroidism type: other Paroxysmal atrial fibrillation I48.0 Cirrhosis K74.60 (5) Hypothyroidism Hypothyroidism type: other Qualified Code(s): E03.8 - Other specified hypothyroidism
--- NOTE | 2024-06-28 02:52 | Procedure Note ---
Procedure Note Date of Service June 28, 2024 Note INTERNAL JUGULAR CENTRAL LINE PROCEDURE NOTE: Procedure: Internal Jugular Central Line Placement Attending: Dr. Hi Provider: BRANDIE Rosales Indication: Central Drug Administration, Poor Venous Access Anesthesia: Lidocaine 1% Consent was signed and placed on the chart prior to procedure. Indication, risks, and benefits were explained at length. A time-out was completed verifying correct patient, procedure, site, positioning, and implants(s) or special equipment if applicable. Patients Right Neck was cleansed and draped in the typical sterile fashion using Chloraprep. The Internal Jugular Vein and Carotid Artery were identified using ultrasound. The superficial tissue was anesthetized using 3 mL of 1% lidocaine without epinephrine under direct visualization with the ultrasound. After adequate anesthetization was achieved, the Internal Jugular vein was cannulated under direct ultrasound guidance using an introducer needle on a syringe. Good venous blood return was maintained prior to removal of syringe from introducer needle. Using Seldinger Technique, a guide wire was advanced through the introducer needle without resistance. The introducer needle was removed and ultrasound images were obtained of the guide wire within the Internal Jugular Vein and saved to the patients medical record. A small incision was made in penetrating fashion at the guide wire insertion site utilizing an 11 blade scalpel. The dil ator was advanced to the vessel without resistance. The dilator was exchanged for the triple lumen catheter which was advanced into the vessel without resistance. The guide wire was removed intact from the catheter without issue. Claves were placed on each catheter tip with confirmation of good blood flow from each lumen. Each port was easily flushed with sterile saline. The catheter was placed at 16 cm and sutured in place. BioPatch was applied to the catheter and a sterile Tegaderm dressing was applied over the catheter with careful attention to sterility. Patient tolerated procedure well. No immediate complications were met. Post procedure x-ray was completed, placement was appropriate and no pneumothorax was noted. Images obtained are saved for permanent record Procedural Ultrasound Guidance: Procedure Date: 06/28/2024 Indication: Central venous catheter insertion Attending: Dr. Rio Hi Provider: BRANDIE Rosales Artery AND Vein visualized: Yes Compressible Vein: Yes Guidewire or Short Catheter seen in vein prior to dilation: Yes Line confirmed in Vein with ultrasound: Yes Images obtained are saved for permanent record. Coding CPT Codes Tubes, Drains, and Vasc Access - Tubes, Drains, and Vasc Access: [id number] Ultrasound Guidance For Vascular ([id number]) Tubes, Drains, and Vasc Access - Tubes, Drains, and Vasc Access: [id number] Insertion Of Non-tunneled Catheter Age 3 Yrs> ([id number]) [facility] [place] Procedure Codes (Charges) Tubes, Drains, and Vasc Access Procedure 1: Tubes, Drains, and Vasc Access: [id number] Ultrasound Guidance For Vascular Procedure 2: Tubes, Drains, and Vasc Access: [id number] Insertion Of Non-tunneled Catheter Age 3 Yrs>
[2024-06-28] MEDS: SODIUM CHLORIDE 0.9% 500 ML IV ONE ×2 (03:06→05:39)
[2024-06-28] MEDS: SODIUM BICARB 8.4% INJ 50 MEQ/50 ML SYR IV STA (03:10)
[2024-06-28 04:38] LABS: Appearance Urine Turbid (Clear); Bacteria Urine Automated None Seen (None Seen); Bilirubin Urine Negative (Negative); Blood Urine 2+ (Negative); Cast Urine Automated >20 /lpf (0-2); Color Urine Dark Yellow; Epithelial Cell Urine Auto >20 /hpf (0-2); Glucose Urine UA Negative (Negative); Granular Casts Urine Present /lpf (None Prsent); Hyaline Casts Urine Present /lpf (None Presnt); Ketones Urine Trace (Negative); Leukocyte Esterase Urine Trace (Negative); Nitrite Urine Negative (Negative); Protein Urine 2+ (Negative); Specific Gravity Urine 1.024 (1.000-1.030); Urobilinogen Urine Negative (Negative); White Blood Cell Casts Urine Present /lpf (None Prsent)
[2024-06-28 04:46] LABS: Base Excess VBG -5.2 mEq/L; HCO3 VBG 22 mmol/L; Oxygen Saturation VBG < 60.0 %; PCO2 VBG 51 mmHg (38-50); PO2 VBG 23 mmHg; pH VBG 7.25 (7.36-7.41)
[2024-06-28 05:11] LABS: Albumin Globulin Ratio 3.5 (0.9-2); Albumin Level 3.8 gm/dl (3.4-5.0); BUN Creatinine Ratio 19.2 (10-20); Bilirubin,Total 0.9 mg/dl (0.2-1.0); Calcium 7.9 mg/dl (8.6-10.3); Creatinine Clr Calc Pharmacy 14.8 ml/min; Est GFR (African American) 14.3 ml/min; Est GFR (Non-African American) 12.4 ml/min; Globulin 1.1 gm/dl (2.5-4.0); Magnesium 1.8 mg/dl (1.7-2.4); Phosphorus 5.7 mg/dl (2.5-4.9); Potassium 4.6 mmol/L (3.5-5.1); Total Protein 4.9 gm/dl (6.0-8.3)
[2024-06-28 05:24] LABS: INR 1.7 (0.9-1.1); Prothrombin Time 17.2 Seconds (9.0-12.0)
[2024-06-28 05:29] LABS: Basophils # (auto) 0.02 K/uL (0.00-0.20); Basophils % (auto) 0.2 %; Echinocytes 2+; Eosinophils # (auto) 0.03 K/uL (0.00-0.50); Eosinophils % (auto) 0.2 %; Hematocrit (blood only) 45.6 % (37.0-47.0); Hemoglobin 15.2 g/dl (12.0-16.0); Immature Granulocytes # (auto) 0.17 K/uL (0.01-0.20); Immature Granulocytes % (auto) 1.3 %; Lymphocytes # (auto) 0.53 K/uL (1.20-3.40); Lymphocytes % (auto) 4.1 %; Mean Corpuscular Hemoglobin 31.3 pg (25.0-34.0); Mean Corpuscular Hgb Conc 33.3 g/dL (32.0-36.0); Mean Corpuscular Volume 93.8 fL (80.0-100.0); Mean Platelet Volume 10.6 fL (9.4-12.4); Monocytes # (auto) 1.43 K/uL (0.11-0.59); Neutrophils # (auto) 10.87 K/uL (1.40-6.50); Neutrophils % (auto) 83.2 %; Platelet Count 251 K/uL (130-400); Polychromasia 1+; RDW Coefficient of Variation 13.3 % (11.5-14.5); RDW Standard Deviation 46.1 fL (36.4-46.3); Red Blood Count 4.86 M/uL (4.20-5.40); White Blood Count 13.05 K/ul (4.8-10.8)
[2024-06-28 05:30] LABS: Creatinine Urine Random 76.4 mg/dl
--- NOTE | 2024-06-28 07:18 | Hospitalist Progress Note ---
"Date of Service June 28, 2024 Assessment & Plan (1) Ileus: (2) Abdominal ascites: (3) Pleural effusion: (4) Supratherapeutic INR: (5) Chronic anticoagulation: (6) Paroxysmal atrial fibrillation: (7) Small bowel obstruction due to adhesions: (8) S/P exploratory laparotomy: (9) DOMITILA (acute kidney injury): (10) Hyponatremia: (11) Metabolic acidosis: (12) Bronchiectasis: (13) Hypothyroid: Plan Persistent SBO Pt went to OR for ex lap on 06/27. Adhesional obstruction present, no signs of obvious ischemic bowel. Adhesion lysed and stool able to move freely passed prior obstruction. NGT remains in place. -continue antiemetics/PPI -continue NPO/NGT for now Ascites Patient with ascites of unknown etiology. Significant concern for oncologic process. Unable to tap due to positioning of the bowel loops. Original imaging without signs of cirrhosis. Most recent did show some scarring/fibrosis of the liver. Ex lap without obvious since of malignancy. Able to sample the fluid. Will f/u on ordered studies. -f/u fluid studies -further workup once patient stabilizes Supratherapeutic INR | Chronic anticoagulation |Paroxysmal a fib Supratherapeutic on admission. Does seem to respond to Vit K. Unclear on patient's liver function and ability to produce Vitamin K endogenously. Will continue to monitor -hold warfarin -daily coags Paroxysmal a fib | Sinus tachycardia Intermittently in a fib vs sinus tach. Patient NPO at present and has not gotten her Cardizem. With recent procedure and relative hypotension, tachycardia is likely compensatory. Would hold off on aggressive rate control while BP soft. - Continue to follow with daily EKGs. -Holding cardizem DOMITILA/ATN Creatinine has increased, potassium recently corrected with insulin. Pt became anuric following surgery, pleural effusion worsened and pt became SOB requiring supplemental oxygen. Phlebotomy Services Representative placed temp HD port and pt was dialized today. . -Cont HD until pt's kidneys recover and resume function Reactive Airway Disease Continue Anoro Ellipta Code status: full DVT ppx: SCDs, holding warfarin as INR supratherapeutic FENGI: NPO, NGT, IVF @ 150 mL Dispo: PCU/Tele Lines: Gutierrez placed 06/27 Admission and Anticipated Discharge Date Admission Date: June 22, 2024 Supervising Physician Co-Signing Physician Notes I personally examined the patient and verified all alejandro points of history and exam, discussed case, and agree with decision making with Dr Gandara Has a bit of a left-sided headache. OMT helps. Otherwise mostly complaining of dry mouth. Some abdominal pain, but surprisingly not too bad. A little bit short of breath whenever I see her but mostly complaining of dry mouth in that respect. Extensive discussions with nursing, discussed with surgery, discussed with GI. Cuff Turner input all greatly appreciated. Vitals noted, in general she is very fatigued but actually does not appear to be in respiratory or pain distress. HEENT normocephalic atraumatic mucous membranes slightly dry. Cardio is still tachycardic. Breathing is unlabored but she is requiring oxime mask may be mild conversational dyspnea no accessory muscle use. Skin without rashes pallor or icterus. Musculoskeletal shows left-sided suboccipitals and C-spine paraspinals to be somewhat high tone, tender, decreased range of motion (at the muscular level of palpation, not nuchal rigidity)gentle myofascial and gentle inhibitory pressurepatient tolerated well and felt some improvement in her headache. Mental status she does seem to be easily distractible but quite coherent. Initial presentation of abdominal pain, ileus versus SBO, new diagnosis of ascitesgreatly appreciate surgery taking her to OR - was SBO due to adhesion band - now post op anticipate improvement (obviously has a lot of other sig nificant acute comorbidities as well) Acute renal failure with hyponatremia and metabolic acidosis ATN. While her physiology certainly would fit with hepatorenal syndrome, to be clear I do not believe she has cirrhosisher elevated INR was related to her Coumadin. Her bilirubin has basically been normal. Most of her imaging does not have a cirrhotic appearance to the liver (one of her many imaging studies suggested possible cirrhosis, but nothing definitive, the others did not appear consistent with cirrhosis at all; her IntraOp evaluation of her liver was not consistent with cirrhosis either). I suspect her hemodynamic physiology is far more related to a combination of intra-abdominal pressure reducing IVC/lower extremity venous return while she was still obstructed, worsened by physiology that seems consistent with malnutrition and low oncotic pressure (which would be manifest by what seems to be third spacing out of proportion to the rest of her situationit would be corroborated by her roughly 40 pounds of weight loss that her friend had mentionedthe exact number is obviously still up in the air, but seems to be significant). Continue dialysis for nowespecially given the third spacing involves her lungs/pulmonary edema with poor urine output. Anticipate starting TPN as soon as it is safe (and if we are not able to manage the fluid balance with hemodialysis and medical management well enough to be able to initiate TPN, then it might be reasonable to transfer to tertiary for the ability to do CVVH). Chronic anticoagulation - Warfarin on hold. INR was reversed for thoracentesis and quickly rebounded to 3.4. Continue to follow and INR closely given that it has been corrected again, but her malnourished state is likely why she seems to rebound back to therapeutic even without getting more Coumadin. short interruptions of anticoagulation for her RA low and acceptable risk range. (CHADS2-Vasc 3) Weight lossexact quantity undefined, although her friend who knows her quite well estimated about 40 pounds of weight loss over what seems to have been only a few months, maybe 6 months total. Exact etiology of this is not clear yetdiscussed this with patient, discussed that right now we need to manage the malnutrition as it is and take care of her in her current state; but once she is doing better to prevent this from happening again we will definitely need to get to the bottom of the weight loss. Right now differentials would range from anything such as low-grade GI malaise from the adhesion causing a progressively worse bowel obstruction that initially was met with poor p.o. intake and eventually met with her full obstruction pathophysiology that she presented with; concern about any sort of psychiatric illness such as depression/anxiety precipitating poor p.o. intake; she did have a pneumonia couple months ago reportedly, certainly is fairly common for people to lose their appetite after that; follow for other pathology/etiologies of the weight loss as well. Start TPN as soon as is safe with her fluid balancesee above. Tension headachegentle OMT done with improvement. otherwise as above Updated her sister Monique who is very kind, lives in [place], and greatly appreciates daily updates given that she is unable to be with her sister during this time. Subjective Pt seen in ICU after transfer last night. Pt is alert and oriented. Reporting abdominal soreness post surgery, but states it is different than the abdominal cramping and nausea she had in the previous days. Pt's friend, Elise, is also at bedside. Physical Exam Physical Exam: The patient is awake, alert and oriented 3, appears weak and speaking 2-3 words due to SOB, normocephalic and atraumatic. HEENT--PERRL, EOMI Neck-- No JVD. No bruits. Thyroid normal, trachea midline, no adenopathy. Abdomen--Bandaged s/p ex lap. Generalized mild tenderness. Continues distended Extremities--mild LE edema, 2+ pitting. Dermatologic--normal skin turgor, normal color, no rash. Neurologic--cranial nerves II through XII grossly intact. Psychiatric--normal affect. Results & Data Results & Data Vital Signs (Past 12 Hours) Vital Signs Temp Pulse Pulse Resp BP BP Pulse Ox 06/28/24 06:42 104 H 22 95 06/28/24 06:40 107/73 06/28/24 06:40 107/73 06/28/24 06:40 107/73 06/28/24 06:40 107/73 06/28/24 06:27 105 H 15 95 06/28/24 06:20 110/68 06/28/24 06:18 103 H 19 95 06/28/24 06:10 124/69 06/28/24 06:06 100 H 18 94 06/28/24 06:00 111/71 06/28/24 06:00 111/71 06/28/24 06:00 99 H 14 95 06/28/24 05:50 117/69 06/28/24 05:48 103 H 15 95 06/28/24 05:40 118/77 06/28/24 05:36 91 H 13 96 06/28/24 05:20 108/66 06/28/24 05:20 108/66 06/28/24 05:10 112/65 06/28/24 05:00 103 H 15 93 06/28/24 05:00 106/65 06/28/24 05:00 106/65 06/28/24 04:50 110/66 06/28/24 04:50 110/66 06/28/24 04:45 107 H 20 90 06/28/24 04:40 107/64 06/28/24 04:33 105 H 19 92 06/28/24 04:30 108/70 06/28/24 04:30 108/70 06/28/24 04:21 104 H 14 94 06/28/24 04:20 106/66 06/28/24 04:18 109 H 15 94 06/28/24 04:10 110/64 06/28/24 04:10 110/64 06/28/24 04:06 105 H 16 94 06/28/24 03:50 113/70 06/28/24 03:50 113/70 06/28/24 03:48 101 H 14 93 06/28/24 03:40 125/60 06/28/24 03:40 125/60 06/28/24 03:39 107 H 14 06/28/24 03:30 113/64 06/28/24 03:30 113/64 06/28/24 03:30 110 H 21 06/28/24 03:30 06/28/24 03:20 123/77 06/28/24 03:15 114 H 20 96 06/28/24 03:11 102/76 06/28/24 03:11 102/76 06/28/24 03:09 106 H 15 95 06/28/24 02:13 115 H 06/28/24 02:11 36.6 C 06/28/24 02:07 116 H 16 91/51 L 96 06/27/24 23:11 36.7 C 126 H 16 100/70 92 06/27/24 22:51 06/27/24 19:44 36.9 C 123 H 16 112/77 92 O2 Del Method O2 Flow Rate 06/28/24 06:42 06/28/24 06:40 06/28/24 06:40 06/28/24 06:40 06/28/24 06:40 06/28/24 06:27 06/28/24 06:20 06/28/24 06:18 06/28/24 06:10 06/28/24 06:06 06/28/24 06:00 06/28/24 06:00 06/28/24 06:00 06/28/24 05:50 06/28/24 05:48 06/28/24 05:40 06/28/24 05:36 06/28/24 05:20 06/28/24 05:20 06/28/24 05:10 06/28/24 05:00 06/28/24 05:00 06/28/24 05:00 06/28/24 04:50 06/28/24 04:50 06/28/24 04:45 06/28/24 04:40 06/28/24 04:33 06/28/24 04:30 06/28/24 04:30 06/28/24 04:21 06/28/24 04:20 06/28/24 04:18 06/28/24 04:10 06/28/24 04:10 06/28/24 04:06 06/28/24 03:50 06/28/24 03:50 06/28/24 03:48 06/28/24 03:40 06/28/24 03:40 06/28/24 03:39 06/28/24 03:30 06/28/24 03:30 06/28/24 03:30 06/28/24 03:30 Oxymask 8 06/28/24 03:20 06/28/24 03:15 06/28/24 03:11 06/28/24 03:11 06/28/24 03:09 06/28/24 02:13 06/28/24 02:11 06/28/24 02:07 Oxymask 06/27/24 23:11 Nasal Cannula 5.0 06/27/24 22:51 Nasal Cannula 5 06/27/24 19:44 Nasal Cannula 5.0 (2) Abdominal ascites Ascites type: other type Qualified Code(s): R18.8 - Other ascites"
--- NOTE | 2024-06-28 07:32 | XRay Report ---
XR chest 1V portable HISTORY: hypoxia COMPARISON: Chest 06/25/2024. FINDINGS: Nasogastric tube terminates below the diaphragm. The tip is not included on this study. The fenestrated line is located at the gastroesophageal junction. No pneumothorax. Small to moderate ian ateral pleural effusions and bibasilar densities have progressed. The heart is normal in size. No taj dence for pulmonary edema. Emphysema is noted. No acute fractures. IMPRESSION: 1. Nasogastric tube terminates below the diaphragm. 2. Small to moderate bilateral pleural effusions and bibasilar densities have progressed. ACT 112: Negative or not required by law. Electronically signed by: Maximilian Ferro M.D. 06/28/2024 7:31 AM
--- NOTE | 2024-06-28 07:35 | XRay Report ---
XR chest 1V portable HISTORY: Hypoxia. central line COMPARISON: Chest 06/28/2024. FINDINGS: No pneumothorax. Small to moderate bilateral pleural effusions and perihilar airspace opaci ties are again noted. These are similar to the prior study. Nasogastric tube terminates below the karen phragm. The tip is not included on the study. A right jugular central venous catheter terminates in t he SVC. The heart is stable in size. No acute fractures. IMPRESSION: 1. Satisfactory support line placement. 2. Small to moderate bilateral pleural effusions and bilateral perihilar airspace opacities persist. ACT 112: Negative or not required by law. Electronically signed by: Maximilian Ferro M.D. 06/28/2024 7:33 AM
--- NOTE | 2024-06-28 08:44 | Surgery Progress Note ---
Date of Service June 28, 2024 Assessment & Plan (1) S/P exploratory laparotomy: Plan: POD 1 pt requiring pressor support in ICU on 8L O2 via oxymask awaiting return of bowel function no bm no flatus surgical dressing CDI Pt seen and examined with Dr Ann Porras (2) Small bowel obstruction due to adhesions: Admission and Anticipated Discharge Date Admission Date: June 22, 2024 Supervising Physician Co-Signing Physician Notes I personally saw and evaluated the patient with Eb DIEGO and agree with the assessment and plan POD#1 Ex lap, enterolysis, drainage of intra-abdominal ascites Keep NGT in place until passing some flatus Keep dressing in place until 06/30, then can leave open to air No signs of malignancy intraoperatively Await return of bowel function Will follow Subjective Pt in ICU alert Review of Systems Constitutional: no fever and no chills Gastrointestinal: + abdominal pain and + bloating; no naus ea and no vomiting Physical Exam Constitutional: cooperative; no acute distress Respiratory: on an oxymask at 8l/min Cardiovascular: Rate/Rhythm: + tachycardic (104) Gastrointestinal (Abdomen): Inspection/Auscultation: + abdomen distended and + abdominal surgical incision (post surgical dressing CDI ) Percussion/Palpation: + abdomen tender Genitourinary: mazariegos cath Results & Data Vital Signs (Past 12 Hours) Vital Signs Temp Pulse Pulse Resp BP BP Pulse Ox 06/28/24 06:42 104 H 22 95 06/28/24 06:40 107/73 06/28/24 06:40 107/73 06/28/24 06:40 107/73 06/28/24 06:40 107/73 06/28/24 06:27 105 H 15 95 06/28/24 06:20 110/68 06/28/24 06:18 103 H 19 95 06/28/24 06:10 124/69 06/28/24 06:06 100 H 18 94 06/28/24 06:00 111/71 06/28/24 06:00 111/71 06/28/24 06:00 99 H 14 95 06/28/24 05:50 117/69 06/28/24 05:48 103 H 15 95 06/28/24 05:40 118/77 06/28/24 05:36 91 H 13 96 06/28/24 05:20 108/66 06/28/24 05:20 108/66 06/28/24 05:10 112/65 06/28/24 05:00 103 H 15 93 06/28/24 05:00 106/65 06/28/24 05:00 106/65 06/28/24 04:50 110/66 06/28/24 04:50 110/66 06/28/24 04:45 107 H 20 90 06/28/24 04:40 107/64 06/28/24 04:33 105 H 19 92 06/28/24 04:30 108/70 06/28/24 04:30 108/70 06/28/24 04:21 104 H 14 94 06/28/24 04:20 106/66 06/28/24 04:18 109 H 15 94 06/28/24 04:10 110/64 06/28/24 04:10 110/64 06/28/24 04:06 105 H 16 94 06/28/24 03:50 113/70 06/28/24 03:50 113/70 06/28/24 03:48 101 H 14 93 06/28/24 03:40 125/60 06/28/24 03:40 125/60 06/28/24 03:39 107 H 14 06/28/24 03:30 113/64 06/28/24 03:30 113/64 06/28/24 03:30 110 H 21 06/28/24 03:30 06/28/24 03:20 123/77 06/28/24 03:15 114 H 20 96 06/28/24 03:11 102/76 06/28/24 03:11 102/76 06/28/24 03:09 106 H 15 95 06/28/24 02:13 115 H 06/28/24 02:11 97.9 F 06/28/24 02:07 116 H 16 91/51 L 96 06/27/24 23:11 98.1 F 126 H 16 100/70 92 06/27/24 22:51 O2 Del Method O2 Flow Rate 06/28/24 06:42 06/28/24 06:40 06/28/24 06:40 06/28/24 06:40 06/28/24 06:40 06/28/24 06:27 06/28/24 06:20 06/28/24 06:18 06/28/24 06:10 06/28/24 06:06 06/28/24 06:00 06/28/24 06:00 06/28/24 06:00 06/28/24 05:50 06/28/24 05:48 06/28/24 05:40 06/28/24 05:36 06/28/24 05:20 06/28/24 05:20 06/28/24 05:10 06/28/24 05:00 06/28/24 05:00 06/28/24 05:00 06/28/24 04:50 06/28/24 04:50 06/28/24 04:45 06/28/24 04:40 06/28/24 04:33 06/28/24 04:30 06/28/24 04:30 06/28/24 04:21 06/28/24 04:20 06/28/24 04:18 06/28/24 04:10 06/28/24 04:10 06/28/24 04:06 06/28/24 03:50 06/28/24 03:50 06/28/24 03:48 06/28/24 03:40 06/28/24 03:40 06/28/24 03:39 06/28/24 03:30 06/28/24 03:30 06/28/24 03:30 06/28/24 03:30 Oxymask 8 06/28/24 03:20 06/28/24 03:15 06/28/24 03:11 06/28/24 03:11 06/28/24 03:09 06/28/24 02:13 06/28/24 02:11 06/28/24 02:07 Oxymask 06/27/24 23:11 Nasal Cannula 5.0 06/27/24 22:51 Nasal Cannula 5 PG Care Time/CCT Total # of Minutes Spent Total Time Spent with Patient: Total time spent is greater than 50% in coordination of care (as documented) at patient's floor/unit and/or counseling patient: Coding Level of Care Code 96205 Post Operative Follow-Up Diagnoses S/P exploratory laparotomy Z98.890 Small bowel obstruction due to adhesions K56.50
[2024-06-28 09:15] LABS: BUN Creatinine Ratio 20.7 (10-20); Calcium 7.3 mg/dl (8.6-10.3); Creatinine Clr Calc Pharmacy 16.2 ml/min; Est GFR (Non-African American) 13.8 ml/min; Potassium 4.5 mmol/L (3.5-5.1)
[2024-06-28 09:29] LABS: Thyroid Stimulating Hormone 9.08 uIu/ml (0.300-4.500)
--- NOTE | 2024-06-28 09:48 | Gastroenterology Progress Note ---
<Statement entered by Jovana Dixon MD - 06/28/24 15:42> I have examined the patient, reviewed the History & Physical and in the interval since the performance of the History & Physical I have noted the following changes of clinical significance: no changes noted. I agree with the documentation provided by CAROLYN James. Clarisse is critically ill. Her current presentation relates to a small bowel obstruction in the setting of adhesive disease. In that setting she has developed a pleural effusion, ascites and renal failure. The cause for the effusion and ascites is unclear. Her ascitic SAAG is 0.5 which is not consistent with portal htn. Total protein of ascites is less than 3. Technically this suggests nephrotic ascites but this does not align with what I would expect evolution-bonner and she had no protein in her urine on 06/20. Echo shows hyperdynamic cardiac function with EF 70%. She has a coagulopathy but she was on coumadin and appears to be malnourished and is receiving antibiotics. Her LFTs are otherwise normal and her liver was noted to appear as normal during her ex lap. There are no varices on imaging or other signs or clinical history to suggest underlying liver disease but its difficult to be entirely certain in this regard. She did receive 3 IV contrast loads. Appreciate nephrology assistance, broad spectrum abx; need to consider nutrition - suspect will need TPN unless bowels open in the next 12-24 hours. If no improvement by tomorrow, would also consider repeat abd imaging w an u/s to assess for ascites reaccumulation. Treatment with norepi and albumin can be considered treatment for HRS but I dont believe that to be the underlying condition fueling the current presentation. Date of Service June 28, 2024 Assessment & Plan (1) Cirrhosis: Plan: Discussed with Dr. Dixon. It is not felt that her current clinical picture is being driven by the cirrhosis at present. Her LFTs are unremarkable. INR 1.7 (down from >5 upon presentation). I did contact cytology to see if any of the ascitic fluid removed from her ex lap is remaining for further studies. I was informed there is a small volume of fluid remaining and they will attempt to obtain further fluid studies for albumin, protein, etc. Admission and Anticipated Discharge Date Admission Date: June 22, 2024 Subjective Patient is a 73 yo female POD1 from ex lap due to SBO 2/2 adhesions. An NG is in place an draining. 1 L of ascitic fluid was taken from patient during surgery. Studies pending. Kidney function is notably worsened. Patient is in the ICU requiring vasopressor support. T bili is 0.9, AST 29, ALT 10. INR was elevated on admission, but is now 1.7. Nephrology is following. Patient has had 3 CT scans with IV contrast since admission. Initial CT on 06/20 showed periportal edema consistent with a hepatitis, the next CT on 06/22 indicated abdominal ascites, an US the next day showed scant ascites and she was unable to have a paracentesis, CT on 06/26 indicated a possible cirrhosis with ascites. Patient with moderate pleural effusions. She is saturating at 89% on 6L. She has abdominal pain this morning but is not experiencing n/v. Review of Systems Gastrointestinal: + abdominal pain; no nausea and no vomit ing Physical Exam Constitutional: well developed Gastrointestinal (Abdomen): Inspection/Auscultation: + abdomen distended Percussion/Palpation: + abdomen tender Results & Data Results & Data Vital Signs (Past 12 Hours) Vital Signs Temp Pulse Pulse Resp BP BP Pulse Ox 06/28/24 08:40 104/68 06/28/24 08:36 113 H 21 95 06/28/24 08:30 109/69 06/28/24 08:27 102 H 23 94 06/28/24 08:21 108 H 23 89 L 06/28/24 08:21 111/53 L 06/28/24 08:10 111/67 06/28/24 08:03 111 H 23 95 06/28/24 08:00 103/73 06/28/24 07:57 109 H 22 90 06/28/24 07:50 100/63 06/28/24 07:36 112 H 25 H 06/28/24 07:20 116/66 06/28/24 07:06 109 H 19 95 06/28/24 07:00 110 H 23 99 06/28/24 07:00 112/64 06/28/24 06:50 112/68 06/28/24 06:45 105 H 19 93 06/28/24 06:42 104 H 22 95 06/28/24 06:40 107/73 06/28/24 06:40 107/73 06/28/24 06:40 107/73 06/28/24 06:40 107/73 06/28/24 06:27 105 H 15 95 06/28/24 06:20 110/68 06/28/24 06:18 103 H 19 95 06/28/24 06:10 124/69 06/28/24 06:06 100 H 18 94 06/28/24 06:00 111/71 06/28/24 06:00 111/71 06/28/24 06:00 99 H 14 95 06/28/24 05:50 117/69 06/28/24 05:48 103 H 15 95 06/28/24 05:40 118/77 06/28/24 05:36 91 H 13 96 06/28/24 05:20 108/66 06/28/24 05:20 108/66 06/28/24 05:10 112/65 06/28/24 05:00 103 H 15 93 06/28/24 05:00 106/65 06/28/24 05:00 106/65 06/28/24 04:50 110/66 06/28/24 04:50 110/66 06/28/24 04:45 107 H 20 90 06/28/24 04:40 107/64 06/28/24 04:33 105 H 19 92 06/28/24 04:30 108/70 06/28/24 04:30 108/70 06/28/24 04:21 104 H 14 94 06/28/24 04:20 106/66 06/28/24 04:18 109 H 15 94 06/28/24 04:10 110/64 06/28/24 04:10 110/64 06/28/24 04:06 105 H 16 94 06/28/24 03:50 113/70 06/28/24 03:50 113/70 06/28/24 03:48 101 H 14 93 06/28/24 03:40 125/60 06/28/24 03:40 125/60 06/28/24 03:39 107 H 14 06/28/24 03:30 113/64 06/28/24 03:30 113/64 06/28/24 03:30 110 H 21 06/28/24 03:30 06/28/24 03:20 123/77 06/28/24 03:15 114 H 20 96 06/28/24 03:11 102/76 06/28/24 03:11 102/76 06/28/24 03:09 106 H 15 95 06/28/24 02:13 115 H 06/28/24 02:11 36.6 C 06/28/24 02:07 116 H 16 91/51 L 96 06/27/24 23:11 36.7 C 126 H 16 100/70 92 06/27/24 22:51 O2 Del Method O2 Flow Rate 06/28/24 08:40 06/28/24 08:36 Oxymask 6 06/28/24 08:30 06/28/24 08:27 06/28/24 08:21 06/28/24 08:21 06/28/24 08:10 06/28/24 08:03 06/28/24 08:00 06/28/24 07:57 06/28/24 07:50 06/28/24 07:36 06/28/24 07:20 06/28/24 07:06 06/28/24 07:00 Oxymask 8 06/28/24 07:00 06/28/24 06:50 06/28/24 06:45 06/28/24 06:42 06/28/24 06:40 06/28/24 06:40 06/28/24 06:40 06/28/24 06:40 06/28/24 06:27 06/28/24 06:20 06/28/24 06:18 06/28/24 06:10 06/28/24 06:06 06/28/24 06:00 06/28/24 06:00 06/28/24 06:00 06/28/24 05:50 06/28/24 05:48 06/28/24 05:40 06/28/24 05:36 06/28/24 05:20 06/28/24 05:20 06/28/24 05:10 06/28/24 05:00 06/28/24 05:00 06/28/24 05:00 06/28/24 04:50 06/28/24 04:50 06/28/24 04:45 06/28/24 04:40 06/28/24 04:33 06/28/24 04:30 06/28/24 04:30 06/28/24 04:21 06/28/24 04:20 06/28/24 04:18 06/28/24 04:10 06/28/24 04:10 06/28/24 04:06 06/28/24 03:50 06/28/24 03:50 06/28/24 03:48 06/28/24 03:40 06/28/24 03:40 06/28/24 03:39 06/28/24 03:30 06/28/24 03:30 06/28/24 03:30 06/28/24 03:30 Oxymask 8 06/28/24 03:20 06/28/24 03:15 06/28/24 03:11 06/28/24 03:11 06/28/24 03:09 06/28/24 02:13 06/28/24 02:11 06/28/24 02:07 Oxymask 06/27/24 23:11 Nasal Cannula 5.0 06/27/24 22:51 Nasal Cannula 5 PG Care Time/CCT Total # of Minutes Spent Total Time Spent with Patient: Total time spent is greater than 50% in coordination of care (as documented) at patient's floor/unit and/or counseling patient: Coding Level of Care Code 73816 SUB INP/OBS CARE 2/35MIN Diagnoses Cirrhosis K74.60
[2024-06-28 10:04] LABS: T4 Free Thyroxine 0.58 ng/dl (0.61-1.60)
--- NOTE | 2024-06-28 10:48 | Nephrology Progress Note ---
Date of Service June 28, 2024 Assessment & Plan (1) DOMITILA (acute kidney injury): Plan: Non-oliguric. Baseline creatinine <1 mg/dL. Urine acellular yesterday. CT demonstrates the kidneys to be unobstructed. Urine microscopy notable for hyaline casts. Urine sodium ~10. Clinical presentation concerning for prerenal physiology. Clarisse is third spacing fluid - total body water high but intravascularly dry. Given ascites and evidence of portal hypertension hepatorenal syndrome would be considered. However, liver was not significantly cirrhotic in appearance on imaging. T bili and LFTs have been normal. Atypical cariogenic presentation but this is also possible. I would assume there is a component of ATN related to hemodynamic changes, poor nutrition, decreased EAV, and iodinated contrast. Clarisse has mild hyperkalemia with worsening metabolic acidosis. She is relatively oliguric with increasing pleural effusions and hypoxic respiratory failure. At this time, I believe that she would benefit from starting HD. Risks/benefits were reviewed. The screen printer will place a HD catheter at the bedside. I have contacted the international nurse and provided orders for HD today. Close monitoring will be provided. Document strict I/O's. Gutierrez to gravity. Repeat metabolic profile tomorrow AM. (2) Hyponatremia: Plan: Total body water high but intravascularly dry. Low solute intake. Primary goal of management is intravascular expansion and vasopressor support PRN. (3) Metabolic acidosis: Plan: Mixed AG/NAGMA in the setting of DOMITILA. Lactate remains slightly elevated. Hypotensive and tachycardic. HCO3 gtt can be started once HD started. (4) Abdominal ascites: Plan: Fluid sent for analysis yesterday. (5) Pleural effusion: Plan: Exudative by Light's criteria. Cytology negative for malignancy. (6) Small bowel obstruction due to adhesions: Plan: POD# 1 s/p ex lap with lysis of adhesions. Admission and Anticipated Discharge Date Admission Date: June 22, 2024 Subjective Clarisse was seen and evaluated in the ICU this morning. I discussed the patient's history and plan of care with Dr. Hi and Dr. Fine. Clarisse was transferred to the ICU requiring vasopressor support postoperatively. She denies significant pain. She remains relatively oliguric. Gutierrez draining concentrated yellow urine. Clarisse is oxygenating at ~90% on 6L Oxymask. BP supported with levophed gtt. No operative complications and minimal blood loss. NGT to suction. The patient was seen and evaluated with her two close friends at the bedside. Risks/benefits of hemodialysis were reviewed. She expressed understanding. Review of Systems Review of Systems: All systems reviewed & are unremarkable except as noted in HPI & below Constitutional: + fatigue and + weakness (generalized); no fever and no chills Physical Exam Constitutional: + ill appearing and + thin; no acute dis tress Eyes: + anicteric sclerae ENMT: Mouth: + dry oral mucous membranes NGT to suction Neck: normal visual inspection and trachea midline Respiratory: + tachypneic Auscultation: + diminish ed lung sounds and + rales Cardiovascular: Rate/Rhythm: regular rhythm and + tachycardic Heart Sounds: normal S1 and normal S2 Vessels: + JVD Extremities: + edema Musculoskeletal: Extremities: no cyanosis and no clubbing Skin: normal turgor; no jaundice Neurologic: Motor/Sensory: no tremor and no asterixis Psychiatric: Orientation: alert and oriented x 3 Results & Data Vital Signs (Past 12 Hours) Vital Signs Temp Pulse Pulse Resp BP BP Pulse Ox 06/28/24 10:10 87/62 L 06/28/24 10:03 109 H 21 89 L 06/28/24 10:00 88/63 L 06/28/24 10:00 109 H 17 06/28/24 09:54 106 H 21 91 06/28/24 09:50 93/63 L 06/28/24 09:46 101 H 06/28/24 09:26 06/28/24 09:24 106 H 24 89 L 06/28/24 09:20 99/74 L 06/28/24 09:18 104 H 22 90 06/28/24 09:15 110 H 18 93 06/28/24 09:10 110/63 06/28/24 09:03 111 H 21 06/28/24 09:00 107/69 06/28/24 08:45 111 H 29 H 94 06/28/24 08:42 113 H 28 H 91 06/28/24 08:40 104/68 06/28/24 08:36 113 H 21 95 06/28/24 08:30 109/69 06/28/24 08:27 102 H 23 94 06/28/24 08:21 108 H 23 89 L 06/28/24 08:21 111/53 L 06/28/24 08:10 111/67 06/28/24 08:03 111 H 23 95 06/28/24 08:00 103/73 06/28/24 07:57 109 H 22 90 06/28/24 07:50 100/63 06/28/24 07:36 112 H 25 H 06/28/24 07:20 116/66 06/28/24 07:06 109 H 19 95 06/28/24 07:00 110 H 23 99 06/28/24 07:00 112/64 06/28/24 06:50 112/68 06/28/24 06:45 105 H 19 93 06/28/24 06:42 104 H 22 95 06/28/24 06:40 107/73 06/28/24 06:40 107/73 06/28/24 06:40 107/73 06/28/24 06:40 107/73 06/28/24 06:27 105 H 15 95 06/28/24 06:20 110/68 06/28/24 06:18 103 H 19 95 06/28/24 06:10 124/69 06/28/24 06:06 100 H 18 94 06/28/24 06:00 111/71 06/28/24 06:00 111/71 06/28/24 06:00 99 H 14 95 06/28/24 05:50 117/69 06/28/24 05:48 103 H 15 95 06/28/24 05:40 118/77 06/28/24 05:36 91 H 13 96 06/28/24 05:20 108/66 06/28/24 05:20 108/66 06/28/24 05:10 112/65 06/28/24 05:00 103 H 15 93 06/28/24 05:00 106/65 06/28/24 05:00 106/65 06/28/24 04:50 110/66 06/28/24 04:50 110/66 06/28/24 04:45 107 H 20 90 06/28/24 04:40 107/64 06/28/24 04:33 105 H 19 92 06/28/24 04:30 108/70 06/28/24 04:30 108/70 06/28/24 04:21 104 H 14 94 08/01/24 04:20 106/66 06/28/24 04:18 109 H 15 94 06/28/24 04:10 110/64 06/28/24 04:10 110/64 06/28/24 04:06 105 H 16 94 06/28/24 03:50 113/70 06/28/24 03:50 113/70 06/28/24 03:48 101 H 14 93 06/28/24 03:40 125/60 06/28/24 03:40 125/60 06/28/24 03:39 107 H 14 06/28/24 03:30 113/64 06/28/24 03:30 113/64 06/28/24 03:30 110 H 21 06/28/24 03:30 06/28/24 03:20 123/77 06/28/24 03:15 114 H 20 96 06/28/24 03:11 102/76 06/28/24 03:11 102/76 06/28/24 03:09 106 H 15 95 06/28/24 02:13 115 H 06/28/24 02:11 36.6 C 06/28/24 02:07 116 H 16 91/51 L 96 06/27/24 23:11 36.7 C 126 H 16 100/70 92 06/27/24 22:51 O2 Del Method O2 Flow Rate 06/28/24 10:10 Oxymask 6 06/28/24 10:03 06/28/24 10:00 06/28/24 10:00 06/28/24 09:54 06/28/24 09:50 06/28/24 09:46 06/28/24 09:26 Oxymask 6 06/28/24 09:24 06/28/24 09:20 06/28/24 09:18 Oxymask 6 06/28/24 09:15 06/28/24 09:10 06/28/24 09:03 06/28/24 09:00 06/28/24 08:45 06/28/24 08:42 06/28/24 08:40 Oxymask 6 06/28/24 08:36 Oxymask 6 06/28/24 08:30 06/28/24 08:27 06/28/24 08:21 06/28/24 08:21 06/28/24 08:10 06/28/24 08:03 06/28/24 08:00 06/28/24 07:57 06/28/24 07:50 06/28/24 07:36 06/28/24 07:20 06/28/24 07:06 06/28/24 07:00 Oxymask 8 06/28/24 07:00 06/28/24 06:50 06/28/24 06:45 06/28/24 06:42 06/28/24 06:40 06/28/24 06:40 06/28/24 06:40 06/28/24 06:40 06/28/24 06:27 06/28/24 06:20 06/28/24 06:18 06/28/24 06:10 06/28/24 06:06 06/28/24 06:00 06/28/24 06:00 06/28/24 06:00 06/28/24 05:50 06/28/24 05:48 06/28/24 05:40 06/28/24 05:36 06/28/24 05:20 06/28/24 05:20 06/28/24 05:10 06/28/24 05:00 06/28/24 05:00 06/28/24 05:00 06/28/24 04:50 06/28/24 04:50 06/28/24 04:45 06/28/24 04:40 06/28/24 04:33 06/28/24 04:30 06/28/24 04:30 06/28/24 04:21 06/28/24 04:20 06/28/24 04:18 06/28/24 04:10 06/28/24 04:10 06/28/24 04:06 06/28/24 03:50 06/28/24 03:50 06/28/24 03:48 06/28/24 03:40 06/28/24 03:40 06/28/24 03:39 06/28/24 03:30 06/28/24 03:30 06/28/24 03:30 06/28/24 03:30 Oxymask 8 06/28/24 03:20 06/28/24 03:15 06/28/24 03:11 06/28/24 03:11 06/28/24 03:09 06/28/24 02:13 06/28/24 02:11 06/28/24 02:07 Oxymask 06/27/24 23:11 Nasal Cannula 5.0 06/27/24 22:51 Nasal Cannula 5 Laboratory Results Laboratory Results - last 24 hr 06/25/24 06/27/24 06/28/24 14:34 22:54 00:43 WBC 13.92 H RBC 5.79 H Hgb 18.7 H POC Hgb Hct 52.7 H POC Hct MCV 91.0 MCH 32.3 MCHC 35.5 RDW Std Deviation 42.8 RDW Coeff of Eve 12.9 Plt Count 318 MPV 10.4 Immature Gran % (Auto) Neut % (Auto) Lymph % (Auto) Kern % (Auto) Eos % (Auto) Baso % (Auto) Neut # (Auto) Lymph # (Auto) Kern # (Auto) Eos # (Auto) Baso # (Auto) Immature Gran # (Auto) Polychromasia Echinocytes PT INR POC pH POC pCO2 POC pO2 POC HCO3 POC Total CO2 POC Base Excess POC ABG O2 Sat VBG pH 7.22 L VBG pCO2 48 VBG pO2 28 VBG HCO3 20 VBG O2 Saturation < 60.0 VBG Base Excess -8.2 POC Sodium Sodium 128 L POC Potassium Potassium 5.5 H D Chloride 98 Carbon Dioxide 20 L Anion Gap 10 BUN 68 H Creatinine 3.36 H D Est Cr Clr Drug Dosing 15.1 Est GFR ( Amer) 14.7 Est GFR (Non-Af Amer) 12.7 BUN/Creatinine Ratio 20.2 H Glucose 134 H POC Glucose 83 Lactate 2.9 H* Calcium 7.9 L Phosphorus Magnesium Total Bilirubin 0.8 AST 36 ALT 14 Alkaline Phosphatase 32 L Total Protein 4.1 L Albumin 2.5 L Globulin 1.6 L Albumin/Globulin Ratio 1.6 TSH Free T4 Random Cortisol Urine Color Urine Appearance Urine pH Ur Specific Larned Urine Protein Urine Glucose (UA) Urine Ketones Urine Blood Urine Nitrite Urine Bilirubin Urine Urobilinogen Ur Leukocyte Esterase Urine WBC (Auto) Urine RBC (Auto) U Hyaline Cast (Auto) U Epithel Cells (Auto) Urine Bacteria (Auto) Hyaline Casts Granular Casts WBC Casts Ur Random Creatinine Ur Random Sodium Nasal Screen MRSA (PCR) Hepatitis A IgM Ab NON-REACTIVE Hep B Core IgM Ab NON-REACTIVE 06/28/24 06/28/24 06/28/24 00:49 00:55 04:26 WBC 13.05 H RBC 4.86 Hgb 15.2 D POC Hgb 18.4 H Hct 45.6 POC Hct 54 H MCV 93.8 MCH 31.3 MCHC 33.3 RDW Std Deviation 46.1 RDW Coeff of Eve 13.3 Plt Count 251 MPV 10.6 Immature Gran % (Auto) 1.3 Neut % (Auto) 83.2 Lymph % (Auto) 4.1 Kern % (Auto) 11.0 Eos % (Auto) 0.2 Baso % (Auto) 0.2 Neut # (Auto) 10.87 H Lymph # (Auto) 0.53 L Kern # (Auto) 1.43 H Eos # (Auto) 0.03 Baso # (Auto) 0.02 Immature Gran # (Auto) 0.17 Polychromasia 1+ Echinocytes 2+ PT 17.2 H INR 1.7 H POC pH 7.33 L POC pCO2 29 L POC pO2 80 POC HCO3 15 L POC Total CO2 16 L POC Base Excess -11.0 L POC ABG O2 Sat 95.0 VBG pH 7.25 L VBG pCO2 51 H VBG pO2 23 VBG HCO3 22 VBG O2 Saturation < 60.0 VBG Base Excess -5.2 POC Sodium 128 L Sodium 130 L POC Potassium 5.5 H Potassium 4.6 Chloride 96 L Carbon Dioxide 23 Anion Gap 11 BUN 66 H Creatinine 3.44 H Est Cr Clr Drug Dosing 14.8 Est GFR ( Amer) 14.3 Est GFR (Non-Af Amer) 12.4 BUN/Creatinine Ratio 19.2 Glucose 164 H POC Glucose Lactate 3.3 H* 3.0 H* Calcium 7.9 L Phosphorus 5.7 H Magnesium 1.8 Total Bilirubin 0.9 AST 29 ALT 10 Alkaline Phosphatase 23 L Total Protein 4.9 L Albumin 3.8 Globulin 1.1 L Albumin/Globulin Ratio 3.5 H TSH Free T4 Random Cortisol 45.08 Urine Color Urine Appearance Urine pH Ur Specific Larned Urine Protein Urine Glucose (UA) Urine Ketones Urine Blood Urine Nitrite Urine Bilirubin Urine Urobilinogen Ur Leukocyte Esterase Urine WBC (Auto) Urine RBC (Auto) U Hyaline Cast (Auto) U Epithel Cells (Auto) Urine Bacteria (Auto) Hyaline Casts Granular Casts WBC Casts Ur Random Creatinine Ur Random Sodium Nasal Screen MRSA (PCR) Hepatitis A IgM Ab Hep B Core IgM Ab 06/28/24 06/28/24 08:30 Unknown WBC RBC Hgb POC Hgb Hct POC Hct MCV MCH MCHC RDW Std Deviation RDW Coeff of Eve Plt Count MPV Immature Gran % (Auto) Neut % (Auto) Lymph % (Auto) Kern % (Auto) Eos % (Auto) Baso % (Auto) Neut # (Auto) Lymph # (Auto) Kern # (Auto) Eos # (Auto) Baso # (Auto) Immature Gran # (Auto) Polychromasia Echinocytes PT INR POC pH POC pCO2 POC pO2 POC HCO3 POC Total CO2 POC Base Excess POC ABG O2 Sat VBG pH VBG pCO2 VBG pO2 VBG HCO3 VBG O2 Saturation VBG Base Excess POC Sodium Sodium 131 L POC Potassium Potassium 4.5 Chloride 98 Carbon Dioxide 23 Anion Gap 10 BUN 65 H Creatinine 3.14 H D Est Cr Clr Drug Dosing 16.2 Est GFR ( Amer) 16.0 Est GFR (Non-Af Amer) 13.8 BUN/Creatinine Ratio 20.7 H Glucose 171 H POC Glucose Lactate Calcium 7.3 L Phosphorus Magnesium Total Bilirubin AST ALT Alkaline Phosphatase Total Protein Albumin Globulin Albumin/Globulin Ratio TSH 9.080 H Free T4 0.58 L Random Cortisol Urine Color Dark Yellow Urine Appearance Turbid A Urine pH 5.0 Ur Specific Larned 1.024 Urine Protein 2+ H Urine Glucose (UA) Negative Urine Ketones Trace H Urine Blood 2+ H Urine Nitrite Negative Urine Bilirubin Negative Urine Urobilinogen Negative Ur Leukocyte Esterase Trace H Urine WBC (Auto) 6-10 H Urine RBC (Auto) 6-10 H U Hyaline Cast (Auto) >20 H U Epithel Cells (Auto) >20 H Urine Bacteria (Auto) None Seen Hyaline Casts Present A Granular Casts Present A WBC Casts Present A Ur Random Creatinine 76.4 Ur Random Sodium 11 Nasal Screen MRSA (PCR) Negative Hepatitis A IgM Ab Hep B Core IgM Ab PG Care Time/CCT Total # of Minutes Spent Total Time Spent with Patient: Total time spent is greater than 50% in coordination of care (as documented) at patient's floor/unit and/or counseling patient: Coding Level of Care Code 77721 SUB INP/OBS CARE 3/50MIN Diagnoses DOMITILA (acute kidney injury) N17.9 Hyponatremia E87.1 Metabolic acidosis E87.20 Abdominal ascites R18.8 Ascites type: other type Pleural effusion J90 Small bowel obstruction due to adhesions K56.50 (4) Abdominal ascites Ascites type: other type Qualified Code(s): R18.8 - Other ascites
--- NOTE | 2024-06-28 12:03 | Procedure Note ---
Procedure Note Date of Service June 28, 2024 Note CENTRAL LINE PROCEDURE NOTE: Procedure: Temporary HD access catheter Provider: Rio Hi MD Indication: Need for vascular access for dialysis Anesthesia: 5 mL 1% lidocaine Site: Right femoral Verbal consent was obtained from the patient. Risks and benefits were discussed. She is agreeable to proceed A time-out was completed verifying correct patient, procedure, site, positioning, and implants(s) or special equipment if applicable. Patients right groin was cleansed and draped in the typical sterile fashion using Chloraprep. The common femoral vein and artery were identified using ultrasound. The superficial tissue was anesthetized using 5 mL of 1% lidocaine without epinephrine under direct visualization with the ultrasound. After adequate anesthetization was achieved, the right femoral vein was cannulated under direct ultrasound guidance using an introducer needle on a syringe. Good venous blood return was maintained prior to removal of syringe from introducer needle. Using Seldinger Technique, a guide wire was advanced through the introducer needle without resistance. The introducer needle was removed and ultrasound images were reviewed of the guide wire within the femoral vein. A small incision was made in penetrating fashion at the guide wire insertion site utilizing an 11 blade scalpel. Serial dilators were advanced to the vessel without resistance. The final dilator was exchanged for the 24 cm HD cath which was advanced into the vessel without resistance. The guide wire was removed intact from the catheter without issue. Were placed on each catheter tip with confirmation of good blood flow from each lumen. Each port was easily flushed with sterile saline. The catheter was placed at 24 cm and sutured in place. BioPatch was applied to the catheter and a sterile Tegaderm dressing was applied over the catheter with careful attention to sterility. Patient tolerated procedure well. No immediate complications were met. Estimated blood loss: 5 mL Coding CPT Codes Tubes, Drains, and Vasc Access - Tubes, Drains, and Vasc Access: [id number] Insertion of cannula for hemodialysis ([id number]) Tubes, Drains, and Vasc Access - Tubes, Drains, and Vasc Access: [id number] Ultrasound Guidance For Vascular ([id number]) [facility] [place]odes (Charges) Tubes, Drains, and Vasc Access Procedure 1: Tubes, Drains, and Vasc Access: [id number] Insertion of cannula for hemodialysis Procedure 2: Tubes, Drains, and Vasc Access: [id number] Ultrasound Guidance For Vascular
--- NOTE | 2024-06-28 12:14 | XCELERA ---
[id number] \\ISCV-JOSE [id number]}___[id number]
[2024-06-28 12:24] LABS: Amylase Peritoneal Fluid 13 U/L
[2024-06-28 12:28] LABS: Glucose Peritoneal Fluid 131 mg/dl; LDH Peritoneal Fluid 134 U/L; Lipase Peritoneal Fluid 13 U/L; Total Protein Peritoneal Fluid < 3.0 gm/dl
[2024-06-28 13:08] LABS: BUN Creatinine Ratio 20.3 (10-20); Calcium 7.5 mg/dl (8.6-10.3); Creatinine Clr Calc Pharmacy 14.7 ml/min; Est GFR (African American) 14.3 ml/min; Est GFR (Non-African American) 12.3 ml/min; Potassium 4.4 mmol/L (3.5-5.1)
[2024-06-28] MEDS: CHLORASEPTIC (PHENOL) 1.4% SOLN 180 ML BTL MT PRN (13:09)
--- NOTE | 2024-06-28 13:16 | XRay Report ---
KUB HISTORY: Small bowel obstruction. Follow-up. COMPARISON: KUB 06/27/2024. FINDINGS: Midline skin dimitri are noted. Nasogastric tube is seen within the stomach. Bilateral pleu ral effusions and bibasilar densities persist. Dilated gas-filled loops of small bowel are again seen throughout the abdomen. These are similar to the prior study and measure up to 4.7 cm in diameter. T his may represent a postoperative ileus given the recent postoperative change. A small bowel obstruct ion remains in the differential diagnosis. No renal calculi. No ureteral calculi. No pneumoperitoneu m or pneumatosis. IMPRESSION: 1. Nasogastric tube terminates in the stomach. 2. Dilated gas-filled loops of small bowel are again noted throughout the abdomen which are similar t o the prior study. This may represent a postoperative ileus given the recent postoperative change. A small bowel obstruction remains in the differential diagnosis. ACT 112: Negative or not required by law. Electronically signed by: Maximilian Ferro M.D. 06/28/2024 1:15 PM
[2024-06-28 14:01] LABS: Appearance Peritoneal Fluid Clear; Color Peritoneal Fluid Straw; Lymphocytes, Fluid 27 %; Mono,Macrophage,Mesothelial 24 %; Neutrophils, Fluid 49 %; RBC Peritoneal Fluid Auto < 2000 /uL; WBC Peritoneal Fluid Auto 301 /ul (0-300)
[2024-06-28] MEDS ORDERED: KETAMINE 100MG/ML 500 MG in SODIUM CHLORIDE 0.9% 495 ML IV SCH (16:15)
[2024-06-28] MEDS: SODIUM CHLORIDE 0.9% IV ONE (16:20)
[2024-06-28] MEDS: KETAMINE HCL IV ONE (16:20)
--- NOTE | 2024-06-28 17:23 | Billing Data ---
Date of Service June 28, 2024 Coding Level of Care Code 53385 SUB INP/OBS CARE MIN
[2024-06-28] MEDS: GLYCERIN ADULT 12 SUPP/BOX SUPP PR PRN (20:48)
[2024-06-28 21:01] LABS: BUN Creatinine Ratio 16.5 (10-20); Calcium 7.8 mg/dl (8.6-10.3); Creatinine Clr Calc Pharmacy 17.9 ml/min; Est GFR (African American) 18.1 ml/min; Est GFR (Non-African American) 15.6 ml/min; Potassium 4.1 mmol/L (3.5-5.1)
--- NOTE | 2024-06-28 22:24 | Electrocardiogram Report ---
Test Reason : Blood Pressure : / mmHG Vent. Rate : 107 BPM Atrial Rate : 107 BPM P-R Int : 152 ms QRS Dur : 120 ms QT Int : 380 ms P-R-T Axes : 029 095 -73 degrees QTc Int : 507 ms Atrial fibrillation with rapid ventricular response Low voltage QRS Right bundle branch block T wave abnormality, consider inferolateral ischemia Abnormal ECG When compared with ECG of 27-JUN-2024 06:41, T wave inversion now evident in Inferolateral leads Confirmed by Shant York ([id number]) on 06/28/2024 10:24:00 PM Referred By: Gabrielle Crawley Confirmed By:Shant York
[2024-06-29] MEDS: ALBUMIN 25% 25 GM/100 ML VIAL IV SCH ×2 (01:38→10:30)
[2024-06-29] MEDS: HYDROmorphone INJ 0.5 MG/0.5 ML SYR IV PRN (03:58)
[2024-06-29 04:38] LABS: Basophils # (auto) 0.17 K/uL (0.00-0.20); Basophils % (auto) 0.8 %; Eosinophils # (auto) 0.02 K/uL (0.00-0.50); Eosinophils % (auto) 0.1 %; Hematocrit (blood only) 43.3 % (37.0-47.0); Hemoglobin 14.9 g/dl (12.0-16.0); Immature Granulocytes # (auto) 0.64 K/uL (0.01-0.20); Immature Granulocytes % (auto) 3.1 %; Lymphocytes # (auto) 0.84 K/uL (1.20-3.40); Lymphocytes % (auto) 4.1 %; Mean Corpuscular Hemoglobin 31.4 pg (25.0-34.0); Mean Corpuscular Hgb Conc 34.4 g/dL (32.0-36.0); Mean Corpuscular Volume 91.4 fL (80.0-100.0); Mean Platelet Volume 10.1 fL (9.4-12.4); Monocytes # (auto) 1.51 K/uL (0.11-0.59); Monocytes % (auto) 7.4 %; Neutrophils # (auto) 17.24 K/uL (1.40-6.50); Neutrophils % (auto) 84.5 %; Platelet Count 200 K/uL (130-400); RDW Coefficient of Variation 13.3 % (11.5-14.5); RDW Standard Deviation 44.5 fL (36.4-46.3); Red Blood Count 4.74 M/uL (4.20-5.40); White Blood Count 20.42 K/ul (4.8-10.8)
[2024-06-29 04:53] LABS: Albumin Globulin Ratio 4.5 (0.9-2); Albumin Level 3.6 gm/dl (3.4-5.0); BUN Creatinine Ratio 15.4 (10-20); Bilirubin,Total 0.8 mg/dl (0.2-1.0); Calcium 7.9 mg/dl (8.6-10.3); Creatinine Clr Calc Pharmacy 15.1 ml/min; Est GFR (African American) 14.7 ml/min; Est GFR (Non-African American) 12.7 ml/min; Globulin 0.8 gm/dl (2.5-4.0); Magnesium 1.8 mg/dl (1.7-2.4); Phosphorus 4.6 mg/dl (2.5-4.9); Potassium 4.1 mmol/L (3.5-5.1); Total Protein 4.4 gm/dl (6.0-8.3)
--- NOTE | 2024-06-29 06:38 | Hospitalist Progress Note ---
"Date of Service June 29, 2024 Assessment & Plan (1) Ileus: (2) Abdominal ascites: (3) Pleural effusion: (4) Supratherapeutic INR: (5) Chronic anticoagulation: (6) Paroxysmal atrial fibrillation: (7) Small bowel obstruction due to adhesions: (8) S/P exploratory laparotomy: (9) DOMITILA (acute kidney injury): (10) Hyponatremia: (11) Metabolic acidosis: (12) Bronchiectasis: (13) Hypothyroid: Plan Persistent SBO Pt went to OR for ex lap on 06/27. Adhesional obstruction present, no signs of obvious ischemic bowel. Adhesion lysed and stool able to move freely passed prior obstruction. NGT remains in place. GI gave glycerin suppository on 06/28, which did not produce a bowel movement. KUB on 06/29 shows continued dilated distal small intestine. -continue PPI -continue NPO/NGT for now -Antiemetics PRN -Jack Tamp Operator recommends no TPN at this time due to risks Ascites Patient with ascites of unknown etiology. Significant concern for oncologic process. Unable to tap due to positioning of the bowel loops. Original imaging without signs of cirrhosis. Most recent did show some scarring/fibrosis of the liver. Ex lap without obvious since of malignancy. Able to sample the fluid. No organisms found on gram stain. -f/u pending fluid acid fast smear and culture, aerobic and anaerobic -further workup once patient stabilizes Supratherapeutic INR | Chronic anticoagulation |Paroxysmal a fib Supratherapeutic on admission. Does seem to respond to Vit K. Unclear on patient's liver function and ability to produce Vitamin K endogenously. Will continue to monitor -hold warfarin -daily coags -Started heparin 5000u, SQ q12h Paroxysmal a fib | Sinus tachycardia Intermittently in a fib vs sinus tach. Patient NPO at present and has not gotten her Cardizem. Pt continue with hypotension and now a-fib with RVR. No evidence of cardiomyopathy on echocardiogram on 06/28, EF >70% -Cardiology consulted for rate control -Holding cardizem -Follow daily ECGs DOMITILA/ATN Creatinine has increased to 3.37, potassium is holding at 4.1 after corrected with insulin on 06/27. Jack Tamp Operator placed temp HD port and dialysis performed on 06/28 but pt's BP dropped low/tachycardia. No fluid was removed. Pt continues with low urine output at 100cc overnight. Pleural effusions remain, pts continues on 8L O2. -Will plan dialysis again id nephrology recommends -Consider thoracocentesis if dialysis is not tolerated for removing fluid Leukocytosis Pt's WBC jumped to 20.42 today without known cause. Pt is afebrile and preliminary ascites fluid came back without organism growth on gram stain. Autoimmune panel was drawn. -Awaiting findings from Autoimmune panel. -Monitor vitals -IV Zosyn to continue Reactive Airway Disease Continue Anoro Ellipta Code status: full DVT ppx: SCDs, holding warfarin as INR supratherapeutic FENGI: NPO, NGT, IVF @ 150 mL Dispo: PCU/Tele Lines: Gutierrez placed 06/27 Admission and Anticipated Discharge Date Admission Date: June 22, 2024 Supervising Physician Co-Signing Physician Notes Patient seen and examined, chart reviewed, case discussed with Dr. Gandara and I agree with the assessment and plan as above except as otherwise noted Labs and images reviewed 73yo female with persistent SBO, s/p ex lap 06/27 and found to have dense adhesional obstruction and without ischemic bowel. NGT in place, remains without flatus or BM. Patient was also found to have ascites, had a single CT which was suspicious for liver cirrhosis however all subsequent imaging including repeat CT and ultrasound does not redemonstrate imaging of this and ascitic fluid is not suggestive of obstructive liver pathology. Do not suspect hepatorenal syndrome. Patient intravascularly depleted and with poor tolerance to hemodialysis. Rising procalcitonin and ill appearance with high risk of sepsis from GI source. Continued on Zosyn. Patient was transitioned from Levophed to Fernie-Synephrine due to tachycardia, was transiently off pressors however nor epi subsequently restarted for MAP less than 65.Cardiology following for rate control of paroxysmal A-fib, and RVR and subsequently switched to Fernie-Synephrine. Anticoagulation held due to procedures and bleeding risk; amiodarone avoided to minimize chance of spontaneous conversion, adequate rate control with metoprolol and subsequently loaded with digoxin. Apreciate cardiology recommendations and management. Surgery and GI following SBO post adhesional lysis. Patient is nutritionally depleted; however is also with significant renal dysfunction, shock, and critically and at risk of complications. TPN not recommended. Ideally would progress trophic --> enteral feeding as soon as bowel function returns. At bedside patient is ill-appearing. Alert, fatigues easily during conversation. Abdomen is firmly distended, surgical dressing C/C/I. Tachycardic +sm. Agree with above. Subjective Pt reporting she continues with neck tension and pain in her abdomen. Physical Exam Physical Exam: The patient is awake, alert and oriented 3, appears weak and NC instead of mask today which allowed pt to converse better, normocephalic and atraumatic. HEENT--PERRL, EOMI Neck-- No JVD.Thyroid normal, trachea midline, no adenopathy. Abdomen--Bandaged s/p ex lap. Generalized mild tenderness. Continues distended, firm to palpation Extremities--mild LE edema, 2+ pitting. Dermatologic-- normal color, no rash. Neurologic--cranial nerves II through XII grossly intact. Psychiatric--normal affect. Results & Data Results & Data Vital Signs (Past 12 Hours) Vital Signs Temp Pulse Resp BP Pulse Ox O2 Del Method O2 Del Method 06/29/24 06:18 130 H 30 H 113/76 96 06/29/24 06:09 132 H 25 H 95 06/29/24 06:00 127 H 20 107/69 96 06/29/24 05:54 133 H 18 95 06/29/24 05:42 124 H 20 97/67 L 95 06/29/24 05:36 130 H 19 95 06/29/24 05:30 108/60 06/29/24 05:27 130 H 23 96 06/29/24 05:15 121 H 23 97/64 L 95 06/29/24 05:03 137 H 24 109/62 95 06/29/24 04:57 122 H 18 95 06/29/24 04:45 102/65 06/29/24 04:36 131 H 25 H 95 06/29/24 04:18 124 H 21 105/56 L 94 06/29/24 04:03 129 H 20 95 06/29/24 04:00 36.0 C L 06/29/24 04:00 125 H 31 H 107/65 96 06/29/24 03:42 127 H 19 108/63 96 06/29/24 03:33 123 H 20 113/61 97 06/29/24 03:27 113 H 25 H 96 06/29/24 03:18 119 H 24 119/72 95 06/29/24 03:09 123 H 27 H 94 06/29/24 03:03 123 H 24 104/67 94 06/29/24 02:48 123 H 26 H 95 06/29/24 02:42 128 H 26 H 119/66 95 06/29/24 02:33 119 H 20 112/62 97 06/29/24 02:21 124 H 21 97 06/29/24 02:15 121 H 19 111/67 96 06/29/24 02:09 120 H 20 103/58 L 96 06/29/24 01:42 126 H 18 97 06/29/24 01:30 128 H 20 120/67 95 06/29/24 01:15 124 H 26 H 109/75 90 06/29/24 01:09 133 H 23 87 L 06/29/24 00:48 118 H 21 111/68 92 06/29/24 00:48 127 H 06/29/24 00:45 High Flow Nasal Cannula 06/29/24 00:33 121 H 25 H 94 06/29/24 00:30 135 H 23 110/65 94 06/29/24 00:15 127 H 23 106/67 93 06/29/24 00:06 35.7 C L 06/28/24 23:45 119 H 17 112/70 95 06/28/24 23:33 127 H 23 114/71 95 06/28/24 22:57 128 H 21 94 06/28/24 22:24 114 H 18 129/70 96 06/28/24 22:00 120 H 20 121/73 96 06/28/24 21:42 115 H 20 110/72 94 06/28/24 21:30 109/71 06/28/24 21:21 124 H 24 93 06/28/24 21:15 123/74 06/28/24 21:15 138 H 26 H 123/74 91 06/28/24 21:00 115/75 06/28/24 20:54 124 H 24 94 06/28/24 20:51 126 H 24 94 06/28/24 20:42 122 H 19 106/75 95 06/28/24 20:33 122 H 19 106/61 96 06/28/24 20:24 121 H 19 94 06/28/24 20:18 125 H 20 94 06/28/24 20:15 97/62 L 06/28/24 20:00 104/73 06/28/24 19:52 High Flow Nasal Cannula 06/28/24 19:48 126 H 20 94 06/28/24 19:45 124 H 20 96/69 L 94 06/28/24 19:30 111/60 06/28/24 19:27 128 H 18 94 06/28/24 19:15 92/68 L 06/28/24 19:09 131 H 21 94 06/28/24 19:03 121 H 17 97/71 L 95 06/28/24 19:00 36.5 C O2 Flow Rate O2 Flow Rate 06/29/24 06:18 06/29/24 06:09 06/29/24 06:00 06/29/24 05:54 06/29/24 05:42 06/29/24 05:36 06/29/24 05:30 06/29/24 05:27 06/29/24 05:15 06/29/24 05:03 06/29/24 04:57 06/29/24 04:45 06/29/24 04:36 06/29/24 04:18 06/29/24 04:03 06/29/24 04:00 06/29/24 04:00 06/29/24 03:42 06/29/24 03:33 06/29/24 03:27 06/29/24 03:18 06/29/24 03:09 06/29/24 03:03 06/29/24 02:48 06/29/24 02:42 06/29/24 02:33 06/29/24 02:21 06/29/24 02:15 06/29/24 02:09 06/29/24 01:42 06/29/24 01:30 06/29/24 01:15 06/29/24 01:09 06/29/24 00:48 06/29/24 00:48 06/29/24 00:45 7 06/29/24 00:33 06/29/24 00:30 06/29/24 00:15 06/29/24 00:06 06/28/24 23:45 06/28/24 23:33 06/28/24 22:57 06/28/24 22:24 06/28/24 22:00 06/28/24 21:42 06/28/24 21:30 06/28/24 21:21 06/28/24 21:15 06/28/24 21:15 06/28/24 21:00 06/28/24 20:54 06/28/24 20:51 06/28/24 20:42 06/28/24 20:33 06/28/24 20:24 06/28/24 20:18 06/28/24 20:15 06/28/24 20:00 06/28/24 19:52 7 06/28/24 19:48 06/28/24 19:45 06/28/24 19:30 06/28/24 19:27 06/28/24 19:15 06/28/24 19:09 06/28/24 19:03 06/28/24 19:00 (2) Abdominal ascites Ascites type: other type Qualified Code(s): R18.8 - Other ascites"
--- NOTE | 2024-06-29 07:39 | XRay Report ---
KUB HISTORY: Acute abdominal pain with small bowel obstruction SBO COMPARISON: 06/28/2024 FINDINGS: Midline skin dimitri. Distended air-filled loops of small bowel redemonstrated measuring up to 4.4 cm which is similar to prior. Distal tip of enteric tube projects over the expected location of the gastric body. No renal calculi. No ureteral calculi. No pneumoperitoneum or pneumatosis. A ri ght femoral catheter is noted with distal tip projected over the right sacral ala. Lumbar levoscolios is. No fracture. IMPRESSION: 1. Distal tip of enteric tube projects over the stomach. 2. Persistent small bowel distention which may represent obstruction versus postoperative ileus. Cont inued follow-up recommended. ACT 112: Negative or not required by law. The above report was generated using voice recognition software. It may contain grammatical, syntax o r spelling errors. Electronically signed by: Jame Sampson M.D. 06/29/2024 7:37 AM
[2024-06-29] MEDS ORDERED: STAT IV Infusion **Titration per Protocol STA (08:46)
--- NOTE | 2024-06-29 08:47 | Critical Care Progress Note ---
Date of Service June 29, 2024 Assessment & Plan (1) Ileus: (2) Abdominal ascites: (3) Pleural effusion: (4) Supratherapeutic INR: (5) Chronic anticoagulation: (6) Paroxysmal atrial fibrillation: (7) Small bowel obstruction due to adhesions: (8) S/P exploratory laparotomy: (9) DOMITILA (acute kidney injury): (10) Hyponatremia: (11) Metabolic acidosis: (12) Bronchiectasis: (13) Hypothyroid: Plan Impression: 73-year-old female with past medical history of PAF (anticoagulated on Coumadin), hypothyroidism, bronchiectasis, presents to the ICU for progressive acute renal failure and metabolic acidosis. Patient underwent exploratory laparotomy for small bowel obstruction due to adhesions yesterday and has become progressively fatigued, with repeat lab work showing lactic acidosis and acute renal failure. She has made very little urine postop and is now being transferred to ICU for vasopressor support with concern for hepatorenal syndrome. 24 hour events: Patient underwent placement of a left femoral hemodialysis access catheter. She underwent dialysis. She tolerated it reasonably well but they were unable to pull any fluid. Albumin was started for support. GI notes reviewed. She has not yet had resumption of bowel function Recommendations: Neuro -metabolic encephalopathy with mild delirium. Continue to reorient. Avoid medications associated with delirium if possible. No indication for additional workup or imaging at this point in time Cardiac -hypotension and now tachycardic. Echo findings reviewed. No evidence of valvular dysfunction or pulmonary hypertension. Continue volume support with 25% albumin. Transition from Levophed to Fernie-Synephrine given her tachycardia. History of atrial fibrillation. Holding anticoagulation currently. Patient appears total body fluid but intravascularly dry. No evidence of restrictive cardiomyopathy or pericardial disease on echocardiogram. No evidence of pulmonary hypertension. Do not think right heart catheterization would add much at this point in time. Recheck lactate this morning. Will consult cardiology for management strategies for RVR - digoxin poor option given renal function and hypotensive. Respiratory -hypoxemic respiratory failure with history of bronchiectasis. Prior bronchoscopy in January with BAL fluid showing 42% neutrophils 23% lymphocytes and 35% macrophages with no significant eosinophilia. Quantitative immunoglobulins in the past have been normal. AFB cultures at that time were negative. Pleural effusion from 06/25/2024 showed a total protein 3.1 with an LDH of 64 and a glucose of 102 with a lymphocytic predominance. Repeat chest x- ray. May consider pigtail catheter to drain the effusion and potentially improve respiratory work of breathing. Patient appears more comfortable today. Fluid could be resent if be sampled. GI -distal small bowel obstruction status post exploratory laparotomy with lysis of adhesions. Await resumption of bowel function. Management per surgery. Agr ee that the clinical history and presentation are not consistent with cirrhosis so hepatorenal syndrome unlikely. PPI in place. Anticipate we should be able to initiate enteral nutrition once bowel function resumes. Given her issues with volume currently and other medical conditions, would strongly recommend against TPN RENAL/LYTES -acute renal failure, urine studies consistent with both prerenal and potential still the intrinsic renal disease. Discussed with nephrology yesterday. Will plan on repeat dialysis today. Urine sediment volitionally not particularly revealing. Most recent urinalysis did show cast formation consistent with probable ATN as well as blood and protein. - Foleystrict I's and O's ENDO - Hypothyroidism Patient remains NPO. IV Synthroid today HEME - Leukocytosis today of unclear etiology. Given the appearance of serositis, will check for connective tissue disease with INDIRA screen as well as ANCA, ESR, and CRP. Check ferritin as well ID -white blood cell count progressively increasing up to 20,000 today. Cultures remain negative. Patient is afebrile but given her clinical condition, may not be able to mount a significant inflammatory response to infection. Day #4 Zosyn. Continue to follow clinically and repeat procalcitonin. LINES/IV ACCESS - Right IJ CVC (06/28), right femoral HD cath DVT PROPHYLAXIS - SCDs, start subcutaneous heparin I have personally spent 78 minutes of critical care time in the direct management of this patient. This is a life/limb threatening event. This includes time spent evaluating patient, direct bedside care, chart review, placing orders, interpretation of diagnostic studies, discussion with consultants, patient, and family members, as well as other required patient management activities. This time is exclusive of all separately billable procedures, and teaching time and separate from and in addition to any other critical care service time. Admission and Anticipated Discharge Date Admission Date: June 22, 2024 Subjective Patient seen and examined. EMR reviewed. Discussed with bedside critical care nurse and on multidisciplinary rounds. Patient tolerated dialysis yesterday. They were unable to remove fluid due to low blood pressure. Patient's not tachycardic. Was started on Review of Systems Review of Systems: All systems reviewed & are unremarkable except as noted in Subjective Physical Exam Constitutional: + ill appearing and + thin; no acute dis tress Eyes: + anicteric sclerae ENMT: Mouth: + dry oral mucous membranes NGT to suction Neck: normal visual inspection and trachea midline Respiratory: + tachypneic Auscultation: + diminish ed lung sounds and + rales Cardiovascular: Rate/Rhythm: regular rhythm and + tachycardic Heart Sounds: normal S1 and normal S2 Vessels: + JVD Extremities: + edema Musculoskeletal: Extremities: no cyanosis and no clubbing Skin: normal turgor; no jaundice Neurologic: Motor/Sensory: no tremor and no asterixis Psychiatric: Orientation: alert and oriented x 3 Results & Data Results & Data Vital Signs (Past 12 Hours) Vital Signs Temp Pulse Resp BP Pulse Ox O2 Del Method O2 Flow Rate 06/29/24 06:18 130 H 30 H 113/76 96 06/29/24 06:09 132 H 25 H 95 06/29/24 06:00 127 H 20 107/69 96 06/29/24 05:54 133 H 18 95 06/29/24 05:42 124 H 20 97/67 L 95 06/29/24 05:36 130 H 19 95 06/29/24 05:30 108/60 06/29/24 05:27 130 H 23 96 06/29/24 05:15 121 H 23 97/64 L 95 06/29/24 05:03 137 H 24 109/62 95 06/29/24 04:57 122 H 18 95 06/29/24 04:45 102/65 06/29/24 04:36 131 H 25 H 95 06/29/24 04:18 124 H 21 105/56 L 94 06/29/24 04:03 129 H 20 95 06/29/24 04:00 36.0 C L 06/29/24 04:00 125 H 31 H 107/65 96 06/29/24 03:42 127 H 19 108/63 96 06/29/24 03:33 123 H 20 113/61 97 06/29/24 03:27 113 H 25 H 96 06/29/24 03:18 119 H 24 119/72 95 06/29/24 03:09 123 H 27 H 94 06/29/24 03:03 123 H 24 104/67 94 06/29/24 02:48 123 H 26 H 95 06/29/24 02:42 128 H 26 H 119/66 95 06/29/24 02:33 119 H 20 112/62 97 06/29/24 02:21 124 H 21 97 06/29/24 02:15 121 H 19 111/67 96 06/29/24 02:09 120 H 20 103/58 L 96 06/29/24 01:42 126 H 18 97 06/29/24 01:30 128 H 20 120/67 95 06/29/24 01:15 124 H 26 H 109/75 90 06/29/24 01:09 133 H 23 87 L 06/29/24 00:48 118 H 21 111/68 92 06/29/24 00:48 127 H 06/29/24 00:45 High Flow Nasal Cannula 7 06/29/24 00:33 121 H 25 H 94 06/29/24 00:30 135 H 23 110/65 94 06/29/24 00:15 127 H 23 106/67 93 06/29/24 00:06 35.7 C L 06/28/24 23:45 119 H 17 112/70 95 06/28/24 23:33 127 H 23 114/71 95 06/28/24 22:57 128 H 21 94 06/28/24 22:24 114 H 18 129/70 96 06/28/24 22:00 120 H 20 121/73 96 06/28/24 21:42 115 H 20 110/72 94 06/28/24 21:30 109/71 06/28/24 21:21 124 H 24 93 06/28/24 21:15 123/74 06/28/24 21:15 138 H 26 H 123/74 91 06/28/24 21:00 115/75 06/28/24 20:54 124 H 24 94 06/28/24 20:51 126 H 24 94 Diagnostic Findings Echocardiogram from yesterday was reviewed with cardiology. Shows hyperdynamic systolic function with an EF greater than 70 without regional wall motion abnormalities. Mild MR was noted. Normal right ventricular systolic pressure. Pleural effusion noted. Critical Care Results & Data Vital Signs (Past 12 Hours) Vital Signs Temp Pulse Resp BP Pulse Ox O2 Del Method O2 Del Method 06/29/24 08:45 104/78 08/02/24 08:39 132 H 28 H 93 High Flow Nasal Cannula 06/29/24 08:30 112/74 06/29/24 08:18 136 H 23 94 06/29/24 08:15 105/70 06/29/24 08:09 125 H 24 93 06/29/24 08:00 120/81 06/29/24 08:00 120/81 06/29/24 08:00 132 H 26 H 96 06/29/24 07:45 131 H 25 H 94 06/29/24 07:30 128 H 35 H 95 06/29/24 07:21 122 H 20 95 06/29/24 06:36 133 H 38 H 94 06/29/24 06:18 130 H 30 H 113/76 96 06/29/24 06:09 132 H 25 H 95 06/29/24 06:00 127 H 20 107/69 96 06/29/24 05:54 133 H 18 95 06/29/24 05:42 124 H 20 97/67 L 95 06/29/24 05:36 130 H 19 95 06/29/24 05:30 108/60 06/29/24 05:27 130 H 23 96 06/29/24 05:15 121 H 23 97/64 L 95 06/29/24 05:03 137 H 24 109/62 95 06/29/24 04:57 122 H 18 95 06/29/24 04:45 102/65 06/29/24 04:36 131 H 25 H 95 06/29/24 04:18 124 H 21 105/56 L 94 06/29/24 04:03 129 H 20 95 06/29/24 04:00 36.0 C L 06/29/24 04:00 125 H 31 H 107/65 96 06/29/24 03:42 127 H 19 108/63 96 06/29/24 03:33 123 H 20 113/61 97 06/29/24 03:27 113 H 25 H 96 06/29/24 03:18 119 H 24 119/72 95 06/29/24 03:09 123 H 27 H 94 06/29/24 03:03 123 H 24 104/67 94 06/29/24 02:48 123 H 26 H 95 06/29/24 02:42 128 H 26 H 119/66 95 06/29/24 02:33 119 H 20 112/62 97 06/29/24 02:21 124 H 21 97 06/29/24 02:15 121 H 19 111/67 96 06/29/24 02:09 120 H 20 103/58 L 96 06/29/24 01:42 126 H 18 97 06/29/24 01:30 128 H 20 120/67 95 06/29/24 01:15 124 H 26 H 109/75 90 06/29/24 01:09 133 H 23 87 L 06/29/24 00:48 118 H 21 111/68 92 06/29/24 00:48 127 H 06/29/24 00:45 High Flow Nasal Cannula 06/29/24 00:33 121 H 25 H 94 06/29/24 00:30 135 H 23 110/65 94 06/29/24 00:15 127 H 23 106/67 93 06/29/24 00:06 35.7 C L 06/28/24 23:45 119 H 17 112/70 95 06/28/24 23:33 127 H 23 114/71 95 06/28/24 22:57 128 H 21 94 06/28/24 22:24 114 H 18 129/70 96 06/28/24 22:00 120 H 20 121/73 96 06/28/24 21:42 115 H 20 110/72 94 06/28/24 21:30 109/71 06/28/24 21:21 124 H 24 93 06/28/24 21:15 123/74 06/28/24 21:15 138 H 26 H 123/74 91 06/28/24 21:00 115/75 06/28/24 20:54 124 H 24 94 06/28/24 20:51 126 H 24 94 O2 Flow Rate O2 Flow Rate 06/29/24 08:45 06/29/24 08:39 6 06/29/24 08:30 06/29/24 08:18 06/29/24 08:15 06/29/24 08:09 06/29/24 08:00 06/29/24 08:00 06/29/24 08:00 06/29/24 07:45 06/29/24 07:30 06/29/24 07:21 06/29/24 06:36 06/29/24 06:18 06/29/24 06:09 06/29/24 06:00 06/29/24 05:54 06/29/24 05:42 06/29/24 05:36 06/29/24 05:30 06/29/24 05:27 06/29/24 05:15 06/29/24 05:03 06/29/24 04:57 06/29/24 04:45 06/29/24 04:36 06/29/24 04:18 06/29/24 04:03 06/29/24 04:00 06/29/24 04:00 06/29/24 03:42 06/29/24 03:33 06/29/24 03:27 06/29/24 03:18 06/29/24 03:09 06/29/24 03:03 06/29/24 02:48 06/29/24 02:42 06/29/24 02:33 06/29/24 02:21 06/29/24 02:15 06/29/24 02:09 06/29/24 01:42 06/29/24 01:30 06/29/24 01:15 06/29/24 01:09 06/29/24 00:48 06/29/24 00:48 06/29/24 00:45 7 06/29/24 00:33 06/29/24 00:30 06/29/24 00:15 06/29/24 00:06 06/28/24 23:45 06/28/24 23:33 06/28/24 22:57 06/28/24 22:24 06/28/24 22:00 06/28/24 21:42 06/28/24 21:30 06/28/24 21:21 06/28/24 21:15 06/28/24 21:15 06/28/24 21:00 06/28/24 20:54 06/28/24 20:51 Lab & Micro Results (Past 24 Hours) RBC 4.74 M/uL (4.20-5.40) 06/29/24 WBC 20.42 K/ul (4.8-10.8) H 06/29/24 Hgb 14.9 g/dl (12.0-16.0) 06/29/24 Hct 43.3 % (37.0-47.0) 06/29/24 MCV 91.4 fL (80.0-100.0) 06/29/24 MCH 31.4 pg (25.0-34.0) 06/29/24 MCHC 34.4 g/dL (32.0-36.0) 06/29/24 RDW Standard Deviation 44.5 fL (36.4-46.3) 06/29/24 RDW Coefficient of Variation 13.3 % (11.5-14.5) 06/29/24 Plt Count 200 K/uL (130-400) 06/29/24 MPV 10.1 fL (9.4-12.4) 06/29/24 Neutrophils (%) (Auto) 84.5 % 06/29/24 Lymphocytes (%) (Auto) 4.1 % 06/29/24 Monocytes # (Auto) 1.51 K/uL (0.11-0.59) H 06/29/24 Eosinophils # (Auto) 0.02 K/uL (0.00-0.50) 06/29/24 Immature Granulocyte % (Auto) 3.1 % 06/29/24 Neutrophils # (Auto) 17.24 K/uL (1.40-6.50) H 06/29/24 Lymphocytes # (Auto) 0.84 K/uL (1.20-3.40) L 06/29/24 Monocytes # (Auto) 1.51 K/uL (0.11-0.59) H 06/29/24 Eosinophils # (Auto) 0.02 K/uL (0.00-0.50) 06/29/24 Basophils # (Auto) 0.17 K/uL (0.00-0.20) 06/29/24 Immature Granulocyte # (Auto) 0.64 K/uL (0.01-0.20) H 06/29 Na 130 mmol/L (136-145) L 06/29/24 K 4.1 mmol/L (3.5-5.1) 06/29/24 Cl 98 mmol/L (98-107) 06/29/24 CO2 23 mmol/L (21-32) 06/29/24 Anion Gap 9 (3-11) 06/29/24 BUN 52 mg/dl (6-23) H 06/29/24 Creatinine 3.37 mg/dl (0.6-1.2) H 06/29/24 Estimated GFR ( Amer) 14.7 ml/min 06/29/24 Estimated GFR (Non-Af Amer) 12.7 ml/min 06/29/24 BUN/Creatinine Ratio 15.4 (10-20) 06/29/24 Glu 127 mg/dl (70-99(Fasting)) H 06/29/24 Ca 7.9 mg/dl (8.6-10.3) L 06/29/24 Phosphorus Level 4.6 mg/dl (2.5-4.9) 06/29/24 Total Bilirubin 0.8 mg/dl (0.2-1.0) 06/29/24 AST 27 U/L (13-39) 06/29/24 ALT 12 U/L (7-52) 06/29/24 Alkaline Phosphatase 32 U/L (34-104) L 06/29/24 TP 4.4 gm/dl (6.0-8.3) L 06/29/24 Albumin 3.6 gm/dl (3.4-5.0) 06/29/24 Globulin 0.8 gm/dl (2.5-4.0) L 06/29/24 Albumin/Globulin Ratio 4.5 (0.9-2) H 06/29/24 Mg 1.8 mg/dl (1.7-2.4) 06/29/24 04:21 Calcium Level 7.9 mg/dl (8.6-10.3) L 06/29/24 04:21 Venous Blood pH 7.31 (7.36-7.41) L 06/28/24 12:28 Microbiology 06/25/24 11:20 Gram Stain - Final Pleural Fluid Aerobic and Anaerobic Culture - Preliminary No growth to date. 06/22/24 20:44 Aerobic Blood Culture - Final Blood No growth in Aerobic bottle after 5 days. Anaerobic Blood Culture - Final No growth in Anaerobic bottle after 5 days. 06/22/24 19:58 Aerobic Blood Culture - Final Blood No growth in Aerobic bottle after 5 days. Anaerobic Blood Culture - Final No growth in Anaerobic bottle after 5 days. Diagnostic Findings (Past 24 Hours) KUB X-Ray 06/28/24 08:15 KUB HISTORY: Small bowel obstruction. Follow-up. COMPARISON: KUB 06/27/2024. FINDINGS: Midline skin dimitri are noted. Nasogastric tube is seen within the stomach. Bilateral pleural effusions and bibasilar densities persist. Dilated gas-filled loops of small bowel are again seen throughout the abdomen. These are similar to the prior study and measure up to 4.7 cm in diameter. This may represent a postoperative ileus given the recent postoperative change. A small bowel obstruction remains in the differential diagnosis. No renal calculi. No ureteral calculi. No pneumoperitoneum or pneumatosis. IMPRESSION: 1. Nasogastric tube terminates in the stomach. 2. Dilated gas-filled loops of small bowel are again noted throughout the abdomen which are similar to the prior study. This may represent a postoperative ileus given the recent postoperative change. A small bowel obstruction remains in the differential diagnosis. ACT 112: Negative or not required by law. Electronically signed by: Maximilian Ferro M.D. 06/28/2024 1:15 PM KUB X-Ray 06/29/24 08:15 KUB HISTORY: Acute abdominal pain with small bowel obstruction SBO COMPARISON: 06/28/2024 FINDINGS: Midline skin dimitri. Distended air-filled loops of small bowel redemonstrated measuring up to 4.4 cm which is similar to prior. Distal tip of enteric tube projects over the expected location of the gastric body. No renal calculi. No ureteral calculi. No pneumoperitoneum or pneumatosis. A right femoral catheter is noted with distal tip projected over the right sacral ala. Lumbar levoscoliosis. No fracture. IMPRESSION: 1. Distal tip of enteric tube projects over the stomach. 2. Persistent small bowel distention which may represent obstruction versus postoperative ileus. Continued follow-up recommended. ACT 112: Negative or not required by law. The above report was generated using voice recognition software. It may contain grammatical, syntax or spelling errors. Electronically signed by: Jame Sampson M.D. 06/29/2024 7:37 AM I & O Totals 24 Hours 06/28/24 06/29/24 06/30/24 06:59 06:59 06:59 Intake Total 7515.842 / 7515.842 3195.146 / 3195.146 Output Total 270 / 270 587 / 587 Balance 7245.842 / 7245.842 2608.146 / 2608.146 Cumulative 06/22/24 18:07 thru 06/29/24 06:29 Intake Total 19048.404 Output Total 2607 Balance 94843.404 RT Ventilator Mngmt (Last Documented) Ventilator Ordered Settings Respiratory Rate 28 06/29/24 08:39 Ventilator - PT Measurements Respiratory Rate 28 Coding Level of Care Code 28757 CRITICAL CARE EA ADD 30M Diagnoses Ileus K56.7 Abdominal ascites R18.8 Ascites type: other type Pleural effusion J90 Supratherapeutic INR R79.1 Chronic anticoagulation Z79.01 Paroxysmal atrial fibrillation I48.0 Small bowel obstruction due to adhesions K56.50 S/P exploratory laparotomy Z98.890 DOMITILA (acute kidney injury) N17.9 Hyponatremia E87.1 Metabolic acidosis E87.20 Bronchiectasis J47.9 Hypothyroid E03.9 (2) Abdominal ascites Ascites type: other type Qualified Code(s): R18.8 - Other ascites
[2024-06-29] MEDS: PHENYLEPHRINE/NSS 25 MG/250 ML BAG IV SCH (09:04)
--- NOTE | 2024-06-29 09:25 | Surgery Progress Note ---
Date of Service June 29, 2024 Assessment & Plan (1) Small bowel obstruction due to adhesions: Plan: POD 2 Pt remains in ICU requiring pressor support and Oxygen Had HD cath placed yesterday , urinary output aproxi. 100ml over night Abd distended, TTP, no flatus or BM yet, Gi ordered supp. yesterday WBC 20 (13) Keep NGT until passing flatus /BM return of bowel function Keep npo May remove drsg tomorrow and keep open to air if no drainage Pt seen and examined with Dr. Vern Bruce will be covering the weekend (2) S/P exploratory laparotomy: Admission and Anticipated Discharge Date Admission Date: June 22, 2024 Supervising Physician Co-Signing Physician Notes I personally saw and evaluated the patient with Eb DIEGO and agree with the assessment and plan POD#2 Ex lap, enterolysis, drainage of intra-abdominal ascites Keep NGT in place until passing some flatus, would not give more than a few ice chips per hour Keep dressing in place until 06/30, then can leave open to air It's unclear what is driving her entire picture, but with her longstanding obstruction I would anticipate it taking a few more days for her bowel function to return Heparin for DVT prophylaxis Will continue to follow along Subjective pt resting in bed nurse at bedside denies flatus , no bm (was given supp. yesterday) Review of Systems Constitutional: no fever Gastrointestinal: + abdominal pain and + bloating; no vomi ting Physical Exam Constitutional: + ill appearing and cooperative; no acut e distress Respiratory: able to speak in complete sentences on HFNC at 6l/min Cardiovascular: Rate/Rhythm: + tachycardic Gastrointestinal (Abdomen): Inspection/Auscultation: + abdomen distended and + abdominal surgical incision (dressing CDI ) Percussion/Palpation: + abdomen tender and + abdomen firm Psychiatric: Orientation: alert and oriented x 3 Results & Data Vital Signs (Past 12 Hours) Vital Signs Temp Pulse Resp BP Pulse Ox O2 Del Method O2 Del Method 06/29/24 08:45 104/78 06/29/24 08:39 132 H 28 H 93 High Flow Nasal Cannula 06/29/24 08:30 112/74 06/29/24 08:18 136 H 23 94 06/29/24 08:15 105/70 08/02/24 08:09 125 H 24 93 06/29/24 08:00 120/81 06/29/24 08:00 120/81 06/29/24 08:00 132 H 26 H 96 06/29/24 07:45 131 H 25 H 94 06/29/24 07:30 128 H 35 H 95 06/29/24 07:21 122 H 20 95 06/29/24 06:36 133 H 38 H 94 06/29/24 06:18 130 H 30 H 113/76 96 06/29/24 06:09 132 H 25 H 95 06/29/24 06:00 127 H 20 107/69 96 06/29/24 05:54 133 H 18 95 06/29/24 05:42 124 H 20 97/67 L 95 06/29/24 05:36 130 H 19 95 06/29/24 05:30 108/60 06/29/24 05:27 130 H 23 96 06/29/24 05:15 121 H 23 97/64 L 95 06/29/24 05:03 137 H 24 109/62 95 06/29/24 04:57 122 H 18 95 06/29/24 04:45 102/65 06/29/24 04:36 131 H 25 H 95 06/29/24 04:18 124 H 21 105/56 L 94 06/29/24 04:03 129 H 20 95 06/29/24 04:00 96.8 F L 06/29/24 04:00 125 H 31 H 107/65 96 06/29/24 03:42 127 H 19 108/63 96 06/29/24 03:33 123 H 20 113/61 97 06/29/24 03:27 113 H 25 H 96 06/29/24 03:18 119 H 24 119/72 95 06/29/24 03:09 123 H 27 H 94 06/29/24 03:03 123 H 24 104/67 94 06/29/24 02:48 123 H 26 H 95 06/29/24 02:42 128 H 26 H 119/66 95 06/29/24 02:33 119 H 20 112/62 97 06/29/24 02:21 124 H 21 97 06/29/24 02:15 121 H 19 111/67 96 06/29/24 02:09 120 H 20 103/58 L 96 06/29/24 01:42 126 H 18 97 06/29/24 01:30 128 H 20 120/67 95 06/29/24 01:15 124 H 26 H 109/75 90 06/29/24 01:09 133 H 23 87 L 06/29/24 00:48 118 H 21 111/68 92 06/29/24 00:48 127 H 06/29/24 00:45 High Flow Nasal Cannula 06/29/24 00:33 121 H 25 H 94 06/29/24 00:30 135 H 23 110/65 94 06/29/24 00:15 127 H 23 106/67 93 06/29/24 00:06 96.3 F L 06/28/24 23:45 119 H 17 112/70 95 06/28/24 23:33 127 H 23 114/71 95 06/28/24 22:57 128 H 21 94 06/28/24 22:24 114 H 18 129/70 96 06/28/24 22:00 120 H 20 121/73 96 06/28/24 21:42 115 H 20 110/72 94 06/28/24 21:30 109/71 06/28/24 21:21 124 H 24 93 O2 Flow Rate O2 Flow Rate 06/29/24 08:45 06/29/24 08:39 6 06/29/24 08:30 06/29/24 08:18 06/29/24 08:15 06/29/24 08:09 06/29/24 08:00 06/29/24 08:00 06/29/24 08:00 06/29/24 07:45 06/29/24 07:30 06/29/24 07:21 06/29/24 06:36 06/29/24 06:18 06/29/24 06:09 06/29/24 06:00 06/29/24 05:54 06/29/24 05:42 06/29/24 05:36 06/29/24 05:30 06/29/24 05:27 06/29/24 05:15 06/29/24 05:03 06/29/24 04:57 06/29/24 04:45 06/29/24 04:36 06/29/24 04:18 06/29/24 04:03 06/29/24 04:00 06/29/24 04:00 06/29/24 03:42 06/29/24 03:33 06/29/24 03:27 06/29/24 03:18 06/29/24 03:09 06/29/24 03:03 06/29/24 02:48 06/29/24 02:42 06/29/24 02:33 06/29/24 02:21 06/29/24 02:15 06/29/24 02:09 06/29/24 01:42 06/29/24 01:30 06/29/24 01:15 06/29/24 01:09 06/29/24 00:48 06/29/24 00:48 06/29/24 00:45 7 06/29/24 00:33 06/29/24 00:30 06/29/24 00:15 06/29/24 00:06 06/28/24 23:45 06/28/24 23:33 06/28/24 22:57 06/28/24 22:24 06/28/24 22:00 06/28/24 21:42 06/28/24 21:30 06/28/24 21:21 Results CBC w Diff Results: RBC 4.74 M/uL (4.20-5.40) 06/29/24 WBC 20.42 K/ul (4.8-10.8) H 06/29/24 Hgb 14.9 g/dl (12.0-16.0) 06/29/24 Hct 43.3 % (37.0-47.0) 06/29/24 MCV 91.4 fL (80.0-100.0) 06/29/24 MCH 31.4 pg (25.0-34.0) 06/29/24 MCHC 34.4 g/dL (32.0-36.0) 06/29/24 RDW Standard Deviation 44.5 fL (36.4-46.3) 06/29/24 RDW Coefficient of Variation 13.3 % (11.5-14.5) 06/29/24 Plt Count 200 K/uL (130-400) 06/29/24 MPV 10.1 fL (9.4-12.4) 06/29/24 Neutrophils (%) (Auto) 84.5 % 06/29/24 Lymphocytes (%) (Auto) 4.1 % 06/29/24 Monocytes # (Auto) 1.51 K/uL (0.11-0.59) H 06/29/24 Eosinophils # (Auto) 0.02 K/uL (0.00-0.50) 06/29/24 Immature Granulocyte % (Auto) 3.1 % 06/29/24 Neutrophils # (Auto) 17.24 K/uL (1.40-6.50) H 06/29/24 Lymphocytes # (Auto) 0.84 K/uL (1.20-3.40) L 06/29/24 Monocytes # (Auto) 1.51 K/uL (0.11-0.59) H 06/29/24 Eosinophils # (Auto) 0.02 K/uL (0.00-0.50) 06/29/24 Basophils # (Auto) 0.17 K/uL (0.00-0.20) 06/29/24 Immature Granulocyte # (Auto) 0.64 K/uL (0.01-0.20) H 06/29 Polychromasia 1+ 06/28/24 Echinocytes 2+ 06/28/24 PG Care Time/CCT Total # of Minutes Spent Total Time Spent with Patient: Total time spent is greater than 50% in coordination of care (as documented) at patient's floor/unit and/or counseling patient: Coding Level of Care Code 89827 Post Operative Follow-Up Diagnoses Small bowel obstruction due to adhesions K56.50 S/P exploratory laparotomy Z98.890
[2024-06-29 09:51] LABS: C Reactive Protein 15.97 mg/dl (0-0.5)
[2024-06-29] MEDS ORDERED: ONDANSETRON INJ 2 MG/ML 2 ML VIAL IV PRN (10:00)
[2024-06-29 10:11] LABS: Ferritin 262.1 ng/ml (8-388)
[2024-06-29] MEDS: SODIUM CHLORIDE 0.9% 1,000 ML IV ONE ×2 (10:26→11:00)
[2024-06-29] MEDS: LEVOTHYROXINE SODIUM 75 MCG in SYRINGE 0 ML IV SCH (10:30)
--- NOTE | 2024-06-29 11:46 | XRay Report ---
XR chest 1V portable CLINICAL HISTORY: hypoxemia TECHNIQUE: Single frontal radiograph of the chest was obtained. Comparison: Comparison is made to chest radiograph 06/28/2024 FINDINGS: Lines and tubes are stable. The cardiomediastinal silhouette is normal. Bilateral lower lung predomin ant airspace opacities are seen. Moderate bilateral pleural effusions, increased from prior exam. IMPRESSION: Moderate bilateral effusions are increased from prior exam with likely underlying atelectasis, althou gh superimposed aspiration/pneumonia cannot be entirely excluded. ACT 112: Negative or not required by law. Electronically signed by: Kenny Barbour M.D. 06/29/2024 11:45 AM
--- NOTE | 2024-06-29 12:14 | Nephrology Progress Note ---
Date of Service June 29, 2024 Assessment & Plan (1) DOMITILA (acute kidney injury): Plan: Evidence of prerenal physiology (notably low urine sodium). No obvious cardiogenic cause but remains in atrial fibrillation with rapid rate. New ascites but otherwise no concerning features of decompensated liver disease. Continues to demonstrate evidence of intravascular volume depletion and increased total body water. A saline bolus will be provided this AM. IV albumin also to be continued. Maintain a high degree of suspicion for ATN related to hemodynamic changes, poor nutrition, decreased EAV, and iodinated contrast. RIJ HD catheter placed at the bedside by the contract project manager on June 28. Clarisse completed her first HD treatment yesterday. She remains relatively oliguric. Creatinine rising. Urine acellular. Kidneys unobstructed on imaging. Urine microscopy notable for hyaline + granular casts. Urine sodium ~10. Electrolytes and volume status are acceptable today. No HD is planned at this time. Anticipate a possible treatment tomorrow. Document strict I/O's. Gutierrez to gravity. Repeat metabolic profile tomorrow AM. Medications are appropriate for kidney function. MAP goal ~60. (2) Abdominal ascites: Plan: Cytology negative. (3) Pleural effusion: Plan: Exudative by Light's criteria. Cytology negative for malignancy. (4) Small bowel obstruction due to adhesions: Plan: POD# 2 s/p ex lap with lysis of adhesions. Admission and Anticipated Discharge Date Admission Date: June 22, 2024 Subjective Clarisse was resting comfortably in the ICU this morning. She denies significant pain. She denies significant dyspnea. She is not experiencing chest pains or palpitations. She remains on high-flow nasal canula. She remains in rapid atrial fibrillation. BP supported with phenylephrine gtt. IV albumin is being provided on a scheduled basis. No BM. Rapid atrial fibrillation and hypotensive during HD yesterday. Completed 3 hour treatment with minimal UF. Review of Systems Review of Systems: All systems reviewed & are unremarkable except as noted in HPI & below Physical Exam Constitutional: well developed, + ill appearing and + thin Eyes: + anicteric sclerae ENMT: Mouth: + dry oral mucous membranes; no oral mucosal abnormality Neck: normal visual inspection and trachea midline Respiratory: normal respiratory effort and + tachypneic Auscultation: lungs clear to auscultation bilaterally, + diminished lung sounds and + rales Cardiovascular: Rate/Rhythm: + tachycardic and + irregularly irregular Heart Sounds: normal S1 and normal S2 Vessels: + JVD Extremities: + edema Musculoskeletal: Extremities: no cyanosis and no clubbing Skin: normal turgor; no jaundice Neurologic: Motor/Sensory: no tremor and no asterixis Psychiatric: Orientation: alert and oriented x 3 Results & Data Vital Signs (Past 12 Hours) Vital Signs Temp Pulse Resp BP Pulse Ox O2 Del Method O2 Del Method 06/29/24 11:08 36.6 C 06/29/24 11:03 138 H 17 94 06/29/24 11:00 121/91 06/29/24 10:45 123/82 06/29/24 10:42 155 H 23 92 06/29/24 10:33 127 H 27 H 93 06/29/24 10:30 142/86 H 06/29/24 10:21 138 H 29 H 93 06/29/24 10:16 109/79 06/29/24 10:03 138 H 22 95 06/29/24 10:00 107/81 06/29/24 10:00 107/81 06/29/24 09:57 142 H 21 94 06/29/24 09:48 123 H 06/29/24 09:30 101/77 06/29/24 09:30 101/77 High Flow Nasal Cannula 06/29/24 09:30 137 H 22 94 06/29/24 09:28 High Flow Nasal Cannula 06/29/24 09:24 132 H 22 95 06/29/24 09:18 103/74 06/29/24 09:15 112/72 06/29/24 09:12 138 H 24 94 06/29/24 09:06 134 H 28 H 94 06/29/24 09:00 91/70 L 06/29/24 08:45 104/78 06/29/24 08:45 104/78 06/29/24 08:39 132 H 28 H 93 High Flow Nasal Cannula 06/29/24 08:30 112/74 06/29/24 08:18 136 H 23 94 06/29/24 08:15 105/70 06/29/24 08:09 125 H 24 93 06/29/24 08:00 120/81 High Flow Nasal Cannula 06/29/24 08:00 120/81 06/29/24 08:00 132 H 26 H 96 06/29/24 07:45 131 H 25 H 94 06/29/24 07:30 128 H 35 H 95 06/29/24 07:21 122 H 20 95 06/29/24 06:36 133 H 38 H 94 06/29/24 06:18 130 H 30 H 113/76 96 06/29/24 06:09 132 H 25 H 95 06/29/24 06:00 127 H 20 107/69 96 06/29/24 05:54 133 H 18 95 06/29/24 05:42 124 H 20 97/67 L 95 06/29/24 05:36 130 H 19 95 06/29/24 05:30 108/60 06/29/24 05:27 130 H 23 96 06/29/24 05:15 121 H 23 97/64 L 95 06/29/24 05:03 137 H 24 109/62 95 06/29/24 04:57 122 H 18 95 06/29/24 04:45 102/65 06/29/24 04:36 131 H 25 H 95 06/29/24 04:18 124 H 21 105/56 L 94 06/29/24 04:03 129 H 20 95 06/29/24 04:00 36.0 C L 06/29/24 04:00 125 H 31 H 107/65 96 06/29/24 03:42 127 H 19 108/63 96 06/29/24 03:33 123 H 20 113/61 97 06/29/24 03:27 113 H 25 H 96 06/29/24 03:18 119 H 24 119/72 95 06/29/24 03:09 123 H 27 H 94 06/29/24 03:03 123 H 24 104/67 94 06/29/24 02:48 123 H 26 H 95 06/29/24 02:42 128 H 26 H 119/66 95 06/29/24 02:33 119 H 20 112/62 97 06/29/24 02:21 124 H 21 97 06/29/24 02:15 121 H 19 111/67 96 06/29/24 02:09 120 H 20 103/58 L 96 06/29/24 01:42 126 H 18 97 06/29/24 01:30 128 H 20 120/67 95 06/29/24 01:15 124 H 26 H 109/75 90 06/29/24 01:09 133 H 23 87 L 06/29/24 00:48 118 H 21 111/68 92 06/29/24 00:48 127 H 06/29/24 00:45 High Flow Nasal Cannula 06/29/24 00:33 121 H 25 H 94 06/29/24 00:30 135 H 23 110/65 94 06/29/24 00:15 127 H 23 106/67 93 O2 Flow Rate O2 Flow Rate 06/29/24 11:08 06/29/24 11:03 06/29/24 11:00 06/29/24 10:45 06/29/24 10:42 06/29/24 10:33 06/29/24 10:30 06/29/24 10:21 06/29/24 10:16 06/29/24 10:03 06/29/24 10:00 06/29/24 10:00 06/29/24 09:57 06/29/24 09:48 06/29/24 09:30 06/29/24 09:30 6 06/29/24 09:30 06/29/24 09:28 6 06/29/24 09:24 06/29/24 09:18 06/29/24 09:15 06/29/24 09:12 06/29/24 09:06 06/29/24 09:00 06/29/24 08:45 06/29/24 08:45 06/29/24 08:39 6 06/29/24 08:30 06/29/24 08:18 06/29/24 08:15 06/29/24 08:09 06/29/24 08:00 6 06/29/24 08:00 06/29/24 08:00 06/29/24 07:45 06/29/24 07:30 06/29/24 07:21 06/29/24 06:36 06/29/24 06:18 06/29/24 06:09 06/29/24 06:00 06/29/24 05:54 06/29/24 05:42 06/29/24 05:36 06/29/24 05:30 06/29/24 05:27 06/29/24 05:15 06/29/24 05:03 06/29/24 04:57 06/29/24 04:45 06/29/24 04:36 06/29/24 04:18 06/29/24 04:03 06/29/24 04:00 06/29/24 04:00 06/29/24 03:42 06/29/24 03:33 06/29/24 03:27 06/29/24 03:18 06/29/24 03:09 06/29/24 03:03 06/29/24 02:48 06/29/24 02:42 06/29/24 02:33 06/29/24 02:21 06/29/24 02:15 06/29/24 02:09 06/29/24 01:42 06/29/24 01:30 06/29/24 01:15 06/29/24 01:09 06/29/24 00:48 06/29/24 00:48 06/29/24 00:45 7 06/29/24 00:33 06/29/24 00:30 06/29/24 00:15 Laboratory Results Laboratory Results - last 24 hr 06/25/24 06/27/24 06/28/24 11:20 10:59 12:15 WBC RBC Hgb Hct MCV MCH MCHC RDW Std Deviation RDW Coeff of Eve Plt Count MPV Immature Gran % (Auto) Neut % (Auto) Lymph % (Auto) Nye % (Auto) Eos % (Auto) Baso % (Auto) Neut # (Auto) Lymph # (Auto) Nye # (Auto) Eos # (Auto) Baso # (Auto) Immature Gran # (Auto) ESR VBG pH Sodium Potassium Chloride Carbon Dioxide Anion Gap BUN Creatinine Est Cr Clr Drug Dosing Est GFR ( Amer) Est GFR (Non-Af Amer) BUN/Creatinine Ratio Glucose POC Glucose 145 H Lactate Calcium Phosphorus Magnesium Ferritin Total Bilirubin AST ALT Alkaline Phosphatase C-Reactive Protein Total Protein Albumin Globulin Albumin/Globulin Ratio Procalcitonin Fluid Neutrophils % 49 Fluid Lymphocytes % 27 Fluid Meso/Macro/Nye % 24 Peritoneal Color Straw Peritoneal Appearance Clear Peritoneal WBC (Auto) 301 H Peritoneal RBC (Auto) < 2000 Peritoneal Tot Protein < 3.0 Peritoneal Albumin 2.0 Peritoneal LDH 134 Peritoneal Glucose 131 Peritoneal Amylase 13 Peritoneal Lipase 13 Pleural Cholesterol 55 INDIRA Screen Anti-Proteinase 3 Anti-Myeloperoxidase ANCA Complement C3 Complement C4 Tot Complement (CH50) 06/28/24 06/28/2406/28/24 12:28 18:02 20:04 WBC RBC Hgb Hct MCV MCH MCHC RDW Std Deviation RDW Coeff of Eve Plt Count MPV Immature Gran % (Auto) Neut % (Auto) Lymph % (Auto) Nye % (Auto) Eos % (Auto) Baso % (Auto) Neut # (Auto) Lymph # (Auto) Nye # (Auto) Eos # (Auto) Baso # (Auto) Immature Gran # (Auto) ESR VBG pH 7.31 L Sodium 128 L 130 L Potassium 4.4 4.1 Chloride 96 L 98 Carbon Dioxide 23 23 Anion Gap 9 9 BUN 70 H 47 H D Creatinine 3.45 H D 2.84 H D Est Cr Clr Drug Dosing 14.7 17.9 Est GFR ( Amer) 14.3 18.1 Est GFR (Non-Af Amer) 12.3 15.6 BUN/Creatinine Ratio 20.3 H 16.5 Glucose 173 H 152 H POC Glucose 105 H Lactate Calcium 7.5 L 7.8 L Phosphorus Magnesium Ferritin Total Bilirubin AST ALT Alkaline Phosphatase C-Reactive Protein Total Protein Albumin Globulin Albumin/Globulin Ratio Procalcitonin Fluid Neutrophils % Fluid Lymphocytes % Fluid Meso/Macro/Nye % Peritoneal Color Peritoneal Appearance Peritoneal WBC (Auto) Peritoneal RBC (Auto) Peritoneal Tot Protein Peritoneal Albumin Peritoneal LDH Peritoneal Glucose Peritoneal Amylase Peritoneal Lipase Pleural Cholesterol INDIRA Screen Anti-Proteinase 3 Anti-Myeloperoxidase ANCA Complement C3 Complement C4 Tot Complement (CH50) 06/29/24 06/29/24 06/29/24 04:21 09:17 09:32 WBC 20.42 H D RBC 4.74 Hgb 14.9 Hct 43.3 MCV 91.4 MCH 31.4 MCHC 34.4 RDW Std Deviation 44.5 RDW Coeff of Eve 13.3 Plt Count 200 MPV 10.1 Immature Gran % (Auto) 3.1 Neut % (Auto) 84.5 Lymph % (Auto) 4.1 Nye % (Auto) 7.4 Eos % (Auto) 0.1 Baso % (Auto) 0.8 Neut # (Auto) 17.24 H Lymph # (Auto) 0.84 L Nye # (Auto) 1.51 H Eos # (Auto) 0.02 Baso # (Auto) 0.17 Immature Gran # (Auto) 0.64 H ESR < 1 VBG pH Sodium 130 L Potassium 4.1 Chloride 98 Carbon Dioxide 23 Anion Gap 9 BUN 52 H Creatinine 3.37 H D Est Cr Clr Drug Dosing 15.1 Est GFR ( Amer) 14.7 Est GFR (Non-Af Amer) 12.7 BUN/Creatinine Ratio 15.4 Glucose 127 H POC Glucose Lactate 1.6 Calcium 7.9 L Phosphorus 4.6 D Magnesium 1.8 Ferritin 262.1 Total Bilirubin 0.8 AST 27 ALT 12 Alkaline Phosphatase 32 L C-Reactive Protein 15.97 H Total Protein 4.4 L Albumin 3.6 Globulin 0.8 L Albumin/Globulin Ratio 4.5 H Procalcitonin 4.55 H Fluid Neutrophils % Fluid Lymphocytes % Fluid Meso/Macro/Nye % Peritoneal Color Peritoneal Appearance Peritoneal WBC (Auto) Peritoneal RBC (Auto) Peritoneal Tot Protein Peritoneal Albumin Peritoneal LDH Peritoneal Glucose Peritoneal Amylase Peritoneal Lipase Pleural Cholesterol INDIRA Screen Pending Anti-Proteinase 3 Pending Anti-Myeloperoxidase Pending ANCA Pending Complement C3 Pending Complement C4 Pending Tot Complement (CH50) Pending PG Care Time/CCT Total # of Minutes Spent Total Time Spent with Patient: Total time spent is greater than 50% in coordination of care (as documented) at patient's floor/unit and/or counseling patient: Coding Level of Care Code 71615 SUB INP/OBS CARE 350MIN Diagnoses DOMITILA (acute kidney injury) N17.9 Abdominal ascites R18.8 Ascites type: other type Pleural effusion J90 Small bowel obstruction due to adhesions K56.50 (2) Abdominal ascites Ascites type: other type Qualified Code(s): R18.8 - Other ascites
--- NOTE | 2024-06-29 12:17 | Cardiology Consultation ---
Date of Consultation June 29, 2024 Assessment & Plan (1) Atrial fibrillation with rapid ventricular response: (2) S/P exploratory laparotomy: (3) Acute hypoxic respiratory failure: (4) Acute renal failure: Plan Critically ill 73-year-old female in the intensive care unit post admission for abdominal pain, ascites and small bowel obstruction. Status post exploratory laparotomy and adhesion lysis. Recent clinical course notable for worsening renal failure marginal blood p ressure and oxygenation. All cultures to date negative Persistent atrial fibrillation present with rising heart rates secondary to demand of acute illness. Echocardiogram with hyperdynamic LV function and no significant valvular disease Bilateral pleural effusions being addressed Pressors being weaned Impression: 1. Atrial fibrillation with rapid response in part being driven by acute illness. Previously controlled with oral diltiazem currently contraindicated due to bowel rest and hypotension. Will trial low-dose metoprolol IV at 2.5 mg every 3 hours following blood pressure closely. If ineffective or not tolerated would load with digoxin Daily EKG given right bundle branch block to assess for further conduction changes Anticoagulation currently contraindicated and will avoid use of amiodarone if possible given possibility of spontaneous conversion to sinus rhythm and inherent risk of stroke Given Raynaud's disease may ultimately require return to calcium channel delphine once rhythm, hemodynamic instability and bowel function assured Will follow closely History of Present Illness Reason for Consultation: Atrial fibrillation with rapid response Requesting Physician: Dr Hi Attending Physician: Gabe Traylor MD History of Present Illness Patient is a critically ill 73-year-old female seen in the intensive care unit. Current concerns atrial fibrillation with rapid response. Underlying cardiac issues include 1. Paroxysmal/near persistent atrial fibrillation with chronic anticoagulation with warfarin, rate controlled with oral diltiazem 2. Right bundle branch block 3. Mild to moderate mitral insufficiency 4. Chronic obstructive lung disease/bronchiectasis 5. Raynaud's phenomena Patient seen on referral after acute hospitalization with abdominal pain and distention, ascites, small bowel obstruction status postsurgical release on 06/27/2024. Course complicated by worsening renal insufficiency and persistent hypotension, ascites and pleural effusions. Patient with high oxygen requirements and being managed in the intensive care unit initially with pressure support. Has received dialysis x 1 due to declin ing renal function Hypotension and bowel rest as precluded the use of diltiazem and atrial fibrillation rates have been persistently elevated. Currently appears acutely ill but able to converse. NG tube in place. Notes no chest pains or discomfort just "uncomfortable". Moderately breathless on high flow oxygen Received fluid boluses this morning and pressors weaned Allergies Allergy/AdvReac Type Severity Reaction Status Date / Time No Known Allergies Allergy Verified 06/22/24 22:39 Home Medications Medication Instructions Recorded Confirmed Type ascorbic acid (vitamin C) 500 mg 1,000 mg PO QAM 09/10/19 06/22/24 History tablet levothyroxine 100 mcg tablet 100 mcg PO QAM 09/10/19 06/22/24 History zinc gluconate 50 mg tablet 50 mg PO QAM 09/10/19 06/22/24 History krill oil 500 mg capsule 1,500 mg PO DAILY 02/11/23 06/22/24 History warfarin 5 mg tablet See Rx Instructions .Route .COMPLEX 02/11/23 06/22/24 History liothyronine 5 mcg tablet 10 mcg PO QAM 08/31/23 06/22/24 History clobetasol 0.05 % topical ointment 1 applic topical [id number] PRN Rash #60 09/22/23 06/22/24 Rx grams estradiol 0.01% (0.1 mg/gram) 1 g vaginal WK #42.5 grams 09/22/23 06/22/24 Rx vaginal cream montelukast 10 mg tablet 10 mg PO QAM #90 tabs 10/31/23 06/22/24 Rx cholecalciferol (vitamin D3) 125 125 mcg PO DAILY 06/20/24 06/22/24 History mcg (5,000 unit) tablet (Vitamin D3) diltiazem HCl 240 mg 240 mg PO QAM 06/20/24 06/22/24 History capsule,extended release 24 hr (Cartia XT) sodium chloride 0.65 % nasal spray 1 spray intranasal DIRECTED PRN 06/20/24 06/22/24 History aerosol (Saline Nasal) Dry Nasal Passages sodium chloride 7 % for 1 inh inhalation BID PRN NEEDED 06/20/24 06/22/24 History nebulization umeclidinium 62.5 mcg-vilanterol 1 inh inhalation QAM 06/20/24 06/22/24 History 25 mcg/actuation powdr for inhalation (Anoro Ellipta) vitamin B complex 1 tab PO DAILY 06/20/24 06/22/24 History ondansetron 4 mg disintegrating 4 mg PO Q8H PRN nausea and 06/21/24 06/22/24 Rx tablet vomiting #30 tabs Patient History Medical History Pulmonary nodules just monitoring Hypertension Bronchiectasis INHALER FOR THIS Surgical History H/O exploratory laparotomy (06/27/24) Exploratory Laparotomy, enterolysis, drainage of intraabdominal ascities(Not Applicable) - Larry Porras, History of cataract surgery left History of colonoscopy went into Afib for 3 mins with last colonscopy> resolved History of tooth extraction History of adenoidectomy History of bronchoscopy History of hysterectomy History of breast augmentation History of ankle surgery RIGHT due to fx Family History Mother Heart disease Breast cancer Father COPD (chronic obstructive pulmonary disease) Grandmother (Maternal) Diabetes Family/Other Schizophrenia sibling Denies family history of Ovarian cancer Colorectal cancer Social History Smoking Status: Former smoker Tobacco Type: Cigarettes Age Started Using Tobacco: 17; Age Quit Using Tobacco: 26; Cigarettes Per Day: 0-4 per day; Second Hand Exposure: No; Do You Dip or Chew Tobacco: No; Hx Alcohol Use: Yes Alcohol type: wine Alcohol Intake Frequency: 2-3 x/Week Hx Substance Use: No Preferred Language: Palauan Communication Ability: Effective Lining Setter Required: No Beliefs That Will Affect Care: None marital status: Life Partner Current Living Situation: Alone 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 Feels Safe at Home: Yes Assistive Devices: None Review of Systems Review of Systems: All systems reviewed & are unremarkable except as noted in HPI & below Physical Exam Constitutional: + ill appearing and + thin Eyes: PERRL, conjunctivae normal, anicteric sclerae Neck: trachea midline, no thyromegaly Respiratory: Auscultation: + diminished lung sounds (Bibasilar) Cardiovascular: Rate/Rhythm: + tachycardic and + irregularly irregular Heart Sounds: no murmur Vessels: no JVD Extremities: no AV fistula Diminished peripheral pulses with rubor Gastrointestinal (Abdomen): Abdomen bandaged and quiet with mild distention Results & Data Vital Signs (Past 12 Hours) Vital Signs Temp Pulse Resp BP Pulse Ox O2 Del Method O2 Del Method 06/29/24 11:08 36.6 C 06/29/24 11:03 138 H 17 94 06/29/24 11:00 121/91 06/29/24 10:45 123/82 06/29/24 10:42 155 H 23 92 06/29/24 10:33 127 H 27 H 93 06/29/24 10:30 142/86 H 06/29/24 10:21 138 H 29 H 93 06/29/24 10:16 109/79 06/29/24 10:03 138 H 22 95 06/29/24 10:00 107/81 06/29/24 10:00 107/81 06/29/24 09:57 142 H 21 94 06/29/24 09:48 123 H 06/29/24 09:30 101/77 06/29/24 09:30 101/77 High Flow Nasal Cannula 06/29/24 09:30 137 H 22 94 06/29/24 09:28 High Flow Nasal Cannula 06/29/24 09:24 132 H 22 95 06/29/24 09:18 103/74 06/29/24 09:15 112/72 06/29/24 09:12 138 H 24 94 06/29/24 09:06 134 H 28 H 94 06/29/24 09:00 91/70 L 06/29/24 08:45 104/78 06/29/24 08:45 104/78 06/29/24 08:39 132 H 28 H 93 High Flow Nasal Cannula 06/29/24 08:30 112/74 06/29/24 08:18 136 H 23 94 06/29/24 08:15 105/70 06/29/24 08:09 125 H 24 93 06/29/24 08:00 120/81 High Flow Nasal Cannula 06/29/24 08:00 120/81 06/29/24 08:00 132 H 26 H 96 06/29/24 07:45 131 H 25 H 94 06/29/24 07:30 128 H 35 H 95 06/29/24 07:21 122 H 20 95 06/29/24 06:36 133 H 38 H 94 06/29/24 06:18 130 H 30 H 113/76 96 06/29/24 06:09 132 H 25 H 95 06/29/24 06:00 127 H 20 107/69 96 06/29/24 05:54 133 H 18 95 06/29/24 05:42 124 H 20 97/67 L 95 06/29/24 05:36 130 H 19 95 06/29/24 05:30 108/60 06/29/24 05:27 130 H 23 96 06/29/24 05:15 121 H 23 97/64 L 95 06/29/24 05:03 137 H 24 109/62 95 06/29/24 04:57 122 H 18 95 06/29/24 04:45 102/65 06/29/24 04:36 131 H 25 H 95 06/29/24 04:18 124 H 21 105/56 L 94 06/29/24 04:03 129 H 20 95 06/29/24 04:00 36.0 C L 06/29/24 04:00 125 H 31 H 107/65 96 06/29/24 03:42 127 H 19 108/63 96 06/29/24 03:33 123 H 20 113/61 97 06/29/24 03:27 113 H 25 H 96 06/29/24 03:18 119 H 24 119/72 95 06/29/24 03:09 123 H 27 H 94 06/29/24 03:03 123 H 24 104/67 94 06/29/24 02:48 123 H 26 H 95 06/29/24 02:42 128 H 26 H 119/66 95 06/29/24 02:33 119 H 20 112/62 97 06/29/24 02:21 124 H 21 97 06/29/24 02:15 121 H 19 111/67 96 06/29/24 02:09 120 H 20 103/58 L 96 06/29/24 01:42 126 H 18 97 06/29/24 01:30 128 H 20 120/67 95 06/29/24 01:15 124 H 26 H 109/75 90 06/29/24 01:09 133 H 23 87 L 06/29/24 00:48 118 H 21 111/68 92 06/29/24 00:48 127 H 06/29/24 00:45 High Flow Nasal Cannula 06/29/24 00:33 121 H 25 H 94 06/29/24 00:30 135 H 23 110/65 94 O2 Flow Rate O2 Flow Rate 06/29/24 11:08 06/29/24 11:03 06/29/24 11:00 06/29/24 10:45 06/29/24 10:42 06/29/24 10:33 06/29/24 10:30 06/29/24 10:21 06/29/24 10:16 06/29/24 10:03 06/29/24 10:00 06/29/24 10:00 06/29/24 09:57 06/29/24 09:48 06/29/24 09:30 06/29/24 09:30 6 06/29/24 09:30 06/29/24 09:28 6 06/29/24 09:24 06/29/24 09:18 06/29/24 09:15 06/29/24 09:12 06/29/24 09:06 06/29/24 09:00 06/29/24 08:45 06/29/24 08:45 06/29/24 08:39 6 06/29/24 08:30 06/29/24 08:18 06/29/24 08:15 06/29/24 08:09 06/29/24 08:00 6 06/29/24 08:00 06/29/24 08:00 06/29/24 07:45 06/29/24 07:30 06/29/24 07:21 06/29/24 06:36 06/29/24 06:18 06/29/24 06:09 06/29/24 06:00 06/29/24 05:54 06/29/24 05:42 06/29/24 05:36 06/29/24 05:30 06/29/24 05:27 06/29/24 05:15 06/29/24 05:03 06/29/24 04:57 06/29/24 04:45 06/29/24 04:36 06/29/24 04:18 06/29/24 04:03 06/29/24 04:00 06/29/24 04:00 06/29/24 03:42 06/29/24 03:33 06/29/24 03:27 06/29/24 03:18 06/29/24 03:09 06/29/24 03:03 06/29/24 02:48 06/29/24 02:42 06/29/24 02:33 06/29/24 02:21 06/29/24 02:15 06/29/24 02:09 06/29/24 01:42 06/29/24 01:30 06/29/24 01:15 06/29/24 01:09 06/29/24 00:48 06/29/24 00:48 06/29/24 00:45 7 06/29/24 00:33 06/29/24 00:30 Laboratory Results Laboratory Results - last 24 hr 06/25/24 06/28/24 06/28/24 11:20 18:02 20:04 WBC RBC Hgb Hct MCV MCH MCHC RDW Std Deviation RDW Coeff of Eve Plt Count MPV Immature Gran % (Auto) Neut % (Auto) Lymph % (Auto) [place] % (Auto) Eos % (Auto) Baso % (Auto) Neut # (Auto) Lymph # (Auto) [place] # (Auto) Eos # (Auto) Baso # (Auto) Immature Gran # (Auto) ESR Sodium 130 L Potassium 4.1 Chloride 98 Carbon Dioxide 23 Anion Gap 9 BUN 47 H D Creatinine 2.84 H D Est Cr Clr Drug Dosing 17.9 Est GFR ( Amer) 18.1 Est GFR (Non-Af Amer) 15.6 BUN/Creatinine Ratio 16.5 Glucose 152 H POC Glucose 105 H Lactate Calcium 7.8 L Phosphorus Magnesium Ferritin Total Bilirubin AST ALT Alkaline Phosphatase C-Reactive Protein Total Protein Albumin Globulin Albumin/Globulin Ratio Procalcitonin Fluid Neutrophils % Fluid Comment Pleural Fluid Source Pleural Color Pleural Appearance Pleural pH Pleural Total Protein Pleural LDH Pleural Glucose Pleural Cholesterol 55 INDIRA Screen Anti-Proteinase 3 Anti-Myeloperoxidase ANCA Complement C3 Complement C4 Tot Complement (CH50) 06/29/24 06/29/24 06/29/24 04:21 09:17 09:32 WBC 20.42 H D RBC 4.74 Hgb 14.9 Hct 43.3 MCV 91.4 MCH 31.4 MCHC 34.4 RDW Std Deviation 44.5 RDW Coeff of Eve 13.3 Plt Count 200 MPV 10.1 Immature Gran % (Auto) 3.1 Neut % (Auto) 84.5 Lymph % (Auto) 4.1 [place] % (Auto) 7.4 Eos % (Auto) 0.1 Baso % (Auto) 0.8 Neut # (Auto) 17.24 H Lymph # (Auto) 0.84 L [place] # (Auto) 1.51 H Eos # (Auto) 0.02 Baso # (Auto) 0.17 Immature Gran # (Auto) 0.64 H ESR < 1 Sodium 130 L Potassium 4.1 Chloride 98 Carbon Dioxide 23 Anion Gap 9 BUN 52 H Creatinine 3.37 H D Est Cr Clr Drug Dosing 15.1 Est GFR ( Amer) 14.7 Est GFR (Non-Af Amer) 12.7 BUN/Creatinine Ratio 15.4 Glucose 127 H POC Glucose Lactate 1.6 Calcium 7.9 L Phosphorus 4.6 D Magnesium 1.8 Ferritin 262.1 Total Bilirubin 0.8 AST 27 ALT 12 Alkaline Phosphatase 32 L C-Reactive Protein 15.97 H Total Protein 4.4 L Albumin 3.6 Globulin 0.8 L Albumin/Globulin Ratio 4.5 H Procalcitonin 4.55 H Fluid Neutrophils % Fluid Comment Pleural Fluid Source Pleural Color Pleural Appearance Pleural pH Pleural Total Protein Pleural LDH Pleural Glucose Pleural Cholesterol INDIRA Screen Pending Anti-Proteinase 3 Pending Anti-Myeloperoxidase Pending ANCA Pending Complement C3 Pending Complement C4 Pending Tot Complement (CH50) Pending 06/29/24 13:00 WBC RBC Hgb Hct MCV MCH MCHC RDW Std Deviation RDW Coeff of Eve Plt Count MPV Immature Gran % (Auto) Neut % (Auto) Lymph % (Auto) [place] % (Auto) Eos % (Auto) Baso % (Auto) Neut # (Auto) Lymph # (Auto) [place] # (Auto) Eos # (Auto) Baso # (Auto) Immature Gran # (Auto) ESR Sodium Potassium Chloride Carbon Dioxide Anion Gap BUN Creatinine Est Cr Clr Drug Dosing Est GFR ( Amer) Est GFR (Non-Af Amer) BUN/Creatinine Ratio Glucose POC Glucose Lactate Calcium Phosphorus Magnesium Ferritin Total Bilirubin AST ALT Alkaline Phosphatase C-Reactive Protein Total Protein Albumin Globulin Albumin/Globulin Ratio Procalcitonin Fluid Neutrophils % Pending Fluid Comment Pleural Fluid Source Pending Pleural Color Pending Pleural Appearance Pending Pleural pH 7.41 H Pleural Total Protein < 3.0 Pleural LDH 667 Pleural Glucose 114 Pleural Cholesterol INDIRA Screen Anti-Proteinase 3 Anti-Myeloperoxidase ANCA Complement C3 Complement C4 Tot Complement (CH50)
[2024-06-29] MEDS: METOPROLOL TARTRATE 1 MG/ML VIAL IV STA (12:26)
--- NOTE | 2024-06-29 12:49 | Communication Note ---
<Statement entered by Jovana Dixon MD - 06/29/24 13:10> I have examined the patient, reviewed the History & Physical and in the interval since the performance of the History & Physical I have noted the following changes of clinical significance: no changes noted. I agree with the documentation provided by CAROLYN James. Suggest broadening abx. Tenuous fluid balance but she desperately needs nutrition; monitor for refeeding syndrome. If surgery has no objections, suggest gentle CA bowel regimen. Date of Service: June 29, 2024 Patient is a 73 yo female POD2 ex lap for SBO with lysis of adhesions. She remains in the ICU. She is in Afib with RVR and a cardiology consult is pending. Nephro following for HD and ATN is suspected. BUN/Cr 52/3.37. She continues with NG suction & pressor support. WBC count 20,420. She is on 7L of high flow O2. Patient's SAAG from ascites obtained during ex-lap was 0.5 which is not consistent with portal hypertension. Continue management with hospitalists/intensivists, nephrologists, surgery & cardiology. We will continue to follow this complex patient and offer GI support if needed.
--- NOTE | 2024-06-29 13:17 | Procedure Note ---
Procedure Note Date of Service June 29, 2024 Note Procedure: 14 Greenlandic pigtail catheter placement, right Indication: Recurrent symptomatic pleural effusion Consent risk and benefits were discussed with the patient. She agreed. Written consent was verified prior to commencement of the procedure. 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 Procedure: Patient has total body anasarca and is unable to be diuresed or dialyze due to renal failure and hypotension. She has symptomatic effusions which previously demonstrated lymphocytic exudate. Due to symptoms and recurrence, the pigtail catheter was felt to be appropriate in managing patient going forward. The patient was placed in a semiupright seated position. The right anterior axillary line just lateral to the breast was cleansed using chlorhexidine and a sterile field established. Ultrasound was performed in that area demonstrating a simple appearing effusion with some atelectatic lung. Site appropriate for tube placement was marked. Skin and subcutaneous tissues were anesthetized using lidocaine. The muscle and deeper soft tissues were anesthetized using a finder needle. With the finder needle I was aspirated to aspirate serous fluid. The finder needle was then withdrawn. A small skin ruby was made with a scalpel. An 18-gauge needle was then advanced on a similar line until I was able to aspirate serous fluid. The syringe was withdrawn leaving the needle in place. A wire was passed through the needle and then the needle was withdrawn leaving the wire in the pleural space. A 14 Greenlandic dilator was then passed over the wire to dilate the skin and soft tissues. This passed with ease. The dilator was removed leaving the wire in place. A 14 Greenlandic pigtail catheter was then loaded on a straightening catheter and advanced over the wire into the pleural space. The stiffening catheter catheter and wire were removed leaving the pigtail catheter in place. A three-way stopcock was attached. The tube was attached to suction with removal of about 1 L of serous fluid through the Pleur- evac system. A skater catheter fixation system was attached to the chest wall and the catheter secured. Catheter was attached to suction at 20 cm of water. Post procedure chest x-ray is pending. The patient tolerated the procedure well. Fluid will be sent again for microbiologic and cytologic analysis although clinically it appears consistent with transudative process Coding CPT Codes Pulmonary/Thoracic - Pulmonary and Thoracic: 22148 Tube thoracostomy ([id number]) Pulmonary/Thoracic - Pulmonary and Thoracic: 36912 US, Chest, real time with imaging documentation ([id number]) [facility] [place]Charges) Pulmonary/Thoracic Procedure 1: Pulmonary and Thoracic: 71213 Tube thoracostomy Procedure 2: Pulmonary and Thoracic: 23191 US, Chest, real time with imaging documentation
--- NOTE | 2024-06-29 13:42 | XRay Report ---
XR chest 1V portable HISTORY: 73 years-old Female S/P Thoracentesis acute shortness of breath. Pleural effusions. COMPARISON: Chest radiograph of same day at 9:16 AM TECHNIQUE: AP view of the chest FINDINGS: Right IJ catheter appears stable. Enteric tube courses into the stomach. Status post placement of a r ight pigtail pleural drainage catheter with tip projected over the medial right lung base. There is no pneumothorax. Substantially decreased size of the previously noted right pleural effusion with improved aeration of the right lung. Unchanged layering left pleural effusion with left lung vo lume loss and left basilar consolidation. Mild right basilar atelectasis. Pulmonary vascular congesti on. Bones appear grossly intact. IMPRESSION: 1. Status post placement of a right-sided pleural catheter. No pneumothorax identified. 2. Decreased size of the right pleural effusion with improved aeration of the right lung. 3. Additional stable findings as above. ACT 112: Negative or not required by law. The above report was generated using voice recognition software. It may contain grammatical, syntax o r spelling errors. Electronically signed by: Jame Sampson M.D. 06/29/2024 1:41 PM
[2024-06-29 14:08] LABS: Glucose Pleural Fluid 114 mg/dl; LDH Pleural Fluid 667 U/L; Total Protein Pleural Fluid < 3.0 gm/dl
[2024-06-29] MEDS: METOPROLOL TARTRATE 1 MG/ML VIAL IV SCH (14:48)
[2024-06-29 14:50] LABS: Appearance Pleural Fluid Hazy; Color Pleural Fluid Amber; Lymphocytes, Fluid 13 %; Mono,Macrophage,Mesothelial 13 %; Neutrophils, Fluid 74 %; RBC Pleural Fluid Auto 15000 /uL; Source Pleural Fluid Right Lung; WBC Pleural Fluid Auto 1989 /uL
[2024-06-29] MEDS ORDERED: Nursing to Pharmacy Communication SCH (15:30)
--- NOTE | 2024-06-29 15:36 | Communication Note ---
Date of Service: June 29, 2024 Patient slightly more comfortable following thoracentesis. Still with atrial fibrillation elevated ventricular response rates. Rates are responsive to IV beta-blockers however with transient drop in blood pressure may need to hold if persist We will add digoxin to her regimen with 0.25 mg IV now and in 4 hours. Suspect will require at least 1 or 2 more doses to fully load. (1 mg). Future dosing limited by renal insufficiency likely low-dose every other day Continue fluid resuscitation Daily EKG
--- NOTE | 2024-06-29 15:40 | Ultrasound Report ---
US abdomen limited CLINICAL HISTORY: assess for ascites COMPARISON STUDY: Abdomen and pelvis CT 06/26/2024. FINDINGS: Small to moderate amount of scattered ascites most pronounced within the perihepatic locati on. Dilated fluid-filled loops of small bowel again noted. IMPRESSION: 1. Small to moderate amount of ascites, unchanged. 2. Dilated loops of small bowel again noted consistent with the patient's known small bowel obstructi on. ACT 112: Negative or not required by law. Electronically signed by: Maximilian Ferro M.D. 06/29/2024 3:39 PM
[2024-06-29] MEDS: DIGOXIN 250 MCG in SYRINGE 9 ML IV ONE ×2 (16:26→19:28)
--- NOTE | 2024-06-29 16:43 | Billing Data ---
Date of Service June 29, 2024 Coding Level of Care Code 91219 INT INP/OBS CARE
[2024-06-29] MEDS: HEPARIN SOD 5,000 UNIT/0.5 ML VIAL SQ SCH (21:12)
[2024-06-30] MEDS: ALBUMIN 25% 25 GM/100 ML VIAL IV ONE ×2 (05:22→15:43)
[2024-06-30 05:50] LABS: Hematocrit (blood only) 49.6 % (37.0-47.0); Hemoglobin 16.8 g/dl (12.0-16.0); Mean Corpuscular Hemoglobin 31.2 pg (25.0-34.0); Mean Corpuscular Hgb Conc 33.9 g/dL (32.0-36.0); Mean Platelet Volume 10.5 fL (9.4-12.4); Platelet Count 188 K/uL (130-400); RDW Coefficient of Variation 13.7 % (11.5-14.5); RDW Standard Deviation 46.2 fL (36.4-46.3); Red Blood Count 5.39 M/uL (4.20-5.40); White Blood Count 33.57 K/ul (4.8-10.8)
[2024-06-30 05:55] LABS: Albumin Globulin Ratio 2.3 (0.9-2); BUN Creatinine Ratio 14.3 (10-20); Bilirubin,Total 0.7 mg/dl (0.2-1.0); Calcium 7.3 mg/dl (8.6-10.3); Creatinine Clr Calc Pharmacy 11.7 ml/min; Est GFR (African American) 10.8 ml/min; Est GFR (Non-African American) 9.3 ml/min; Globulin 1.3 gm/dl (2.5-4.0); Phosphorus 6.2 mg/dl (2.5-4.9); Potassium 4.8 mmol/L (3.5-5.1); Total Protein 4.3 gm/dl (6.0-8.3)
[2024-06-30 06:06] LABS: Basophils # (auto) 0.06 K/uL (0.00-0.20); Basophils % (auto) 0.2 %; Eosinophils # (auto) 0.03 K/uL (0.00-0.50); Eosinophils % (auto) 0.1 %; Immature Granulocytes # (auto) 2.53 K/uL (0.01-0.20); Immature Granulocytes % (auto) 7.5 %; Lymphocytes # (auto) 1.22 K/uL (1.20-3.40); Lymphocytes % (auto) 3.6 %; Monocytes # (auto) 1.93 K/uL (0.11-0.59); Monocytes % (auto) 5.7 %; Neutrophils % (auto) 82.9 %
[2024-06-30 06:25] LABS: Hep B Surface Ag with confirm Negative (Negative)
[2024-06-30 06:35] LABS: Hepatitis B Surface Ab Quant < 3.00 mIU/mL (>or=10mIU/mL Immune); Hepatitis B Surface Antibody Non-Immune
[2024-06-30 07:50] LABS: Fibrinogen 144 mg/dl (184-400); INR 1.3 (0.9-1.1); Partial Thromboplastin Ratio 1.4; Partial Thromboplastin Time 39 Seconds (21-31)
[2024-06-30 07:52] LABS: D Dimer 11830 ug/L FEU (0-500)
--- NOTE | 2024-06-30 08:25 | Nephrology Progress Note ---
Date of Service June 30, 2024 Assessment & Plan (1) DOMITILA (acute kidney injury): Plan: * Progressive renal dysfunction. Patient is now oligo-anuric. CT this hospitalization was negative for obstruction. Gutierrez catheter has been removed due to lack of urine output. Pure wick was not placed due to swelling of the genitalia. No urine output recorded over the last 24 hours. * Although serum lactate was within normal limits yesterday, patient clinically has a sepsis-like picture. She has progressive leukocytosis, hypotension requiring pressor support and progressive renal dysfunction. She remains on phenylephrine therapy. Fingers and toes appear cyanotic consistent with peripheral vasoconstriction. Systolic blood pressure remains in the mid to upper 80s and patient has atrial fibrillation with persistent RVR despite beta-delphine/digoxin therapy. Attempts at dialysis 06/28/2024 were met with worsening tachycardia and hypotension which limited UF to only 460 cc. Clinically patient has intravascular volume contraction and third spacing fluid suggestive of inflammation/sepsis. Electrolyte balance remains acceptable at this time. No acute indication for hemodialysis today. * Plan of care discussed with ICU team this morning. I believe it would be reasonable to transfer Ms. Lim to a tertiary care center for ID evaluation and implementation of CRRT if needed. * Prognosis is guarded (2) Small bowel obstruction due to adhesions: Plan: * ex lap with lysis of adhesions 06/27/24 * Await further surgical input (3) Abdominal ascites: Plan: * Cytology negative. (4) Pleural effusion: Plan: * Exudative by Light's criteria. Cytology negative for malignancy * R chest tube in place. 2100 cc drainage last 24 hours Admission and Anticipated Discharge Date Admission Date: June 22, 2024 Subjective Ms. Lim was evaluated in the ICU this morning. She was awake, alert and responded appropriately. She denied dyspnea or abdominal discomfort. She remains on phenylephrine drip for blood pressure support. A chest tube was placed yesterday to drain her pleural effusion. Gutierrez catheter was removed 2 days ago as patient has been anuric. Ms. Lim has a right temporary femoral dialysis catheter in place. She was last dialyzed 06/28/2024 for 463 cc UF. Review of Systems Constitutional: + weakness; no fever Eyes: no problem reported Ear, Nose, Mouth, Throat: no problem reported Respiratory: no cough and no dyspnea Cardiovascular: + palpitations; no chest pain Gastrointestinal: no abdominal pain, no nausea, no vomiting and no diarrhea/loose stools Physical Exam Constitutional: + ill appearing and + frail appearing Eyes: PERRL, conjunctivae normal, anicteric sclerae ENMT: external ear and nose normal, oropharynx normal Neck: trachea midline, no thyromegaly Respiratory: + tachypneic Auscultation: + rales Cardiovascular: Rate/Rhythm: + tachycardic and + irregularly irregular Extremities: + edema (1+ dependent pitting edema) Gastrointestinal (Abdomen): Inspection/Auscultation: + abdomen distended and + hypoactive bowel sounds Neurologic: Speech / Cognition: normal speech Results & Data Vital Signs (Past 12 Hours) Vital Signs Temp Pulse Resp BP Pulse Ox Pulse Ox O2 Del Method 06/30/24 07:56 High Flow Nasal Cannula 06/30/24 07:28 113 H 06/30/24 04:54 36.6 C 06/30/24 04:30 89/60 L 06/30/24 04:30 89/60 L 06/30/24 04:29 116 H 86/64 L 06/30/24 04:18 117 H 18 93 06/30/24 04:15 86/64 L 06/30/24 04:15 86/64 L 06/30/24 04:15 86/64 L 06/30/24 04:00 88/64 L 06/30/24 03:51 114 H 18 91 06/30/24 03:45 89/61 L 06/30/24 03:39 116 H 17 92 06/30/24 03:15 81/53 L 06/30/24 03:15 122 H 19 81/53 L 93 High Flow Nasal Cannula 06/30/24 03:02 108 H 77/54 L 93 High Flow Nasal Cannula 06/30/24 02:45 113 H 20 96 06/30/24 02:35 111 H 28 H 95 06/30/24 02:26 113 H 19 97 06/30/24 02:04 110 H 83/55 L 06/30/24 02:02 114 H 21 95 06/30/24 02:02 82/54 L 06/30/24 02:02 83/55 L 06/30/24 01:38 117 H 23 94 06/30/24 01:00 113 H 19 94/61 L 97 High Flow Nasal Cannula 06/30/24 00:16 100/65 06/30/24 00:06 117 H 25 H 95 06/30/24 00:00 116 H 06/30/24 00:00 96/67 L 06/30/24 00:00 35.8 C L 18 96 High Flow Nasal Cannula 06/30/24 00:00 96 06/29/24 23:57 108 H 12 95 06/29/24 23:51 117 H 85/52 L 06/29/24 23:46 85/52 L 06/29/24 23:45 108 H 23 96 06/29/24 23:32 115 H 28 H 94 06/29/24 23:16 105/69 06/29/24 23:15 112 H 24 91 06/29/24 23:00 85/61 L 06/29/24 23:00 85/61 L 06/29/24 23:00 85/61 L 06/29/24 23:00 115 H 18 94 06/29/24 22:51 114 H 20 95 06/29/24 22:45 92/55 L 06/29/24 22:27 103 H 19 95 06/29/24 22:25 94/63 L 06/29/24 22:15 88/58 L 06/29/24 22:03 107 H 17 95 06/29/24 22:00 86/54 L 06/29/24 21:54 102 H 20 96 06/29/24 21:45 83/63 L 06/29/24 21:42 104 H 21 96 06/29/24 21:27 101 H 15 95 06/29/24 21:24 102 H 27 H 96 06/29/24 21:22 101 H 96/66 L 06/29/24 21:22 96/66 L 06/29/24 21:08 102/69 06/29/24 21:07 117 H 102/69 06/29/24 21:00 95/68 L 06/29/24 21:00 107 H 20 96 06/29/24 20:54 118 H 23 95 06/29/24 20:39 117 H 23 95 06/29/24 20:30 117 H 22 95 06/29/24 20:30 103/72 O2 Del Method O2 Flow Rate O2 Flow Rate 06/30/24 07:56 5 06/30/24 07:28 06/30/24 04:54 06/30/24 04:30 08/03/24 04:30 06/30/24 04:29 06/30/24 04:18 06/30/24 04:15 06/30/24 04:15 06/30/24 04:15 06/30/24 04:00 06/30/24 03:51 06/30/24 03:45 06/30/24 03:39 06/30/24 03:15 06/30/24 03:15 5 06/30/24 03:02 5 06/30/24 02:45 06/30/24 02:35 06/30/24 02:26 06/30/24 02:04 06/30/24 02:02 06/30/24 02:02 06/30/24 02:02 06/30/24 01:38 06/30/24 01:00 5 06/30/24 00:16 06/30/24 00:06 06/30/24 00:00 06/30/24 00:00 06/30/24 00:00 5 06/30/24 00:00 High Flow Nasal Cannula 5 06/29/24 23:57 06/29/24 23:51 06/29/24 23:46 06/29/24 23:45 06/29/24 23:32 06/29/24 23:16 06/29/24 23:15 06/29/24 23:00 06/29/24 23:00 06/29/24 23:00 06/29/24 23:00 06/29/24 22:51 06/29/24 22:45 06/29/24 22:27 06/29/24 22:25 06/29/24 22:15 06/29/24 22:03 06/29/24 22:00 06/29/24 21:54 06/29/24 21:45 06/29/24 21:42 06/29/24 21:27 06/29/24 21:24 06/29/24 21:22 06/29/24 21:22 06/29/24 21:08 06/29/24 21:07 06/29/24 21:00 06/29/24 21:00 06/29/24 20:54 06/29/24 20:39 06/29/24 20:30 06/29/24 20:30 Laboratory Results Laboratory Results WBC 33.57 K/ul (4.8-10.8) H* 06/30/24 04:48 RBC 5.39 M/uL (4.20-5.40) 06/30/24 04:48 Hgb 16.8 g/dl (12.0-16.0) H 06/30/24 04:48 POC Hgb 18.4 g/dl (12.0-16.0) H 06/28/24 00:49 Hct 49.6 % (37.0-47.0) H 06/30/24 04:48 POC Hct 54 % (37-47) H 06/28/24 00:49 MCV 92.0 fL (80.0-100.0) 06/30/24 04:48 MCH 31.2 pg (25.0-34.0) 06/30/24 04:48 MCHC 33.9 g/dL (32.0-36.0) 06/30/24 04:48 RDW Std Deviation 46.2 fL (36.4-46.3) 06/30/24 04:48 RDW Coeff of Eve 13.7 % (11.5-14.5) 06/30/24 04:48 Plt Count 188 K/uL (130-400) 06/30/24 04:48 MPV 10.5 fL (9.4-12.4) 06/30/24 04:48 Immature Gran % (Auto) 7.5 % 06/30/24 04:48 Neut % (Auto) 82.9 % 06/30/24 04:48 Lymph % (Auto) 3.6 % 06/30/24 04:48 [place] % (Auto) 5.7 % 06/30/24 04:48 Eos % (Auto) 0.1 % 06/30/24 04:48 Baso % (Auto) 0.2 % 06/30/24 04:48 Neut # (Auto) 27.80 K/uL (1.40-6.50) H 06/30/24 04:48 Lymph # (Auto) 1.22 K/uL (1.20-3.40) 06/30/24 04:48 [place] # (Auto) 1.93 K/uL (0.11-0.59) H 06/30/24 04:48 Eos # (Auto) 0.03 K/uL (0.00-0.50) 06/30/24 04:48 Baso # (Auto) 0.06 K/uL (0.00-0.20) 06/30/24 04:48 Immature Gran # (Auto) 2.53 K/uL (0.01-0.20) H 06/30/24 04:48 Polychromasia 1+ 06/28/24 04:26 Echinocytes 2+ 06/28/24 04:26 ESR < 1 mm/hr (0-30) 06/29/24 09:17 PT 14.0 Seconds (9.0-12.0) H 06/30/24 06:22 INR 1.3 (0.9-1.1) H 06/30/24 06:22 APTT 39 Seconds (21-31) H 06/30/24 06:22 PTT Ratio 1.4 06/30/24 06:22 Fibrinogen 144 mg/dl (184-400) L 06/30/24 06:22 D-Dimer 27152 ug/L FEU (0-500) H* 06/30/24 06:22 POC pH 7.33 (7.35-7.45) L 06/28/24 00:49 POC pCO2 29 mmHg (35-46) L 06/28/24 00:49 POC pO2 80 mmHg (80-95) 06/28/24 00:49 POC HCO3 15 reji/L (19-24) L 06/28/24 00:49 POC Total CO2 16 mmol/L (24-31) L 06/28/24 00:49 POC Base Excess -11.0 reji/L (-9-1.8) L 06/28/24 00:49 ABG pH 7.39 (7.35-7.45) 06/26/24 10:36 ABG pCO2 27 mmHg (35-46) L 06/26/24 10:36 ABG pO2 67 mmHg (80-95) L 06/26/24 10:36 ABG HCO3 16 mmol/L (19-24) L 06/26/24 10:36 POC ABG O2 Sat 95.0 % (90-95) 06/28/24 00:49 ABG O2 Saturation 93.3 % (90-95) 06/26/24 10:36 ABG Base Excess -7.1 mEq/L (-9-1.8) 06/26/24 10:36 Srini Test Pos (Pos) 06/26/24 10:36 VBG pH 7.31 (7.36-7.41) L 06/28/24 12:28 VBG pCO2 51 mmHg (38-50) H 06/28/24 04:26 VBG pO2 23 mmHg 06/28/24 04:26 VBG HCO3 22 mmol/L 06/28/24 04:26 VBG O2 Saturation < 60.0 % 06/28/24 04:26 VBG Base Excess -5.2 mEq/L 06/28/24 04:26 Oxygen Given room air 06/26/24 10:36 POC Sodium 128 mmol/L (135-144) L 06/28/24 00:49 Sodium 132 mmol/L (136-145) L 06/30/24 04:48 POC Potassium 5.5 mmol/L (3.3-5.0) H 06/28/24 00:49 Potassium 4.8 mmol/L (3.5-5.1) 06/30/24 04:48 Chloride 100 mmol/L (98-107) 06/30/24 04:48 Carbon Dioxide 22 mmol/L (21-32) 06/30/24 04:48 Anion Gap 10 (3-11) 06/30/24 04:48 BUN 62 mg/dl (6-23) H 06/30/24 04:48 Creatinine 4.35 mg/dl (0.6-1.2) H D 06/30/24 04:48 Est Cr Clr Drug Dosing 11.7 ml/min 06/30/24 04:48 Est GFR ( Amer) 10.8 ml/min 06/30/24 04:48 Est GFR (Non-Af Amer) 9.3 ml/min 06/30/24 04:48 BUN/Creatinine Ratio 14.3 (10-20) 06/30/24 04:48 Glucose 103 mg/dl (70-99(Fasting)) H 06/30/24 04:48 POC Glucose 105 mg/dl (70-99) H 06/28/24 18:02 Osmolality 287 mOsm/kg (280-300) 06/26/24 10:16 Lactate 1.6 mmol/L (0.4-2.0) 06/29/24 09:32 Calcium 7.3 mg/dl (8.6-10.3) L 06/30/24 04:48 Phosphorus 6.2 mg/dl (2.5-4.9) H 06/30/24 04:48 Magnesium 2.0 mg/dl (1.7-2.4) 06/30/24 04:48 Ferritin 262.1 ng/ml (8-388) 06/29/24 09:17 Total Bilirubin 0.7 mg/dl (0.2-1.0) 06/30/24 04:48 Direct Bilirubin 0.3 mg/dl (0-0.2) H 06/22/24 19:58 AST 40 U/L (13-39) H 06/30/24 04:48 ALT 17 U/L (7-52) 06/30/24 04:48 Alkaline Phosphatase 56 U/L (34-104) 06/30/24 04:48 Lactate Dehydrogenase 183 U/L (86-244) 06/27/24 08:25 C-Reactive Protein 15.97 mg/dl (0-0.5) H 06/29/24 09:17 Total Protein 4.3 gm/dl (6.0-8.3) L 06/30/24 04:48 Albumin 3.0 gm/dl (3.4-5.0) L 06/30/24 04:48 Globulin 1.3 gm/dl (2.5-4.0) L 06/30/24 04:48 Albumin/Globulin Ratio 2.3 (0.9-2) H 06/30/24 04:48 Lipase 12 U/L (11-82) 06/22/24 18:54 Procalcitonin 4.55 ng/ml (0-0.5) H 06/29/24 09:17 TSH 9.080 uIu/ml (0.300-4.500) H 06/28/24 08:30 Free T4 0.58 ng/dl (0.61-1.60) L 06/28/24 08:30 Random Cortisol 45.08 mcg/dl 06/28/24 04:26 Urine Color Dark Yellow 06/28/24 Unknown Urine Appearance Turbid (Clear) A 06/28/24 Unknown Urine pH 5.0 (4.5-7.5) 06/28/24 Unknown Ur Specific [place] 1.024 (1.000-1.030) 06/28/24 Unknown Urine Protein 2+ (Negative) H 06/28/24 Unknown Urine Glucose (UA) Negative (Negative) 06/28/24 Unknown Urine Ketones Trace (Negative) H 06/28/24 Unknown Urine Blood 2+ (Negative) H 06/28/24 Unknown Urine Nitrite Negative (Negative) 06/28/24 Unknown Urine Bilirubin Negative (Negative) 06/28/24 Unknown Urine Urobilinogen Negative (Negative) 06/28/24 Unknown Ur Leukocyte Esterase Trace (Negative) H 06/28/24 Unknown Urine WBC (Auto) 6-10 /hpf (0-5) H 06/28/24 Unknown Urine RBC (Auto) 6-10 /hpf (0-2) H 06/28/24 Unknown U Hyaline Cast (Auto) >20 /lpf (0-2) H 06/28/24 Unknown U Epithel Cells (Auto) >20 /hpf (0-2) H 06/28/24 Unknown Urine Bacteria (Auto) None Seen (None Seen) 06/28/24 Unknown Hyaline Casts Present /lpf (None Presnt) A 06/28/24 Unknown Granular Casts Present /lpf (None Prsent) A 06/28/24 Unknown WBC Casts Present /lpf (None Prsent) A 06/28/24 Unknown Urine Mucus Present (None Prsent) A 06/26/24 10:10 Urine Osmolality 590 mOsm/kg (500-800) 06/26/24 10:10 Ur Random Creatinine 76.4 mg/dl 06/28/24 Unknown Ur Random Sodium 11 mmol/L 06/28/24 Unknown Fluid Neutrophils % 74 % 06/29/24 13:00 Fluid Lymphocytes % 13 % 06/29/24 13:00 Fluid Meso/Macro/[place] % 13 % 06/29/24 13:00 Fluid Comment 06/29/24 13:00 Peritoneal Color Straw 06/27/24 10:59 Peritoneal Appearance Clear 06/27/24 10:59 Peritoneal WBC (Auto) 301 /ul (0-300) H 06/27/24 10:59 Peritoneal RBC (Auto) < 2000 /uL 06/27/24 10:59 Peritoneal Tot Protein < 3.0 gm/dl 06/27/24 10:59 Peritoneal Albumin 2.0 gm/dl 06/27/24 10:59 Peritoneal LDH 134 U/L 06/27/24 10:59 Peritoneal Glucose 131 mg/dl 06/27/24 10:59 Peritoneal Amylase 13 U/L 06/27/24 10:59 Peritoneal Lipase 13 U/L 06/27/24 10:59 Pleural Fluid Source Right Lung 06/29/24 13:00 Pleural Color Melania 06/29/24 13:00 Pleural Appearance Hazy 06/29/24 13:00 Pleural pH 7.41 (7.3-7.4) H 06/29/24 13:00 Pleural WBC (Auto) 1989 /uL 06/29/24 13:00 Pleural RBC (Auto) 50628 /uL 06/29/24 13:00 Pleural Total Protein < 3.0 gm/dl 06/29/24 13:00 Pleural LDH 667 U/L 06/29/24 13:00 Pleural Glucose 114 mg/dl 06/29/24 13:00 Pleural Amylase 12 U/L 06/25/24 11:20 Pleural Cholesterol 55 mg/dL 06/25/24 11:20 Nasal Screen MRSA (PCR) Negative (Negative) 06/28/24 Unknown Hepatitis A IgM Ab NON-REACTIVE (NON-REACTIVE) 06/25/24 14:34 Hep Bs Antigen Negative (Negative) 06/30/24 04:48 Hep Bs Antibody Non-Immune 06/30/24 04:48 Hep Bs Antibody, Quant < 3.00 mIU/mL (>or=10mIU/mL Immune) 06/30/24 04:48 Hep B Core IgM Ab NON-REACTIVE (NON-REACTIVE) 06/25/24 14:34 Hepatitis C Antibody Negative (Negative) 06/25/24 14:34 Impressions Chest/Abdomen X-ray 06/22/24 18:40 XR abdomen 2V w PA chest HISTORY: 73 years-old Female nausea constipation acute nodule with generalized abdominal pain COMPARISON: CT of same day, chest radiograph 07/11/2020 TECHNIQUE: AP view of the chest with erect and supine views of the abdomen FINDINGS: Cardiac silhouette is mildly enlarged moderate right and small left pleural effusions with right greater than left bibasilar consolidation. Bilateral breast implants. No pneumothorax. Bones of the chest appear grossly intact. Centralized loops of air-filled bowel compatible with ascites. Dilated small bowel loops measure up to approximately 4.3 cm. No acute fracture. No urolith. IMPRESSION: 1. Moderate right and small left pleural effusions with right basilar predominant consolidation which may represent atelectasis versus pneumonia. 2. Distended air-filled loops of small bowel may represent ileus versus obstruction. Follow-up recommended. 3. Please refer to the same day CT abdomen and pelvis study for additional findings. ACT 112: Negative or not required by law. The above report was generated using voice recognition software. It may contain grammatical, syntax or spelling errors. Electronically signed by: Jame Sampson M.D. 06/23/2024 8:35 AM Thoracentesis/Paracentesis US 06/25/24 11:59 Ultrasound-guided right thoracentesis INDICATION: Right pleural effusion PROCEDURE: Procedure and risks were explained. Informed consent was obtained. A final timeout was completed. The right posterior thorax was prepped and draped in sterile fashion. 1% lidocaine was utilized for skin anesthesia. Utilizing ultrasound guidance, a 5 [place] safety centesis catheter was advanced into the right pleural effusion. Ultrasound images were obtained. Approximately 750 mL of pleural fluid was removed and sent to the lab for analysis. The catheter was removed and Band-Aid applied. The patient tolerated the procedure well. A chest x-ray will be obtained postprocedure and vital signs will be monitored on the floor. Impression: Ultrasound-guided right thoracentesis as above. Performed, dictated, and signed by Alejandro Youngblood PA-C; to be co-signed by Dr. Jame Sampson. Electronically signed by: Jame Sampson M.D. 06/25/2024 3:00 PM Abdomen/Pelvis CT 06/26/24 10:[address] WITH ORAL CONTRAST CT DOSE: 773.21 mGy.cm HISTORY: Acute generalized abdominal pain with reported bowel obstruction eval SBO TECHNIQUE: Multiaxial CT images of the abdomen and pelvis were performed following the use of oral contrast. A dose lowering technique was utilized adhering to the principles of ALARA. COMPARISON STUDY: KUB of same day, CT 06/22/2024, 06/20/2024. FINDINGS: Partially imaged breast implants. Moderate layering pleural effusions with dependent bibasilar consolidation favoring atelectasis. The left pleural effusion is new from prior and the right has mildly decreased in size. No pneumoperitoneum or pneumatosis identified. Unremarkable spleen, moderately atrophic pancreas and adrenal glands. Layering hyperdense material noted within the gallbladder suggestive of vicarious excretion of contrast. The gallbladder is distended. Heterogeneity of the liver with marginal nodularity redemonstrated. No hepatic mass is seen. Unremarkable kidneys without hydronephrosis. Nonspecific urinary bladder wall thickening. Hysterectomy. Atherosclerosis of the aorta without aneurysm. No lymphadenopathy. Contrast-filled distended distal esophagus with small hiatal hernia. There is wall thickening throughout the stomach. Colonic diverticulosis. The majority of the colon is decompressed containing residual enteric contrast. Normal appendix. Persistent dilated small bowel loops measure up to aarti roximately 4.3 cm decompressed loops are seen within the abdominal right lower quadrant. It is difficult to see where the enteric contrast progresses to secondary to residual contrast from the prior exams. There is overall similar to mild progression of the small bowel distention compared to 06/22/2024 study. Small to moderate abdominal pelvic ascites is unchanged. Anasarca. Tiny fat filled umbilical hernia. No acute fracture. IMPRESSION: 1. Persistent small bowel obstruction with transition point within the abdominal right lower quadrant. The degree of small bowel dilatation is similar to mildly progressed from the 06/22/2024 exam. 2. Wall thickening was noted within the ascending colon and cecum on the 06/20/2024 study, not well appreciated on today's exam without IV contrast. Findings could be correlated with a follow-up colonoscopy. 3. No pneumatosis or pneumoperitoneum. 4. Cirrhosis with ascites and moderate pleural effusions, increased in size on the left and decreased on the right. 5. Colonic diverticulosis. 6. Additional findings as above. ACT 112: Negative or not required by law. The above report was generated using voice recognition software. It may contain grammatical, syntax or spelling errors. Electronically signed by: Jame Sampson M.D. 06/26/2024 1:19 PM KUB X-Ray 06/29/24 08:15 KUB HISTORY: Acute abdominal pain with small bowel obstruction SBO COMPARISON: 06/28/2024 FINDINGS: Midline skin dimitri. Distended air-filled loops of small bowel redemonstrated measuring up to 4.4 cm which is similar to prior. Distal tip of enteric tube projects over the expected location of the gastric body. No renal calculi. No ureteral calculi. No pneumoperitoneum or pneumatosis. A right femoral catheter is noted with distal tip projected over the right sacral ala. Lumbar levoscoliosis. No fracture. IMPRESSION: 1. Distal tip of enteric tube projects over the stomach. 2. Persistent small bowel distention which may represent obstruction versus postoperative ileus. Continued follow-up recommended. ACT 112: Negative or not required by law. The above report was generated using voice recognition software. It may contain grammatical, syntax or spelling errors. Electronically signed by: Jame Sampson M.D. 06/29/2024 7:37 AM Chest X-Ray 06/29/24 13:10 XR chest 1V portable HISTORY: 73 years-old Female S/P Thoracentesis acute shortness of breath. Pleural effusions. COMPARISON: Chest radiograph of same day at 9:16 AM TECHNIQUE: AP view of the chest FINDINGS: Right IJ catheter appears stable. Enteric tube courses into the stomach. Status post placement of a right pigtail pleural drainage catheter with tip projected over the medial right lung base. There is no pneumothorax. Substantially decreased size of the previously noted right pleural effusion with improved aeration of the right lung. Unchanged layering left pleural effusion with left lung volume loss and left basilar consolidation. Mild right basilar atelectasis. Pulmonary vascular congestion. Bones appear grossly intact. IMPRESSION: 1. Status post placement of a right-sided pleural catheter. No pneumothorax identified. 2. Decreased size of the right pleural effusion with improved aeration of the right lung. 3. Additional stable findings as above. ACT 112: Negative or not required by law. The above report was generated using voice recognition software. It may contain grammatical, syntax or spelling errors. Electronically signed by: Jame Sampson M.D. 06/29/2024 1:41 PM Abdomen Ultrasound 06/29/24 13:59 US abdomen limited CLINICAL HISTORY: assess for ascites COMPARISON STUDY: Abdomen and pelvis CT 06/26/2024. FINDINGS: Small to moderate amount of scattered ascites most pronounced within the perihepatic location. Dilated fluid-filled loops of small bowel again noted. IMPRESSION: 1. Small to moderate amount of ascites, unchanged. 2. Dilated loops of small bowel again noted consistent with the patient's known small bowel obstruction. ACT 112: Negative or not required by law. Electronically signed by: Maximilian Ferro M.D. 06/29/2024 3:39 PM PG Care Time/CCT Total # of Minutes Spent Total Time Spent with Patient: Total time spent is greater than 50% in coordination of care (as documented) at patient's floor/unit and/or counseling patient: Coding Level of Care Code 51291 SUB INP/OBS CARE 3/50MIN Diagnoses DOMITILA (acute kidney injury) N17.9 Small bowel obstruction due to adhesions K56.50 Abdominal ascites R18.8 Ascites type: other type Pleural effusion J90 (3) Abdominal ascites Ascites type: other type Qualified Code(s): R18.8 - Other ascites
--- NOTE | 2024-06-30 09:27 | Cardiology Progress Note ---
Date of Service June 30, 2024 Assessment & Plan (1) Atrial fibrillation with rapid ventricular response: (2) S/P exploratory laparotomy: (3) Acute hypoxic respiratory failure: (4) Acute renal failure: Plan Critically ill 73-year-old female in the intensive care unit post admission for abdominal pain, ascites and small bowel obstruction. Status post exploratory laparotomy and adhesion lysis. Recent clinical course notable for worsening renal failure marginal blood pressu re and oxygenation. All cultures to date negative Persistent atrial fibrillation present with rising heart rates secondary to demand of acute illness. Echocardiogram with hyperdynamic LV function and no significant valvular disease Bilateral pleural effusions being addressed Pressors being weaned Impression: 1. Atrial fibrillation with rapid response in part being driven by acute illness. Previously controlled with oral diltiazem currently contraindicated due to bowel rest and hypotension. Will trial low-dose metoprolol IV at 2.5 mg every 3 hours following blood pressure closely. If ineffective or not tolerated would load with digoxin Daily EKG given right bundle branch block to assess for further conduction changes Anticoagulation currently contraindicated and will avoid use of amiodarone if possible given possibility of spontaneous conversion to sinus rhythm and inherent risk of stroke Given Raynaud's disease may ultimately require return to calcium channel delphine once rhythm, hemodynamic instability and bowel function assured Will follow closely 06/30/2023 1. Atrial fibrillation with rapid response. Poorly tolerated beta-delphine therapy with associated hypotension. Heart rates higher secondary to acute illness but would like better control Will complete on digoxin load for 1 mg with 2 additional doses of IV 0.25 mg today. Continue multisystem support Admission and Anticipated Discharge Date Admission Date: June 22, 2024 Subjective Patient seen and examined, chart, medications, telemetry reviewed Respiratory status somewhat improved after thoracentesis Remains in atrial fibrillation with elevated ventricular response rate. Poorly tolerant of beta-delphine with declining blood pressure Renal function decline White cell count elevated with persistent ileus Physical Exam Constitutional: + ill appearing and + thin Eyes: PERRL, conjunctivae normal, anicteric sclerae Neck: trachea midline, no thyromegaly Respiratory: Auscultation: + diminished lung sounds (Bibasilar) Cardiovascular: Rate/Rhythm: + tachycardic and + irregularly irregular Heart Sounds: no murmur Vessels: no JVD Extremities: no AV fistula Results & Data Vital Signs (Past 12 Hours) Vital Signs Temp Pulse Resp BP Pulse Ox Pulse Ox O2 Del Method 08/03/24 09:00 115 H 21 94 06/30/24 09:00 109/64 06/30/24 08:03 109 H 19 92 06/30/24 08:00 105/58 L 06/30/24 07:56 High Flow Nasal Cannula 06/30/24 07:28 113 H 06/30/24 07:06 112 H 18 93 06/30/24 07:00 104/62 06/30/24 04:54 36.6 C 06/30/24 04:30 89/60 L 06/30/24 04:30 89/60 L 06/30/24 04:29 116 H 86/64 L 06/30/24 04:18 117 H 18 93 06/30/24 04:15 86/64 L 06/30/24 04:15 86/64 L 06/30/24 04:15 86/64 L 06/30/24 04:00 88/64 L 06/30/24 03:51 114 H 18 91 06/30/24 03:45 89/61 L 06/30/24 03:39 116 H 17 92 06/30/24 03:15 81/53 L 06/30/24 03:15 122 H 19 81/53 L 93 High Flow Nasal Cannula 06/30/24 03:02 108 H 77/54 L 93 High Flow Nasal Cannula 06/30/24 02:45 113 H 20 96 06/30/24 02:35 111 H 28 H 95 06/30/24 02:26 113 H 19 97 06/30/24 02:04 110 H 83/55 L 06/30/24 02:02 114 H 21 95 06/30/24 02:02 82/54 L 06/30/24 02:02 83/55 L 06/30/24 01:38 117 H 23 94 06/30/24 01:00 113 H 19 94/61 L 97 High Flow Nasal Cannula 06/30/24 00:16 100/65 06/30/24 00:06 117 H 25 H 95 06/30/24 00:00 116 H 06/30/24 00:00 96/67 L 06/30/24 00:00 35.8 C L 18 96 High Flow Nasal Cannula 06/30/24 00:00 96 06/29/24 23:57 108 H 12 95 06/29/24 23:51 117 H 85/52 L 06/29/24 23:46 85/52 L 06/29/24 23:45 108 H 23 96 06/29/24 23:32 115 H 28 H 94 06/29/24 23:16 105/69 06/29/24 23:15 112 H 24 91 06/29/24 23:00 85/61 L 06/29/24 23:00 85/61 L 06/29/24 23:00 85/61 L 06/29/24 23:00 115 H 18 94 06/29/24 22:51 114 H 20 95 06/29/24 22:45 92/55 L 06/29/24 22:27 103 H 19 95 06/29/24 22:25 94/63 L 06/29/24 22:15 88/58 L 06/29/24 22:03 107 H 17 95 06/29/24 22:00 86/54 L 06/29/24 21:54 102 H 20 96 06/29/24 21:45 83/63 L 06/29/24 21:42 104 H 21 96 06/29/24 21:27 101 H 15 95 06/29/24 21:24 102 H 27 H 96 O2 Del Method O2 Flow Rate O2 Flow Rate 06/30/24 09:00 06/30/24 09:00 06/30/24 08:03 06/30/24 08:00 06/30/24 07:56 5 06/30/24 07:28 06/30/24 07:06 06/30/24 07:00 06/30/24 04:54 06/30/24 04:30 06/30/24 04:30 06/30/24 04:29 06/30/24 04:18 06/30/24 04:15 06/30/24 04:15 06/30/24 04:15 06/30/24 04:00 06/30/24 03:51 06/30/24 03:45 06/30/24 03:39 06/30/24 03:15 06/30/24 03:15 5 06/30/24 03:02 5 06/30/24 02:45 06/30/24 02:35 06/30/24 02:26 06/30/24 02:04 06/30/24 02:02 06/30/24 02:02 06/30/24 02:02 06/30/24 01:38 06/30/24 01:00 5 06/30/24 00:16 06/30/24 00:06 06/30/24 00:00 06/30/24 00:00 06/30/24 00:00 5 06/30/24 00:00 High Flow Nasal Cannula 5 06/29/24 23:57 06/29/24 23:51 06/29/24 23:46 06/29/24 23:45 06/29/24 23:32 06/29/24 23:16 06/29/24 23:15 06/29/24 23:00 06/29/24 23:00 06/29/24 23:00 06/29/24 23:00 06/29/24 22:51 06/29/24 22:45 06/29/24 22:27 06/29/24 22:25 06/29/24 22:15 06/29/24 22:03 06/29/24 22:00 06/29/24 21:54 06/29/24 21:45 06/29/24 21:42 06/29/24 21:27 06/29/24 21:24 Laboratory Results Laboratory Results - last 24 hr 06/29/24 06/29/24 06/29/24 09:17 09:32 13:00 WBC RBC Hgb Hct MCV MCH MCHC RDW Std Deviation RDW Coeff of Eve Plt Count MPV Immature Gran % (Auto) Neut % (Auto) Lymph % (Auto) Hughes % (Auto) Eos % (Auto) Baso % (Auto) Neut # (Auto) Lymph # (Auto) Hughes # (Auto) Eos # (Auto) Baso # (Auto) Immature Gran # (Auto) ESR < 1 PT INR APTT PTT Ratio Fibrinogen D-Dimer Sodium Potassium Chloride Carbon Dioxide Anion Gap BUN Creatinine Est Cr Clr Drug Dosing Est GFR ( Amer) Est GFR (Non-Af Amer) BUN/Creatinine Ratio Glucose Lactate 1.6 Calcium Phosphorus Magnesium Ferritin 262.1 Total Bilirubin AST ALT Alkaline Phosphatase C-Reactive Protein 15.97 H Total Protein Albumin Globulin Albumin/Globulin Ratio Procalcitonin 4.55 H Fluid Neutrophils % 74 Fluid Lymphocytes % 13 Fluid Meso/Macro/Hughes % 13 Fluid Comment Pleural Fluid Source Right Lung Pleural Color Melania Pleural Appearance Hazy Pleural pH 7.41 H Pleural WBC (Auto) 1989 Pleural RBC (Auto) 38944 Pleural Total Protein < 3.0 Pleural LDH 667 Pleural Glucose 114 INDIRA Screen Pending Anti-Proteinase 3 Pending Anti-Myeloperoxidase Pending ANCA Pending Complement C3 Pending Complement C4 Pending Tot Complement (CH50) Pending Hep Bs Antigen Hep Bs Antibody Hep Bs Antibody, Quant Hep B Core IgM Ab 06/30/24 06/30/24 04:48 06:22 WBC 33.57 H* RBC 5.39 Hgb 16.8 H Hct 49.6 H MCV 92.0 MCH 31.2 MCHC 33.9 RDW Std Deviation 46.2 RDW Coeff of Eve 13.7 Plt Count 188 MPV 10.5 Immature Gran % (Auto) 7.5 Neut % (Auto) 82.9 Lymph % (Auto) 3.6 Hughes % (Auto) 5.7 Eos % (Auto) 0.1 Baso % (Auto) 0.2 Neut # (Auto) 27.80 H Lymph # (Auto) 1.22 Hughes # (Auto) 1.93 H Eos # (Auto) 0.03 Baso # (Auto) 0.06 Immature Gran # (Auto) 2.53 H ESR PT 14.0 H INR 1.3 H APTT 39 H PTT Ratio 1.4 Fibrinogen 144 L D-Dimer 37308 H* Sodium 132 L Potassium 4.8 Chloride 100 Carbon Dioxide 22 Anion Gap 10 BUN 62 H Creatinine 4.35 H D Est Cr Clr Drug Dosing 11.7 Est GFR ( Amer) 10.8 Est GFR (Non-Af Amer) 9.3 BUN/Creatinine Ratio 14.3 Glucose 103 H Lactate Calcium 7.3 L Phosphorus 6.2 H Magnesium 2.0 Ferritin Total Bilirubin 0.7 AST 40 H ALT 17 Alkaline Phosphatase 56 C-Reactive Protein Total Protein 4.3 L Albumin 3.0 L Globulin 1.3 L Albumin/Globulin Ratio 2.3 H Procalcitonin Fluid Neutrophils % Fluid Lymphocytes % Fluid Meso/Macro/Hughes % Fluid Comment Pleural Fluid Source Pleural Color Pleural Appearance Pleural pH Pleural WBC (Auto) Pleural RBC (Auto) Pleural Total Protein Pleural LDH Pleural Glucose INDIRA Screen Anti-Proteinase 3 Anti-Myeloperoxidase ANCA Complement C3 Complement C4 Tot Complement (CH50) Hep Bs Antigen Negative Hep Bs Antibody Non-Immune Hep Bs Antibody, Quant < 3.00 Hep B Core IgM Ab Pending
[2024-06-30] MEDS: DIGOXIN 250 MCG in SYRINGE 9 ML IV ONE (09:41)
--- NOTE | 2024-06-30 09:44 | Hospitalist Progress Note ---
"Date of Service June 30, 2024 Assessment & Plan (1) Ileus: (2) Abdominal ascites: (3) Pleural effusion: (4) Supratherapeutic INR: (5) Chronic anticoagulation: (6) Paroxysmal atrial fibrillation: (7) Small bowel obstruction due to adhesions: (8) S/P exploratory laparotomy: (9) DOMITILA (acute kidney injury): (10) Hyponatremia: (11) Metabolic acidosis: (12) Bronchiectasis: (13) Hypothyroid: Plan Persistent SBO Pt went to OR for ex lap on 06/27. Adhesional obstruction present, no signs of obvious ischemic bowel. Adhesion lysed and stool able to move freely passed prior obstruction. NGT remains in place. GI gave glycerin suppository on 06/28, which did not produce a bowel movement. KUB on 06/29 shows continued dilated distal small intestine. -continue PPI -continue NPO/NGT for now -Antiemetics PRN -Senior Front End Engineer recommends no TPN at this time due to risks Ascites Patient with ascites of unknown etiology. Significant concern for oncologic process. Unable to tap due to positioning of the bowel loops. Original imaging without signs of cirrhosis. Most recent did show some scarring/fibrosis of the liver. Ex lap without obvious since of malignancy. Able to sample the fluid. No organisms found on gram stain. -f/u pending fluid acid fast smear and culture, aerobic and anaerobic -further workup once patient stabilizes Supratherapeutic INR | Chronic anticoagulation |Paroxysmal a fib Supratherapeutic on admission. Does seem to respond to Vit K. Unclear on patient's liver function and ability to produce Vitamin K endogenously. Will continue to monitor -hold warfarin -daily coags -Started heparin 5000u, SQ q12h Paroxysmal a fib | Sinus tachycardia Intermittently in a fib vs sinus tach. Patient NPO at present and has not gotten her Cardizem. Pt continue with hypotension and now a-fib with RVR. No evidence of cardiomyopathy on echocardiogram on 06/28, EF >70% -Cardiology consulted for rate control -Holding cardizem -Follow daily ECGs DOMITILA/ATN Creatinine has increased to 3.37, potassium is holding at 4.1 after corrected with insulin on 06/27. Senior Front End Engineer placed temp HD port and dialysis performed on 06/28 but pt's BP dropped low/tachycardia. No fluid was removed. Pt continues with low urine output at 100cc overnight. Pleural effusions remain, pts continues on 8L O2. -Will plan dialysis again id nephrology recommends -Consider thoracocentesis if dialysis is not tolerated for removing fluid Leukocytosis Pt's WBC jumped to 20.42 today without known cause. Pt is afebrile and preliminary ascites fluid came back without organism growth on gram stain. Autoimmune panel was drawn. -Awaiting findings from Autoimmune panel. -Monitor vitals -IV Zosyn to continue Reactive Airway Disease Continue Anoro Ellipta Code status: full DVT ppx: SCDs, holding warfarin as INR supratherapeutic FENGI: NPO, NGT, IVF @ 150 mL Dispo: PCU/Tele Lines: Gutierrez placed 06/27 Admission and Anticipated Discharge Date Admission Date: June 22, 2024 Review of Systems Review of Systems: See HPI Physical Exam Constitutional: + thin and + frail appearing Eyes: PERRL, conjunctivae normal, anicteric sclerae ENMT: external ear and nose normal, oropharynx normal Neck: trachea midline, no thyromegaly Respiratory: R lung: rales to lung base, reduced air movement, otherwise clear to auscultation - drain in place, draining serous fluid, no blood on appearance L lung: reduced air movement, otherwise clear to auscultation Cardiovascular: Rate/Rhythm: + irregularly irregular irregularly irregular rate and rhythm, otherwise no murmurs, rubs, or gallops Gastrointestinal (Abdomen): Inspection/Auscultation: + abdomen distended and + hypoactive bowel sounds Percussion/Palpation: + abdomen tender, + ascites and + dullness to percussion midline surgical abdominal scar abdomen distended and tense, tender to palpation especially just left of midline scar distant bowel sounds, may be due to ascites interference Musculoskeletal: Head/Neck/Chest: normocephalic and head atraumatic Skin: + turgor decreased and + skin tightening b/l feet cool to touch, no discernable edema to b/l feet, ICDs on b/l LE for fluid overload, slightly slow capillary refill no edema to b/l upper extremities abdomen distended without pitting but with tight skin and palpation of no visible lesions except healing midline abdominal surgical scar Psychiatric: A+Ox3, euthymic affect Results & Data Results & Data Vital Signs (Past 12 Hours) Vital Signs Temp Pulse Resp BP Pulse Ox Pulse Ox O2 Del Method 06/30/24 09:41 112 H 06/30/24 09:00 115 H 21 94 06/30/24 09:00 109/64 06/30/24 08:03 109 H 19 92 06/30/24 08:00 105/58 L 06/30/24 07:56 High Flow Nasal Cannula 06/30/24 07:28 113 H 06/30/24 07:06 112 H 18 93 06/30/24 07:00 104/62 06/30/24 04:54 36.6 C 06/30/24 04:30 89/60 L 06/30/24 04:30 89/60 L 06/30/24 04:29 116 H 86/64 L 06/30/24 04:18 117 H 18 93 06/30/24 04:15 86/64 L 06/30/24 04:15 86/64 L 06/30/24 04:15 86/64 L 06/30/24 04:00 88/64 L 06/30/24 03:51 114 H 18 91 06/30/24 03:45 89/61 L 06/30/24 03:39 116 H 17 92 06/30/24 03:15 81/53 L 06/30/24 03:15 122 H 19 81/53 L 93 High Flow Nasal Cannula 06/30/24 03:02 108 H 77/54 L 93 High Flow Nasal Cannula 06/30/24 02:45 113 H 20 96 06/30/24 02:35 111 H 28 H 95 06/30/24 02:26 113 H 19 97 06/30/24 02:04 110 H 83/55 L 06/30/24 02:02 114 H 21 95 06/30/24 02:02 82/54 L 06/30/24 02:02 83/55 L 06/30/24 01:38 117 H 23 94 06/30/24 01:00 113 H 19 94/61 L 97 High Flow Nasal Cannula 06/30/24 00:16 100/65 06/30/24 00:06 117 H 25 H 95 06/30/24 00:00 116 H 06/30/24 00:00 96/67 L 06/30/24 00:00 35.8 C L 18 96 High Flow Nasal Cannula 06/30/24 00:00 96 06/29/24 23:57 108 H 12 95 06/29/24 23:51 117 H 85/52 L 06/29/24 23:46 85/52 L 06/29/24 23:45 108 H 23 96 06/29/24 23:32 115 H 28 H 94 06/29/24 23:16 105/69 06/29/24 23:15 112 H 24 91 06/29/24 23:00 85/61 L 06/29/24 23:00 85/61 L 06/29/24 23:00 85/61 L 06/29/24 23:00 115 H 18 94 06/29/24 22:51 114 H 20 95 06/29/24 22:45 92/55 L 06/29/24 22:27 103 H 19 95 06/29/24 22:25 94/63 L 06/29/24 22:15 88/58 L 06/29/24 22:03 107 H 17 95 06/29/24 22:00 86/54 L 06/29/24 21:54 102 H 20 96 06/29/24 21:45 83/63 L O2 Del Method O2 Flow Rate O2 Flow Rate 06/30/24 09:41 06/30/24 09:00 06/30/24 09:00 06/30/24 08:03 06/30/24 08:00 06/30/24 07:56 5 06/30/24 07:28 06/30/24 07:06 06/30/24 07:00 06/30/24 04:54 06/30/24 04:30 06/30/24 04:30 06/30/24 04:29 06/30/24 04:18 06/30/24 04:15 06/30/24 04:15 06/30/24 04:15 06/30/24 04:00 06/30/24 03:51 06/30/24 03:45 06/30/24 03:39 06/30/24 03:15 06/30/24 03:15 5 06/30/24 03:02 5 06/30/24 02:45 06/30/24 02:35 06/30/24 02:26 06/30/24 02:04 06/30/24 02:02 06/30/24 02:02 06/30/24 02:02 06/30/24 01:38 06/30/24 01:00 5 06/30/24 00:16 06/30/24 00:06 06/30/24 00:00 06/30/24 00:00 06/30/24 00:00 5 06/30/24 00:00 High Flow Nasal Cannula 5 06/29/24 23:57 06/29/24 23:51 06/29/24 23:46 06/29/24 23:45 06/29/24 23:32 06/29/24 23:16 06/29/24 23:15 06/29/24 23:00 06/29/24 23:00 06/29/24 23:00 06/29/24 23:00 06/29/24 22:51 06/29/24 22:45 06/29/24 22:27 06/29/24 22:25 06/29/24 22:15 06/29/24 22:03 06/29/24 22:00 06/29/24 21:54 06/29/24 21:45 (2) Abdominal ascites Ascites type: other type Qualified Code(s): R18.8 - Other ascites"
--- NOTE | 2024-06-30 09:58 | Critical Care Progress Note ---
Date of Service June 30, 2024 Assessment & Plan (1) Ileus: (2) Abdominal ascites: (3) Pleural effusion: (4) Paroxysmal atrial fibrillation: (5) Small bowel obstruction due to adhesions: (6) S/P exploratory laparotomy: (7) DOMITILA (acute kidney injury): (8) Hyponatremia: (9) Metabolic acidosis: (10) Bronchiectasis: (11) Hypothyroid: Plan Impression: 73-year-old female with past medical history of PAF (anticoagulated on Coumadin), hypothyroidism, bronchiectasis, presents to the ICU for progressive acute renal failure and metabolic acidosis. Patient underwent exploratory laparotomy for small bowel obstruction due to adhesions yesterday and has become progressively fatigued, with repeat lab work showing lactic acidosis and acute renal failure. She has made very little urine postop and is now being transferred to ICU for vasopressor support with concern for hepatorenal syndrome. 24 hour events: Patient was administered several liters of crystalloid on pressure bag to see if this improved her heart rate and blood pressure. The improvement was very transient. Cardiology consultation obtained. Initially placed on metoprolol which resulted in hypotension and then loaded on digoxin. After the crystalloid she developed increasing shortness of breath. A right- sided 14 [place] pigtail catheter was placed with removal of about 2 L of pleural fluid. Respiratory status improved Recommendations: Neuro -metabolic encephalopathy with mild delirium. Continue to reorient. Avoid medications associated with delirium if possible. No indication for additional workup or imaging at this point in time Cardiac -hypotension and now tachycardic. Echo findings reviewed. No evidence of valvular dysfunction or pulmonary hypertension. Continue volume support with 25% albumin. Lactate is cleared. She continues to appear intravascularly depleted but total body fluid up. Discussed with cardiology. Will defer additional beta-blockers and try addition of digoxin. Holding anticoagulation for A-fib currently given her recent surgery and potential need for additional procedures. She did not respond to additional crystalloid loading at this point in time and appears to have a vascular leak phenomenon. Repeat random cortisol Respiratory -hypoxemic respiratory failure with history of bronchiectasis. Prior bronchoscopy in January with BAL fluid showing 42% neutrophils 23% lymphocytes and 35% macrophages with no significant eosinophilia. Quantitative immunoglobulins in the past have been normal. AFB cultures at that time were negative. Repeat sampling demonstrated a significant increase in LDH, unclear if this represents diaphragmatic translocation from her intra-abdominal process. Will continue to follow. Could consider placement of to on the left side as well but the patient is improving and I am not convinced that fluid is infected at this point in time. Continue supplemental oxygen.. GI -distal small bowel obstruction status post exploratory laparotomy with lysis of adhesions. Await resumption of bowel function. Management per surgery. Agree that the clinical history and presentation are not consistent with cirrhosis so hepatorenal syndrome unlikely. PPI in place. Anticipate we should be able to initiate enteral nutrition once bowel function resumes. Given her issues with volume currently and other medical conditions, would strongly recommend against TPN. Will defer additional abdominal imaging to the surgery. RENAL/LYTES -acute renal failure, urine studies consistent with both prerenal and potential still the intrinsic renal disease. Discussed with nephrology today. Although patient does not require renal replacement today, it is likely that she will require in the future and given her hemodynamic issues, nephrology and I agree that consideration for continuous renal replacement therapy may be better tolerated. This is not a service that is available here and will discuss with the hospitalists getting her transferred to a tertiary facility. - Foleystrict I's and O's ENDO - Hypothyroidism Patient remains NPO. IV Synthroid every third day HEME - White blood cell count continues to increase. The patient has not been febrile. Cultures have shown no growth to date. Her exploratory laparotomy did not show evidence of perforation so I think fungal coverage is not yet required although the patient certainly at risk. D-dimer elevated at 11,830. Unclear significance. Fibrinogen was low at 144 with INR mildly elevated at 1.3. Patient's not thrombocytopenic. ID -white blood cell count progressively increasing up to 33,000 today. Cultures remain negative. Patient is afebrile but given her clinical condition, may not be able to mount a significant inflammatory response to infection. Day #5/[address] on empiric antifungals and discontinue Zosyn in favor of carbapenem. Continue to follow clinically. Recommend ID consultation, if the patient is being transferred this can be deferred until she arrives at a tertiary facility. LINES/IV ACCESS - Right IJ CVC (06/28), right femoral HD cath DVT PROPHYLAXIS - SCDs, start subcutaneous heparin I have personally spent 44 minutes of critical care time in the direct management of this patient. This is a life/limb threatening event. This includes time spent evaluating patient, direct bedside care, chart review, placing orders, interpretation of diagnostic studies, discussion with consultants, patient, and family members, as well as other required patient management activities. This time is exclusive of all separately billable procedures, and teaching time and separate from and in addition to any other critical care service time. Admission and Anticipated Discharge Date Admission Date: June 22, 2024 Subjective Patient seen and examined. EMR reviewed. Discussed with multiple consultants. She reports that she feels slightly better. Her breathing is better after placement of the chest tube and her oxygen requirement is less. She is not yet passing gas. Her abdomen remains somewhat distended. She has not had fevers chills night sweats or other constitutional symptoms. Review of Systems Review of Systems: All systems reviewed & are unremarkable except as noted in Subjective Physical Exam Constitutional: + ill appearing and + thin; no acute dis tress Eyes: + anicteric sclerae ENMT: Mouth: + dry oral mucous membranes Neck: normal visual inspection and trachea midline Respiratory: + tachypneic Auscultation: + diminish ed lung sounds and + rales Cardiovascular: Rate/Rhythm: regular rhythm and + tachycardic Heart Sounds: normal S1 and normal S2 Vessels: + JVD Extremities: + edema Musculoskeletal: Extremities: no cyanosis and no clubbing Skin: normal turgor; no jaundice Neurologic: Motor/Sensory: no tremor and no asterixis Psychiatric: Orientation: alert and oriented x 3 Results & Data Results & Data Vital Signs (Past 12 Hours) Vital Signs Temp Pulse Resp BP Pulse Ox Pulse Ox O2 Del Method 06/30/24 09:41 112 H 06/30/24 09:00 115 H 21 94 06/30/24 09:00 109/64 06/30/24 08:03 109 H 19 92 06/30/24 08:00 105/58 L 06/30/24 07:56 High Flow Nasal Cannula 06/30/24 07:28 113 H 06/30/24 07:06 112 H 18 93 06/30/24 07:00 104/62 06/30/24 04:54 36.6 C 06/30/24 04:30 89/60 L 06/30/24 04:30 89/60 L 06/30/24 04:29 116 H 86/64 L 06/30/24 04:18 117 H 18 93 06/30/24 04:15 86/64 L 06/30/24 04:15 86/64 L 06/30/24 04:15 86/64 L 06/30/24 04:00 88/64 L 06/30/24 03:51 114 H 18 91 06/30/24 03:45 89/61 L 06/30/24 03:39 116 H 17 92 06/30/24 03:15 81/53 L 06/30/24 03:15 122 H 19 81/53 L 93 High Flow Nasal Cannula 06/30/24 03:02 108 H 77/54 L 93 High Flow Nasal Cannula 06/30/24 02:45 113 H 20 96 06/30/24 02:35 111 H 28 H 95 06/30/24 02:26 113 H 19 97 06/30/24 02:04 110 H 83/55 L 06/30/24 02:02 114 H 21 95 06/30/24 02:02 82/54 L 06/30/24 02:02 83/55 L 06/30/24 01:38 117 H 23 94 06/30/24 01:00 113 H 19 94/61 L 97 High Flow Nasal Cannula 06/30/24 00:16 100/65 06/30/24 00:06 117 H 25 H 95 06/30/24 00:00 116 H 06/30/24 00:00 96/67 L 06/30/24 00:00 35.8 C L 18 96 High Flow Nasal Cannula 06/30/24 00:00 96 06/29/24 23:57 108 H 12 95 06/29/24 23:51 117 H 85/52 L 06/29/24 23:46 85/52 L 06/29/24 23:45 108 H 23 96 06/29/24 23:32 115 H 28 H 94 06/29/24 23:16 105/69 06/29/24 23:15 112 H 24 91 06/29/24 23:00 85/61 L 06/29/24 23:00 85/61 L 06/29/24 23:00 85/61 L 06/29/24 23:00 115 H 18 94 06/29/24 22:51 114 H 20 95 06/29/24 22:45 92/55 L 06/29/24 22:27 103 H 19 95 06/29/24 22:25 94/63 L 06/29/24 22:15 88/58 L 06/29/24 22:03 107 H 17 95 06/29/24 22:00 86/54 L O2 Del Method O2 Flow Rate O2 Flow Rate 06/30/24 09:41 06/30/24 09:00 06/30/24 09:00 06/30/24 08:03 06/30/24 08:00 06/30/24 07:56 5 06/30/24 07:28 06/30/24 07:06 06/30/24 07:00 06/30/24 04:54 06/30/24 04:30 06/30/24 04:30 06/30/24 04:29 06/30/24 04:18 06/30/24 04:15 06/30/24 04:15 06/30/24 04:15 06/30/24 04:00 06/30/24 03:51 06/30/24 03:45 06/30/24 03:39 06/30/24 03:15 06/30/24 03:15 5 06/30/24 03:02 5 06/30/24 02:45 06/30/24 02:35 06/30/24 02:26 06/30/24 02:04 06/30/24 02:02 06/30/24 02:02 06/30/24 02:02 06/30/24 01:38 06/30/24 01:00 5 06/30/24 00:16 06/30/24 00:06 06/30/24 00:00 06/30/24 00:00 06/30/24 00:00 5 06/30/24 00:00 High Flow Nasal Cannula 5 06/29/24 23:57 06/29/24 23:51 06/29/24 23:46 06/29/24 23:45 06/29/24 23:32 06/29/24 23:16 06/29/24 23:15 06/29/24 23:00 06/29/24 23:00 06/29/24 23:00 06/29/24 23:00 06/29/24 22:51 06/29/24 22:45 06/29/24 22:27 06/29/24 22:25 06/29/24 22:15 06/29/24 22:03 06/29/24 22:00 Laboratory Results Pleural fluid studies: 74% neutrophils, 13% lymphocytes, 13% mesothelial cells pH 7.41 Total protein less than 3 LDH 667 Glucose 114 Gram stain showed many white blood cells but no organisms Critical Care Results & Data Vital Signs (Past 12 Hours) Vital Signs Temp Pulse Resp BP Pulse Ox Pulse Ox O2 Del Method 06/30/24 09:41 112 H 06/30/24 09:00 115 H 21 94 06/30/24 09:00 109/64 06/30/24 08:03 109 H 19 92 06/30/24 08:00 105/58 L 06/30/24 07:56 High Flow Nasal Cannula 06/30/24 07:28 113 H 06/30/24 07:06 112 H 18 93 06/30/24 07:00 104/62 06/30/24 04:54 36.6 C 06/30/24 04:30 89/60 L 06/30/24 04:30 89/60 L 06/30/24 04:29 116 H 86/64 L 06/30/24 04:18 117 H 18 93 06/30/24 04:15 86/64 L 06/30/24 04:15 86/64 L 06/30/24 04:15 86/64 L 06/30/24 04:00 88/64 L 06/30/24 03:51 114 H 18 91 06/30/24 03:45 89/61 L 06/30/24 03:39 116 H 17 92 06/30/24 03:15 81/53 L 06/30/24 03:15 122 H 19 81/53 L 93 High Flow Nasal Cannula 06/30/24 03:02 108 H 77/54 L 93 High Flow Nasal Cannula 06/30/24 02:45 113 H 20 96 06/30/24 02:35 111 H 28 H 95 06/30/24 02:26 113 H 19 97 06/30/24 02:04 110 H 83/55 L 06/30/24 02:02 114 H 21 95 06/30/24 02:02 82/54 L 06/30/24 02:02 83/55 L 06/30/24 01:38 117 H 23 94 06/30/24 01:00 113 H 19 94/61 L 97 High Flow Nasal Cannula 06/30/24 00:16 100/65 06/30/24 00:06 117 H 25 H 95 06/30/24 00:00 116 H 06/30/24 00:00 96/67 L 06/30/24 00:00 35.8 C L 18 96 High Flow Nasal Cannula 06/30/24 00:00 96 06/29/24 23:57 108 H 12 95 06/29/24 23:51 117 H 85/52 L 06/29/24 23:46 85/52 L 06/29/24 23:45 108 H 23 96 06/29/24 23:32 115 H 28 H 94 06/29/24 23:16 105/69 06/29/24 23:15 112 H 24 91 06/29/24 23:00 85/61 L 06/29/24 23:00 85/61 L 06/29/24 23:00 85/61 L 06/29/24 23:00 115 H 18 94 06/29/24 22:51 114 H 20 95 06/29/24 22:45 92/55 L 06/29/24 22:27 103 H 19 95 06/29/24 22:25 94/63 L 06/29/24 22:15 88/58 L 06/29/24 22:03 107 H 17 95 06/29/24 22:00 86/54 L O2 Del Method O2 Flow Rate O2 Flow Rate 06/30/24 09:41 06/30/24 09:00 06/30/24 09:00 06/30/24 08:03 06/30/24 08:00 06/30/24 07:56 5 06/30/24 07:28 06/30/24 07:06 06/30/24 07:00 06/30/24 04:54 06/30/24 04:30 06/30/24 04:30 06/30/24 04:29 06/30/24 04:18 06/30/24 04:15 06/30/24 04:15 06/30/24 04:15 06/30/24 04:00 06/30/24 03:51 06/30/24 03:45 06/30/24 03:39 06/30/24 03:15 06/30/24 03:15 5 06/30/24 03:02 5 06/30/24 02:45 06/30/24 02:35 06/30/24 02:26 06/30/24 02:04 06/30/24 02:02 06/30/24 02:02 06/30/24 02:02 06/30/24 01:38 06/30/24 01:00 5 06/30/24 00:16 06/30/24 00:06 06/30/24 00:00 06/30/24 00:00 06/30/24 00:00 5 06/30/24 00:00 High Flow Nasal Cannula 5 06/29/24 23:57 06/29/24 23:51 06/29/24 23:46 06/29/24 23:45 06/29/24 23:32 06/29/24 23:16 06/29/24 23:15 06/29/24 23:00 06/29/24 23:00 06/29/24 23:00 06/29/24 23:00 06/29/24 22:51 06/29/24 22:45 06/29/24 22:27 06/29/24 22:25 06/29/24 22:15 06/29/24 22:03 06/29/24 22:00 Lab & Micro Results (Past 24 Hours) RBC 5.39 M/uL (4.20-5.40) 06/30/24 WBC 33.57 K/ul (4.8-10.8) H* 06/30/24 Hgb 16.8 g/dl (12.0-16.0) H 06/30/24 Hct 49.6 % (37.0-47.0) H 06/30/24 MCV 92.0 fL (80.0-100.0) 06/30/24 MCH 31.2 pg (25.0-34.0) 06/30/24 MCHC 33.9 g/dL (32.0-36.0) 06/30/24 RDW Standard Deviation 46.2 fL (36.4-46.3) 06/30/24 RDW Coefficient of Variation 13.7 % (11.5-14.5) 06/30/24 Plt Count 188 K/uL (130-400) 06/30/24 MPV 10.5 fL (9.4-12.4) 06/30/24 Neutrophils (%) (Auto) 82.9 % 06/30/24 Lymphocytes (%) (Auto) 3.6 % 06/30/24 Monocytes # (Auto) 1.93 K/uL (0.11-0.59) H 06/30/24 Eosinophils # (Auto) 0.03 K/uL (0.00-0.50) 06/30/24 Immature Granulocyte % (Auto) 7.5 % 06/30/24 Neutrophils # (Auto) 27.80 K/uL (1.40-6.50) H 06/30/24 Lymphocytes # (Auto) 1.22 K/uL (1.20-3.40) 06/30/24 Monocytes # (Auto) 1.93 K/uL (0.11-0.59) H 06/30/24 Eosinophils # (Auto) 0.03 K/uL (0.00-0.50) 06/30/24 Basophils # (Auto) 0.06 K/uL (0.00-0.20) 06/30/24 Immature Granulocyte # (Auto) 2.53 K/uL (0.01-0.20) H 06/30 Na 132 mmol/L (136-145) L 06/30/24 K 4.8 mmol/L (3.5-5.1) 06/30/24 Cl 100 mmol/L (98-107) 06/30/24 CO2 22 mmol/L (21-32) 06/30/24 Anion Gap 10 (3-11) 06/30/24 BUN 62 mg/dl (6-23) H 06/30/24 Creatinine 4.35 mg/dl (0.6-1.2) H 06/30/24 Estimated GFR ( Amer) 10.8 ml/min 06/30/24 Estimated GFR (Non-Af Amer) 9.3 ml/min 06/30/24 BUN/Creatinine Ratio 14.3 (10-20) 06/30/24 Glu 103 mg/dl (70-99(Fasting)) H 06/30/24 Ca 7.3 mg/dl (8.6-10.3) L 06/30/24 Phosphorus Level 6.2 mg/dl (2.5-4.9) H 06/30/24 Total Bilirubin 0.7 mg/dl (0.2-1.0) 06/30/24 AST 40 U/L (13-39) H 06/30/24 ALT 17 U/L (7-52) 06/30/24 Alkaline Phosphatase 56 U/L (34-104) 06/30/24 TP 4.3 gm/dl (6.0-8.3) L 06/30/24 Albumin 3.0 gm/dl (3.4-5.0) L 06/30/24 Globulin 1.3 gm/dl (2.5-4.0) L 06/30/24 Albumin/Globulin Ratio 2.3 (0.9-2) H 06/30/24 Mg 2.0 mg/dl (1.7-2.4) 06/30/24 04:48 Calcium Level 7.3 mg/dl (8.6-10.3) L 06/30/24 04:48 Prothromb Time International Ratio 1.3 (0.9-1.1) H 06/30/24 06 :22 Microbiology 06/29/24 13:00 Gram Stain - Final Pleural Fluid 06/27/24 10:59 Acid Fast Bacilli Smear - Final Peritoneal Fluid Diagnostic Findings (Past 24 Hours) Chest X-Ray 06/29/24 08:49 XR chest 1V portable CLINICAL HISTORY: hypoxemia TECHNIQUE: Single frontal radiograph of the chest was obtained. Comparison: Comparison is made to chest radiograph 06/28/2024 FINDINGS: Lines and tubes are stable. The cardiomediastinal silhouette is normal. Bilateral lower lung predominant airspace opacities are seen. Moderate bilateral pleural effusions, increased from prior exam. IMPRESSION: Moderate bilateral effusions are increased from prior exam with likely underlying atelectasis, although superimposed aspiration/pneumonia cannot be entirely excluded. ACT 112: Negative or not required by law. Electronically signed by: Kenny Barbour M.D. 06/29/2024 11:45 AM Chest X-Ray 06/29/24 13:10 XR chest 1V portable HISTORY: 73 years-old Female S/P Thoracentesis acute shortness of breath. P leural effusions. COMPARISON: Chest radiograph of same day at 9:16 AM TECHNIQUE: AP view of the chest FINDINGS: Right IJ catheter appears stable. Enteric tube courses into the stomach. Status post placement of a right pigtail pleural drainage catheter with tip projected over the medial right lung base. There is no pneumothorax. Substantially decreased size of the previously noted right pleural effusion with improved aeration of the right lung. Unchanged layering left pleural effusion with left lung volume loss and left basilar consolidation. Mild right basilar atelectasis. Pulmonary vascular congestion. Bones appear grossly intact. IMPRESSION: 1. Status post placement of a right-sided pleural catheter. No pneumothorax identified. 2. Decreased size of the right pleural effusion with improved aeration of the right lung. 3. Additional stable findings as above. ACT 112: Negative or not required by law. The above report was generated using voice recognition software. It may contain grammatical, syntax or spelling errors. Electronically signed by: Jame Sampson M.D. 06/29/2024 1:41 PM Abdomen Ultrasound 06/29/24 13:59 US abdomen limited CLINICAL HISTORY: assess for ascites COMPARISON STUDY: Abdomen and pelvis CT 06/26/2024. FINDINGS: Small to moderate amount of scattered ascites most pronounced within the perihepatic location. Dilated fluid-filled loops of small bowel again noted. IMPRESSION: 1. Small to moderate amount of ascites, unchanged. 2. Dilated loops of small bowel again noted consistent with the patient's known small bowel obstruction. ACT 112: Negative or not required by law. Electronically signed by: Maximilian Ferro M.D. 06/29/2024 3:39 PM I & O Totals 24 Hours 06/29/24 06/30/24 07/01/24 06:59 06:59 06:59 Intake Total 3195.146 / 3195.146 2715.189 / 2715.189 193.28 / 193.28 Output Total 587 / 587 2880 / 2880 0 / 0 Balance 2608.146 / 2608.146 -164.811 / -164.811 193.28 / 193.28 Cumulative 06/22/24 18:07 thru 06/30/24 09:42 Intake Total 48209.873 Output Total 5487 Balance 77441.873 Chest tube output 2.1 L since placement RT Ventilator Mngmt (Last Documented) Ventilator Ordered Settings Respiratory Rate 21 06/30/24 09:00 Ventilator - PT Measurements Respiratory Rate 21 Coding Level of Care Code 76643 CRITICAL CARE 1ST 30-74M Diagnoses Ileus K56.7 Abdominal ascites R18.8 Ascites type: other type Pleural effusion J90 Paroxysmal atrial fibrillation I48.0 Small bowel obstruction due to adhesions K56.50 S/P exploratory laparotomy Z98.890 DOMITILA (acute kidney injury) N17.9 Hyponatremia E87.1 Metabolic acidosis E87.20 Bronchiectasis J47.9 Hypothyroid E03.9 (2) Abdominal ascites Ascites type: other type Qualified Code(s): R18.8 - Other ascites
--- NOTE | 2024-06-30 10:47 | Electrocardiogram Report ---
Test Reason : Blood Pressure : / mmHG Vent. Rate : 116 BPM Atrial Rate : 117 BPM P-R Int : 000 ms QRS Dur : 114 ms QT Int : 282 ms P-R-T Axes : 000 126 -55 degrees QTc Int : 391 ms Atrial fibrillation with rapid ventricular response Incomplete right bundle branch block Right ventricular hypertrophy with repolarization abnormality Lateral infarct , age undetermined T wave abnormality, consider inferior ischemia Abnormal ECG When compared with ECG of 28-JUN-2024 06:06, QRS axis Shifted right ST more depressed Anterior leads Nonspecific T wave abnormality has replaced inverted T waves in Lateral leads Confirmed by Neal Ly ([id number]) on 06/30/2024 10:46:41 AM Referred By: Gabrielle Crawley Confirmed By:Tylor Ly
[2024-06-30] MEDS: MEROPENEM 500 MG in SYRINGE 0 ML IV SCH (11:01)
[2024-06-30] MEDS: CASPOFUNGIN 50 MG in SODIUM CHLORIDE 0.9% 250 ML IV SCH (11:03)
--- NOTE | 2024-06-30 11:29 | Surgery Progress Note ---
Date of Service June 30, 2024 Assessment & Plan (1) Small bowel obstruction due to adhesions: Plan: Complex pt remains in ICU requiring pressor support and Oxygen Requiring HD cath Now with chest tube POD 3 Lysis of adhesion Abd distended, TTP, no flatus or BM yet WBC elevated 33 (20) Keep NGT until passing flatus /BM return of bowel function Keep npo Dressing removed, no s/s infection noted, may keep dry dressing on for comfort Pt seen and examined with Dr. Bruce Spoke with transfer center and a provider at [facility] for possible transfer (2) S/P exploratory laparotomy: Admission and Anticipated Discharge Date Admission Date: June 22, 2024 Supervising Physician Co-Signing Physician Notes pnt S&E, labs and imaging reviewed, agree with above. Admitted with suspected food poisoning, over course of her stay revealed to have sbo, POD#3 ex-lap w/ SURI by Dr. Porras. Single band, no ischemia. Requiring pressors and dialysis. abd pain improving, still distended, no return of bowel function. Abd soft, distended, appropriately ttp, no guarding, no pain out of proportion to exam. wbc rising. Do not feel that continued findings of renal failure, sepsis, pleural effusions and ascites are related to any ongoing abdominal issues. Could consider imaging, however transfer is being coordinated to [facility] for CVVT and ID consultation. Surgery will follow while in house. Subjective POD#3 ex lap and SURI for sbo. Still requiring pressors, no bm or flatus. Abd pain improved but bloated. Review of Systems Constitutional: no fever Gastrointestinal: + abdominal pain and + bloating; no vomi ting Physical Exam Constitutional: + ill appearing and cooperative; no acut e distress Respiratory: able to speak in complete sentences Cardiovascular: Rate/Rhythm: + tachycardic Gastrointestinal (Abdomen): Inspection/Auscultation: + abdomen distended and + abdominal surgical incision (dimitri w/o s/s infection no drainage) Percussion/Palpation: + abdomen tender and + abdomen firm Psychiatric: Orientation: alert and oriented x 3 Results & Data Vital Signs (Past 12 Hours) Vital Signs Temp Pulse Resp BP Pulse Ox Pulse Ox O2 Del Method 06/30/24 11:00 95/60 L 06/30/24 11:00 103 H 17 98 06/30/24 10:03 108 H 20 97 06/30/24 10:00 89/67 L 06/30/24 09:41 112 H 06/30/24 09:00 115 H 21 94 06/30/24 09:00 109/64 06/30/24 08:03 109 H 19 92 06/30/24 08:00 105/58 L 06/30/24 07:56 High Flow Nasal Cannula 06/30/24 07:28 113 H 06/30/24 07:06 112 H 18 93 06/30/24 07:00 104/62 06/30/24 04:54 97.9 F 06/30/24 04:30 89/60 L 06/30/24 04:30 89/60 L 06/30/24 04:29 116 H 86/64 L 06/30/24 04:18 117 H 18 93 06/30/24 04:15 86/64 L 06/30/24 04:15 86/64 L 06/30/24 04:15 86/64 L 06/30/24 04:00 88/64 L 06/30/24 03:51 114 H 18 91 06/30/24 03:45 89/61 L 06/30/24 03:39 116 H 17 92 06/30/24 03:15 81/53 L 06/30/24 03:15 122 H 19 81/53 L 93 High Flow Nasal Cannula 06/30/24 03:02 108 H 77/54 L 93 High Flow Nasal Cannula 06/30/24 02:45 113 H 20 96 06/30/24 02:35 111 H 28 H 95 06/30/24 02:26 113 H 19 97 06/30/24 02:04 110 H 83/55 L 06/30/24 02:02 114 H 21 95 06/30/24 02:02 82/54 L 06/30/24 02:02 83/55 L 06/30/24 01:38 117 H 23 94 06/30/24 01:00 113 H 19 94/61 L 97 High Flow Nasal Cannula 06/30/24 00:16 100/65 06/30/24 00:06 117 H 25 H 95 06/30/24 00:00 116 H 06/30/24 00:00 96/67 L 06/30/24 00:00 96.5 F L 18 96 High Flow Nasal Cannula 06/30/24 00:00 96 06/29/24 23:57 108 H 12 95 06/29/24 23:51 117 H 85/52 L 06/29/24 23:46 85/52 L 06/29/24 23:45 108 H 23 96 06/29/24 23:32 115 H 28 H 94 O2 Del Method O2 Flow Rate O2 Flow Rate 06/30/24 11:00 06/30/24 11:00 06/30/24 10:03 06/30/24 10:00 06/30/24 09:41 06/30/24 09:00 06/30/24 09:00 06/30/24 08:03 06/30/24 08:00 06/30/24 07:56 5 06/30/24 07:28 06/30/24 07:06 06/30/24 07:00 06/30/24 04:54 06/30/24 04:30 06/30/24 04:30 06/30/24 04:29 06/30/24 04:18 06/30/24 04:15 06/30/24 04:15 06/30/24 04:15 06/30/24 04:00 06/30/24 03:51 06/30/24 03:45 06/30/24 03:39 06/30/24 03:15 06/30/24 03:15 5 06/30/24 03:02 5 06/30/24 02:45 06/30/24 02:35 06/30/24 02:26 06/30/24 02:04 06/30/24 02:02 06/30/24 02:02 06/30/24 02:02 06/30/24 01:38 06/30/24 01:00 5 06/30/24 00:16 06/30/24 00:06 06/30/24 00:00 06/30/24 00:00 06/30/24 00:00 5 06/30/24 00:00 High Flow Nasal Cannula 5 06/29/24 23:57 06/29/24 23:51 06/29/24 23:46 06/29/24 23:45 06/29/24 23:32 PG Care Time/CCT Total # of Minutes Spent Total Time Spent with Patient: Total time spent is greater than 50% in coordination of care (as documented) at patient's floor/unit and/or counseling patient: Coding Level of Care Code 17594 Post Operative Follow-Up Diagnoses Small bowel obstruction due to adhesions K56.50 S/P exploratory laparotomy Z98.890
--- NOTE | 2024-06-30 12:04 | Discharge Summary ---
Date of Service June 30, 2024 Admission HPI Per Admitting Provider Clarisse Lim, nickname "Shantell" is a 73-year-old female with a past medical history including hypothyroidism, vitamin D deficiency, HRT, hyperparathyroidism, paroxysmal atrial fibrillation, adrenal insufficiency, pneumonia and osteoporosis. Earlier this year: She reports that she was recently completed a 10-day course of an antibiotic for pneumonia on 03/17. She ate shrimp on 03/19, and within an hour to developed crampy abdominal pain, nausea without vomiting. She reports feeling a little bit better, and then on 03/21 ate strawberries and blueberries, and developed a return of and worsening of the abdominal cramping and now has abdominal distention. Current hospital course: She was seen in the emergency department on 06/20, and CT scan at that time showed ascending colon colitis, periportal edema, question of hepatitis, and a moderate right pleural effusion. Due to persistence and worsening of symptoms, she presented to the ED this evening 06/22, and CT scan at this time shows an ileus, with a markedly increased volume of ascites. Patient reports her last bowel movement was 4 days ago, and reports that her urine function is normal. Admission Exam Per Admitting Provider H&P from 06/22/24: The patient is awake, alert and oriented 3, well developed and well nourished, normocephalic and atraumatic, lying in bed and in no acute distress. HEENT--PERRL, EOMI, mucous membranes and oropharynx dry. Neck--supple. No JVD. No bruits. Thyroid normal, trachea midline, no adenopa thy. Heart--normal S1 and S2. No murmurs, rubs or gallops. Lungs--clear bilaterally, no respiratory distress, no accessory muscle use. Abdomen--normal bowel sounds. Generalized mild tenderness. Mildly distended and tympanitic Extremities--no cyanosis or clubbing. No edema. Dermatologic--normal skin turgor, normal color, no abnormal lymph nodes, no rash. Neurologic--cranial nerves II through XII grossly intact. Rheumatologic--normal range of motion. Psychiatric--normal affect. Principal Diagnosis acute renal failure, small bowel obstruction vs ileus, leukocytosis Discharge Exam Constitutional + thin and + frail appearing Eyes PERRL, conjunctivae normal, anicteric sclerae ENMT external ear and nose normal, oropharynx normal Neck trachea midline, no thyromegaly Cardiovascular Rate/Rhythm: + irregularly irregular Gastrointestinal (Abdomen) Inspection/Auscultation: + abdomen distended and + hypoactive bowel sounds Percussion/Palpation: + abdomen tender, + ascites and + dullness to percussion Musculoskeletal Head/Neck/Chest: normocephalic and head atraumatic Skin + turgor decreased and + skin tightening Psychiatric A+Ox3, euthymic affect Discharge Data Allergies Allergy/AdvReac Type Severity Reaction Status Date / Time No Known Allergies Allergy Verified 06/22/24 22:39 Consultations 06/22/24 22:00 ED Decision to Admit Stat 06/23/24 00:31 Consult Gastroenterology Routine 06/26/24 09:51 Consult General Surgery Routine 06/27/24 07:31 Consult Nephrology Routine 06/27/24 07:51 Burn CD for patient Routine 06/28/24 01:05 Consult Novelty Chain Maker Routine 06/29/24 09:26 Consult Cardiology Routine Procedures Performed Operation Date: 06/27/24 07:10 Actual Procedures p Exploratory Laparotomy, enterolysis, drainage of intraabdominal ascities(Not Applicable) - Larry Porras, Ordered Studies 06/22/24 19:38 CT abd pelvis IV con only Stat 06/25/24 00:00 US abdomen ltd ascites Routine 06/25/24 11:59 IR thoracentesis wo tube US Routine 06/26/24 10:17 CT abd pelvis oral con only Urgent 06/28/24 02:13 US point of care ultrasound Stat 06/29/24 13:59 US abdomen limited Routine Hospital Course (1) Ileus: 06/22/24: She was seen in the emergency department on 06/20, and CT scan at that time showed ascending colon colitis, periportal edema, question of hepatitis, and a moderate right pleural effusion. Due to persistence and worsening of symptoms, she presented to the ED this evening 06/22, and CT scan at this time shows an ileus, with a markedly increased volume of ascites. Patient reports her last bowel movement was 4 days ago (03/19/24). 06/25/24: CT scan of abdomen pelvis on 06/22 shows distended small bowel loops consistent with ileus, and a marked new accumulation of ascites compared to previous CT on 06/20. LFT's are normal. Bilirubin slightly elevated at 1.2. Paracentesis canceled due to ultrasound detecting no safe area to extract fluid. Pt has pleural effusion, thoracentesis could provide information into ascites fluid. KUB ordered to rule out SBO. 06/27/24: Exploratory laparotomy on with lysis of adhesions to distal small bowel. Awaiting resumption of bowel function. Management per surgery. Agree that the clinical history and presentation are not consistent with cirrhosis so hepatorenal syndrome unlikely. PPI in place. Anticipate we should be able to initiate enteral nutrition once bowel function resumes. Given her issues with volume currently and other medical conditions, would strongly recommend against TPN. Will defer additional abdominal imaging to the surgery. 06/29/24, 06/30/24: distal small bowel obstruction status post exploratory laparotomy with lysis of adhesions. Await resumption of bowel function. Management per surgery. Agree that the clinical history and presentation are not consistent with cirrhosis so hepatorenal syndrome unlikely. PPI in place. Anticipate we should be able to initiate enteral nutrition once bowel function resumes. Given her issues with volume currently and other medical conditions, would strongly recommend against TPN. Still no bowel movement. (2) Abdominal ascites: 06/22/24: CT scan of abdomen and pelvis 06/20 in the ED showed a ascending colon colitis, periportal edema, question of hepatitis, and moderate right pleural effusion. Liver function tests were normal except for a total bilirubin that was mildly elevated at 1.3 CT scan of abdomen pelvis this evening on 06/22 shows distended small bowel loops consistent with ileus, and a marked new accumulation of ascites compared to previous. 06/30/24: Ascitic fluid was sent for culture, no growth to date. Patient had progressive evidence of volume overload and third spacing, shortness of breath, and A-fib RVR. (3) Pleural effusion: 06/22/24: She was seen in the emergency department on 06/20, and CT scan at that time showed ascending colon colitis, periportal edema, question of hepatitis, and a moderate right pleural effusion. 06/25/24: right-sided 14 Iraqi pigtail catheter was placed with removal of about 2 L of pleural fluid. Respiratory status improved. Fluid was found to be transudative at this time. 06/30/24: Exudative by Light's criteria. Cytology negative for malignancy. R chest tube in place, 2100 cc drainage last 24 hours of straw-colored fluid Cardiac -hypotension and now tachycardic. Echo findings reviewed. No evidence of valvular dysfunction or pulmonary hypertension. Continue volume support with 25% albumin. Lactate is cleared. She continues to appear intravascularly depleted but total body fluid up. Discussed with cardiology. Will defer additional beta-blockers and try addition of digoxin. Holding anticoagulation for A-fib currently given her recent surgery and potential need for additional p rocedures. She did not respond to additional crystalloid loading at this point in time and appears to have a vascular leak phenomenon. Repeat random cortisol. Respiratory -hypoxemic respiratory failure with history of bronchiectasis. Prior bronchoscopy in January with BAL fluid showing 42% neutrophils 23% lymphocytes and 35% macrophages with no significant eosinophilia. Quantitative immunoglobulins in the past have been normal. AFB cultures at that time were negative. Repeat sampling demonstrated a significant increase in LDH, unclear if this represents diaphragmatic translocation from her intra-abdominal process. Will continue to follow. Could consider placement of to on the left side as well but the patient is improving and I am not convinced that fluid is infected at this point in time. Continue supplemental oxygen. (4) Supratherapeutic INR: 06/22/24: Supratherapeutic INR/chronic anticoagulation/paroxysmal atrial fibrillation- INR 4.9 on admission, with 1.9 2 days ago Hold warfarin Follow INR serially Change Cardizem CD from 240 mg every morning to 120 mg twice daily with hold parameter (5) Chronic anticoagulation: 06/22/24: Supratherapeutic INR/chronic anticoagulation/paroxysmal atrial fibrillation- INR 4.9 on admission, with 1.9 2 days ago Hold warfarin Follow INR serially Change Cardizem CD from 240 mg every morning to 120 mg twice daily with hold parameter (6) Paroxysmal atrial fibrillation: 06/22/24: Supratherapeutic INR/chronic anticoagulation/paroxysmal atrial fibrillation- INR 4.9 on admission, with 1.9 2 days ago Hold warfarin Follow INR serially Change Cardizem CD from 240 mg every morning to 120 mg twice daily with hold parameter (7) Small bowel obstruction due to adhesions: 06/22/24: She was seen in the emergency department on 06/20, and CT scan at that time showed ascending colon colitis, periportal edema, question of hepatitis, and a moderate right pleural effusion. Due to persistence and worsening of symptoms, she presented to the ED this evening 06/22, and CT scan at this time shows an ileus, with a markedly increased volume of ascites. Patient reports her last bowel movement was 4 days ago (03/19/24). 06/25/24: CT scan of abdomen pelvis on 06/22 shows distended small bowel loops consistent with ileus, and a marked new accumulation of ascites compared to previous CT on 06/20. LFT's are normal. Bilirubin slightly elevated at 1.2. Paracentesis canceled due to ultrasound detecting no safe area to extract fluid. Pt has pleural effusion, thoracentesis could provide information into ascites fluid. KUB ordered to rule out SBO. 06/27/24: Exploratory laparotomy on with lysis of adhesions to distal small bowel. Awaiting resumption of bowel function. Management per surgery. Agree that the clinical history and presentation are not consistent with cirrhosis so hepatorenal syndrome unlikely. PPI in place. Anticipate we should be able to initiate enteral nutrition once bowel function resumes. Given her issues with volume currently and other medical conditions, would strongly recommend against TPN. Will defer additional abdominal imaging to the surgery. 06/29/24, 06/30/24: distal small bowel obstruction status post exploratory laparotomy with lysis of adhesions. Await resumption of bowel function. Management per surgery. Agree that the clinical history and presentation are not consistent with cirrhosis so hepatorenal syndrome unlikely. PPI in place. Anticipate we should be able to initiate enteral nutrition once bowel function resumes. Given her issues with volume currently and other medical conditions, would strongly recommend against TPN. Still no bowel movement. (8) S/P exploratory laparotomy: 06/29/24, 06/30/24: distal small bowel obstruction status post exploratory laparotomy with lysis of adhesions. Await resumption of bowel function. Management per surgery. Agree that the clinical history and presentation are not consistent with cirrhosis so hepatorenal syndrome unlikely. PPI in place. Anticipate we should be able to initiate enteral nutrition once bowel function resumes. Given her issues with volume currently and other medical conditions, would strongly recommend against TPN. Still no bowel movement. - increased leukocytosis from 20 -> 33.6 in past 24h (9) DOMITILA (acute kidney injury): 06/27/24: Creatinine has increased to 3.37, potassium is holding at 4.1 after corrected with insulin. 06/28/24: Novelty Chain Maker placed temp HD port and dialysis, pt's BP dropped low/tachycardia. No fluid was removed. Pt continues with low urine output at 100cc overnight. - Will plan dialysis again id nephrology recommends - Consider thoracocentesis if dialysis is not tolerated for removing fluid - Close monitoring will be provided. Document strict I/O's. - Non-oliguric. Baseline creatinine <1 mg/dL. Urine acellular yesterday. CT demonstrates the kidneys to be unobstructed. - Urine microscopy notable for hyaline casts. Urine sodium ~10. - Clinical presentation concerning for prerenal physiology. Clarisse is third spacing fluid - total body water high but intravascularly dry 06/30/24: Patient is now oligo-anuric. CT this hospitalization was negative for obstruction. Gutierrez catheter has been removed due to lack of urine output. Pure wick was not placed due to swelling of the genitalia. No urine output recorded over the last 24 hours. - Although serum lactate was within normal limits yesterday, patient clinically has a sepsis-like picture. She has progressive leukocytosis, hypotension requiring pressor support and progressive renal dysfunction. She remains on phenylephrine therapy. Fingers and toes appear cyanotic consistent with peripheral vasoconstriction. Systolic blood pressure remains in the mid to upper 80s and patient has atrial fibrillation with persistent RVR despite beta- delphine/digoxin therapy. Attempts at dialysis 06/28/2024 were met with worsening tachycardia and hypotension which limited UF to only 460 cc. Clinically patient has intravascular volume contraction and third spacing fluid suggestive of inflammation/sepsis. Electrolyte balance remains acceptable at this time. No acute indication for hemodialysis today. - Plan of care discussed with ICU team this morning. I believe it would be reasonable to transfer Ms. Lim to a tertiary care center for ID evaluation and implementation of CRRT if needed. (10) Hyponatremia: chronic hyponatremia, fluctuating between mid 120s to low 130s - Total body water high but intravascularly dry. Low solute intake. Primary goal of management is intravascular expansion and vasopressor support PRN. (11) Metabolic acidosis: 06/28/24: mild hyperkalemia with worsening metabolic acidosis. She is relatively oliguric with increasing pleural effusions and hypoxic respiratory failure. 06/30/24: continues to be oliguric-anuric with b/l pleural effusions, potassium in 4.1-4.8 range last 2 days and HCO2 has gone from upper teens to 22 (WNL), continue to monitor electrolytes, consider lactate (12) Bronchiectasis: chronic bronchiectasis, taking Anoro Ellipta inhaler daily (13) Hypothyroid: chronic hypothyroidism, managed with daily levothyroxine 100mcg qAM Plan Persistent SBO Pt went to OR for ex lap on 06/27. Adhesional obstruction present, no signs of obvious ischemic bowel. Adhesion lysed and stool able to move freely passed prior obstruction. NGT remains in place. GI gave glycerin suppository on 06/28, which did not produce a bowel movement. KUB on 06/29 shows continued dilated distal small intestine. -continue PPI -continue NPO/NGT for now -Antiemetics PRN -Novelty Chain Maker recommends no TPN at this time due to risks Ascites Patient with ascites of unknown etiology. Significant concern for oncologic process. Unable to tap due to positioning of the bowel loops. Original imaging without signs of cirrhosis. Most recent did show some scarring/fibrosis of the liver. Ex lap without obvious since of malignancy. Able to sample the fluid. No organisms found on gram stain. -f/u pending fluid acid fast smear and culture, aerobic and anaerobic -further workup once patient stabilizes Supratherapeutic INR | Chronic anticoagulation |Paroxysmal a fib Supratherapeutic on admission. Does seem to respond to Vit K. Unclear on patient's liver function and ability to produce Vitamin K endogenously. Will continue to monitor -hold warfarin -daily coags -Started heparin 5000u, SQ q12h Paroxysmal a fib | Sinus tachycardia Intermittently in a fib vs sinus tach. Patient NPO at present and has not gotten her Cardizem. Pt continue with hypotension and now a-fib with RVR. No evidence of cardiomyopathy on echocardiogram on 06/28, EF >70% -Cardiology consulted for rate control -Holding cardizem -Follow daily ECGs DOMITILA/ATN Creatinine has increased to 3.37, potassium is holding at 4.1 after corrected with insulin on 06/27. Novelty Chain Maker placed temp HD port and dialysis performed on 06/28 but pt's BP dropped low/tachycardia. No fluid was removed. Pt continues with low urine output at 100cc overnight. Pleural effusions remain, pts continues on 8L O2. -Will plan dialysis again id nephrology recommends -Consider thoracocentesis if dialysis is not tolerated for removing fluid Leukocytosis Pt's WBC jumped to 20.42 on 06/29/24 without known cause, up to 33.6 on 06/30/24. Pt is afebrile and preliminary ascites fluid came back without organism growth on gram stain. Autoimmune panel was drawn. -Awaiting findings from Autoimmune panel. -Monitor vitals -IV Zosyn to continue Reactive Airway Disease Continue Anoro Ellipta Code status: full DVT ppx: SCDs, holding warfarin as INR supratherapeutic FENGI: NPO, NGT, IVF @ 150 mL Dispo: PCU/Tele Lines: Gutierrez placed 06/27 Total Time Total Time Spent Total Time Spent (In Minutes): See attending documentation Discharge Plan Discharge Items Patient Disposition: Transfer Acute [facility] Reason For Visit: ILEUS, ASCITES, ATRIAL FIB WITH RVR, DEHYDRATION Discharge Diagnosis: acute renal failure, small bowel obstruction vs ileus, leukocytosis, ascites Activity: Per Instructions section Non-emergency contact: Hospitalist Call non-emergency contact if: your symptoms worsen Follow-up/Referrals: Gabrielle Crawley MD [Primary Care Provider] - Diet: Nothing by Mouth Addtl Attending Provider Instructions: Clarisse is a 73-year-old female with a past medical history of A-fib, hypothyroidism who presented 06/22 with constipation, cramping, nausea/vomiting which she thought was enteritis after eating shrimp. CT 06/26 showed abdominal ascites, no transition point. Patient did not have any bowel movements or f latus, subsequent surgical consultation for ileus she had a repeat CT with oral contrast 06/26/2024 which did not show a discrete transition point. Failed have clinical progression with leukocytosis, DOMITILA, and poor appearance. Underwent ex lap 06/27/2024. Thick adhesion 5 cm proximal to ileocecal valve was lysed. No revision was done as contrast made it past the adhesional point. Ascitic fluid was sent for culture, no growth to date. Patient had progressive evidence of volume overload and third spacing, shortness of breath, and A-fib RVR. She had been supratherapeutic on warfarin at time of admission, this was held. Postoperatively continued to deteriorate with anuric renal failure, attempted dialysis 06/28 without any fluid able to be removed. Rising leukocytosis on Zosyn. Patient had progressive fluid overload with hypoxia, 06/29 had a right pigtail catheter placed for pleural effusion with a lymphocytic exudate. Serial KUBs consistent with ileus, follow-up abdominal ultrasound with ascites and dilated bowel consistent with obstruction pleural fluid and peritoneal fluid with no growth to date. On multidisciplinary rounds was recommended for transfer for [facility] availability, ID consultation, and tertiary care services. There was some concern for liver cirrhosis on initial CT, no other CT had demonstrated this, during ex lap liver had a normal morphology, albumin was normal, and she did not have a transaminitis or hyperbilirubinemia. SAAG was less than 0.5 and not consistent with portal hypertension. Postoperatively for hypotension patient required vasopressors. Was on norepinephrine, was switched to Karol-Synephrine due to A-fib with RVR. Cardiology was consulted. Echo with hyperdynamic EF. Patient was not anticoagulated due to contraindications, and supratherapeutic INR initially. Amiodarone was avoided due to risk of conversion, and patient was treated with metoprolol and digoxin during admission. Case was reviewed with [facility] and via transfer center with [facility] providers and [facility] covering Surgical team. Pt was accepted for transfer with Dr. Benitez. Transferred, critical care/nephrology notes copied below for completion CRITICAL CARE NOTE 06/30/24 (1) Ileus: (2) Abdominal ascites: (3) Pleural effusion: (4) Paroxysmal atrial fibrillation: (5) Small bowel obstruction due to adhesions: (6) S/P exploratory laparotomy: (7) DOMITILA (acute kidney injury): (8) Hyponatremia: (9) Metabolic acidosis: (10) Bronchiectasis: (11) Hypothyroid: Plan Impression: 73-year-old female with past medical history of PAF (anticoagulated on Coumadin), hypothyroidism, bronchiectasis, presents to the ICU for progressive acute renal failure and metabolic acidosis. Patient underwent exploratory laparotomy for small bowel obstruction due to adhesions yesterday and has become progressively fatigued, with repeat lab work showing lactic acidosis and acute renal failure. She has made very little urine postop and is now being transferred to ICU for vasopressor support with concern for hepatorenal syndrome. 24 hour events: Patient was administered several liters of crystalloid on pressure bag to see if this improved her heart rate and blood pressure. The improvement was very transient. Cardiology consultation obtained. Initially placed on metoprolol which resulted in hypotension and then loaded on digoxin. After the crystalloid she developed increasing shortness of breath. A right- sided 14 Iraqi pigtail catheter was placed with removal of about 2 L of pleural fluid. Respiratory status improved Recommendations: Neuro -metabolic encephalopathy with mild delirium. Continue to reorient. Avoid medications associated with delirium if possible. No indication for additional workup or imaging at this point in time Cardiac -hypotension and now tachycardic. Echo findings reviewed. No evidence of valvular dysfunction or pulmonary hypertension. Continue volume support with 25% albumin. Lactate is cleared. She continues to appear intravascularly depleted but total body fluid up. Discussed with cardiology. Will defer additional beta-blockers and try addition of digoxin. Holding anticoagulation for A-fib currently given her recent surgery and potential need for additional procedures. She did not respond to additional crystalloid loading at this point in time and appears to have a vascular leak phenomenon. Repeat random cortisol Respiratory -hypoxemic respiratory failure with history of bronchiectasis. Prior bronchoscopy in January with BAL fluid showing 42% neutrophils 23% lymphocytes and 35% macrophages with no significant eosinophilia. Quantitative immunoglobulins in the past have been normal. AFB cultures at that time were negative. Repeat sampling demonstrated a significant increase in LDH, unclear if this represents diaphragmatic translocation from her intra-abdominal process. Will continue to follow. Could consider placement of to on the left side as well but the patient is improving and I am not convinced that fluid is infected at this point in time. Continue supplemental oxygen.. GI -distal small bowel obstruction status post exploratory laparotomy with lysis of adhesions. Await resumption of bowel function. Management per surgery. Agree that the clinical history and presentation are not consistent with cirrhosis so hepatorenal syndrome unlikely. PPI in place. Anticipate we should be able to initiate enteral nutrition once bowel function resumes. Given her issues with volume currently and other medical conditions, would strongly recommend against TPN. Will defer additional abdominal imaging to the surgery. RENAL/LYTES -acute renal failure, urine studies consistent with both prerenal and potential still the intrinsic renal disease. Discussed with nephrology today. Although patient does not require renal replacement today, it is likely that she will require in the future and given her hemodynamic issues, nephrology and I agree that consideration for continuous renal replacement therapy may be better tolerated. This is not a service that is available here and will discuss with the hospitalists getting her transferred to a tertiary facility. - Foleystrict I's and O's ENDO - Hypothyroidism Patient remains NPO. IV Synthroid every third day HEME - White blood cell count continues to increase. The patient has not been febrile. Cultures have shown no growth to date. Her exploratory laparotomy did not show evidence of perforation so I think fungal coverage is not yet required although the patient certainly at risk. D-dimer elevated at 11,830. Unclear significance. Fibrinogen was low at 144 with INR mildly elevated at 1.3. Patient's not thrombocytopenic. ID -white blood cell count progressively increasing up to 33,000 today. Cultures remain negative. Patient is afebrile but given her clinical condition, may not be able to mount a significant inflammatory response to infection. Day #5/[address] on empiric antifungals and discontinue Zosyn in favor of carbapenem. Continue to follow clinically. Recommend ID consultation, if the patient is being transferred this can be deferred until she arrives at a tertiary facility. LINES/IV ACCESS - Right IJ CVC (06/28), right femoral HD cath DVT PROPHYLAXIS - SCDs, start subcutaneous heparin NEPRHOLOGY NOTE 06/30/24 DOMITILA (acute kidney injury): Plan: ? Progressive renal dysfunction. Patient is now oligo-anuric. CT this hospitalization was negative for obstruction. Gutierrez catheter has been removed due to lack of urine output. Pure wick was not placed due to swelling of the genitalia. No urine output recorded over the last 24 hours. ? Although serum lactate was within normal limits yesterday, patient clinically has a sepsis-like picture. She has progressive leukocytosis, hypotension requiring pressor support and progressive renal dysfunction. She remains on phenylephrine therapy. Fingers and toes appear cyanotic consistent with peripheral vasoconstriction. Systolic blood pressure remains in the mid to upper 80s and patient has atrial fibrillation with persistent RVR despite beta- delphine/digoxin therapy. Attempts at dialysis 06/28/2024 were met with worsening tachycardia and hypotension which limited UF to only 460 cc. Clinically patient has intravascular volume contraction and third spacing fluid suggestive of inflammation/sepsis. Electrolyte balance remains acceptable at this time. No acute indication for hemodialysis today. ? Plan of care discussed with ICU team this morning. I believe it would be reasonable to transfer Ms. Lim to a tertiary care center for ID evaluation and implementation of CRRT if needed. ? Prognosis is guarded (2) Small bowel obstruction due to adhesions: Plan: ? ex lap with lysis of adhesions 06/27/24 ? Await further surgical input (3) Abdominal ascites: Plan: ? Cytology negative. (4) Pleural effusion: Plan: ? Exudative by Light's criteria. Cytology negative for malignancy ? R chest tube in place. 2100 cc drainage last 24 hours Pending Studies at Discharge: No Stand-Alone Forms: My [facility] Skilled Items Patient informed of condition?: Yes DNR: No Discharge Level of Care: Other Communicable Disease: No Discharge Prognosis: Other Lines: [facility] Urinary Catheter: Yes Medications and DC Order Prescriptions: Continued ascorbic acid (vitamin C) 500 mg tablet 1,000 mg PO QAM levothyroxine 100 mcg tablet 100 mcg PO QAM zinc gluconate 50 mg tablet 50 mg PO QAM warfarin 5 mg tablet See Rx Instructions .ROUTE .COMPLEX Rx Instructions: TAKES 5 MG ON MON, WED, & FRI, THEN 2.5 MG ON SUN, TU, THUR, & SAT. liothyronine 5 mcg tablet 10 mcg PO QAM krill oil 500 mg capsule 1,500 mg PO DAILY clobetasol 0.05 % ointment 1 applic TOP 3XWK PRN (Reason: Rash) Qty: 60 2RF Rx Instructions: Apply and gently massage into affected area twice daily. 3 xs per week. estradiol 0.01 % (0.1 mg/gram) cream 1 g vaginal WK Qty: 42.5 3RF Rx Instructions: USE 1/4 APPLICATORFUL weekly montelukast 10 mg tablet 10 mg PO QAM Qty: 90 3RF diltiazem HCl [Cartia XT] 240 mg capsule,extended release 24hr 240 mg PO QAM vitamin B complex Tablet 1 tab PO DAILY Saline Nasal 0.65 % Aerosol,[place] 1 spray INTRANASAL DIRECTED PRN (Reason: Dry Nasal Passages) sodium chloride 7 % Solution For Nebulization 1 inh INHALATION BID PRN (Reason: NEEDED) cholecalciferol (vitamin D3) [Vitamin D3] 125 mcg (5,000 unit) Tablet 125 mcg PO DAILY Anoro Ellipta 62.5-25 mcg/actuation blister with device 1 inh inhalation QAM ondansetron 4 mg tablet,disintegrating 4 mg PO Q8H PRN (Reason: nausea and vomiting) Qty: 30 0RF Discharge Orders: Discharge Order (Routine); Ordered 06/30/24 Ordered By: Gabe Traylor Admission Data Admit Date/Time: 06/22/24 23:03 Attending Provider: Gabe Traylor Admit Provider: Bird Fierro Primary Care Provider: Gabrielle Crawley Other Providers: Bird Fierro; Asad Figueroa Jr; Larry Porras; Bryan Macario; [place]; Herminia Blair.; Fredi Dsouza; Sam Drummond; Bong Schwarz; Carloz Bazan; Patrick Cantor; Sharron Handy; Karla Brumfield; Barbra Orona; Herminia Johnson; Eric Grande; Anton Canela; Rose Aguilera; Jovana Sterling; Amee Gamez; Horacio Gore; Mansoor Vigil; Layne Dunaway Other Interventions: Discharge Summary Assessment (RN) Last Done: 06/30/24 12:12 Supervising Physician Co-Signing Physician Notes Patient seen and examined, chart reviewed, case discussed with Amadou Marcano, DO and I agree with the assessment and plan as above except as otherwise noted above. Clarisse is a 73-year-old female with a past medical history of A-fib, hypothyroidism who presented 06/22 with constipation, cramping, nausea/vomiting which she thought was enteritis after eating shrimp. CT 06/26 showed abdominal ascites, no transition point. Patient did not have any bowel movements or flatus, subsequent surgical consultation for ileus she had a repeat CT with oral contrast 06/26/2024 which did not show a discrete transition point. Failed have clinical progression with leukocytosis, DOMITILA, and poor appearance. Underwent ex lap 06/27/2024. Thick adhesion 5 cm proximal to ileocecal valve was lysed. No revision was done as contrast made it past the adhesional point. Ascitic fluid was sent for culture, no growth to date. Patient had progressive evidence of volume overload and third spacing, shortness of breath, and A-fib RVR. She had been supratherapeutic on warfarin at time of admission, this was held. Postoperatively continued to deteriorate with anuric renal failure, attempted dialysis 06/28 without any fluid able to be removed. Rising leukocytosis on Zosyn. Patient had progressive fluid overload with hypoxia, 06/29 had a right pigtail catheter placed for pleural effusion with a lymphocytic exudate. Serial KUBs consistent with ileus, follow-up abdominal ultrasound with ascites and dilated bowel consistent with obstruction pleural fluid and peritoneal fluid with no growth to date. On multidisciplinary rounds was recommended for transfer for [facility] availability, ID consultation, and tertiary care services. There was some concern for liver cirrhosis on initial CT, no other CT had demonstrated this, during ex lap liver had a normal morphology, albumin was normal, and she did not have a transaminitis or hyperbilirubinemia. SAAG was less than 0.5 and not consistent with portal hypertension. Postoperatively for hypotension patient required vasopressors. Was on norepinephrine, was switched to Karol-Synephrine due to A-fib with RVR. Cardiology was consulted. Echo with hyperdynamic EF. Patient was not anticoagulated due to contraindications, and supratherapeutic INR initially. Amiodarone was avoided due to risk of conversion, and patient was treated with metoprolol and digoxin during admission. Case was reviewed with [facility] and via transfer center with [facility] providers and [facility] covering Surgical team. Pt was accepted for transfer with Dr. Benitez. Transferred, critical care/nephrology notes copied below for completion Notified that patient had developed epigastric chest pain with radiation 9/10 into her shoulder blades, sudden onset. EKG with RBBB, V1/V2 depressions. Markedly elevated D-dimer. Is severe pain abrupt onset extending between her shoulder blades, additionally with hypoxia and critical illness patient was sent for CTAchest dissection protocol. Skin was extended down into the abdomen to evaluate for change and bowel ischemia. CTA with no evidence of dissection, no evidence of PE. Left-sided effusion present. Abdomen without acute change, Multiple distended loops of small bowel. No evidence of arterial pathology. Also reviewed with cardiology, suspect severe demand ischemia low suspecion for type I ACS. Patient heparinized. Following up titration of karol, +NSS bolus, albumin 25g and improving blood pressure patient did have improvement of her pain near resolved on reassessment. EKG with similar/slightly improved depressions. No ST segment elevations noted. [facility] transfer center updated. Time spent day of discharge approximately 2.5 hours including direct care, documentation, review of labs and images, and coordination of care. Resident Activity Tracking Resident Involvement: Resident Care Provided Care Provided: Adult [facility]
[2024-06-30] MEDS ORDERED: STAT IV Infusion **Titration per Protocol STA (13:58)
[2024-06-30] MEDS: NITROGLYCERIN/D5W 100 MCG/ML BTL ONE (14:05)
[2024-06-30] MEDS ORDERED: Heparin IV Adult Wt-Based Low-Dose w/ INITIAL Bolus Protocol IV STA (14:06)
[2024-06-30] MEDS ORDERED: HEPARIN 25000 UNIT/500 ML D5W IV ONE (14:09)
[2024-06-30] MEDS: HEPARIN SODIUM/DEXTROSE 25,000 UNITS/500 ML BAG IV SCH (14:15)
[2024-06-30] MEDS: OPTIRAY 320 125ml IV ONE (14:29)
--- NOTE | 2024-06-30 15:01 | CT Scan Report ---
CT angio chest dissec wo/w con CLINICAL HISTORY: chest pain, r/o dissection TECHNIQUE: Multidetector row helical CT of the chest was performed before and after injection of IV c ontrast. Coronal, sagittal, and MIP reformations were obtained. Automated dose lowering techniques an d/or adjustment according to patient size were utilized for this exam. CT DOSE: 2635.23 mGy.cm Comparison: None available at the time of this dictation. FINDINGS: Lungs and pleura: Large left pleural effusion and trace right pleural effusion are seen. Atelectasis is seen on the right. There is bronchiectasis throughout and there are groundglass opacities in the l eft upper lobe. Heart and pericardium: Cardiomegaly is seen with biatrial enlargement. Vessels: No aortic dissection or intramural hematoma is seen. Severe atherosclerotic disease is seen. Mediastinum and liliya: Unremarkable. Chest wall and lower neck: Bilateral breast implants are seen. Body wall edema is seen. Abdomen: For findings below the diaphragm, please refer to CT of the abdomen dated the same. Bones: Degenerative changes in the thoracic spine. IMPRESSION: 1. No acute aortic injury. 2. Trace right and large left pleural effusions. No pneumothorax. 3. Bronchiectasis and scarring. 4. Groundglass opacity in the left upper lung may represent infectious/inflammatory process. ACT 112: Negative or not required by law. Electronically signed by: Kenny Barbour M.D. 06/30/2024 2:58 PM
--- NOTE | 2024-06-30 15:14 | CT Scan Report ---
CT angio abdomen pelvis w con CLINICAL HISTORY: r/o ischemic bowl TECHNIQUE: Multidetector row helical CT of the abdomen and pelvis was performed, following intravenou s administration of iodinated contrast. No oral contrast was administered. Automated dose lowering te chniques and/or adjustment according to patient size were utilized for this exam. Coronal and sagitta l reformations were obtained. MIP and 3D volume rendered reconstructions were obtained. Comparison: Comparison is made to CT abdomen pelvis 06/26/2024 FINDINGS: Lower chest: For findings above the diaphragm, please see CT chest performed same day. Liver: Unremarkable. No focal lesions are seen. Gallbladder and biliary tree: No calcified gallstones. Normal caliber wall. No intra- or extrahepatic biliary ductal dilation. Pancreas: Unremarkable, no focal lesions. Spleen: Unremarkable. Adrenals: Unremarkable. Kidneys and ureters: Unremarkable. Bladder: Diffuse homogeneous wall thickening is seen. Reproductive organs: Unremarkable. Bowel: The appendix is normal. Multiple distended loops of small bowel are seen without a sharp trans ition point. A hiatal hernia is seen. Diverticulosis is seen without diverticulitis. Lymph nodes Retroperitoneal: Unremarkable. Pelvic: Unremarkable. Mesenteric: Unremarkable. Peritoneum: Large ascites is seen. Abdominal wall: Unremarkable edema is seen. Bones: Degenerative changes in the visualized spine. CT angiogram: The abdominal aortic contours appear intact without evidence of aneurysmal dilatation a nd/or dissection. No significant atherosclerosis is seen. The origins of the celiac axis, superior mesenteric, inferior mesenteric and bilateral renal arteries are patent. IMPRESSION: 1. No evidence of arterial pathology, the aorta and its branches are patent. 2. Distention of multiple loops of small bowel. Findings may represent ileus. 3. Cirrhosis with ascites. 4. Diverticulosis without diverticulitis. ACT 112: Negative or not required by law. Electronically signed by: Kenny Barbour M.D. 06/30/2024 3:12 PM
[2024-06-30 15:22] LABS: ANTI-Xa, UFH(UnfractionatedHep < 0.10 IU/ml (0.3-0.7)
[2024-06-30] MEDS: ACETAMINOPHEN 1,000 MG/100 ML VIAL IV PRN (15:28)
--- NOTE | 2024-06-30 15:38 | Communication Note ---
Date of Service: June 30, 2024 Notified that patient had developed epigastric chest pain with radiation 9/10 into her shoulder blades, sudden onset. EKG with V1/V2 depressions. Markedly elevated D-dimer. Is severe pain abrupt onset extending between her shoulder blades, additionally with hypoxia and critical illness patient was sent for CTAchest dissection protocol. Skin was extended down into the abdomen to evaluate for change and bowel ischemia. CTA with no evidence of dissection, no evidence of PE. Left-sided effusion present. Abdomen without acute change, Multiple distended loops of small bowel. No evidence of arterial pathology. Also reviewed with cardiology, suspect severe demand ischemia lower suspicion for acute cardiac event. Patient heparinized. Following up titration of karol, improving blood pressure and pending 1 L bolus patient did have improvement of her pain near resolved on reassessment. EKG with similar/slightly improved depressions. No ST segment elevations noted. [facility] [place].
[2024-06-30] MEDS: HEPARIN SOD (PORCINE) 1000 UNIT/ML IV ONE (15:41)
--- NOTE | 2024-06-30 15:45 | Gastroenterology Progress Note ---
Date of Service June 30, 2024 Assessment & Plan (1) Abdominal ascites: Plan: SAAG from ascites taken in OR is 0.5 which is not consistent w pHTN. Clinically, other than ascites and elevated INR which has other explanations, no signs/symptoms/findings to suggest/support cirrhosis. As I do not have another clear explanation for the ascites and pleural fluid accumulation, the only means to definitively rule out cirrhosis would be via transjugular liver biopsy. Currently, this would seem to be low yield. In addition, given the low likelihood of hepatic ascites, I also believe Budd Chiari to be a very unlikely explanation for the fluid accumulation given normal liver enzymes and various other imaging studies, although a formal hepatic venous dopplar has not been performed and could be considered. I recommend continuing to assess for alternative causes for fluid accumulation. I do believe however, that the ascites is now tense and could inhibit surgical wound healing. In addition, with her rising WBC, it is prudent to perform a paracentesis for diagnostic and therapeutic purposes. If she is not to be transferred today, ask that this be considered by the critical care team. (2) SBO (small bowel obstruction): Plan: 06/27 SURI with dense band of fibrous tissue released; no bowel action since admission. Hypoactive BS today on exam for the first time. Imaging still w dilated small bowel loops. NGT remains in place. Output appears to have lessened today. NGT management per surgery and critical care. (3) H/O exploratory laparotomy: Plan: Surgery following. Defer to surgery but recommend continuing to uptitrate a OR bowel regimen. Increasing concern re malnutrition and need to initiate TPN. Understandable limitations relating to fluid balance. Strongly agree that transfer for [facility] for various reasons including fluid balance to allow for nutrition initiation would be in the patient's best interest. Admission and Anticipated Discharge Date Admission Date: June 22, 2024 Subjective Saw Clarisse and spoke with her and nursing earlier today. Reviewed updated imaging including CT C/A/P since visiting with Clarisse. She informed me that there is a plan to transfer her to [facility]. Her breathing feels somewhat better with the chest tube in place. Her abdomen feels bloated and she notes some LLQ discomfort but describes it as not severe. She has not passed gas nor had a BM since admission despite her ex lap w SURI. Review of Systems Constitutional: as per Subjective / HPI Physical Exam Constitutional: + ill appearing Eyes: PERRL, conjunctivae normal, anicteric sclerae Respiratory: right sided chest tube in place; copious straw colored fluid output Cardiovascular: tachycardic; anasarca Gastrointestinal (Abdomen): mid-line dressing in place c/d/i; abdomen distended, tense, non-peritoneal Results & Data Results & Data Vital Signs (Past 12 Hours) Vital Signs Temp Pulse Pulse Resp BP BP Pulse Ox 06/30/24 15:00 80/55 L 06/30/24 15:00 80/55 L 06/30/24 14:49 100/63 06/30/24 14:15 109 H 31 H 97 06/30/24 13:03 110 H 24 94 06/30/24 13:02 121/38 L 06/30/24 12:12 107 H 22 97 06/30/24 12:12 36.6 C 117 H 17 115/80 98 06/30/24 12:00 98/65 L 06/30/24 11:00 95/60 L 06/30/24 11:00 103 H 17 98 06/30/24 10:03 108 H 20 97 06/30/24 10:00 89/67 L 06/30/24 09:41 112 H 06/30/24 09:00 115 H 21 94 06/30/24 09:00 109/64 06/30/24 08:03 109 H 19 92 06/30/24 08:00 105/58 L 06/30/24 07:56 06/30/24 07:28 113 H 06/30/24 07:06 112 H 18 93 06/30/24 07:00 104/62 06/30/24 04:54 36.6 C 06/30/24 04:30 89/60 L 06/30/24 04:30 89/60 L 06/30/24 04:29 116 H 86/64 L 06/30/24 04:18 117 H 18 93 06/30/24 04:15 86/64 L 06/30/24 04:15 86/64 L 06/30/24 04:15 86/64 L 06/30/24 04:00 88/64 L 06/30/24 03:51 114 H 18 91 06/30/24 03:45 89/61 L 06/30/24 03:39 116 H 17 92 O2 Del Method O2 Flow Rate 06/30/24 15:00 06/30/24 15:00 06/30/24 14:49 06/30/24 14:15 06/30/24 13:03 06/30/24 13:02 06/30/24 12:12 06/30/24 12:12 06/30/24 12:00 06/30/24 11:00 06/30/24 11:00 06/30/24 10:03 06/30/24 10:00 06/30/24 09:41 06/30/24 09:00 06/30/24 09:00 06/30/24 08:03 06/30/24 08:00 06/30/24 07:56 High Flow Nasal Cannula 5 06/30/24 07:28 06/30/24 07:06 06/30/24 07:00 06/30/24 04:54 06/30/24 04:30 06/30/24 04:30 06/30/24 04:29 06/30/24 04:18 06/30/24 04:15 06/30/24 04:15 06/30/24 04:15 06/30/24 04:00 06/30/24 03:51 06/30/24 03:45 06/30/24 03:39 Laboratory Results Laboratory Results - last 48 hr 06/25/24 06/28/24 06/28/24 11:20 18:02 20:04 WBC RBC Hgb Hct MCV MCH MCHC RDW Std Deviation RDW Coeff of Eve Plt Count MPV Immature Gran % (Auto) Neut % (Auto) Lymph % (Auto) [place] % (Auto) Eos % (Auto) Baso % (Auto) Neut # (Auto) Lymph # (Auto) [place] # (Auto) Eos # (Auto) Baso # (Auto) Immature Gran # (Auto) ESR PT INR APTT PTT Ratio Fibrinogen D-Dimer Heparin Anti-Xa, Unfract Sodium 130 L Potassium 4.1 Chloride 98 Carbon Dioxide 23 Anion Gap 9 BUN 47 H D Creatinine 2.84 H D Est Cr Clr Drug Dosing 17.9 Est GFR ( Amer) 18.1 Est GFR (Non-Af Amer) 15.6 BUN/Creatinine Ratio 16.5 Glucose 152 H POC Glucose 105 H Lactate Calcium 7.8 L Phosphorus Magnesium Ferritin Total Bilirubin AST ALT Alkaline Phosphatase C-Reactive Protein Total Protein Albumin Globulin Albumin/Globulin Ratio Procalcitonin Random Cortisol Fluid Neutrophils % Fluid Lymphocytes % Fluid Meso/Macro/[place] % Fluid Comment Pleural Fluid Source Pleural Color Pleural Appearance Pleural pH Pleural WBC (Auto) Pleural RBC (Auto) Pleural Total Protein Pleural LDH Pleural Glucose Pleural Cholesterol 55 Hep Bs Antigen Hep Bs Antibody Hep Bs Antibody, Quant 06/29/24 06/29/24 06/29/24 04:21 09:17 09:32 WBC 20.42 H D RBC 4.74 Hgb 14.9 Hct 43.3 MCV 91.4 MCH 31.4 MCHC 34.4 RDW Std Deviation 44.5 RDW Coeff of Eve 13.3 Plt Count 200 MPV 10.1 Immature Gran % (Auto) 3.1 Neut % (Auto) 84.5 Lymph % (Auto) 4.1 [place] % (Auto) 7.4 Eos % (Auto) 0.1 Baso % (Auto) 0.8 Neut # (Auto) 17.24 H Lymph # (Auto) 0.84 L [place] # (Auto) 1.51 H Eos # (Auto) 0.02 Baso # (Auto) 0.17 Immature Gran # (Auto) 0.64 H ESR < 1 PT INR APTT PTT Ratio Fibrinogen D-Dimer Heparin Anti-Xa, Unfract Sodium 130 L Potassium 4.1 Chloride 98 Carbon Dioxide 23 Anion Gap 9 BUN 52 H Creatinine 3.37 H D Est Cr Clr Drug Dosing 15.1 Est GFR ( Amer) 14.7 Est GFR (Non-Af Amer) 12.7 BUN/Creatinine Ratio 15.4 Glucose 127 H POC Glucose Lactate 1.6 Calcium 7.9 L Phosphorus 4.6 D Magnesium 1.8 Ferritin 262.1 Total Bilirubin 0.8 AST 27 ALT 12 Alkaline Phosphatase 32 L C-Reactive Protein 15.97 H Total Protein 4.4 L Albumin 3.6 Globulin 0.8 L Albumin/Globulin Ratio 4.5 H Procalcitonin 4.55 H Random Cortisol Fluid Neutrophils % Fluid Lymphocytes % Fluid Meso/Macro/[place] % Fluid Comment Pleural Fluid Source Pleural Color Pleural Appearance Pleural pH Pleural WBC (Auto) Pleural RBC (Auto) Pleural Total Protein Pleural LDH Pleural Glucose Pleural Cholesterol Hep Bs Antigen Hep Bs Antibody Hep Bs Antibody, Quant 06/29/24 06/30/2424 13:00 04:48 06:22 WBC 33.57 H* RBC 5.39 Hgb 16.8 H Hct 49.6 H MCV 92.0 MCH 31.2 MCHC 33.9 RDW Std Deviation 46.2 RDW Coeff of Eve 13.7 Plt Count 188 MPV 10.5 Immature Gran % (Auto) 7.5 Neut % (Auto) 82.9 Lymph % (Auto) 3.6 [place] % (Auto) 5.7 Eos % (Auto) 0.1 Baso % (Auto) 0.2 Neut # (Auto) 27.80 H Lymph # (Auto) 1.22 [place] # (Auto) 1.93 H Eos # (Auto) 0.03 Baso # (Auto) 0.06 Immature Gran # (Auto) 2.53 H ESR PT 14.0 H INR 1.3 H APTT 39 H PTT Ratio 1.4 Fibrinogen 144 L D-Dimer 77352 H* Heparin Anti-Xa, Unfract Sodium 132 L Potassium 4.8 Chloride 100 Carbon Dioxide 22 Anion Gap 10 BUN 62 H Creatinine 4.35 H D Est Cr Clr Drug Dosing 11.7 Est GFR ( Amer) 10.8 Est GFR (Non-Af Amer) 9.3 BUN/Creatinine Ratio 14.3 Glucose 103 H POC Glucose Lactate Calcium 7.3 L Phosphorus 6.2 H Magnesium 2.0 Ferritin Total Bilirubin 0.7 AST 40 H ALT 17 Alkaline Phosphatase 56 C-Reactive Protein Total Protein 4.3 L Albumin 3.0 L Globulin 1.3 L Albumin/Globulin Ratio 2.3 H Procalcitonin Random Cortisol Fluid Neutrophils % 74 Fluid Lymphocytes % 13 Fluid Meso/Macro/[place] % 13 Fluid Comment Pleural Fluid Source Right Lung Pleural Color Melania Pleural Appearance Hazy Pleural pH 7.41 H Pleural WBC (Auto) 1989 Pleural RBC (Auto) 32453 Pleural Total Protein < 3.0 Pleural LDH 667 Pleural Glucose 114 Pleural Cholesterol Hep Bs Antigen Negative Hep Bs Antibody Non-Immune Hep Bs Antibody, Quant < 3.00 06/30/24 06/30/24 10:29 14:18 WBC RBC Hgb Hct MCV MCH MCHC RDW Std Deviation RDW Coeff of Eve Plt Count MPV Immature Gran % (Auto) Neut % (Auto) Lymph % (Auto) [place] % (Auto) Eos % (Auto) Baso % (Auto) Neut # (Auto) Lymph # (Auto) [place] # (Auto) Eos # (Auto) Baso # (Auto) Immature Gran # (Auto) ESR PT INR APTT PTT Ratio Fibrinogen D-Dimer Heparin Anti-Xa, Unfract < 0.10 L Sodium Potassium Chloride Carbon Dioxide Anion Gap BUN Creatinine Est Cr Clr Drug Dosing Est GFR ( Amer) Est GFR (Non-Af Amer) BUN/Creatinine Ratio Glucose POC Glucose Lactate Calcium Phosphorus Magnesium Ferritin Total Bilirubin AST ALT Alkaline Phosphatase C-Reactive Protein Total Protein Albumin Globulin Albumin/Globulin Ratio Procalcitonin Random Cortisol 40.75 Fluid Neutrophils % Fluid Lymphocytes % Fluid Meso/Macro/[place] % Fluid Comment Pleural Fluid Source Pleural Color Pleural Appearance Pleural pH Pleural WBC (Auto) Pleural RBC (Auto) Pleural Total Protein Pleural LDH Pleural Glucose Pleural Cholesterol Hep Bs Antigen Hep Bs Antibody Hep Bs Antibody, Quant Diagnostic Findings Abdomen Ultrasound 06/29/24 13:59 US abdomen limited CLINICAL HISTORY: assess for ascites COMPARISON STUDY: Abdomen and pelvis CT 06/26/2024. FINDINGS: Small to moderate amount of scattered ascites most pronounced within the perihepatic location. Dilated fluid-filled loops of small bowel again noted. IMPRESSION: 1. Small to moderate amount of ascites, unchanged. 2. Dilated loops of small bowel again noted consistent with the patient's known small bowel obstruction. ACT 112: Negative or not required by law. Electronically signed by: Maximilian Ferro M.D. 06/29/2024 3:39 PM Abdomen/Pelvis CTA 06/30/24 14:04 CT angio abdomen pelvis w con CLINICAL HISTORY: r/o ischemic bowl TECHNIQUE: Multidetector row helical CT of the abdomen and pelvis was performed, following intravenous administration of iodinated contrast. No oral contrast was administered. Automated dose lowering techniques and/or adjustment according to patient size were utilized for this exam. Coronal and sagittal reformations were obtained. MIP and 3D volume rendered reconstructions were obtained. Comparison: Comparison is made to CT abdomen pelvis 06/26/2024 FINDINGS: Lower chest: For findings above the diaphragm, please see CT chest performed same day. Liver: Unremarkable. No focal lesions are seen. Gallbladder and biliary tree: No calcified gallstones. Normal caliber wall. No intra- or extrahepatic biliary ductal dilation. Pancreas: Unremarkable, no focal lesions. Spleen: Unremarkable. Adrenals: Unremarkable. Kidneys and ureters: Unremarkable. Bladder: Diffuse homogeneous wall thickening is seen. Reproductive organs: Unremarkable. Bowel: The appendix is normal. Multiple distended loops of small bowel are seen without a sharp transition point. A hiatal hernia is seen. Diverticulosis is seen without diverticulitis. Lymph nodes Retroperitoneal: Unremarkable. Pelvic: Unremarkable. Mesenteric: Unremarkable. Peritoneum: Large ascites is seen. Abdominal wall: Unremarkable edema is seen. Bones: Degenerative changes in the visualized spine. CT angiogram: The abdominal aortic contours appear intact without evidence of aneurysmal dilatation and/or dissection. No significant atherosclerosis is seen. The origins of the celiac axis, superior mesenteric, inferior mesenteric and bilateral renal arteries are patent. IMPRESSION: 1. No evidence of arterial pathology, the aorta and its branches are patent. 2. Distention of multiple loops of small bowel. Findings may represent ileus. 3. Cirrhosis with ascites. 4. Diverticulosis without diverticulitis. ACT 112: Negative or not required by law. Electronically signed by: Kenny Barbour M.D. 06/30/2024 3:12 PM Chest CTA 06/30/24 14:04 CT angio chest dissec wo/w con CLINICAL HISTORY: chest pain, r/o dissection TECHNIQUE: Multidetector row helical CT of the chest was performed before and after injection of IV contrast. Coronal, sagittal, and MIP reformations were obtained. Automated dose lowering techniques and/or adjustment according to patient size were utilized for this exam. CT DOSE: 2635.23 mGy.cm Comparison: None available at the time of this dictation. FINDINGS: Lungs and pleura: Large left pleural effusion and trace right pleural effusion are seen. Atelectasis is seen on the right. There is bronchiectasis throughout and there are groundglass opacities in the left upper lobe. Heart and pericardium: Cardiomegaly is seen with biatrial enlargement. Vessels: No aortic dissection or intramural hematoma is seen. Severe atherosclerotic disease is seen. Mediastinum and liliya: Unremarkable. Chest wall and lower neck: Bilateral breast implants are seen. Body wall edema is seen. Abdomen: For findings below the diaphragm, please refer to CT of the abdomen dated the same. Bones: Degenerative changes in the thoracic spine. IMPRESSION: 1. No acute aortic injury. 2. Trace right and large left pleural effusions. No pneumothorax. 3. Bronchiectasis and scarring. 4. Groundglass opacity in the left upper lung may represent infectious/inflammatory process. ACT 112: Negative or not required by law. Electronically signed by: Kneny Barbour M.D. 06/30/2024 2:58 PM PG Care Time/CCT Total # of Minutes Spent Total Time Spent with Patient: Total time spent is greater than 50% in coordination of care (as documented) at patient's floor/unit and/or counseling patient: Coding Level of Care Code 44228 SUB INP/OBS CARE 2/35MIN Diagnoses Abdominal ascites R18.8 Ascites type: other type SBO (small bowel obstruction) K56.609 H/O exploratory laparotomy Z98.890 (1) Abdominal ascites Ascites type: other type Qualified Code(s): R18.8 - Other ascites
[2024-06-30] MEDS: SODIUM CHLORIDE 0.9% 1,000 ML IV ONE (15:53)
[2024-06-30] MEDS: NITROGLYCERIN/D5W 100MCG/ML 250 ML IV SCH (16:01)
--- NOTE | 2024-06-30 18:19 | Billing Data ---
Date of Service June 30, 2024 Coding Level of Care Code 83724 INP/OBS DISCH >30 MIN
--- NOTE | 2024-07-01 06:54 | Electrocardiogram Report ---
Test Reason : Blood Pressure : / mmHG Vent. Rate : 106 BPM Atrial Rate : 136 BPM P-R Int : 000 ms QRS Dur : 108 ms QT Int : 334 ms P-R-T Axes : 000 124 -49 degrees QTc Int : 443 ms Atrial fibrillation with rapid ventricular response Low voltage QRS Right bundle branch block Lateral infarct (cited on or before 30-JUN-2024) Marked ST abnormality, possible septal subendocardial injury Abnormal ECG When compared with ECG of 30-JUN-2024 06:15, No significant change was found Confirmed by Neal Ly ([id number]) on 07/01/2024 6:54:09 AM Referred By: Gabrielle Crawley Confirmed By:Tylor Ly
--- NOTE | 2024-07-01 09:48 | Electrocardiogram Report ---
Test Reason : Blood Pressure : / mmHG Vent. Rate : 100 BPM Atrial Rate : 150 BPM P-R Int : 000 ms QRS Dur : 108 ms QT Int : 334 ms P-R-T Axes : 000 125 -40 degrees QTc Int : 430 ms Atrial fibrillation Low voltage QRS Right bundle branch block Lateral infarct (cited on or before 30-JUN-2024) T wave abnormality, consider inferior ischemia Abnormal ECG When compared with ECG of 30-JUN-2024 13:45, Serial changes of Lateral infarct Present Confirmed by Neal Ly ([id number]) on 07/01/2024 9:48:22 AM Referred By: Gabrielle Crawley Confirmed By:Tylor Ly
== END 2024-06-30 17:13 | disposition short-term general hospital (02) | DRG 335 ==
LOC: ED 18:07 → SUATTDRO 23:03 → 4W 23:03 → 1E 06-28 02:00